=== PATIENT | female | born 1945 | race Caucasian/White ===

== ENCOUNTER → 2017-10-11 15:36 | Outpatient (CLI) | payer MEDICARE, OTHER, SELFPAY ==
--- NOTE | 2017-10-11 15:41 | HPBD_ITS ---
STUDY: DUAL ENERGY X-RAY ABSORPTIOMETRY / DXA REASON FOR EXAM: Female, 72 years old. The patient is postmenopausal. Loss of height. TECHNIQUE: Bone Mineral Density (BMD) measurements of lumbar spine and bilateral hips were obtained. COMPARISON: Comparison is made with prior study dated October 05, 2015. FINDINGS: Lumbar Spine (L1-L4): g/cm2 (1.025) / T-score (-1.5) / Z-score (0.2) Findings are suggestive of osteopenia with a moderate fracture risk. Left Femur Total: g/cm2 (0.712) / T-score (-2.3) / Z-score (-0.9) Left Femoral Neck: g/cm2 (0.592) / T-score (-3.2) / Z-score (-1.5) Right Femur Total: g/cm2 (0.742) / T-score (-2.1) / Z-score (-0.6) Right Femoral Neck: g/cm2 (0.679) / T-score (-2.6) / Z-score (-0.9) The T-Scores on the most recent prior examination were: Lumbar Spine (L1-L4): There has been worsening of bone density since the previous examination. Left Femur Total: which represents a worsening of 9.6%. Right Femur Total: which represents a worsening of 7.0%. HPBD/Dexa Bone Density Study (HP) IMPRESSION: The patient is considered osteoporotic as outlined below according to World [place] Organization (WHO) criteria with a high fracture risk. There has been worsening of bone density since the previous examination. Reference Information: The T-score is the number of standard deviations above or below the standard which is normal for young adults at their peak bone mineral density. The World Health Organization (WHO) interprets the T-scores as follows: Above -1 Normal bone density Between -1 and -2.5 Osteopenia Equal to / or below -2.5 Osteoporosis As a practical clinical guideline, osteopenia may be graded as follows: Mild -1 through -1.5 Moderate -1.6 through -2.0 Severe -2.1 through -2.4 The Z-score is the number of standard deviations above or below age-matched controls. A Z-score of less than -1.5 would be considered abnormal. References: 1. NIH Osteoporosis and Related Bone Diseases http://www.osteo.org 2. International Society for Clinical Densitometry http://www.iscd.org 3. National Osteoporosis Foundation http://www.nof.org Electronically Signed: Gerald Mg MD at 10:57 EDT Tel [phone], Service support ,
== END ==
PROVIDERS: Family Provider Family Medicine Geriatric Medicine; PCP Family Medicine Geriatric Medicine; Visit Provider Family Medicine Geriatric Medicine
DX: M81.0 Age-related osteoporosis without current pathological fracture (principal); Z78.0 Asymptomatic menopausal state
CPT/HCPCS: 77080

== ENCOUNTER → 2017-10-19 16:35 | Outpatient (CLI) | payer MEDICARE, OTHER, SELFPAY | PROVIDERS: Family Provider Family Medicine Geriatric Medicine; PCP Family Medicine Geriatric Medicine; Visit Provider Obstetrics & Gynecology | DX: R30.0 Dysuria (principal) | CPT/HCPCS: 87086; 87088; 87186 ==

== ENCOUNTER → 2017-11-19 12:36 | Outpatient (CLI) | payer MEDICARE, OTHER, SELFPAY ==
--- NOTE | 2017-11-19 12:46 | RAD_ITS ---
STUDY: X-RAY - LEFT SHOULDER REASON FOR EXAM: Female, 72 years old. Left shoulder pain for 1 month numbness pain left arm TECHNIQUE: 4 view(s) of the shoulder. COMPARISON: None. FINDINGS: There is mild degenerative arthrosis of the glenohumeral articulation. Normal acromioclavicular joint. Normal acromion. There is a well-circumscribed calcific density in the proximal left humerus measuring 2.8 mm. The soft tissue structures are unremarkable. There are multiple calcific densities within the superior aspect of the left apex. There are visualized emphysematous blebs in the left lung. RAD/Shoulder min 2 Views IMPRESSION: Findings suspicious for old granulomatous disease of the left chest. Findings suspicious for emphysematous change apex. Mild Degenerative change glenohumeral joint. No visualized evidence of an acute fracture. Benign calcific density the soft tissues or left humerus. Electronically Signed: Alicia Higgins MD at 16:57 EDT Tel , Service support ,
== END ==
PROVIDERS: Family Provider Family Medicine Geriatric Medicine; PCP Family Medicine Geriatric Medicine; Visit Provider Family Medicine Geriatric Medicine
DX: M19.012 Primary osteoarthritis, left shoulder (principal)
CPT/HCPCS: 73030

== ENCOUNTER → 2017-11-24 06:44 | Outpatient (CLI) | payer MEDICARE, OTHER, SELFPAY ==
--- NOTE | 2017-11-24 06:56 | CT_ITS ---
STUDY: CT CHEST WITHOUT CONTRAST REASON FOR EXAM: Female, 72 years old. Abnormal chest x-ray left arm pain Granulomatous disease. Occasional shortness of breath. RADIATION DOSAGE (If Supplied By Facility): CTDIvol = ( 8.05 ) mGy, DLP = ( 267.57 ) mGycm TECHNIQUE: Transaxial imaging was performed without the administration of intravenous contrast material. Multiplanar coronal and sagittal images were reformatted. Individualized dose optimization techniques were used for this CT. July 14, 2013 chest x-ray COMPARISON: November 09, 2016 chest x-ray FINDINGS: There is an asymmetric nodular appearance of the inferior aspect of the thyroid measuring 1.5 x 1.0 cm. There is persistent bilateral peripheral pleural nodular thickening containing coarse calcification similar to the prior studies. Within the periphery of the left upper lobe there is a peripheral nodular focus without calcification measuring 1.1 x 0.9 cm. This area is likely the peripheral nodular thickening seen July 14, 2013 on the chest x-ray as well as the November 09, 2016 study. There is trace bilateral pleural thickening at the lung bases. There is stable focal nodular thickening in the right apex and periphery that measures 0.9 x 0.9 cm. There is peripheral nodular thickening within the right middle lobe also similar to the remote prior study measuring 5.3 mm. There is no focal consolidation or pleural effusion. There is no significant bronchiectasis or areas of emphysematous change. There is mild cardiac enlargement. There are partially calcified lymph nodes present is a precarinal lymph node measuring 1.3 x 1.1 cm. And multiple subcentimeter prevascular lymph nodes present. Punctate calcifications in the left hilum associated with a lymph node measuring up to 1.0 x 1.0 cm. Normal unenhanced pulmonary arteries. Aorta is tortuous. The bones are osteopenic. There is multilevel spondylosis. There is either calcification or postoperative change allowing for artifact near the gastroesophageal junction. There is degenerative change in the bilateral glenohumeral joints. There are left-sided peripelvic cysts. There is a punctate parenchymal calcification in the left kidney. CT/Chest without Contrast IMPRESSION: Findings are most consistent with peripheral nodular calcification and pleural thickening associated with old granulomatous disease possible prior asbestos exposure. Given the nodular component recommend 6 months follow-up to ensure stability. Mild cardiomegaly. Nodular appearance of the inferior aspect of the right thyroid recommend further evaluation with thyroid ultrasound when clinically appropriate. Left-sided renal peripelvic cysts. Punctate peripheral right renal calcification. Degenerative change thoracolumbar spine bilateral glenohumeral joints. Electronically Signed: Alicia Higgins MD at 9:03 EDT Tel , Service support ,
== END ==
PROVIDERS: Family Provider Family Medicine Geriatric Medicine; PCP Family Medicine Geriatric Medicine; Visit Provider Family Medicine Geriatric Medicine
DX: L98.0 Pyogenic granuloma (principal)
CPT/HCPCS: 71250

== ENCOUNTER → 2017-12-04 10:47 | Outpatient (CLI) | payer MEDICARE, OTHER, SELFPAY ==
--- NOTE | 2017-12-04 10:49 | US_ITS ---
STUDY: THYROID ULTRASOUND REASON FOR EXAM: Female, 72 years old. Follow-up of the thyroid after abnormal CT TECHNIQUE: Ultrasound evaluation of the thyroid was performed with real-time and static parekh-scale imaging. COMPARISON: CT of the chest dated November 24, 2017. FINDINGS: RIGHT LOBE: The right lobe of the thyroid gland measures 4.6 x 1.5 x 1.7 cm. There is a homogeneous echotexture. There are multiple cystic lesions in the right lobe of thyroid. The largest cystic lesion measures 9.1 x 3.8 x 6.6 mm. There is a heterogeneously echogenic solid lesion within the lower pole the right lobe of thyroid measuring 8.1 x 6.0 x 7 mm in size. There are several other solid lesions with the largest measuring up to 9.8 x 5.0 x 7.7 mm. There are smaller cystic lesions measuring up to 3 mm in size. LEFT LOBE: The left lobe of the thyroid gland measures 3.5 x 1.1 x 1.3 cm. There is a heterogeneous echotexture. There is a cystic lesion within the left lobe of thyroid measuring 5.6 x 3.4 x 3.0 mm. A second cyst measures 8.2 x 3.8 x 5.2 mm. ISTHMUS: The isthmus measures 2 millimeters. The regional lymph nodes are normal. US/Thyroid IMPRESSION: Right-sided thyroid nodules, as described. Electronically Signed: Patricia Loza MD at 9:36 EDT , Service support ,
== END ==
PROVIDERS: Family Provider Family Medicine Geriatric Medicine; PCP Family Medicine Geriatric Medicine; Visit Provider Family Medicine Geriatric Medicine
DX: E04.1 Nontoxic single thyroid nodule (principal)
CPT/HCPCS: 76536

== ENCOUNTER → 2018-02-08 12:30 | Outpatient (CLI) | payer MEDICARE, OTHER, SELFPAY | PROVIDERS: Family Provider Family Medicine Geriatric Medicine; PCP Family Medicine Geriatric Medicine; Visit Provider Family Medicine Geriatric Medicine | DX: R68.83 Chills (without fever) (principal) | CPT/HCPCS: 87633 ==

== ENCOUNTER → 2018-03-11 12:52 | Outpatient (CLI) | payer MEDICARE, OTHER, SELFPAY | PROVIDERS: Family Provider Family Medicine Geriatric Medicine; PCP Family Medicine Geriatric Medicine; Visit Provider Obstetrics & Gynecology | DX: Z12.31 Encounter for screening mammogram for malignant neoplasm of breast (principal) | CPT/HCPCS: 77063; 77067 ==

== ENCOUNTER → 2018-05-28 15:38 | Outpatient (CLI) | payer MEDICARE, OTHER, SELFPAY ==
--- NOTE | 2018-05-28 15:40 | CT_ITS ---
STUDY: CT CHEST WITH CONTRAST REASON FOR EXAM: Female, 73 years old. Solitary pulmonary nodule follow-up. RADIATION DOSAGE (If Supplied By Facility): CTDIvol = ( 11.96 ) mGy, DLP = ( 252.34 ) mGycm TECHNIQUE: Transaxial 2.5 mm imaging was performed following intravenous administration of 100 ml of Isovue 300 contrast material. Multiplanar coronal and sagittal images were reformatted. Individualized dose optimization techniques were used for this CT. COMPARISON: CT chest 11/24/2017. FINDINGS: Bilateral apical pleural thickening and stranding associated with punctate calcification, numerous bilateral scattered parenchymal nodules. There is a stable pleural-based right middle lobe nodule 0.5 cm. There are linear interstitial changes in the lung bases as on previous examination felt to be secondary to scarring. There is minor compression of the dependent parenchyma. Stable mild pleural thickening left lower thorax. There is borderline cardiomegaly. There are multiple mediastinal lymph nodes some of which are borderline in size, some of which are partially calcified, seen to a similar degree on previous examination.. There is wall thickening of the esophagus. Surgical changes at the gastroesophageal junction. Normal hilar regions. Normal enhanced pulmonary arteries. Normal aorta arch and descending thoracic aorta. There are multi-level degenerative changes of the thoracic spine. There is demineralization of osseous structures. Levoscoliosis of the thoracolumbar spine. There are left renal cysts. Normal adrenal glands. CT/Chest WITH Contrast IMPRESSION: Multiple nodular and linear interstitial changes with peripheral calcification frequently seen post inflammation such as granulomatous exposure, differential diagnosis asbestos exposure. There are stable multiple noncalcified parenchymal nodules, borderline sized mediastinal lymph nodes some of which are calcified. No new masses or suspicious lesions detected. No pulmonary edema, congestive heart failure or confluent pneumonia. Stable degenerative changes, osteopenia, borderline cardiac size, postsurgical changes, mild pleural thickening, mild wall prominence of the esophagus and scoliosis. CT Follow-Up of Small Pulmonary Nodules Nodule size is average of length and width. Nodule size. Low risk patient. Non smoking history. <4mm No follow-up needed (risk of malignancy <1%) 4-6mm Follow up CT at 12 months, if unchanged, no further imaging needed. 6-8mm Initial follow up at 6-12 month, then at 18-24 months if no changes. > 8mm Follow-up CT at 3, 9, and 24 months, dynamic contrast CT, PET and /or biopsy. Nodule size. High risk patients. Smoking history. <4mm Follow-up 12 months: if unchanged, no further follow-up. 4-6mm Initial follow-up at 6-12 months,then at 18-24 months if no change. 6-8mm Initial follow-up at 3-6months, then at 9-12 and 24 months if no change. >8mm Same as for low risk patient. [employer] STATEMENT Electronically Signed: Diamond Hassan MD at 7:31 EDT , Service support ,
[2018-05-28 15:56] LABS: CREATININE FINGERSTICK 0.9 mg/dL (0.55-1.02); EGFR FINGERSTICK > 60.0000 mL/min (>60)
== END ==
PROVIDERS: Family Provider Family Medicine Geriatric Medicine; PCP Family Medicine Geriatric Medicine; Referring Provider Family Medicine Geriatric Medicine; Visit Provider Family Medicine Geriatric Medicine
DX: R91.8 Other nonspecific abnormal finding of lung field (principal)
CPT/HCPCS: 71260; Q9967

== ENCOUNTER → 2018-06-28 09:50 | Outpatient (CLI) | payer MEDICARE, OTHER, SELFPAY ==
[2018-06-28 12:22] LABS: Absolute Lymphocyte Count 1.22 X10^3/ul (0.83-4.51); Absolute Neutrophil Count 3.4 X10^3/uL (2.0-7.7); Basophil# 0.03 X10^3/uL; Basophil% 0.6 % (0-1); Eosinophil# 0.14 X10^3/uL; Eosinophils% 2.6 % (0-5); Hematocrit 40.7 % (37-47); Hemoglobin 13.3 g/dl (12.0-15.0); Lymphocyte # 1.22 X10^3/ul (4.0); Lymphocyte % 22.4 % (19-41); Mean Corp Hgb Conc 32.7 g/gl (32-36); Mean Corpuscular Hgb 30.5 pg (27.0-32.0); Mean Corpuscular Volume 93.3 fL (81-99); Monocyte# 0.68 X10^3/uL; Monocyte% 12.5 % (0-10); Neutrophil # 3.37 X10^3/uL (2.7-7.7); Neutrophil % 61.9 % (47-70); Platelet Count 202 K/mm3 (150-450); RBC Distribution Width CV 12.8 % (11.6-14.6); RBC Distribution Width SD 42.5 fl (35.1-43.9); Red Blood Count 4.36 M/mm3 (4.2-5.4); White Blood Count 5.4 K/mm3 (4.4-11.0)
[2018-06-28 12:28] LABS: POSITIVE COUNT NO; POSITIVE DIFFERENTIAL NO; POSITIVE MORPHOLOGY NO
[2018-06-28 12:30] LABS: Vitamin D,25 Hydroxy 55.7 ng/mL (29.95-100.01)
[2018-06-28 12:45] LABS: ALB/GLOB Ratio 0.9 RATIO (0.9-2.4); AST(SGOT) 15 U/L (15-37); Alanine Aminotransfer ALT/SGPT 22 U/L (13-56); Albumin, Serum 3.5 g/dL (3.2-5.0); Alkaline Phosphatase 54 U/L (45-117); Anion Gap 8 (5-15); BUN 20 mg/dL (7-18); Calcium,Total 9.4 mg/dL (8.5-10.1); Chloride 104 mmol/L (98-107); Creatinine, Serum 0.84 mg/dL (0.55-1.02); EST Glomerular Filtration Rate 72 mL/min (>60); Est Glom Filt Rate - Afr Amer 87 mL/min (>60); Globulin 3.8 g/dL (2.2-4.2); Glucose 80 mg/dL (74-106); Protein, Total 7.3 g/dL (6.4-8.2); Sodium Level 140 mmol/L (136-145); Thyroid Stim Hormone (TSH) 2.07 uIU/mL (0.358-3.74)
--- OUTSIDE RECORDS SUMMARY | 2018-08-23 04:51 | XMS RPT_ITS ---
:1945 Author Organization OHIP Support Name Relationship Address Phone MANDY LION Unavailable [address] + [place] [address] S Unavailable Unavailable Unavailable MANDY LION Unavailable [address] + [place] [address] S Unavailable Unavailable Unavailable MANDY LION Unavailable [address] + [place] [address] S Unavailable Unavailable Unavailable MANDY LION Unavailable [address] + [place] [address] S Unavailable Unavailable Unavailable MANDY LION Unavailable [address] + [place] [address] S Unavailable Unavailable Unavailable MANDY LION Unavailable [address] + [place] [address] S Unavailable Unavailable Unavailable MANDY LION Unavailable [address] + [place] [address] S Unavailable Unavailable Unavailable MANDY LION Unavailable [address] + [place] [address] S Unavailable Unavailable Unavailable MANDY LION Unavailable [address] + [place] [address] S Unavailable Unavailable Unavailable MANDY LION Unavailable [address] + [place] [address] S Unavailable Unavailable Unavailable MANDY LION Unavailable [address] + [place] [address] S Unavailable Unavailable Unavailable MANDY LION Unavailable [address] + [place] [address] S Unavailable Unavailable Unavailable MANDY LION Unavailable [address] + [place] [address] S Unavailable Unavailable Unavailable Care Team Providers Name Role Phone Aleta Goldman Attending Unavailable Willis, Deondre Chi Primary Care Unavailable Willis, Deondre Chi Attending Unavailable Willis, Deondre Chi Primary Care Unavailable Willis, Deondre Chi Attending Unavailable Willis, Deondre Chi Primary Care Unavailable Willis, Deondre Chi Referring Unavailable MarcanthonyRicardoon Attending Unavailable Willis, Deondre Chi Primary Care Unavailable Willis, Deondre Chi Attending Unavailable Willis, Deondre Chi Referring Unavailable Willis, Deondre Chi Primary Care Unavailable MarcanthonyAngi Attending Unavailable Willis, Deonrde Chi Referring Unavailable Willis, Deondre Chi Attending Unavailable Willis, Deondre Chi Referring Unavailable Willis, Deondre Chi Primary Care Unavailable Willis, Deondre Chi Attending Unavailable Willis, Deondre Chi Primary Care Unavailable Willis, Deondre Chi Attending Unavailable Willis, Deondre Chi Primary Care Unavailable Marcanthony Angi Attending Unavailable Willis, Deondre Chi Primary Care Unavailable MarcanthonyRicardoon Referring Unavailable MarcanthonyRicardoon Attending Unavailable Willis, Deondre Chi Referring Unavailable Willis, Deondre Chi Attending Unavailable Willis, Deondre Chi Referring Unavailable Willis, Deondre Chi Primary Care Unavailable [place], Aleta Attending Unavailable Willis, Deondre Chi Referring Unavailable PROBLEMS PROBLEMS DATE TYPE CONDITION / CODE ATTENDING STATUS SOURCE 07/16/2018 Unknown N39.0 - Urinary Susi, Aleta Active [place] tract infection, Community site not specified Hospital / N39.0(ICD-10) Repository 07/16/2018 Unknown R35.0 - Frequency Susi, Aleta Active [place] of micturition / Community R35.0(ICD-10) Hospital Repository 02/08/2018 Unknown R68.83 - Chills Willis, Deondre Chi Active [place] (without fever) / Community R68.83(ICD-10) Hospital Repository 11/24/2017 Unknown L98.0 - Pyogenic Willis, Deondre Chi Active [place] granuloma / Community L98.0(ICD-10) Hospital Repository 10/22/2017 Unknown R30.0 - Dysuria / Marcanthony, Active [place] R30.0(ICD-10) [facility] Repository 10/11/2017 Unknown Z78.0 - Willis, Deondre Chi Active [place] Asymptomatic Community menopausal state / Hospital Z78.0(ICD-10) Repository PROCEDURES PROCEDURES No Procedure Records FoundRESULTS RESULTS SHELTER DIRECTOR OFFICE VISIT Observed: 07/16/2018 Status: F Source: [place] REPORT 2:09 PM [facility] [place] [facility] [address] [place] [address] OFFICE VISIT Date of Service: 07/16/18 MR#: [id number] Acct: [id number] Name: KALPANA LION Rep #: [id number] : 1945 Provider: GURPREET Goldman Age/Sex: 73/F Location: [facility] Status: Signed Intake Vital Signs07/16/18 Height 5 ft 2.75 in 07/16/18 Weight: 143 lb 8 oz 07/16/18 Body Mass Index (BMI) 25.6 07/16/18 Blood Pressure 110/78 Intake Visit Reasons: Urinary frequency x6 months 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 Is patient in pain?: No Allergies nut - unspecified Allergy (Verified 07/16/18 13:39) Anaphylaxis procaine HCl [From Novocain] Allergy (Verified 07/16/18 13:39) Angioedema acetaminophen [From Vicodin] Adverse Reaction (Verified 07/16/18 13:39) Other alprazolam [From Xanax] Adverse Reaction (Verified 07/16/18 13:39) Other amoxicillin Adverse Reaction (Verified 07/16/18 13:39) Other hydrocodone bitartrate [From Vicodin] Adverse Reaction (Verified 07/16/18 13:39) Other metaxalone [From Skelaxin] Adverse Reaction (Verified 07/16/18 13:39) Other nabumetone Adverse Reaction (Verified 07/16/18 13:39) Other prednisone Adverse Reaction (Verified 07/16/18 13:39) Other NOVICANE Allergy (Uncoded 11/10/15 12:51) Angioedema Medications cholecalciferol (vitamin D3) 1,000 unit capsule 1,000 unit PO DAILY 07/16/18 [History Confirmed 07/16/18] citalopram 10 mg tablet 10 mg PO DAILY 07/16/18 [History Confirmed 07/16/18] cyanocobalamin (vitamin B-12) 1,000 mcg capsule 1,000 mcg PO DAILY 07/16/18 [History Confirmed 07/16/18] Is last menstrual period known: No Post menopausal: No Patient : No : No [facility] Medical History Acute hemorrhoid (Acute) Spinal stenosis (Acute) Surgical History History of tonsillectomy and adenoidectomy (Acute) Social History number of children: 2 other: children are step-children Smoking Status: Former smoker how long ago did patient quit smokin alcohol intake: current alcohol intake frequency: holidays/special occasions only substance use type: does not use seatbelt use: always do you feel safe at home: Yes HPI Urinary frequency x6 months: Details: KALPANA LION is a 73 year old who presents for urinary frequency X 6 months. States that she feels urge to go every 1-3 hours and sometimes only goes small amounts. Gets up at night 1-2 times. States that if she sees a restroom has urge to go. States rarely has incontinence. Denies dysuria or vaginal symptoms Pregancy History 0 Elective abortions Hx Para Spontaneous abortions Assessment AND Plan Problems 1. Urinary frequency R35.0 Plan Urine culture sent-call results Discussed bladder training, use of ditropan(risks, side effects, benefits) She wishes to defer mediation 15 min FTF counseling with patient. Orders Orders: Coding Level of Care Code Off vis,est,level 3 Diagnoses Urinary frequency R35.0 07/16/18 1409 <Electronically signed by Aleta KAY> Date Aleta KAY Cosigner Signature: Date (if applicable) CC: CBC W/DIFF, AUTOMATED Collected: 06/28/2018 Status: F Source: [place] 9:52 AM [facility] [place] TYPE CODE TESTS RESULT OUT OF RANGE REFERENCE UNITS LAB L100.1000 4.4-11.0 K/mm3 Normal WBC 5.4 LAB L100.1200 4.2-5.4 M/mm3 Normal RBC 4.36 LAB L100.1300 12.0-15.0 g/dl Normal HGB 13.3 LAB L100.1400 37-47 % Normal HCT 40.7 LAB L100.1500 81-99 fL Normal MCV 93.3 LAB L100.1600 27.0-32.0 pg Normal MCH 30.5 LAB L100.1700 32-36 g/gl Normal MCHC 32.7 LAB L100.1810 11.6-14.6 % Normal RDW CV 12.8 LAB L100.1820 35.1-43.9 fl Normal RDW SD 42.5 LAB L100.1900 150-450 K/mm3 Normal PLT 202 LAB L100.2000 6.2-12.0 fl Normal MPV 11.0 LAB L100.2100 47-70 % Normal NEUT% 61.9 LAB L100.2200 19-41 % Normal LY% 22.4 LAB L100.2300 0-10 % High MONO% 12.5 LAB L100.2400 0-5 % Normal EO% 2.6 LAB L100.2500 0-1 % Normal BASO% 0.6 LAB L100.2550 0.0-0.9 % Normal IM GRAN % 0.000 Result Comment: IG% - Immature Granulocytes (promyelocytes, myelocytes and metamyelocytes) > 1% indicates that a LEFT SHIFT is Present. LAB L100.2620 2.0-7.7 X10 3/uL Normal Absolute Neut 3.4 LAB L100.2720 0.83-4.51 X10 3/ul Normal Absolute Lymph 1.22 Performed By: #### L100.0100 #### [facility] [address] [place] [address]. [place], [place], [id number] VITAMIN D,25 HYDROXY Collected: 06/28/2018 Status: F Source: [place] 9:52 AM [facility] [place] TYPE CODE TESTS RESULT OUT OF RANGE REFERENCE UNITS LAB L506.1000 29.95-100.01 ng/mL Normal Vitamin D 55.7 25-OH Result Comment: Vitamin D 25(OH) Status Range Deficiency <20 ng/mL (50nmol/L) Insuffciency 20 - 30 ng/mL (50 - 75 nmol/L) Sufficiency 30 - 100 ng/mL (75 - 250 nmol/L) Toxicity >100 ng/mL (>250 nmol/L) Performed By: #### L506.1000 #### [facility] [place], [address] COMPREHENSIVE METABOLIC Collected: 06/28/2018 Status: F Source: [place] 9:52 AM [facility] [place] TYPE CODE TESTS RESULT OUT OF RANGE REFERENCE UNITS LAB L501.0100 74-106 mg/dL Normal GLU 80 Result Comment: Please note revised GLUCOSE reference range effective 2017. LAB L501.1000 7-18 mg/dL High BUN 20 LAB L501.1100 0.55-1.02 mg/dL Normal CREAT,SERUM 0.84 Result Comment: The validity of the calculated GFR AND GFRAA in patients over 70 years has not been determined. Clinical correlation is essential. LAB L501.1110 >60 mL/min Normal EST GFR 72 Result Comment: Non- GFR Calc LAB L501.1115 >60 mL/min Normal EST GFR - AA 87 Result Comment: GFR Calc LAB L501.1300 10-20 RATIO High BUN/CRE 24.0 LAB L501.1500 6.4-8.2 g/dL T Normal PROT 7.3 LAB L501.1800 3.2-5.0 g/dL Normal ALB 3.5 LAB L501.1950 2.2-4.2 g/dL Normal GLOB 3.8 LAB L501.2000 0.9-2.4 RATIO Normal A/G 0.9 LAB L501.2200 8.5-10.1 mg/dL CA Normal 9.4 LAB L501.4100 15-37 U/L Normal AST 15 LAB L501.4305 45-117 U/L Normal ALK P 54 LAB L501.4405 13-56 U/L Normal ALT 22 LAB L501.4600 0.20-1.00 mg/dL T Normal BILI 0.40 LAB L501.5300 136-145 mmol/L NA Normal 140 LAB L501.5600 3.5-5.1 mmol/L K Normal 4.0 LAB L501.5900 98-107 mmol/L CL Normal 104 LAB L501.6100 21.0-32.0 mmol/L Normal CO2 28.0 LAB L501.6200 5-15 Normal GAP 8 Performed By: #### L500.4050, L501.9520 #### [facility] [address] [place], [address] THYROID STIM HORMONE Collected: 06/28/2018 Status: F Source: [place] (TSH) 9:52 AM [facility] [place] TYPE CODE TESTS RESULT OUT OF RANGE REFERENCE UNITS LAB L501.9520 0.358-3.74 uIU/mL Normal TSH 2.07 Performed By: #### L500.4050, L501.9520 #### [facility] [address] [place], [address] CREATININE FINGERSTICK Collected: 05/28/2018 Status: F Source: [place] 3:50 PM [facility] [place] [facility] TYPE CODE TESTS RESULT OUT OF RANGE REFERENCE UNITS LAB L9100.0210 0.55-1.02 mg/dL Normal CREATININE WB 0.9 LAB L9100.0220 >60 mL/min EGFR WB Normal > 60.0000 Performed By: #### L9100.0200 #### [facility] Point of Care [address] [place] [address] CHEST WITH CONTRAST Observed: 05/28/2018 Status: F Source: [place] 3:41 PM [facility] [place] [facility] Imaging Services [address] [place] [address] Chest WITH Contrast MR#: [id number] Acct: [id number] Name: KALPANA LION Rep #: [id number] : 1945 F 73 From: Diamond Hassan MD PCP: Deondre Pedro MD, Chi Status: REG CLI Study: Chest WITH Contrast Date of Exam: 05/28/18 Exam# [id number] Ordering Dr: Deondre Pedro MD STUDY: CT CHEST WITH CONTRAST REASON FOR EXAM: Female, 73 years old. Solitary pulmonary nodule follow-up. RADIATION DOSAGE (If Supplied By Facility): CTDIvol = ( 11.96 ) mGy, DLP = ( 252.34 ) mGycm TECHNIQUE: Transaxial 2.5 mm imaging was performed following intravenous administration of 100 ml of Isovue 300 contrast material. Multiplanar coronal and sagittal images were reformatted. Individualized dose optimization techniques were used for this CT. COMPARISON: CT chest 11/24/2017. FINDINGS: Bilateral apical pleural thickening and stranding associated with punctate calcification, numerous bilateral scattered parenchymal nodules. There is a stable pleural-based right middle lobe nodule 0.5 cm. There are linear interstitial changes in the lung bases as on previous examination felt to be secondary to scarring. There is minor compression of the dependent parenchyma. Stable mild pleural thickening left lower thorax. There is borderline cardiomegaly. There are multiple mediastinal lymph nodes some of which are borderline in size, some of which are partially calcified, seen to a similar degree on previous examination.. There is wall thickening of the esophagus. Surgical changes at the gastroesophageal junction. Normal hilar regions. Normal enhanced pulmonary arteries. Normal aorta arch and descending thoracic aorta. There are multi-level degenerative changes of the thoracic spine. There is demineralization of osseous structures. Levoscoliosis of the thoracolumbar spine. There are left renal cysts. Normal adrenal glands. CT/Chest WITH Contrast IMPRESSION: Multiple nodular and linear interstitial changes with peripheral calcification frequently seen post inflammation such as granulomatous exposure, differential diagnosis asbestos exposure. There are stable multiple noncalcified parenchymal nodules, borderline sized mediastinal lymph nodes some of which are calcified. No new masses or suspicious lesions detected. No pulmonary edema, congestive heart failure or confluent pneumonia. Stable degenerative changes, osteopenia, borderline cardiac size, postsurgical changes, mild pleural thickening, mild wall prominence of the esophagus and scoliosis. CT Follow-Up of Small Pulmonary Nodules Nodule size is average of length and width. Nodule size. Low risk patient. Non smoking history. <4mm No follow-up needed (risk of malignancy <1%) 4-6mm Follow up CT at 12 months, if unchanged, no further imaging needed. 6-8mm Initial follow up at 6-12 month, then at 18-24 months if no changes. > 8mm Follow-up CT at 3, 9, and 24 months, dynamic contrast CT, PET and /or biopsy. Nodule size. High risk patients. Smoking history. <4mm Follow-up 12 months: if unchanged, no further follow-up. 4-6mm Initial follow-up at 6-12 months,then at 18-24 months if no change. 6-8mm Initial follow-up at 3-6months, then at 9-12 and 24 months if no change. >8mm Same as for low risk patient. [employer] STATEMENT Electronically Signed: Diamond Hassan MD at 7:31 EDT , Service support , CC: Denodre Pedro MD Sdc Teacher: Signed SCREENING MAMM (CAD), Observed: 03/11/2018 Status: F Source: [place] BIL 12:54 PM [facility] [place] [facility] Imaging Services [address] [place] [address] SCREENING MAMM (CAD), BILAT MR#: [id number] Acct: [id number] Name: KALPANA LION Rep #: [id number] : 1945 F 72 From: Gerald Mg MD PCP: Willis WALLACE,Deondre Bill Status: REG CLI Study: SCREENING MAMM (CAD), BILAT Date of Exam: 03/11/18 Exam# [id number] Ordering Dr: Angi Rasmussen MD MAMMOGRAPHY - BILATERAL SCREENING REASON FOR EXAM: Female, 72 years old. Routine annual screening examination. PERTINENT HISTORY: Non-contributory. TECHNIQUE: Digital bilateral breast brian (3D mammographic acquisition) in the CC and MLO projections. 2-D mediolateral oblique (MLO) and craniocaudad (CC) views of both breasts were obtained. CAD: Full Field Digital Mammography with Computer Added Detection was performed. COMPARISON: Comparison is made with prior study dated March 09, 2017. FINDINGS: Breast Composition: The breasts are heterogeneously dense, which may obscure small masses. There are no dominant masses or suspicious calcifications. No other significant abnormalities are identified. There has been no significant change since the prior study. BI/SCREENING MAMM (CAD), BILAT IMPRESSION: Stable bilateral screening mammogram. Yearly follow-up mammogram recommended. (A) ASSESSMENT CATEGORY: BIRADS Category 1: Negative. A letter regarding these results will be sent to the patient by the facility within 30 days. Approximately 10% of breast cancers are not detected by mammography. A normal mammogram should not delay biopsy of a clinically suspicious abnormality. [id number] Electronically Signed: Gerald Mg MD at 8:41 EDT Tel [phone], Service support , CC: Angi Rasmussen MD; Deondre Pedro MD Sdc Teacher: Signed Observed: 02/08/2018 Status: F Source: [place] RESPIRATORY PANEL 12:45 PM [facility] [place] [facility] RP PANEL ADENOVIRUS Not Detected HUMAN METAPHNEUMO Not Detected INFLUENZA A Not Detected INFLUENZA A (SUBTYPE H1) Not Detected INFLUENZA A (SUBTYPE H3) Not Detected INFLUENZA B Not Detected PARAINFLUENZA 1 Not Detected PARAINFLUENZA 2 Not Detected PARAINFLUENZA 3 Not Detected PARAINFLUENZA 4 Not Detected RHINOVIRUS Not Detected RSV A Not Detected RSV B Not Detected NAAT METHOD Testing was performed using nucleic acid amplification Performed By: #### M100.638 #### [facility] [address] [place] [address]. [place], [address] THYROID Observed: 12/04/2017 Status: F Source: [place] 10:49 AM [facility] [place] [facility] Imaging Services [address] [place] [address] Thyroid MR#: [id number] Acct: [id number] Name: LIONKALPANA Leigh Ann Rep #: [id number] : 1945 F 72 From: Patricia Loza MD PCP: Willis WALLACE,Deondre Bill Status: REG CLI Study: Thyroid Date of Exam: 12/04/17 Exam# [id number] Ordering Dr: Deondre Pedro MD STUDY: THYROID ULTRASOUND REASON FOR EXAM: Female, 72 years old. Follow-up of the thyroid after abnormal CT TECHNIQUE: Ultrasound evaluation of the thyroid was performed with real-time and static parekh-scale imaging. COMPARISON: CT of the chest dated November 24, 2017. FINDINGS: RIGHT LOBE: The right lobe of the thyroid gland measures 4.6 x 1.5 x 1.7 cm. There is a homogeneous echotexture. There are multiple cystic lesions in the right lobe of thyroid. The largest cystic lesion measures 9.1 x 3.8 x 6.6 mm. There is a heterogeneously echogenic solid lesion within the lower pole the right lobe of thyroid measuring 8.1 x 6.0 x 7 mm in size. There are several other solid lesions with the largest measuring up to 9.8 x 5.0 x 7.7 mm. There are smaller cystic lesions measuring up to 3 mm in size. LEFT LOBE: The left lobe of the thyroid gland measures 3.5 x 1.1 x 1.3 cm. There is a heterogeneous echotexture. There is a cystic lesion within the left lobe of thyroid measuring 5.6 x 3.4 x 3.0 mm. A second cyst measures 8.2 x 3.8 x 5.2 mm. ISTHMUS: The isthmus measures 2 millimeters. The regional lymph nodes are normal. US/Thyroid IMPRESSION: Right-sided thyroid nodules, as described. Electronically Signed: Patricia Loza MD at 9:36 EDT , Service support , CC: Deondre Pedro MD Sdc Teacher: Signed CHEST WITHOUT Observed: 11/24/2017 Status: F Source: [place] CONTRAST 6:56 AM [facility] [place] [facility] Imaging Services [address] [place] [address] Chest without Contrast MR#: [id number] Acct: [id number] Name: KALPANA LION Rep #: [id number] : 1945 F 72 From: Alicia Higgins MD PCP: Willis WALLACE,Deondre Bill Status: REG CLI Study: Chest without Contrast Date of Exam: 11/24/17 Exam# [id number] Ordering Dr: Deondre Pedro MD STUDY: CT CHEST WITHOUT CONTRAST REASON FOR EXAM: Female, 72 years old. Abnormal chest x- ray left arm pain Granulomatous disease. Occasional shortness of breath. RADIATION DOSAGE (If Supplied By Facility): CTDIvol = ( 8.05 ) mGy, DLP = ( 267.57 ) mGycm TECHNIQUE: Transaxial imaging was performed without the administration of intravenous contrast material. Multiplanar coronal and sagittal images were reformatted. Individualized dose optimization techniques were used for this CT. July 14, 2013 chest x-ray COMPARISON: November 09, 2016 chest x-ray FINDINGS: There is an asymmetric nodular appearance of the inferior aspect of the thyroid measuring 1.5 x 1.0 cm. There is persistent bilateral peripheral pleural nodular thickening containing coarse calcification similar to the prior studies. Within the periphery of the left upper lobe there is a peripheral nodular focus without calcification measuring 1.1 x 0.9 cm. This area is likely the peripheral nodular thickening seen July 14, 2013 on the chest x-ray as well as the November 09, 2016 study. There is trace bilateral pleural thickening at the lung bases. There is stable focal nodular thickening in the right apex and periphery that measures 0.9 x 0.9 cm. There is peripheral nodular thickening within the right middle lobe also similar to the remote prior study measuring 5.3 mm. There is no focal consolidation or pleural effusion. There is no significant bronchiectasis or areas of emphysematous change. There is mild cardiac enlargement. There are partially calcified lymph nodes present is a precarinal lymph node measuring 1.3 x 1.1 cm. And multiple subcentimeter prevascular lymph nodes present. Punctate calcifications in the left hilum associated with a lymph node measuring up to 1.0 x 1.0 cm. Normal unenhanced pulmonary arteries. Aorta is tortuous. The bones are osteopenic. There is multilevel spondylosis. There is either calcification or postoperative change allowing for artifact near the gastroesophageal junction. There is degenerative change in the bilateral glenohumeral joints. There are left-sided peripelvic cysts. There is a punctate parenchymal calcification in the left kidney. CT/Chest without Contrast IMPRESSION: Findings are most consistent with peripheral nodular calcification and pleural thickening associated with old granulomatous disease possible prior asbestos exposure. Given the nodular component recommend 6 months follow-up to ensure stability. Mild cardiomegaly. Nodular appearance of the inferior aspect of the right thyroid recommend further evaluation with thyroid ultrasound when clinically appropriate. Left-sided renal peripelvic cysts. Punctate peripheral right renal calcification. Degenerative change thoracolumbar spine bilateral glenohumeral joints. Electronically Signed: Alicia Higgins MD at 9:03 EDT Tel , Service support , CC: Deondre Pedro MD Sdc Teacher: Signed SHOULDER MIN 2 VIEWS Observed: 11/19/2017 Status: F Source: [place] 12:46 PM [facility] [place] [facility] Imaging Services [address] [place] [address] Shoulder min 2 Views MR#: [id number] Acct: [id number] Name: KALPANA LION Rep #: [id number] : 1945 F 72 From: Alicia Higgins MD PCP: Deondre Pedro MD, Chi Status: REG CLI Study: Shoulder min 2 Views Date of Exam: 11/19/17 Exam# [id number] Ordering Dr: Deondre Pedro MD STUDY: X-RAY - LEFT SHOULDER REASON FOR EXAM: Female, 72 years old. Left shoulder pain for 1 month numbness pain left arm TECHNIQUE: 4 view(s) of the shoulder. COMPARISON: None. FINDINGS: There is mild degenerative arthrosis of the glenohumeral articulation. Normal acromioclavicular joint. Normal acromion. There is a well-circumscribed calcific density in the proximal left humerus measuring 2.8 mm. The soft tissue structures are unremarkable. There are multiple calcific densities within the superior aspect of the left apex. There are visualized emphysematous blebs in the left lung. RAD/Shoulder min 2 Views IMPRESSION: Findings suspicious for old granulomatous disease of the left chest. Findings suspicious for emphysematous change apex. Mild Degenerative change glenohumeral joint. No visualized evidence of an acute fracture. Benign calcific density the soft tissues or left humerus. Electronically Signed: Alicia Higgins MD at 16:57 EDT Tel , Service support , CC: Deondre Pedro MD Sdc Teacher: Signed OFFICE VISIT REPORT Observed: 10/24/2017 Status: F Source: [place] 2:[address] [place] [address] OFFICE VISIT Date of Service: 10/19/17 MR#: [id number] Acct: [id number] Patient: KALPANA LION Rep #: [id number] : 1945 Provider: Angi Rasmussen MD Age/Sex: 72/F Location: [facility] Status: Signed Intake Vital Signs10/19/17 Blood Pressure 104/61 Intake Visit Reasons: URINE SAMPLE Allergies nut - unspecified Allergy (Verified 10/19/17 11:00) Anaphylaxis procaine HCl [From Novocain] Allergy (Verified 10/19/17 11:00) Angioedema acetaminophen [From Vicodin] Adverse Reaction (Verified 10/19/17 11:00) Other alprazolam [From Xanax] Adverse Reaction (Verified 10/19/17 11:00) Other amoxicillin Adverse Reaction (Verified 10/19/17 11:00) Other hydrocodone bitartrate [From Vicodin] Adverse Reaction (Verified 10/19/17 11:00) Other metaxalone [From Skelaxin] Adverse Reaction (Verified 10/19/17 11:00) Other nabumetone Adverse Reaction (Verified 10/19/17 11:00) Other prednisone Adverse Reaction (Verified 10/19/17 11:00) Other NOVICANE Allergy (Uncoded 11/10/15 12:51) Angioedema Results BMS[facility] Office Urine Color YELLOW Last Edit by Cecilia Barba on 10/19/17 10:54 Office Urine Clarity Clear Last Edit by Cecilia Barba on 10/19/17 10:54 Leuk moderate Assessment AND Plan Orders Orders: 10/24/17 1444 <Electronically signed by Angi Rasmussen MD> Date Angi Rasmussen MD Cosigner Signature: Date (if applicable) CC: Observed: 10/19/2017 Status: F Source: [place] CULTURE, URINE 4:39 PM [facility] [place] Urine Culture ORGANISM 1: Presumptive E. coli [place] Count >100,000 Presumptive E. coli: REACTION Amoxacillin/Clavulanic Acid $ >=32 R Ampicillin $ >=32 R Ampicillin/Sulbactam $ >=32 R Cefazolin $ 8 S Cefepime $ <=1 S Ceftriaxone $ <=1 S Ciprofloxacin $ <=0.25 S ESBL - Ertapenim $$$ <=0.5 S Gentamicin $ <=1 S Imipenem *NF <=0.25 S Levofloxacin $ <=0.12 S Nitrofurantoin $ <=16 S Piperacillin/Tazobactam $$ 8 S Tobramycin $ <=1 S Trimethoprim/Sulfametho $ <=20 S (NF) indicates non-formulary drug at [facility]. Approval by Infectious Disease Specialist required before non-formulary drugs may be ordered and/or dispensed. Performed By: #### M100.0650 #### [facility] [address] [place], [address] DEXA BONE DENSITY Observed: 10/11/2017 Status: F Source: [place] STUDY () 3:41 PM [facility] [place] [facility] Imaging Services [address] [place] [address] Dexa Bone Density Study () MR#: [id number] Acct: [id number] Name: KALPANA LION Rep #: [id number] : 1945 F 72 From: Gerald Mg MD PCP: Deondre Pedro MD, Chi Status: REG CLI Study: Dexa Bone Density Study () Date of Exam: 10/11/17 Exam# [id number] Ordering Dr: Deondre Pedro MD STUDY: DUAL ENERGY X-RAY ABSORPTIOMETRY / DXA REASON FOR EXAM: Female, 72 years old. The patient is postmenopausal. Loss of height. TECHNIQUE: Bone Mineral Density (BMD) measurements of lumbar spine and bilateral hips were obtained. COMPARISON: Comparison is made with prior study dated October 05, 2015. FINDINGS: Lumbar Spine (L1-L4): g/cm2 (1.025) / T-score (-1.5) / Z-score (0.2) Findings are suggestive of osteopenia with a moderate fracture risk. Left Femur Total: g/cm2 (0.712) / T-score (-2.3) / Z- score (-0.9) Left Femoral Neck: g/cm2 (0.592) / T-score (-3.2) / Z- score (-1.5) Right Femur Total: g/cm2 (0.742) / T-score (-2.1) / Z- score (-0.6) Right Femoral Neck: g/cm2 (0.679) / T-score (-2.6) / Z-score (-0.9) The T-Scores on the most recent prior examination were: Lumbar Spine (L1-L4): There has been worsening of bone density since the previous examination. Left Femur Total: which represents a worsening of 9.6%. Right Femur Total: which represents a worsening of 7.0%. HPBD/Dexa Bone Density Study (HP) IMPRESSION: The patient is considered osteoporotic as outlined below according to World Torsten Organization (WHO) criteria with a high fracture risk. There has been worsening of bone density since the previous examination. Reference Information: The T-score is the number of standard deviations above or below the standard which is normal for young adults at their peak bone mineral density. The World Health Organization (WHO) interprets the T-scores as follows: Above -1 Normal bone density Between -1 and -2.5 Osteopenia Equal to / or below -2.5 Osteoporosis As a practical clinical guideline, osteopenia may be graded as follows: Mild -1 through -1.5 Moderate -1.6 through -2.0 Severe -2.1 through -2.4 The Z-score is the number of standard deviations above or below age-matched controls. A Z-score of less than -1.5 would be considered abnormal. References: 1. NIH Osteoporosis and Related Bone Diseases http://www.osteo.org 2. International Society for Clinical Densitometry http://www.iscd.org 3. National Osteoporosis Foundation http://www.nof.org Electronically Signed: Gerald Mg MD at 10:57 EDT Tel [phone], Service support , CC: Deondre Pedro MD Sdc Teacher: Signed ALLERGIES ALLERGIES DATE TYPE / CODE NAME / CODE REACTION SEVERITY SOURCE Drug procaine Angioedema Unknown [place] 8 Allergy/342879713( HCl/[id number](R [facility]) XNORM) Hospital Repository Drug hydrocodone Other Unknown [place] 8 Allergy/052853098( bitartrate/F0000 [facility]) 25004(RXNORM) Hospital Repository Drug alprazolam/F0060 Other Unknown [place] 8 Allergy/484436531( 34308(RXNORM) [facility] SNOMED CT) Hospital Repository Drug acetaminophen/F0 Other Unknown [place] 8 Allergy/184579633( 30168138(RXNORM) [facility] SNOMED CT) Hospital Repository Drug metaxalone/F0060 Other Unknown [place] 8 Allergy/163313032( 93523(RXNORM) [facility] SNOMED CT) Hospital Repository Drug prednisone/F0060 Other Unknown [place] 8 Allergy/082164397( 55304(RXNORM) [facility] SNOMED CT) Hospital Repository Drug nabumetone/F0060 Other Unknown [place] 8 Allergy/023553203( 98028(RXNORM) [facility] SNOMED CT) Hospital Repository Drug amoxicillin/F006 Other Unknown [place] 8 Allergy/895942001( 966070(RXNORM) [facility] SNOMED CT) Hospital Repository Drug nut - Anaphylaxis Unknown [place] 8 Allergy/876395315( unspecified/F006 [facility]) 588145(RXNORM) Hospital Repository Miscellaneous NOVICANE Angioedema Unknown [place] 6 Allergy/987070255( [facility] SNOMED [facility]) Hospital Repository ENCOUNTERS ENCOUNTERS ADMIT/DISCHARGE ACCOUNT ADMITTING ENCOUNTER LOCATION SOURCE NUMBER CLASS 07/16/2018 [id number] Ambulatory Ryan Ryan 2 [facility] ing:LABSPEC Repository 07/16/2018/ [id number] Ambulatory BMSBuilding:B [place] 8 8 [facility] Repository 06/28/2018 [id number] Ambulatory [place] 4 [facility] ing:POLAB3 Repository 05/28/2018 [id number] Ambulatory [place] Ryan 0 [facility] ing:CT Repository 03/11/2018 [id number] Ambulatory [place] 1 [facility] ing:OPBI Repository 02/08/2018 [id number] Ambulatory Ryan [place] 2 [facility] ing:PSN Repository 12/31/2017 [id number] Ambulatory BMSBuilding:B [place] 0 [facility] Repository 12/04/2017 [id number] Ambulatory [place] Salt[place] 6 [facility] ing:OPUS Repository 11/24/2017 [id number] Ambulatory [place] Ryan 3 [facility] ing:CT Repository 11/19/2017 [id number] Ambulatory Ryan [place] 7 [facility] ing:RAD Repository 10/19/2017 [id number] Ambulatory [place] Ryan 5 [facility] ing:LABSPEC Repository 10/19/2017/ [id number] Ambulatory BMSBuilding:B [place] 8 8 [facility] Repository 10/11/2017 [id number] Ambulatory Ryan [place] 7 [facility] ing:BD Repository PAYERS PAYERS ENCOUNTER GUARANTOR PAYER SUBSCRIBER SOURCE 07/16/2018 MANDY Ramirez Primary KALPANA F HUNTDOB: [place] [id number] [place] Insurance:MEDICARE [id number] [address]Kmg: (330) Number: Repository [phone] () [id number] Date:2018-07-16 07/16/2018 Secondary KALPANA F HUNTDOB: [place] Insurance:[id number] Number: Repository [id number] Date:7908-21-92QNSZ INS ART LIBRARIAN [address] [place] [id number]: 07/16/2018 Tertiary NOT GIVENUNK [place] Insurance:SELF PAY [facility] Number: Effective Repository Date:2018-07-16 07/16/2018 MANDY Ramirez Primary KALPANA F HUNTDOB: [place] [id number] [place] Insurance:MEDICARE [id number] [facility] [address]Gve: (330) Number: Repository [phone] () [id number] Date:2018-07-01 07/16/2018 Secondary KALPANA F HUNTDOB: [place] Insurance:[facility] [id number] Methodist Hospital Number: Repository [id number] Date:4924-09-42EJAT INS ART [place]RAR[place] [address] [place] [address]NR: 07/16/2018 Tertiary NOT GIVENUNK [place] Insurance:SELF PAY [facility] Number: Effective Repository Date:2018-07-16 06/28/2018 MANDY Ramirez Primary KALPANA F HUNTDOB: [place] [id number] [place] Insurance:[place]IC[place] [id number] PART A [facility] [address]Mqw: (330) Number: Repository [phone] () [id number] Date:2018-06-28 06/28/2018 Secondary KALPANA F HUNTDOB: [place] Insurance:[facility] [id number] Methodist Hospital Number: Repository [id number] Date:6081-35-22CDGZ INS ART [place]RAR[place] [address] [place] [address]GX: 06/28/2018 Tertiary NOT GIVENUNK [place] Insurance:SELF PAY [facility] Number: Effective Repository Date:2018-06-28 05/28/2018 MANDY Ramirez Primary KALPANA F HUNTDOB: [place] [id number] [place] Insurance:MEDICARE [id number] PART A [facility] [address]Uzw: (330) Number: Repository [phone] () [id number] Date:2018-05-22 05/28/2018 Secondary KALPANA F HUNTDOB: [place] Insurance:[facility] [id number] Methodist Hospital Number: Repository [id number] Date:2931-42-10NJSK INS ART [place]RAR[place] [address] [place] [address]JQ: 05/28/2018 Tertiary NOT GIVENUNK [place] Insurance:SELF PAY [facility] Number: Effective Repository Date:2018-05-22 03/11/2018 MANDY Ramirez Primary KALPANA F HUNTDOB: [place] [id number] [place] Insurance:MEDICARE [id number] PART A [facility] [address]Otc: (330) Number: Repository [phone] () [id number] Date:2018-02-21 03/11/2018 Secondary KALPANA F HUNTDOB: [place] Insurance:[facility] [id number] Methodist Hospital Number: Repository [id number] Date:2873-08-05ZEHJ INS ART [place]RARIAN [address] [place] [id number]: 03/11/2018 Tertiary NOT GIVENUNK [place] Insurance:SELF PAY [facility]: Effective Repository Date:2018-02-21 02/08/2018 MANDY P Primary KALPANA F HUNTDOB: [place] [id number] [place] Insurance:MEDICARE [id number] Health [facility] [address]Qkg: (330) Number: Repository [phone] () [id number] Date:2018-02-08 02/08/2018 Secondary KALPANA F HUNTDOB: [place] Insurance:[facility] 2363ISTRiverside Methodist Hospital Number: Repository [id number] Date:1669-62-55WOEX INS ART [place]ARIAN [address], [place] [address]RX: 02/08/2018 Tertiary NOT GIVENUNK [place] Insurance:SELF PAY [facility] Number: Effective Repository Date:2018-02-08 12/31/2017 MANDY Ramirez Primary KALPANA F HUNTDOB: [place] [id number] [place] Insurance:MEDICARE [id number] Health Atrium Medical Center [address]Cqx: (330) Number: Repository [phone] () [id number] Date:2017-12-03 12/31/2017 Secondary KALPANA F HUNTDOB: [place] Insurance:[facility] [id number] Methodist Hospital Number: Repository [id number] Date:5435-11-86IADJ INS ART [place] [address], [place] [address]QZ: 12/31/2017 Tertiary NOT GIVENUNK [place] Insurance:SELF PAY [facility] Number: Effective Repository Date:2017-12-03 12/04/2017 MANDY Ramirez Primary KALPANA F HUNTDOB: [place] [id number] [place] Insurance:MEDICARE [id number] PART A [facility] [address]Cbd: (330) Number: Repository [phone] () [id number] Date:2017-11-26 12/04/2017 Secondary KALPANA F HUNTDOB: [place] Insurance:[facility] [id number] Methodist Hospital Number: Repository [id number] Date:9358-51-63PICV INS ART LIB[place]ARIAN [address], [place] [address]DG: 12/04/2017 Tertiary NOT GIVENUNK [place] Insurance:SELF PAY [facility] Number: Effective Repository Date:2017-11-26 11/24/2017 MANDY Ramirez Primary KALPANA F HUNTDOB: [place] [id number] [place] Insurance:MEDICARE [id number] PART A [facility] [address]Ovs: (330) Number: Repository [phone] () [id number] Date:2017-11-20 11/24/2017 Secondary KALPANA F HUNTDOB: Ryan Insurance:[facility] [id number] Methodist Hospital Number: Repository [id number] Date:0006-81-59YFGD INS ART LIBRARIAN [address], [place] [address]JY: 11/24/2017 Tertiary NOT GIVENUNK [place] Insurance:SELF PAY [facility] Number: Effective Repository Date:2017-11-20 11/19/2017 MANDY Ramirez Primary KALPANA F HUNTDOB: [place] [id number] [place] Insurance:MEDICARE [id number] [facility] A [facility] [address]Ndh: (330) Number: Repository [phone] () [id number] Date:2017-11-19 11/19/2017 Secondary KALPANA F HUNTDOB: Ryan Insurance:[facility] [id number] Methodist Hospital Number: Repository [id number] Date:3446-32-10EHXZ INS ART LIBRARIAN [address], [place] [address]KW: 11/19/2017 Tertiary NOT GIVENUNK [place] Insurance:SELF PAY [facility] Number: Effective Repository Date:2017-11-19 10/19/2017 MANDY Ramirez Primary KALPANA F HUNTDOB: [place] [id number] [place] Insurance:MEDICARE [id number] PART A [facility] [address]Zcw: (330) Number: Repository [phone] () [id number] Date:2017-10-19 10/19/2017 Secondary KALPANA F HUNTDOB: Ryan Insurance:[facility] [id number] Methodist Hospital Number: Repository [id number] Date:4982-29-85HUMD INS ART LIBRARIAN [address] [place] [address]VH: 10/19/2017 Tertiary NOT GIVENUNK [place] Insurance:SELF PAY [facility] Number: Effective Repository Date:2017-10-19 10/19/2017 MANDY Ramirez Primary KALPANA F HUNTDOB: [place] [id number] [place] Insurance:MEDICARE [id number] [facility] [address]Mkl: (330) Number: Repository [phone] () [id number] Date:2017-10-19 10/19/2017 Secondary KALPANA F HUNTDOB: Ryan Insurance:[facility] [id number] Methodist Hospital Number: Repository [id number] Date:4627-67-81POIV INS ART LIBRARIAN [address] [place] [address]AC: 10/19/2017 Tertiary NOT GIVENUNK [place] Insurance:SELF PAY [facility] Number: Effective Repository Date:2017-10-19 10/11/2017 MANDY Ramirez Primary KALPANA F HUNTDOB: [place] [id number] [place] Insurance:MEDICARE [id number] PART A [facility] [address]Ckj: (330) Number: Repository [phone] () [id number] Date:2017-07-02 10/11/2017 Secondary KALPANA F HUNTDOB: [place] [id number] [facility] Number: Repository [id number] Date:8525-32-29DEZR INS ART LIB[place]ARIAN [address], [place] [address]GC: 10/11/2017 Tertiary NOT GIVENUNK Ryan Insurance:SELF PAY [facility] Number: Effective Repository Date:2017-07-02
== END ==
PROVIDERS: Family Provider Family Medicine Geriatric Medicine; PCP Family Medicine Geriatric Medicine; Visit Provider Family Medicine Geriatric Medicine
DX: E55.9 Vitamin D deficiency, unspecified (principal); R53.83 Other fatigue
CPT/HCPCS: 36415; 80053; 82306; 84443; 85025

== ENCOUNTER → 2018-07-16 18:44 | Outpatient (CLI) | payer MEDICARE, OTHER, SELFPAY ==
[2018-07-16 13:38] VITALS: BMI 25.6
--- OUTSIDE RECORDS SUMMARY | 2018-10-18 06:08 | XMS RPT_ITS ---
:1945 Author Organization OHIP Support Name Relationship Address Phone AYAD MANDY Unavailable [address] + [place] [address] S Unavailable Unavailable Unavailable MANDY LION Unavailable [address] + [place] [address] S Unavailable Unavailable Unavailable MANDY LION Unavailable [address] + [place] [address] S Unavailable Unavailable Unavailable MANDY LION Unavailable [address] + [place] [address] S Unavailable Unavailable Unavailable MANDY LION Unavailable [address] + [place] [address] S Unavailable Unavailable Unavailable AYAD MANDY Unavailable [address] + [place] [address] S Unavailable Unavailable Unavailable MANDY LION Unavailable [address] + [place] [address] S Unavailable Unavailable Unavailable AYAD MANDY Unavailable [address] + [place] [address] S Unavailable Unavailable Unavailable MANDY LION Unavailable [address] + [place] [address] S Unavailable Unavailable Unavailable MANDY LION Unavailable [address] + [place] [address] S Unavailable Unavailable Unavailable AYAD MANDY Unavailable [address] + [place] [address] S Unavailable Unavailable Unavailable MANDY LION Unavailable [address] + [place] [address] S Unavailable Unavailable Unavailable AYAD MANDY Unavailable [address] + [place] [address] S Unavailable Unavailable Unavailable Care Team Providers Name Role Phone Aleta Goldman Attending Unavailable Willis, Deondre Chi Primary Care Unavailable Susi, Aleta Referring Unavailable Willis, Deondre Chi Attending Unavailable Willis, Deondre Chi Primary Care Unavailable Willis, Deondre Chi Attending Unavailable Willis, Deondre Chi Primary Care Unavailable Willis, Deondre Chi Referring Unavailable Marcanthony, Angi Attending Unavailable Willis, Deondre Chi Primary Care Unavailable Willis, Deondre Chi Attending Unavailable Willis, Deondre Chi Referring Unavailable Willis, Deondre Chi Primary Care Unavailable Marcanthony, Angi Attending Unavailable Willis, Deondre Chi Referring Unavailable Willis, Deondre Chi Attending Unavailable Willis, Deondre Chi Primary Care Unavailable Marcanthony, Angi Attending Unavailable Willis, Deondre Chi Primary Care Unavailable Marcanthony, Angi Referring Unavailable Marcanthony, Angi Attending Unavailable Willis, Deondre Chi Referring Unavailable Willis, Deondre Chi Attending Unavailable Willis, Deondre Chi Referring Unavailable Willis, Deondre Chi Primary Care Unavailable Brandon, Aleta Attending Unavailable Willis, Deondre Chi Referring Unavailable Willis, Deondre Chi Attending Unavailable Willis, Deondre Chi Referring Unavailable Willis, Deondre Chi Primary Care Unavailable Willis, Deondre Chi Attending Unavailable Willis, Deondre Chi Primary Care Unavailable PROBLEMS PROBLEMS DATE TYPE CONDITION / CODE ATTENDING STATUS SOURCE 07/17/2018 Unknown N39.0 - Urinary Brandon, Aleta Active [place] tract infection, Community site not specified Hospital / N39.0(ICD-10) Repository 07/16/2018 Unknown R35.0 - Frequency Brandon, Aleta Active [place] of micturition / Community R35.0(ICD-10) Hospital Repository 02/08/2018 Unknown R68.83 - Chills Willis, Deondre Chi Active [place] (without fever) / Community R68.83(ICD-10) Hospital Repository 11/24/2017 Unknown L98.0 - Pyogenic Willis, Deondre Chi Active [place] granuloma / Community L98.0(ICD-10) Hospital Repository 10/22/2017 Unknown R30.0 - Dysuria / Marcanthony, Active [place] R30.0(ICD-10) [facility] Repository 10/11/2017 Unknown Z78.0 - Willis, Deondre Chi Active [place] Asymptomatic Community menopausal state / Hospital Z78.0(ICD-10) Repository PROCEDURES PROCEDURES No Procedure Records FoundRESULTS RESULTS Observed: 07/16/2018 Status: F Source: [place] CULTURE, URINE 6:44 PM [facility] REPOSITORY Urine Culture Culture exhibits no growth. Performed By: #### M100.0650 #### [facility] [address] [place], [place], [address] RN TRIAGE OFFICE VISIT Observed: 07/16/2018 Status: F Source: [place] REPORT 2:09 PM [facility] REPOSITORY [facility] [address] [place] [address] OFFICE VISIT Date of Service: 07/16/18 MR#: [id number] Acct: [id number] Name: KALPANA LION Rep #: [id number] : 1945 Provider: GURPREET Goldman Age/Sex: 73/F Location: [facility] Status: Signed Intake Vital Signs07/16/18 Height 5 ft 2.75 in 07/16/18 Weight: 143 lb 8 oz 07/16/18 Body Mass Index (BMI) 25.6 07/16/18 Blood Pressure 110/78 Intake Visit Reasons: Urinary frequency x6 months Psychological Stress Evaluator Required: No Is patient in pain?: No [...] menopausal: No Patient : No : No PFSH Medical History Acute hemorrhoid (Acute) Spinal stenosis [...] vis,est,level 3 Diagnoses Urinary frequency R35.0 07/16/18 4629 <Electronically signed by Aleta KAY> Date Aleta KAY Cosigner Signature: Date (if applicable) CC: RUBEN W/DIFF, AUTOMATED Collected: 06/28/2018 Status: F Source: [place] 9:52 AM [facility] REPOSITORY TYPE CODE TESTS RESULT OUT OF [...] Lymph 1.22 Performed By: #### L100.0100 #### [place] [facility] [address] [place], [place], [id number] VITAMIN D,25 HYDROXY Collected: 06/28/2018 Status: F Source: [place] 9:52 AM [facility] REPOSITORY TYPE CODE TESTS RESULT OUT OF RANGE REFERENCE UNITS LAB L506.1000 29.95-100.01 ng/mL Normal Vitamin D 55.7 25-OH Result Comment: Vitamin D 25(OH) Status Range Deficiency <20 ng/mL (50nmol/L) Insuffciency 20 - 30 ng/mL (50 - 75 nmol/L) Sufficiency 30 - 100 ng/mL (75 - 250 nmol/L) Toxicity >100 ng/mL (>250 nmol/L) Performed By: #### L506.1000 #### [facility] [address] [place], [address] COMPREHENSIVE METABOLIC Collected: 06/28/2018 Status: F Source: [place] [facility] 9:52 AM [facility] REPOSITORY TYPE CODE TESTS RESULT OUT OF [...] 8 Performed By: #### L500.4050, L501.9520 #### [facility] [address] [place], [address] THYROID STIM HORMONE Collected: 06/28/2018 Status: F Source: [place] (TSH) 9:52 AM [facility] REPOSITORY TYPE CODE TESTS RESULT OUT OF RANGE REFERENCE UNITS LAB L501.9520 0.358-3.74 uIU/mL Normal TSH 2.07 Performed By: #### L500.4050, L501.9520 #### [facility] [address] [place], [address] CREATININE FINGERSTICK Collected: 05/28/2018 Status: F Source: [place] 3:50 PM [facility] REPOSITORY TYPE CODE TESTS RESULT OUT OF RANGE REFERENCE UNITS LAB L9100.0210 0.55-1.02 mg/dL Normal CREATININE WB 0.9 LAB L9100.0220 >60 mL/min EGFR WB Normal > 60.0000 Performed By: #### L9100.0200 #### [facility] Point of Care [address] [place] [address] CHEST WITH CONTRAST Observed: 05/28/2018 Status: F Source: [place] 3:41 PM [facility] REPOSITORY [facility] Imaging Services [address] [place] [address] Chest WITH Contrast MR#: [id number] Acct: [id number] Name: AYADKALPANA Leigh Ann Rep #: [id number] : 1945 F 73 From: Diamond Hassan MD PCP: Deondre Pedro MD, Chi Status: REG CLI Study: Chest WITH Contrast Date of Exam: 05/28/18 Exam# [id number] Ordering Dr: Deondre Pedro MD STUDY: CT [...] 7:31 EDT , Service support , CC: Deondre Pedro MD Chainstitch Seat Joiner: Signed SCREENING MAMM (CAD), Observed: 03/11/2018 Status: F Source: [place] BIL 12:54 PM [facility] REPOSITORY [facility] Imaging Services [address] [place] [address] SCREENING MAMM (CAD), BILAT MR#: [id number] Acct: [id number] Name: KALPANA LION Rep #: [id number] : 1945 F 72 From: Gerald Mg MD PCP: Deondre Pedro MD, Chi Status: REG CLI Study: SCREENING MAMM (CAD), BILAT Date of Exam: 03/11/18 Exam# [id number] Ordering Dr: Angi Rasmussen MD MAMMOGRAPHY - [...] delay biopsy of a clinically suspicious abnormality. [id number] Electronically Signed: Gerald Mg MD at 8:41 EDT Tel [phone], Service support , CC: Angi Rasmussen MD; Deondre Pedro MD Chainstitch Seat Joiner: Signed Observed: 02/08/2018 Status: F Source: [place] RESPIRATORY PANEL 12:45 PM [facility] MOLECULAR REPOSITORY RP PANEL ADENOVIRUS Not Detected [...] acid amplification Performed By: #### M100.638 #### [facility] [address] [place] [address]. [place], [address] THYROID Observed: 12/04/2017 Status: F Source: [place] 10:49 AM [facility] REPOSITORY [facility] Imaging Services [address] [place] [address] [place] [address] Thyroid MR#: [id number] Acct: [id number] Name: KALPANA LION Rep #: [id number] : 1945 F 72 From: Patricia Loza MD PCP: Willis WALLACE,Deondre Bill Status: REG CLI Study: Thyroid Date of Exam: 12/04/17 Exam# [id number] Ordering Dr: Deondre Pedro MD STUDY: THYROID [...] Service support , CC: Deondre Pedro MD Chainstitch Seat Joiner: Signed CHEST WITHOUT Observed: 11/24/2017 Status: F Source: [place] CONTRAST 6:56 AM [facility] REPOSITORY [facility] Imaging Services [address] [place] [address] Chest without Contrast MR#: [id number] Acct: [id number] Name: KALPANA LION Rep #: [id number] : 1945 F 72 From: Alicia Higgins MD PCP: Deondre Pedro MD, Chi Status: REG CLI Study: Chest without Contrast Date of Exam: 11/24/17 Exam# [id number] Ordering Dr: Deondre Pedro MD STUDY: CT [...] Service support , CC: Deondre Pedro MD Chainstitch Seat Joiner: Signed SHOULDER MIN 2 VIEWS Observed: 11/19/2017 Status: F Source: [place] 12:46 PM [facility] REPOSITORY [facility] Imaging Services [address] [place] [place] [address] Shoulder min 2 Views MR#: [id number] Acct: [id number] Name: KALPANA LION Rep #: [id number] : 1945 F 72 From: Alicia Higgins MD PCP: Deondre Pedro MD, Chi Status: REG CLI Study: Shoulder min 2 Views Date of Exam: 11/19/17 Exam# [id number] Ordering Dr: Deondre Pedro MD STUDY: X-RAY [...] Service support , CC: Deondre Pedro MD Chainstitch Seat Joiner: Signed OFFICE VISIT REPORT Observed: 10/24/2017 Status: F Source: [place] 2:[address] [place] [address] OFFICE VISIT Date of Service: 10/19/17 MR#: [id number] Acct: [id number] Patient: KALPANA LION Rep #: [id number] : 1945 Provider: Angi Rasmussen MD Age/Sex: 72/F Location: [facility] Status: Signed Intake Vital Signs10/19/17 Blood Pressure [...] applicable) CC: Observed: 10/19/2017 Status: F Source: [place] CULTURE, URINE 4:39 PM [facility] REPOSITORY Urine Culture ORGANISM 1: Presumptive E. coli [place] Count >100,000 Presumptive E. coli: REACTION Amoxacillin/Clavulanic [...] <=20 S (NF) indicates non-formulary drug at [facility]. Approval by Infectious Disease Specialist required before non-formulary drugs may be ordered and/or dispensed. Performed By: #### M100.0650 #### [facility] [address] [place], [address] DEXA BONE DENSITY Observed: 10/11/2017 Status: F Source: [place] STUDY () 3:41 PM [facility] REPOSITORY [facility] Imaging Services [address] [place] [address] Dexa Bone Density Study () MR#: [id number] Acct: [id number] Name: KALPANA LION Rep #: [id number] : 1945 F 72 From: Gerald Mg MD PCP: [place] WALLACE,Deondre Bill Status: REG CLI Study: Dexa Bone Density Study () Date of Exam: 10/11/17 Exam# [id number] Ordering Dr: Deondre Pedro MD STUDY: DUAL [...] Gerald Mg MD at 10:57 EDT Tel [phone], Service support , CC: Deondre Pedro MD Chainstitch Seat Joiner: Signed ALLERGIES ALLERGIES DATE TYPE / CODE NAME / CODE REACTION SEVERITY SOURCE Drug procaine Angioedema Unknown [place] 8 Allergy/317065591( HCl/K044056263(R Community SNOMED CT) XNORM) Hospital Repository Drug hydrocodone Other Unknown [place] 8 Allergy/128600036( bitartrate/F0000 Community SNOMED CT) 50059(RXNORM) Hospital Repository Drug alprazolam/F0060 Other Unknown [place] 8 Allergy/179268514( 62293(RXNORM) [facility] SNOMED CT) Hospital Repository Drug acetaminophen/F0 Other Unknown [place] 8 Allergy/340182329( 26803220(RXNORM) [facility] SNOMED CT) Hospital Repository Drug metaxalone/F0060 Other Unknown [place] 8 Allergy/689759656( 48477(RXNORM) [facility] SNOMED CT) Hospital Repository Drug prednisone/F0060 Other Unknown [place] 8 Allergy/870975495( 55485(RXNORM) [facility] SNOMED CT) Hospital Repository Drug nabumetone/F0060 Other Unknown [place] 8 Allergy/636971849( 61007(RXNORM) Community SNOM[facility]) Hospital Repository Drug amoxicillin/F006 Other Unknown [place] 8 Allergy/465416137( 137536(RXNORM) [facility] SNOMED CT) Hospital Repository Drug nut - Anaphylaxis Unknown [place] 8 Allergy/682966542( unspecified/F006 [facility]) 830537(RXNORM) Hospital Repository Miscellaneous NOVICANE Angioedema Unknown [place] 6 Allergy/451273009( Community SNOMED CT) Hospital Repository ENCOUNTERS ENCOUNTERS ADMIT/DISCHARGE ACCOUNT ADMITTING ENCOUNTER LOCATION SOURCE NUMBER CLASS 07/16/2018 [id number] Ambulatory [place] [address] [facility] ing:LABSPEC Repository 07/16/2018/ [id number] Ambulatory BMSBuilding:B [place] 8 8 [facility] Repository 06/28/2018 [id number] Ambulatory [place] [address] [facility] ing:POLAB3 Repository 05/28/2018 [id number] Ambulatory [place] [address] [facility] ing:CT Repository 03/11/2018 [id number] [place] [facility] ing:OPBI Repository 02/08/2018 [id number] [place] [facility] ing:PSN Repository 12/31/2017 [id number] Ambulatory BMSBuilding:B [place] 0 [facility] Repository 12/04/2017 [id number] Ambulatory [place] [address] [facility] ing:OPUS Repository 11/24/2017 [id number] Ambulatory [place] [address] [facility] ing:CT Repository 11/19/2017 [id number] Ambulatory [place] [facility] ing:RAD Repository 10/19/2017 [id number] Ambulatory [place] [address] [facility] ing:LABSPEC Repository 10/19/2017/ [id number] Ambulatory BMSBuilding:B [place] 8 8 [facility] Repository 10/11/2017 [id number] [place] [facility] ing:BD Repository PAYERS PAYERS ENCOUNTER GUARANTOR PAYER SUBSCRIBER SOURCE 07/16/2018 MANDY Ramirez Primary KALPANA F HUNTDOB: [place] [id number] Insurance:MEDICARE [id number] [place] [address]Xwo: (330) Number: Repository [phone] () [id number] Date:2018-07-16 07/16/2018 Secondary KALPANA F DARNELLTDOB: [place] Insurance:[place] [id number] [place] Number: Repository [id number] Date:4415-24-28FOFE INS MANAGER SERVICING [address] [place] [address]GR: 07/16/2018 Tertiary NOT GIVENUNK [place] Insurance:SELF PAY [facility] Number: Effective Repository Date:2018-07-16 07/16/2018 MANDY Ramirez Primary KALPANA F HUNTDOB: [place] [id number] Insurance:MEDICARE [id number] Health [place] [id number]: (330) Number: Repository [phone] () [id number] Date:2018-07-01 07/16/2018 Secondary KALPANA F HUNTDOB: [place] Insurance:[facility] [id number] Hospital [place] Number: Repository [id number] Date:8511-74-01FSOZ INS MANAGER SERVICING [address] [place] [address]HD: 07/16/2018 Tertiary NOT GIVENUNK [place] Insurance:SELF PAY [facility] Number: Effective Repository Date:2018-07-16 06/28/2018 MANDY Ramirez Primary KALPANA F HUNTDOB: [place] [id number] Insurance:MEDICARE [id number] Health [place] [address]Tae: (330) Number: Repository [phone] () [id number] Date:2018-06-28 06/28/2018 Secondary KALPANA F HUNTDOB: [place] Insurance:[facility] [id number] [facility] [place] Number: Repository [id number] Date:5971-07-84AQZM INS MANAGER SERVICING [address] [place] [address]ZS: 06/28/2018 Tertiary NOT GIVENUNK [place] Insurance:SELF PAY [facility] Number: Effective Repository Date:2018-06-28 05/28/2018 MANDY Ramirez Primary KALPANA F HUNTDOB: [place] [id number] [address] Insurance:MEDICARE [id number] Health [place] [address]Nte: (330) Number: Repository [phone] () [id number] Date:2018-05-22 05/28/2018 Secondary KALPANA F HUNTDOB: [place] Insurance:[facility] [id number] Number: Repository [id number] Date:7428-92-08WWEA INS MANAGER SERVICING [address] [place] [address]AZ: 05/28/2018 Tertiary NOT GIVENUNK [place] Insurance:SELF PAY [facility] Number: Effective Repository Date:2018-05-22 03/11/2018 MANDY Ramirez Primary KALPANA F HUNTDOB: [place] [id number] [address] Insurance:MEDICARE [id number] Health [facility] [address]Zbz: (330) Number: Repository [phone] () [id number] Date:2018-02-21 03/11/2018 Secondary KALPANA F HUNTDOB: [place] Insurance:[facility] [id number] Hospital [place] Number: Repository [id number] Date:0477-14-95ILMT INS MANAGER SERVICING [address] [place] [address]TD: 03/11/2018 Tertiary NOT GIVENUNK [place] Insurance:SELF PAY [facility] Number: Effective Repository Date:2018-02-21 02/08/2018 MANDY P Primary KALPANA F HUNTDOB: [place] [id number] Insurance:MEDICARE [id number] Health [place] [address]Lwr: (330) Number: Repository [phone] () [id number] Date:2018-02-08 02/08/2018 Secondary KALPANA F HUNTDOB: [place] Insurance:[facility] [id number] Hospital [place] Number: Repository [id number] Date:9193-16-34DEBC INS MANAGER SERVICING [address] [address]JI: 02/08/2018 Tertiary NOT GIVENUNK [place] Insurance:SELF PAY [facility] Number: Effective Repository Date:2018-02-08 12/31/2017 MANDY P Primary KALPANA F HUNTDOB: [place] [id number] Insurance:MEDICARE [id number] Health [place] [address]Oet: (330) Number: Repository [phone] () [id number] Date:2017-12-03 12/31/2017 Secondary KALPANA F HUNTDOB: [place] Insurance:[facility] [id number] Hospital [place] Number: Repository [id number] Date:7111-35-32GLMM INS MANAGER SERVICING [address] [address]IH: 12/31/2017 Tertiary NOT GIVENUNK [place] Insurance:SELF PAY [facility] Number: Effective Repository Date:2017-12-03 12/04/2017 MANDY P Primary KALPANA F HUNTDOB: [place] [id number] [address] Insurance:MEDICARE [id number] Health [place] [address]Iwh: (330) Number: Repository [phone] () [id number] Date:2017-11-26 12/04/2017 Secondary KALPANA F HUNTDOB: [place] Insurance:[facility] [id number] Hospital [place] Number: Repository [id number] Date:7872-01-00GYWA INS MANAGER SERVICING [address] [address]WX: 12/04/2017 Tertiary NOT GIVENUNK [place] Insurance:SELF PAY [facility] Number: Effective Repository Date:2017-11-26 11/24/2017 MANDY P Primary KALPANA F HUNTDOB: [place] [id number] [address] Insurance:MEDICARE [id number] Health [place] [address]Udk: (330) Number: Repository [phone] () [id number] Date:2017-11-20 11/24/2017 Secondary KALPANA F HUNTDOB: [place] Insurance:[facility] [id number] Hospital [place] Number: Repository [id number] Date:5117-63-00QIBN INS MANAGER SERVICING [address] [address]MV: 11/24/2017 Tertiary NOT GIVENUNK [place] Insurance:SELF PAY [facility] Number: Effective Repository Date:2017-11-20 11/19/2017 MANDY P Primary KALPANA F HUNTDOB: [place] [id number] [address] Insurance:MEDICARE [id number] Health [place] [id number]: (330) Number: Repository [phone] () [id number] Date:2017-11-19 11/19/2017 Secondary KALPANA F HUNTDOB: [place] Insurance:[facility] [id number] [facility] [place] Number: Repository [id number] Date:0189-74-99ISZZ INS MANAGER SERVICING [address] [place] [address]ZN: 11/19/2017 Tertiary NOT GIVENUNK [place] Insurance:SELF PAY [facility] Number: Effective Repository Date:2017-11-19 10/19/2017 MANDY P Primary KALPANA F HUNTDOB: [place] [id number] [address] Insurance:MEDICARE [id number] Health [place] [address]Tto: (330) Number: Repository [phone] () [id number] Date:2017-10-19 10/19/2017 Secondary KALPANA F HUNTDOB: [place] Insurance:[facility] [id number] [facility] Number: Repository [id number] Date:6482-26-89RWZG INS MANAGER SERVICING [address] [address]HT: 10/19/2017 Tertiary NOT GIVENUNK [place] Insurance:SELF PAY [facility] Number: Effective Repository Date:2017-10-19 10/19/2017 MANDY Ramirez Primary KALPANA F HUNTDOB: [place] [id number] [address] Insurance:MEDICARE [id number] Health [facility] [id number]: (330) Number: Repository [phone] () [id number] Date:2017-10-19 10/19/2017 Secondary KALPANA F HUNTDOB: [place] Insurance:[facility] [id number] Number: Repository [id number] Date:1972-20-64FBNB INS MANAGER SERVICING [address] [address]PH: 10/19/2017 Tertiary NOT GIVENUNK [place] Insurance:SELF PAY [facility] Number: Effective Repository Date:2017-10-19 10/11/2017 MANDY Ramirez Primary KALPANA F HUNTDOB: [place] [id number] [address] Insurance:MEDICARE [id number] [facility] A [facility] [address]Lka: (330) Number: Repository [phone] HP) [id number] Date:2017-07-02 10/11/2017 Secondary KALPANA DHILLONB: [place] Insurance:[place] [id number] Hospital [place] Number: Repository [id number] Date:3912-75-42PQUM INS MANAGER SERVICING O [address] [address]ZG: 10/11/2017 Tertiary NOT GIVENUNK [place] Insurance:SELF PAY [facility] Number: Effective Repository Date:2017-07-02
== END ==
PROVIDERS: Family Provider Family Medicine Geriatric Medicine; PCP Family Medicine Geriatric Medicine; Referring Provider Nurse Practitioner Women's Health; Visit Provider Nurse Practitioner Women's Health
DX: N39.0 Urinary tract infection, site not specified (principal)
CPT/HCPCS: 87086

== ENCOUNTER 2018-11-06 12:30 | Outpatient (RCR) | payer MEDICARE, OTHER, SELFPAY ==
[2018-07-16 13:38] VITALS: BMI 25.6
--- NOTE | 2018-10-14 13:47 | HP.PTEVAL_ITS ---
Patient's Visit Information KALPANA LION is a 73 year old F referred to Physical Therapy by Diaz Hutchins MD with a diagnosis of Back pain. Date of Evaluation: 10/14/18 Physical Therapist: Gualberto Cortes, DEANNET, OCS, CSCS - Visit Plan Frequency: 2x /Week Duration: 4-6 Weeks Plan: 2x/week for 4-6 weeks. Focus on neutral spine mat strength progressing to standing. stretch psoas. Progress to strengthening hips and core in gym when HEP achieved. - Subjective Findings: Dr. Hutchins sent to PT due to LBP stenosis adn DDD and sciatica. Had PT prior and did not help. It is present for several years. Had this for several years and hard time functioning starting last week, unsure of why. Put on meloxicam and sent to PT. LBP is buttocks and up into LB. Often times down leg to knee and inner thighs intermittently. After getting injection can be painfree for up to three months. Last injection was 2.5 months ago It did not help. Sleeping is not bad, meloxicam helps. Getting 8 hours at night and feeling better in the morning. Will be worse with doing too much physical work like wiping kitchen floor. Can?t clean shower. Vaccuum is hard and malcolm does that. Carrying heavy objects set her off. Sitting on toilet can make her worse and bearing down.Hasn?t walked a lot lately as it has been cold. Can do basic ADLS. Auditioning for [place] and likes to travel and write. Plays piano without issues. Exercises for back include bridges and stretching which may or may not help, also does leg lifts. See chiropractor which gives temporary relief. Sitting on hard surface is painful. Hasn't had therapy in a couple years. Did strengthening on machines whcih did not help. - Pain LBP and buttocks Pain Intensity (Out of 10): 1 Pain Intensity Range: 0, 6 - Objective Walks I but slow. Trasnfers I. LB AROM ext very limited and R sided pain, SB mod limited and ipsi lateral pain. Flexion not painful but segmentall y limited Lower L//S. Tends to sacral sit and passive sit. reflexes patella and achilles 3/3. sensation LE WNL to gross light touch. Strength LE 4 ankles, 4 knees and 4-in hip ext adn abd, 4 adduction. 4- flexion. Lying supine hurts LB when out of neutral spine or when legs straight. - Goals Goal 1:: Patient feel 75% better with pain no greater than 1/10 Goal Time Frame: 4-6 Weeks Goal 2:: Pt I in appropriate HEP to manage condition Goal Time Frame: 4-6 Weeks Goal 3:: Patient carry objects adn do floors at home without increased pain. Goal Time Frame: 4-6 Weeks Goal 4:: <25% disabiolity on oswestry Goal Time Frame: 4-6 Weeks - Rehabilitation Potential Physical Therapy Diagnosis: Low back pain lieky degenerative in nature. Rehabilitation Potential: Good - Anticipated Interventions Patient/Client Instruction: Educate patient on: Condition, Plan of Care For the Purpose of:: To decrease pain, To increase ROM, To increase tolerance to activity/condition/position Therapeutic Exercise to Include: Strength training, Flexibilty training, Active ROM, Dynamic Lumbar Stabilization For the Purpose of:: To decrease pain, To increase ROM, To increase tolerance to activity/condition/position, To improve ability of physical actions for home/community/work/leisure Manual Therapy Techniques to Include: Mobilization Comment: flexion bias For the Purpose of:: To increase ROM Thank you for the opportunity to evaluate your patient. For Medicare and Medicare HMO plans, please review the plan of care and approve it. It will need to be FAXED BACK to us at [phone] for Medicare purposes. For Medicare only, by signing this I certify the plan of care. Please let me know if there are questions or concerns regarding this plan of care. Physician Signature: Date:
--- NOTE | 2018-11-06 13:22 | HP.PTDCSUM ---
HP - PT D/C Summary It has been my pleasure to treat KALPANA LION under orders from Diaz Hutchins MD, for the diagnosis of Back pain for a total of 9 visit(s). Discharge Date: 11/06/18 Please see the following information for a summary of their discharge status. - Subjective Subjective: Feeling better overall. 100% better. No pain lately, none in a week.. Sleeping well and activities normal. Stretches really help but she can do them at home. No f/u with doctor for two months. - Pain LBP and buttocks Pain Intensity (Out of 10): 0 - Overall Improvement % Improvement: 100 - Objective Objective/Function: Full aROM L/S without pain today. Walks normal albeit slow. PT DOING EXCELLENT OVERALL AND WILL CONTINUE VIA HEP. - Goals Goal 1:: Patient feel 75% better with pain no greater than 1/10 Goal Progress: Goal Met Goal 2:: Pt I in appropriate HEP to manage condition Goal Progress: Goal Met Goal 3:: Patient carry objects adn do floors at home without increased pain. Goal Progress: Goal Met Goal 4:: <25% disabiolity on oswestry Goal Progress: Goal Met - Plan Plan: D/C - D/C Information Discharge Comments: dOING GREAT AND CAN CONTINUE AT HOME VIA HEP AND LET DOCTOR KNOW IF PAIN RETURNS. If there are questions or concerns regarding this patient's physical therapy, please feel free to call me at [phone]. Thank you for the referral of this patient. Sincerely, Gualberto Cortes, DPT, OCS, CSCS
== END 2018-11-06 19:00 | disposition home or self-care (01) ==
LOC: PT 12:30
PROVIDERS: Family Provider Family Medicine Geriatric Medicine; PCP Family Medicine Geriatric Medicine; Referring Provider Anesthesiology Pain Medicine; Visit Provider Anesthesiology Pain Medicine
DX: M54.9 Dorsalgia, unspecified (principal)
CPT/HCPCS: 97110; 97162; 97530

== ENCOUNTER → 2019-02-05 13:10 | Outpatient (CLI) | payer MEDICARE, OTHER, SELFPAY ==
[2018-07-16 13:38] VITALS: BMI 25.6
--- NOTE | 2019-02-05 13:15 | MRI_ITS ---
STUDY: MRI LUMBAR SPINE WITHOUT CONTRAST REASON FOR EXAM: Female, 73 years old. Radiculopathy. Left leg pain for 10 years. TECHNIQUE: Standardized fat and water weighted pulse sequences were obtained in the sagittal and axial planes. Coronal T1-weighted imaging. COMPARISON: November 05, 2015. FINDINGS: Exaggerated lumbar lordosis. Levoscoliosis. Conus medullaris terminates normally at the L1 level. No acute fracture, dislocation or osseous destruction. T12-L1: Mild endplate spondylosis. Disc bulge, asymmetric to left, with mild central canal narrowing. Facet joint arthrosis. Normal bilateral lateral recesses. Neural foraminal narrowing without impingement. L1-2: Mild endplate spondylosis. Disc bulge with mild central canal narrowing. Facet joint arthrosis. Normal bilateral lateral recesses. Neural foraminal narrowing without impingement. L2-3: Moderate/severe endplate spondylosis. Disc bulge with mild central canal narrowing. Facet joint arthrosis. Right lateral recess narrowing without impingement. Neural foraminal narrowing without impingement. L3-4: Moderate/severe endplate spondylosis. Disc bulge with moderate central canal narrowing. Facet joint arthrosis. Bilateral lateral recess narrowing without impingement. Neural from narrowing with impingement on the right. Grade 1 spondylolisthesis. L4-5: Mild endplate spondylosis. Disc bulge with moderate/severe central canal narrowing. Facet joint arthrosis. Bilateral lateral recess narrowing with impingement on the left. Neural foraminal narrowing with impingement on the left. L5-S1: Mild endplate spondylosis. Disc bulge with mild central canal narrowing. Facet joint arthrosis. Normal bilateral lateral recesses. Neural foraminal narrowing with impingement . Grade 1 spondylolisthesis. Mild paraspinal muscle atrophy. Sacrum intact. Normal retroperitoneum. Multiple renal cysts. MRI/Spine Lumbar (Routine) IMPRESSION: Diffuse intervertebral disc disease with central canal narrowing predominating at L3-4 and L4-5 Multilevel lateral recess narrowing with impingement of the left descending L5 nerve root Multilevel neural foraminal narrowing with impingement of the right L3, left L4 and bilateral L5 nerve roots Multilevel osseous degenerative changes with exaggerated lordosis and levoscoliosis Electronically Signed: Gualberto Chen DO at 14:47 EDT Tel , Service support ,
== END ==
PROVIDERS: Family Provider Family Medicine Geriatric Medicine; PCP Family Medicine Geriatric Medicine; Referring Provider Physician Assistant; Visit Provider Physician Assistant
DX: M54.16 Radiculopathy, lumbar region (principal)
CPT/HCPCS: 72148

== ENCOUNTER → 2019-02-06 16:32 | Outpatient (CLI) | payer MEDICARE, OTHER, SELFPAY ==
[2018-07-16 13:38] VITALS: BMI 25.6
[2019-02-06 17:44] LABS: Absolute Lymphocyte Count 1.56 X10^3/ul (0.83-4.51); Absolute Neutrophil Count 4.3 X10^3/uL (2.0-7.7); Basophil# 0.02 X10^3/uL; Basophil% 0.3 % (0-1); Eosinophil# 0.14 X10^3/uL; Eosinophils% 2.1 % (0-5); Hematocrit 41.9 % (37-47); Hemoglobin 13.8 g/dl (12.0-15.0); Lymphocyte # 1.56 X10^3/ul (4.0); Lymphocyte % 23.4 % (19-41); Mean Corp Hgb Conc 32.9 g/gl (32-36); Mean Corpuscular Hgb 30.3 pg (27.0-32.0); Mean Corpuscular Volume 91.9 fL (81-99); Mean Platelet Vol. 10.4 fl (6.2-12.0); Monocyte# 0.66 X10^3/uL; Monocyte% 9.9 % (0-10); Neutrophil # 4.28 X10^3/uL (2.7-7.7); Neutrophil % 64.3 % (47-70); Platelet Count 220 K/mm3 (150-450); RBC Distribution Width CV 13.3 % (11.6-14.6); RBC Distribution Width SD 44.1 fl (35.1-43.9); Red Blood Count 4.56 M/mm3 (4.2-5.4); White Blood Count 6.7 K/mm3 (4.4-11.0)
[2019-02-06 17:56] LABS: POSITIVE COUNT NO; POSITIVE DIFFERENTIAL NO; POSITIVE MORPHOLOGY NO
[2019-02-06 18:05] LABS: AST(SGOT) 17 U/L (15-37); Alanine Aminotransfer ALT/SGPT 19 U/L (13-56); Albumin, Serum 3.7 g/dL (3.2-5.0); Alkaline Phosphatase 56 U/L (45-117); Anion Gap 9 (5-15); BUN 16 mg/dL (7-18); Calcium,Total 9.9 mg/dL (8.5-10.1); Chloride 103 mmol/L (98-107); EST Glomerular Filtration Rate 75 mL/min (>60); Est Glom Filt Rate - Afr Amer 91 mL/min (>60); Globulin 3.7 g/dL (2.2-4.2); Glucose 92 mg/dL (74-106); Potassium 4.2 mmol/L (3.5-5.1); Protein, Total 7.4 g/dL (6.4-8.2); Sodium Level 138 mmol/L (136-145); Thyroid Stim Hormone (TSH) 1.51 uIU/mL (0.358-3.74)
== END ==
PROVIDERS: Family Provider Family Medicine Geriatric Medicine; PCP Family Medicine Geriatric Medicine; Visit Provider Family Medicine Geriatric Medicine
DX: G47.10 Hypersomnia, unspecified (principal); R53.83 Other fatigue
CPT/HCPCS: 36415; 80053; 84443; 85025

== ENCOUNTER → 2019-05-05 12:35 | Outpatient (CLI) | payer MEDICARE, OTHER, SELFPAY ==
[2018-07-16 13:38] VITALS: BMI 25.6
--- NOTE | 2019-05-05 12:38 | VDLE_ITS ---
Reason For Study: EDEMA RIGHT LEFT GSV is normal. GSV is normal. CFV is compressible, spontaneous, phasic, CFV is compressible, spontaneous, phasic, competent and demonstrates normal competent, and demonstrates normal augmentation. augmentation. FV is compressible, spontaneous, phasic, FV is compressible, spontaneous, phasic, competent and demonstrates normal competent and demonstrates normal augmentation. augmentation. POP V is compressible, spontaneous, phasic, POP V is compressible, spontaneous, phasic, competent and demonstrates normal competent and demonstrates normal augmentation. augmentation. T/P Trunk is compressible. T/P Trunk is compressible. PTV is compressible. PTV is compressible. RT PerV is compressible. LT PerV is compressible. Procedure Exam performed in department. A preliminary report was called and/or faxed to Dr Pedro's office. Interpretation Summary Deep veins of the lower extremities are bilaterally patent and compressible segmentally. There is no evidence of deep vein thrombosis on either side. Valvular competence appears intact within the proximal deep venous systems bilaterally. The great saphenous veins appear bilaterally patent and compressible segmentally. Ordering Physician: Deondre Pedro Referring Physician: Deondre Pedro Chi Performed By: Leticia Ortega, JOSE, RVT
== END ==
PROVIDERS: Family Provider Family Medicine Geriatric Medicine; PCP Family Medicine Geriatric Medicine; Referring Provider Family Medicine Geriatric Medicine; Visit Provider Family Medicine Geriatric Medicine
DX: R60.0 Localized edema (principal)
CPT/HCPCS: 93970

== ENCOUNTER → 2019-05-21 09:55 | Outpatient (CLI) | payer MEDICARE, OTHER, SELFPAY ==
[2018-07-16 13:38] VITALS: BMI 25.6
[2019-05-21 13:02] LABS: Anion Gap 8 (5-15); BUN 18 mg/dL (7-18); BUN/Creat Ratio 23.8 RATIO (10-20); Calcium,Total 10.3 mg/dL (8.5-10.1); Chloride 103 mmol/L (98-107); Creatinine, Serum 0.76 mg/dL (0.55-1.02); EST Glomerular Filtration Rate 80 mL/min (>60); Est Glom Filt Rate - Afr Amer 97 mL/min (>60); Glucose 100 mg/dL (74-106); Sodium Level 138 mmol/L (136-145)
== END ==
PROVIDERS: Family Provider Family Medicine Geriatric Medicine; PCP Family Medicine Geriatric Medicine; Visit Provider Family Medicine Geriatric Medicine
DX: R60.9 Edema, unspecified (principal)
CPT/HCPCS: 36415; 80048

== ENCOUNTER → 2019-06-30 11:51 | Outpatient (CLI) | payer MEDICARE, OTHER, SELFPAY ==
[2018-07-16 13:38] VITALS: BMI 25.6
[2019-06-30 12:42] LABS: Absolute Lymphocyte Count 1.01 X10^3/uL (0.83-4.51); Absolute Neutrophil Count 3.4 X10^3/uL (2.0-7.7); Basophil# 0.02 X10^3/uL; Basophil% 0.4 % (0-1); Eosinophil# 0.08 X10^3/uL; Eosinophils% 1.6 % (0-5); Hematocrit 39.5 % (37-47); Hemoglobin 12.5 g/dL (12.0-15.0); Lymphocyte # 1.01 X10^3/ul (4.0); Lymphocyte % 19.7 % (19-41); Mean Corp Hgb Conc 31.6 g/dL (32-36); Mean Corpuscular Hgb 28.3 pg (27.0-32.0); Mean Corpuscular Volume 89.4 fL (81-99); Mean Platelet Vol. 10.8 fl (6.2-12.0); Monocyte# 0.66 X10^3/uL; Monocyte% 12.9 % (0-10); NRBC Flagged by Analyzer 0 % (0-5); Neutrophil # 3.35 X10^3/uL (2.7-7.7); Neutrophil % 65.2 % (47-70); Platelet Count 250 K/mm3 (150-450); RBC Distribution Width CV 15.1 % (11.6-14.6); RBC Distribution Width SD 49.8 fl (35.1-43.9); Red Blood Count 4.42 M/mm3 (4.2-5.4); White Blood Count 5.1 K/mm3 (4.4-11.0)
[2019-06-30 13:01] LABS: AST(SGOT) 14 U/L (15-37); Alanine Aminotransfer ALT/SGPT 15 U/L (13-56); Albumin, Serum 3.6 g/dL (3.2-5.0); Alkaline Phosphatase 66 U/L (45-117); Anion Gap 7 (5-15); BUN 24 mg/dL (7-18); Calcium,Total 10.2 mg/dL (8.5-10.1); Chloride 106 mmol/L (98-107); Creatinine, Serum 0.65 mg/dL (0.55-1.02); EST Glomerular Filtration Rate 96 mL/min (>60); Est Glom Filt Rate - Afr Amer 116 mL/min (>60); Globulin 3.7 g/dL (2.2-4.2); Glucose 84 mg/dL (74-106); Potassium 4.2 mmol/L (3.5-5.1); Protein, Total 7.3 g/dL (6.4-8.2); Sodium Level 137 mmol/L (136-145); Thyroid Stim Hormone (TSH) 2.42 uIU/mL (0.358-3.74)
[2019-07-01 10:03] LABS: Vitamin D,25 Hydroxy 80.4 ng/mL (29.95-100.01)
== END ==
PROVIDERS: Family Provider Family Medicine Geriatric Medicine; PCP Family Medicine Geriatric Medicine; Visit Provider Family Medicine Geriatric Medicine
DX: E55.9 Vitamin D deficiency, unspecified (principal); R53.83 Other fatigue
CPT/HCPCS: 36415; 80053; 82306; 84443; 85025

== ENCOUNTER → 2019-12-29 10:53 | Outpatient (CLI) | payer MEDICARE, OTHER, SELFPAY ==
[2018-07-16 13:38] VITALS: BMI 25.6
[2019-12-29 12:25] LABS: Absolute Lymphocyte Count 1.44 X10^3/uL (0.83-4.51); Absolute Neutrophil Count 2.9 X10^3/uL (2.0-7.7); Basophil# 0.02 X10^3/uL; Basophil% 0.4 % (0-1); Eosinophil# 0.08 X10^3/uL; Eosinophils% 1.6 % (0-5); Hematocrit 40.9 % (37-47); Hemoglobin 13.2 g/dL (12.0-15.0); Lymphocyte # 1.44 X10^3/ul (4.0); Lymphocyte % 28.1 % (19-41); Mean Corp Hgb Conc 32.3 g/dL (32-36); Mean Corpuscular Hgb 29.3 pg (27.0-32.0); Mean Corpuscular Volume 90.7 fL (81-99); Mean Platelet Vol. 11.3 fl (6.2-12.0); Monocyte# 0.67 X10^3/uL; Monocyte% 13.1 % (0-10); NRBC Flagged by Analyzer 0 % (0-5); Neutrophil % 56.6 % (47-70); POSITIVE COUNT YES; Platelet Count 206 K/mm3 (150-450); RBC Distribution Width CV 13.1 % (11.6-14.6); RBC Distribution Width SD 43.5 fl (35.1-43.9); Red Blood Count 4.51 M/mm3 (4.2-5.4); White Blood Count 5.1 K/mm3 (4.4-11.0)
[2019-12-29 12:28] LABS: Differential Indicated SCAN CRITERIA MET
[2019-12-29 12:31] LABS: Vitamin D,25 Hydroxy 49.8 ng/mL
[2019-12-29 13:08] LABS: ALB/GLOB Ratio 0.8 RATIO (0.9-2.4); AST(SGOT) 14 U/L (15-37); Alanine Aminotransfer ALT/SGPT 17 U/L (13-56); Albumin, Serum 3.4 g/dL (3.2-5.0); Alkaline Phosphatase 70 U/L (45-117); Anion Gap 9 (5-15); BUN 19 mg/dL (7-18); BUN/Creat Ratio 26.2 RATIO (10-20); Calcium,Total 9.5 mg/dL (8.5-10.1); Chloride 105 mmol/L (98-107); Creatinine, Serum 0.72 mg/dL (0.55-1.02); EST Glomerular Filtration Rate 84 mL/min (>60); Est Glom Filt Rate - Afr Amer 102 mL/min (>60); Globulin 4.1 g/dL (2.2-4.2); Glucose 82 mg/dL (74-106); Protein, Total 7.5 g/dL (6.4-8.2); Sodium Level 139 mmol/L (136-145); Thyroid Stim Hormone (TSH) 2.39 uIU/mL (0.358-3.74)
[2019-12-29 13:16] LABS: Platelet Estimate ADEQUATE (ADEQ); Red Cell Morphology NORM C+C NORMAL (NORM C&C)
== END ==
PROVIDERS: PCP Family Medicine Geriatric Medicine; Visit Provider Family Medicine Geriatric Medicine
DX: E55.9 Vitamin D deficiency, unspecified (principal); R53.83 Other fatigue
CPT/HCPCS: 36415; 80053; 82306; 84443; 85025

== ENCOUNTER → 2020-01-01 15:49 | Outpatient (CLI) | payer MEDICARE, OTHER, SELFPAY ==
[2018-07-16 13:38] VITALS: BMI 25.6
--- NOTE | 2020-01-01 15:52 | CT_ITS ---
STUDY: CT CHEST WITH CONTRAST REASON FOR EXAM: Female, 74 years old. LUNG MASS RADIATION DOSAGE (If Supplied By Facility): CTDIvol = ( 7.93 ) mGy, DLP = ( 196.23 ) mGycm TECHNIQUE: Transaxial imaging was performed following intravenous administration of IV 100mL Isovue-300. Individualized dose optimization techniques were used for this CT. COMPARISON: Previous study of 05/28/2018 FINDINGS: There are linear fibrotic changes of the lung apices. There is an ovoid pleural-based nodule of the right upper lobe apex image 20 series 4 measuring 1.1 x 0.7 cm, stable in the interval. There is an irregularly margined density of the left upper lobe apex measuring 1.1 x 0.7 cm, image 17 series 4, stable in the interval. This contains calcification. There is right lateral hemithoracic pleural nodularity, stable in the interval. This contains calcification. There is a 4.5 mm right middle lobe nodule image 86 series 4, stable in the interval. There are several adjacent nodules of the left upper lobe images 56 through 61 series 4, similar to the previous study. There is no pleural effusion. Normal heart and pericardium. There are calcified bilateral hilar and mediastinal nodes. Normal enhanced pulmonary arteries. Normal aorta arch and descending thoracic aorta. There are degenerative changes of the visualized thoracolumbar spine. There are posterior spinal fusion changes from T11 to the visualized upper lumbar spine. A left renal cyst is noted. CT/Chest WITH Contrast IMPRESSION: Multiple bilateral nodular densities, some of which contain calcifications, stable from the previous study. No new nodules are evident. Calcified bilateral hilar and mediastinal nodes. Degenerative changes of the visualized thoracolumbar spine. Posterior spinal fusion changes from T11 to the visualized upper lumbar spine. Electronically Signed: Rick Frazier MD at 16:59 EDT , Service support ,
== END ==
PROVIDERS: PCP Family Medicine Geriatric Medicine; Referring Provider Family Medicine Geriatric Medicine; Visit Provider Family Medicine Geriatric Medicine
DX: R22.2 Localized swelling, mass and lump, trunk (principal)
CPT/HCPCS: 71260; Q9967; A4216

== ENCOUNTER → 2020-01-07 10:52 | Outpatient (CLI) | payer MEDICARE, OTHER, SELFPAY ==
[2018-07-16 13:38] VITALS: BMI 25.6
--- NOTE | 2020-01-07 10:53 | BI_ITS ---
MAMMOGRAPHY - BILATERAL SCREENING REASON FOR EXAM: Female, 74 years old. Routine annual screening examination. PERTINENT HISTORY: Non-contributory. TECHNIQUE: Digital bilateral breast geovanny (3D mammographic acquisition) in the CC and MLO projections. 2-D mediolateral oblique (MLO) and craniocaudad (CC) views of both breasts were obtained. CAD: Full Field Digital Mammography with Computer Added Detection was performed. COMPARISON: Comparison is made with prior study March 11, 2018 and March 09, 2017. FINDINGS: Breast Composition: The breasts are heterogeneously dense, which may obscure small masses. There are no dominant masses or suspicious calcifications. No other significant abnormalities are identified. There has been no significant change since the prior study. BI/SCREEN MAMM (CAD) W/GEOVANNY BILAT IMPRESSION: Stable bilateral screening mammogram. Yearly follow-up mammogram recommended. (A) ASSESSMENT CATEGORY: BIRADS Category 1: Negative. A letter regarding these results will be sent to the patient by the facility within 30 days. Approximately 10% of breast cancers are not detected by mammography. A normal mammogram should not delay biopsy of a clinically suspicious abnormality. [id number] Electronically Signed: Gerald Mg, at 12:26 EDT , Service support ,
--- NOTE | 2020-01-07 11:05 | BD_ITS ---
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 COMPARISON: None. FINDINGS: Right Forearm: g/cm2 (0.626) / T-score (-3.0) / Z-score (-0.9) Left Forearm: g/cm2 (0.592) / T-score (-3.3) / Z-score (-1.3) The patient is considered osteoporotic as outlined below according to the WHO criteria with a high fracture risk. Reference Information: The T-score is the number of standard deviations above or below the standard which is normal for young adults at their peak bone mineral density. The World Health Organization (WHO) interprets the T-scores as follows: Above -1 Normal bone density Between -1 and -2.5 Osteopenia Equal to / or below -2.5 Osteoporosis As a practical clinical guideline, osteopenia may be graded as follows: Mild -1 through -1.5 Moderate -1.6 through -2.0 Severe -2.1 through -2.4 The Z-score is the number of standard deviations above or below age-matched controls. A Z-score of less than -1.5 would be considered abnormal. References: 1. NIH Osteoporosis and Related Bone Diseases http://www.osteo.org 2. International Society for Clinical Densitometry http://www.iscd.org 3. National Osteoporosis Foundation http://www.nof.org Electronically Signed: Gerald Mg, at 12:32 EDT , Service support , BD/Dexa Bone Density/Append Skel
== END ==
PROVIDERS: PCP Family Medicine Geriatric Medicine; Referring Provider Family Medicine Geriatric Medicine; Visit Provider Nurse Practitioner Women's Health
DX: Z12.31 Encounter for screening mammogram for malignant neoplasm of breast (principal); Z78.0 Asymptomatic menopausal state; M81.0 Age-related osteoporosis without current pathological fracture; Z87.891 Personal history of nicotine dependence
CPT/HCPCS: 77063; 77067; 77081

== ENCOUNTER → 2020-03-12 16:01 | Outpatient (CLI) | payer MEDICARE, OTHER, SELFPAY ==
[2018-07-16 13:38] VITALS: BMI 25.6
--- NOTE | 2020-03-12 16:45 | MRI_ITS ---
STUDY: MRI LUMBAR SPINE WITHOUT CONTRAST REASON FOR EXAM: Female, 74 years old. Pt had lumbar surgery 03/27/19, worsening pain in anal area STENOSIS, BACK PAIN TECHNIQUE: Standardized fat and water weighted pulse sequences were obtained in the sagittal and axial planes. COMPARISON: MRI lumbar spine 02/05/2019 FINDINGS: T12-L1: Normal endplates. Normal disc height, hydration and morphology. Normal bilateral facet joints. Normal central canal and bilateral lateral recesses. Normal bilateral intervertebral neural foramina. Normal lumbar lordosis. Moderate levoconvex scoliosis. Normal conus medullaris that terminates at the L2 level. Laminectomies and posterior fusion rods and pedicular screws T11-S1. L1-2: Normal endplates. Normal disc height, hydration and morphology. Normal bilateral facet joints. Normal central canal and bilateral lateral recesses. Normal bilateral intervertebral neural foramina. Small broad-based disc marginal osteophyte. L2-3: Normal endplates. Normal disc height, hydration and morphology. Normal bilateral facet joints. Normal central canal and bilateral lateral recesses. Normal bilateral intervertebral neural foramina. L3-4: Normal endplates. Normal disc height, hydration and morphology. Normal bilateral facet joints. Normal central canal and bilateral lateral recesses. Normal bilateral intervertebral neural foramina. L4-5: Normal endplates. Normal disc height, hydration and morphology. Normal bilateral facet joints. Normal central canal and bilateral lateral recesses. Narrowed bilateral intervertebral neural foramina. Metallic disc prosthesis. L5-S1: Normal endplates. Normal disc height, hydration and morphology. Normal bilateral facet joints. Normal central canal and bilateral lateral recesses. Apparent narrowing right intervertebral neural foramina. Metallic disc prosthesis. Normal visualized sacral ala. Normal visualized paraspinous soft tissue structures. MRI/Spine Lumbar (Routine) IMPRESSION: New Posterior body fusion T11-S1. New disc spaces at L4-5 and L5-S1. Apparent narrowing right neural foramen at L5-S1. Magnetic susceptibility artifact causes local image degradation. Moderate scoliosis is unchanged. Electronically Signed: Abdi Powell MD at 17:40 EDT , Service support ,
== END ==
PROVIDERS: PCP Family Medicine Geriatric Medicine; Referring Provider Family Medicine Geriatric Medicine; Visit Provider Family Medicine Geriatric Medicine
DX: M48.061 Spinal stenosis, lumbar region without neurogenic claudication (principal)
CPT/HCPCS: 72148

== ENCOUNTER → 2020-05-28 11:21 | Outpatient (CLI) | payer MEDICARE, OTHER, SELFPAY ==
[2018-07-16 13:38] VITALS: BMI 25.6
[2020-05-28 13:28] LABS: Absolute Lymphocyte Count 1.37 X10^3/uL (0.83-4.51); Absolute Neutrophil Count 3.2 X10^3/uL (2.0-7.7); Basophil# 0.03 X10^3/uL; Basophil% 0.6 % (0-1); Eosinophil# 0.06 X10^3/uL; Eosinophils% 1.1 % (0-5); Hemoglobin 13.7 g/dL (12.0-15.0); Lymphocyte # 1.37 X10^3/ul (4.0); Lymphocyte % 25.4 % (19-41); Mean Corp Hgb Conc 31.9 g/dL (32-36); Mean Corpuscular Hgb 29.6 pg (27.0-32.0); Mean Corpuscular Volume 92.9 fL (81-99); Mean Platelet Vol. 10.8 fl (6.2-12.0); Monocyte# 0.71 X10^3/uL; Monocyte% 13.1 % (0-10); NRBC Flagged by Analyzer 0 % (0-5); Neutrophil # 3.22 X10^3/uL (2.7-7.7); Neutrophil % 59.6 % (47-70); Platelet Count 208 K/mm3 (150-450); RBC Distribution Width SD 44.5 fl (35.1-43.9); Red Blood Count 4.63 M/mm3 (4.2-5.4); White Blood Count 5.4 K/mm3 (4.4-11.0)
== END ==
PROVIDERS: PCP Family Medicine Geriatric Medicine; Visit Provider Family Medicine Geriatric Medicine
DX: D64.9 Anemia, unspecified (principal)
CPT/HCPCS: 36415; 85025

== ENCOUNTER 2020-06-13 15:09 | Emergency (ER) | payer MEDICARE, OTHER, SELFPAY ==
[2018-07-16 13:38] VITALS: BMI 25.6
[2020-06-13 15:10] VITALS: BP 141/61; PULSE 73; PULSE 75; RESP 16; TEMP 36.1; O2SAT 96; O2SAT 97; BMI 26.9
--- NOTE | 2020-06-13 15:29 | ED.VIS.GEN ---
History of Present Illness Informant: Patient Onset: Yesterday Narrative: 75-year-old female with no significant past medical history presents with complaints of lip swelling and rash. Last night her top lip was swollen but she went to bed. When she woke up this morning her top lip seemed normal but her bottom lip was significantly swollen. It has not increased in size since 9 am. She also has hives on both inner thighs that are very itchy. She took Benadryl prior to arrival which is helping. Denies rash anywhere else. Denies dysphagia or difficulty breathing. The only medications she takes are Tylenol, meloxicam, and gabapentin. No new medications recently. No BISI inhibitors. No new soaps or creams. She states she went out to eat last night and had a meal which she has ordered before. Denies fevers, chills, nausea, vomiting, chest pain, shortness of breath, cough, or abdominal pain. <Angelina Caro - Last Filed: 06/13/20 17:23> <Zainab Noguera - Last Filed: 06/13/20 17:27> Chief Complaint: Edema Past Medical History Past Medical History: - - Back surgery Smoking Status: Never smoker <Angelina Caro - Last Filed: 06/13/20 17:23> <Zainab Noguera - Last Filed: 06/13/20 17:27> - Allergies and Home Meds Allergies/Adverse Reactions: Allergies nut - unspecified Allergy (Verified 06/13/20 15:59) Anaphylaxis procaine HCl [From Novocain] Allergy (Verified 06/13/20 15:59) Angioedema acetaminophen [From Vicodin] Adverse Reaction (Verified 06/13/20 15:59) Other I DON'T LIKE HOW IT MAKES ME FEEL alprazolam [From Xanax] Adverse Reaction (Verified 06/13/20 15:59) Other I DON'T LIKE HOW IT MAKES ME FEEL amoxicillin Adverse Reaction (Verified 06/13/20 15:59) Other I DON'T LIKE HOW IT MAKES ME FEEL hydrocodone bitartrate [From Vicodin] Adverse Reaction (Verified 06/13/20 15:59) Other I DON'T LIKE HOW IT MAKES ME FEEL metaxalone [From Skelaxin] Adverse Reaction (Verified 06/13/20 15:59) Other I DON'T LIKE HOW IT MAKES ME FEEL nabumetone Adverse Reaction (Verified 06/13/20 15:59) Other I DON'T LIKE HOW IT MAKES ME FEEL NOVICANE Allergy (Uncoded 06/13/20 15:59) Angioedema Primary Care Physician: Deondre Pedro Chi, MD [Primary Care Provider] - Review of Systems General: Denies: Chills, Fever, Sweats Eyes: Denies: Visual changes - bilaterally, Diplopia ENT: Reports: - - lip swelling. Denies: Rhinorrhea, Sore throat Cardiovascular: Denies: Chest pain, Palpitations Respiratory: Denies: Dyspnea, Cough, Dyspnea on exertion Gastrointestinal: Denies: Abdominal pain, Nausea, Vomiting, Diarrhea, Melena, Hematochezia Genitourinary: Denies: Dysuria, Hematuria, Frequency Musculoskeletal: Denies: Back pain, Extremity Pain Skin: Denies: Rash, Wounds Neurological: Denies: Headache, Weakness, Numbness <Angelina Caro - Last Filed: 06/13/20 17:23> Physical Exam Vital Signs/Narrative: Vital Signs Temp Pulse Resp BP Pulse Ox 06/13/20 15:10 97.0 F L 73 16 141/61 H 97 General: Well nourished, Well developed, No Acute Distress Head: Normocephalic, Atraumatic Eyes: Perrl, EOMI ENT: Moist mucous membranes, No rhinorrhea, - - Lower lip angioedema. No swelling of the tongue, uvula midline, airway patent. No swelling of the surrounding skin. Neck: Supple, Nontender Cardiovascular: Regular rate, Regular rhythm, No murmurs Respiratory: No distress, CTA bilaterally, Chest nontender Abdomen: Soft, Nontender, Nondistended Back: Normal Inspection Extremities: No edema Skin: - - Hives on bilateral inguinal areas, worse on the right. Also a single isolated hive on the right thumb. Neurological: Alert, Oriented x3, Cranial nerves II-XII grossly intact, Normal Strength, Normal Sensation Psychological: Normal affect, Normal Mood <Angelina Caro - Last Filed: 06/13/20 17:23> Vital Signs/Narrative: Vital Signs Temp Pulse Resp BP Pulse Ox 06/13/20 17:01 84 18 129/78 H 99 06/13/20 16:26 70 22 H 109/55 L 91 06/13/20 15:10 97.0 F L 73 16 141/61 H 97 <Zainab Noguera - Last Filed: 06/13/20 17:27> Diagnostic/Tx/Re-eval - Medical Decision Making Patient presented for angioedema of her lower lip and rash on bilateral thighs. She appears well nontoxic. Vital signs within normal limits. She is conversing in full sentences in no respiratory distress. O2 sat was 99% on room air. Lungs are clear to auscultation. She has angioedema of the lower lip. No tongue swelling, uvula is midline, and airway patent. She has scattered hives on bilateral inner thighs and on her right thumb. She had no new medications or exposures that she can identify. She was treated with IV Solu-Medrol and Pepcid and had Benadryl prior to arrival. She was monitored for 2 hours and there was no increase in lip swelling. If anything it seems very slightly better. She was discharged home with steroids, Pepcid, and an EpiPen to use if she develops any throat swelling or difficulty breathing. She has Benadryl which she will continue to take for the itching. She was agreeable and discharged home in stable condition. <Angelina Caro - Last Filed: 06/13/20 17:23> - Medical Decision Making Patient seen and evaluated with physicians licensed occupational therapy assistant. Patient was independently interviewed and examined. Patient presents with swelling to the lower lip. She states she noted swelling to her lower lip when she woke this morning. She does states she had some upper lip swelling last evening before bed. She denies any new medications. She is not on an BISI inhibitor. She did go out to eat last evening but states she ate the same meal that she normally would eat without difficulty. She does recall drinking a small amount of chocolate wine last evening. She denies any new face creams, etc. She denies any throat tightness or tongue edema. She did take Benadryl before arrival. Patient sitting upright in bed no acute distress. Head and neck examination does revealed mild upper lip edema and moderate lower lip edema. No tongue edema. Posterior pharynx exam is normal. Patient speaks with a strong voice and is tolerating secretions well. Heart is regular rate and rhythm. Lung sounds are clear. Abdomen is soft and nontender. Patient had taken Benadryl prior to arrival. She was given Solu-Medrol as well as Pepcid here. She was observed for 2 hours here in the emergency room. Lip is unchanged or slightly improved at this time. Patient states that it has been unchanged in size since early this morning when she first got up. At this time I do feel it is safe to send her home with medication. She is given return instructions. <Zainab Noguera - Last Filed: 06/13/20 17:27> ED Disposition <Angelina Caro - Last Filed: 06/13/20 17:23> <Zainab Noguera - Last Filed: 06/13/20 17:27> - Plan for ED Patient: Disposition: Home or Assisted Living Diagnosis: Angioedema of lips, Hives Instructions: ED Angioedema Prescriptions: Epi Pen (for allergic rxn) 0.3 mg IM X1 #1 syringe Prescription Printed MethylPREDNISolone DosePak [Medrol DosePak] 4 mg PO UD #1 box Prescription Printed Famotidine [Pepcid] 20 mg PO DAILY #5 tab Prescription Printed Referrals: Deondre Pedro Chi, MD [Primary Care Provider] -
[2020-06-13] MEDS: MethylPREDNISolone 125 MG/2 ML Vial 80 MG IV (15:39)
[2020-06-13] MEDS: Famotidine 200 MG/20 ML MDV 20 MG in 0.9% Normal Saline (Pres. free 8 ML 300 MG IV (15:58)
[2020-06-13 16:26] VITALS: BP 109/55; PULSE 70; RESP 22; O2SAT 91
--- NOTE | 2020-06-13 16:57 | ED.RN ---
swelling remains unchanged. pt remains stable.no needs voiced.
[2020-06-13 17:01] VITALS: BP 129/78; PULSE 84; RESP 18; O2SAT 99
[2020-06-13 17:46] VITALS: BP 137/89; PULSE 88; RESP 14; O2SAT 97
== END 2020-06-13 17:47 | disposition home or self-care (01) ==
PROVIDERS: Emergency Provider Physician Assistant; PCP Family Medicine Geriatric Medicine
DX: T78.3XXA Angioneurotic edema, initial encounter (principal)
CPT/HCPCS: 96374; 99282; A4216; J3490

== ENCOUNTER → 2020-07-06 09:31 | Outpatient (CLI) | payer MEDICARE, OTHER, SELFPAY ==
[2020-06-13 15:10] VITALS: BMI 26.9
[2020-07-06 12:13] LABS: Absolute Lymphocyte Count 1.31 X10^3/uL (0.83-4.51); Absolute Neutrophil Count 3.3 X10^3/uL (2.0-7.7); Basophil# 0.02 X10^3/uL; Basophil% 0.4 % (0-1); Eosinophil# 0.13 X10^3/uL; Eosinophils% 2.3 % (0-5); Hematocrit 39.4 % (37-47); Hemoglobin 12.6 g/dL (12.0-15.0); Lymphocyte # 1.31 X10^3/ul (4.0); Lymphocyte % 23.5 % (19-41); Mean Corpuscular Hgb 29.9 pg (27.0-32.0); Mean Corpuscular Volume 93.4 fL (81-99); Mean Platelet Vol. 10.4 fl (6.2-12.0); Monocyte# 0.78 X10^3/uL; NRBC Flagged by Analyzer 0 % (0-5); Neutrophil # 3.33 X10^3/uL (2.7-7.7); Neutrophil % 59.6 % (47-70); Platelet Count 221 K/mm3 (150-450); RBC Distribution Width CV 13.4 % (11.6-14.6); RBC Distribution Width SD 45.9 fl (35.1-43.9); Red Blood Count 4.22 M/mm3 (4.2-5.4); White Blood Count 5.6 K/mm3 (4.4-11.0)
[2020-07-06 12:47] LABS: Vitamin D,25 Hydroxy 50.2 ng/mL
[2020-07-06 13:06] LABS: ALB/GLOB Ratio 0.8 RATIO (0.9-2.4); AST(SGOT) 7 U/L (15-37); Alanine Aminotransfer ALT/SGPT 16 U/L (13-56); Albumin, Serum 3.2 g/dL (3.2-5.0); Alkaline Phosphatase 63 U/L (45-117); Anion Gap 9 (5-15); BUN 25 mg/dL (7-18); BUN/Creat Ratio 34.7 RATIO (10-20); Calcium,Total 9.4 mg/dL (8.5-10.1); Chloride 108 mmol/L (98-107); Creatinine, Serum 0.72 mg/dL (0.55-1.02); EST Glomerular Filtration Rate 84 mL/min (>60); Est Glom Filt Rate - Afr Amer 102 mL/min (>60); Globulin 3.9 g/dL (2.2-4.2); Glucose 77 mg/dL (74-106); Potassium 4.1 mmol/L (3.5-5.1); Protein, Total 7.1 g/dL (6.4-8.2); Sodium Level 139 mmol/L (136-145); Thyroid Stim Hormone (TSH) 2.41 uIU/mL (0.358-3.74)
== END ==
PROVIDERS: PCP Family Medicine Geriatric Medicine; Visit Provider Family Medicine Geriatric Medicine
DX: E55.9 Vitamin D deficiency, unspecified (principal); R53.83 Other fatigue
CPT/HCPCS: 36415; 80053; 82306; 84443; 85025

== ENCOUNTER 2020-10-05 16:28 | Outpatient (RCR) | payer MEDICARE, OTHER, SELFPAY ==
[2020-09-29 09:53] VITALS: BMI 24.0
[2020-10-05] MEDS: COVID-19 VACC, MRNA(PFIZER)/PF 30 MCG/0.3 ML SYRINGE IM (14:16)
[2020-10-26] MEDS: COVID-19 VACC, MRNA(PFIZER)/PF 30 MCG/0.3 ML SYRINGE IM (14:05)
== END 2021-01-04 23:59 ==
LOC: IMMUN 16:28
PROVIDERS: PCP Family Medicine Geriatric Medicine; Visit Provider Family Medicine
DX: Z23 Encounter for immunization (principal)
CPT/HCPCS: 0001A; 0002A; 91300

== ENCOUNTER → 2020-10-29 10:15 | Outpatient (CLI) | payer MEDICARE, OTHER, SELFPAY ==
[2020-09-29 09:53] VITALS: BMI 24.0
--- NOTE | 2020-10-29 10:19 | RAD_ITS ---
INDICATION: DIARRHEA EXAMINATION/TECHNIQUE: X-RAY - XR Abdomen W/ Decub and/or Erect Views COMPARISON: None FINDINGS: BOWEL GAS PATTERN: Non-obstructive. Moderate amount of retained stool in colon. FREE AIR: Not assessed on a single supine view. ORGANOMEGALY: Not seen. CALCIFICATIONS: No abnormal calcifications observed. LOWER CHEST: No acute pathology. BONES AND SOFT TISSUES: No acute pathology. Status post thoracolumbar scoliosis correction surgery. RAD/Abd Inc Decub and/or Erect IMPRESSION: Non-obstructive bowel gas pattern. Moderate amount of retained stool in colon. Electronically Signed: Arturo Gant MD at 21:50 EDT Tel , Service support ,
== END ==
PROVIDERS: PCP Family Medicine Geriatric Medicine; Referring Provider Family Medicine Geriatric Medicine; Visit Provider Family Medicine Geriatric Medicine
DX: R19.7 Diarrhea, unspecified (principal)
CPT/HCPCS: 74019

== ENCOUNTER → 2020-11-19 10:19 | Outpatient (CLI) | payer MEDICARE, OTHER, SELFPAY ==
--- NOTE | 2020-11-19 10:30 | RAD_ITS ---
INDICATION: FECAL IMPACTION EXAMINATION/TECHNIQUE: X-RAY - XR Abdomen 1 View COMPARISON: 10/29/2020 FINDINGS: BOWEL GAS PATTERN: Non-obstructive. Moderate amount of retained stool in the colon. FREE AIR: Not assessed on a single supine view. ORGANOMEGALY: Not seen. CALCIFICATIONS: No abnormal calcifications observed. LOWER CHEST: No acute pathology. BONES AND SOFT TISSUES: No acute pathology. Alignment hardware is seen involving the thoracolumbar spine. RAD/Abdomen Single View IMPRESSION: Non-obstructive bowel gas pattern. Moderate amount of retained stool in the colon. Electronically Signed: Arturo Gant MD at 17:14 EDT Tel , Service support ,
== END ==
PROVIDERS: PCP Family Medicine Geriatric Medicine; Referring Provider Family Medicine Geriatric Medicine; Visit Provider Family Medicine Geriatric Medicine
DX: K56.41 Fecal impaction (principal)
CPT/HCPCS: 74018

== ENCOUNTER 2020-12-07 05:46 | Day surgery (SDC) | payer MEDICARE, OTHER, SELFPAY ==
[2020-12-07] VITALS (7 sets, daily range): BP systolic 115–132; BP diastolic 60–65; PULSE 61–71; RESP 16–20; TEMP 36.2–36.9; O2SAT 93–97; BMI 21.9
--- NOTE | 2020-12-07 | IMM_PTH ---
PATIENT: KALPANA LION [place] [facility] [id number] AGE/SX: 75/F ROOM: RE12/07/[address]: Dr. Pablo Walker MD : 1945 BED: DIS: 12/07/2020 SPEC #: [id number] RECD: 12/08/20 12:58 STATUS: FAINA REQ #: [id number] NINO: 12/07/20 00:[address]: Pablo Walker DEPT: IMMUNOHISTOCHEMISTRY RECD BY: Coby Calle ENTERED: 12/08/20 12:59 SP TYPE: IMMUNO OTHR DR: Dr. Deondre Pedro MD Tissues: B - Anal region Procedures: CK20 (add) CK5-6 (add) CK7 (add) CK8 (add) P16 (add) Pankeratin (initial) P40 (add) PHYSICIAN & INSTITUTION [place] [id number] SPECIMEN INFORMATION: Tissue Source: B ? Anal biopsy Clinical Info: Anal fissure, anal/rectal pain, anal mass Specimen Number: [id number] CPT code: 63404, 65320 x6 METHODOLOGY: Deparaffinized sections of prefer/formalin-fixed tissue or PAP/DQ stained slides are incubated with monoclonal/polyclonal antibodies/oligonucleotide probes. Localization is made via biotin free immunoperoxidase method. Appropriate controls are performed and reacted as expected. Results on target cell population are indicated in the following table: RESULTS: ANTIBODY / CLONE RESULT Block B AE1-3 (AE1/AE3/PCK26) positive, focal CK7 (OV-TL12/30) positive, focal CK8 (00izdnM38) positive, focal CK20 (KS20.8) negative CK5-6 (D5 & 1684) positive, strong and diffuse P40 (BC28) positive, strong and diffuse P16 (E6H4) positive, block staining These tests were developed and their performance characteristics determined by [facility]. They may not have been cleared or approved by the U.S. Food and Drug Administration. The FDA has determined that such clearance or approval is not necessary. The above immunohistochemical/dualISH markers are ordered and reviewed by the Pathologist. INTERPRETATION: B. 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 SJ:fanny 12/09/2020
[2020-12-07] MEDS: Lactated Ringers 1,000 ML 100 ML IV (06:37)
[2020-12-07] MEDS: Cefazolin 2 GM in 0.9% Normal Saline 100 ML IV (07:22)
[2020-12-07] MEDS: Bupivacaine Mpf 0.5% 30 ML VIAL (07:30)
[2020-12-07] MEDS: Lubricating Jelly 60 GM Tube 30 GM TOPICAL (07:30)
--- NOTE | 2020-12-07 07:30 | MASS_PTH ---
PATIENT: KALPANA [place]ION [place] [facility] [place][id number] AGE/SX: 75/F ROOM: RE12/07/[address]: Dr. Pablo Walker MD : 1945 BED: DIS: 12/07/2020 SPEC #: [id number] RECD: 12/07/20 07:58 STATUS: FAINA REQ #: [id number] NINO: 12/07/20 07:[address]: Pablo Walker DEPT: SURGICAL PATHOLOGY RECD BY: Coby Calle ENTERED: 12/07/20 09:28 SP TYPE: Mass OTHR DR: Dr. Deondre Pedro MD Tissues: A - Anal region B - Anal region Procedures: Frozen Section (charge) Surgery Specimen Level IV HEADER OPERATION: Exam under anesthesia, rectal, anal biopsy PRE-OP DIAGNOSIS: Anal fissure, anal/rectal pain, anal mass TISSUE SUBMITTED: A ? Anal biopsy, FS, B ? Anal biopsy FROZEN SECTION DIAGNOSIS A. 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 SJ:fanny 12/07/2020 MICROSCOPIC DIAGNOSIS A. 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 B. 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 See comment. MARSHALL:fanny 12/08/2020 COMMENT B. Immunohistochemistry ([id number]) supports the above diagnosis. MICROSCOPIC DESCRIPTION Slides are reviewed. GROSS DESCRIPTION A - Received fresh for frozen section diagnosis (non-carter) labeled with the patient's name is a specimen designated anal biopsy. The specimen consists of an elongated piece of lloyd soft tissue measuring 1.5 cm in length and 0.1 cm in diameter. The entire specimen is submitted in one cassette for frozen section diagnosis. B - Received in fixative is one container labeled with the patient's name and designated anal biopsy. The specimen consists of three elongated fragments of lloyd soft tissue measuring 1 to 1.5 cm in length and 0.1 cm in diameter. The entire specimen is submitted in one cassette. / SJ:rg 12/07/20 TC:0 CPT: 05660 x2, 67549
[2020-12-07] MEDS: Dibucaine 30 GM Tube 1 APPLIC (07:48)
--- NOTE | 2020-12-07 08:00 | PCM.OPRPT ---
Problems Associated Problem List Diagnoses (1) Mass of anus: (2) Anal pain: (3) Anal fissure: Report of Operation Date of Procedure: 12/07/20 Pre-Operative Diagnosis: 1. Anal mass, #2 anal pain, #3 anal fissure Post-Operative Diagnosis: Same Surgery/Procedure Performed:: Exam under anesthesia with Kuldeep-Cut needle biopsy of anal mass maintenance service dispatcher: None Type of Anesthesia: General Anesthesiologist: Sony Hale Specimen's removed: 3 Kuldeep-Cut needle biopsies of anal mass Drains: None Estimated Blood Loss (mL): < 5 cc Description of Procedure: Patient was brought into the operating room.? Placed in the supine position.? Under excellent general anesthetic legs were placed up in stirrups anal area was sterilely prepped and draped in the usual fashion.? When she was asleep I was able to do a digital rectal exam she has an anal mass more on the anterior aspect closer to the vagina extending along the left lateral side of the anus.? I injected local anteriorly made a small incision took 3 Kuldeep-Cut needle biopsies of this anal mass.? 2 of them were for permanent section one of them was for frozen section.? I closed the incision with 3-0 chromic.? I injected local around the anus.? A small dibucaine Gelfoam was placed into the anal area it was very friable and was bleeding slightly but it stopped with just gentle pressure.? The patient tolerated the procedure well. Admit VTE Documentation VTE Present on Admission: No VTE Mechan Device Prophylaxis: SCD's VTE Pharm Prophylaxis ordered?: No Reason prophylaxis not ordered:: Treatment Not Indicated
--- NOTE | 2020-12-07 08:05 | EX.PCM.DISCH ---
Discharge Instructions Procedure General Surgery Diet Discharge Diet: Light diet - advance as tolerated (If you have questions about your diet instructions, please talk to your doctor.) Activity Discharge Activity: May Not Drive (for 1 week or while taking narcotic pain medicine.) May shower in (days): 1 Lifting Restrictions: 10 pounds Dressing / Incision Call your doctor if your incision/area has: Continuous Slow Oozing, Sudden Increased Bleeding, Increased Pain/ Swelling, Increased Redness and Foul Smelling Discharge Call your doctor if you observe: Fever of 101 or Higher Suture Line Care: Avoid Pulling/Pushing and Avoid Pinching/Bending Additional Dressing/Incision Instructions:: Change or remove dressing in 4 days. Leave steri-strips in place for 1 week. Follow Up Care Please Follow Up With: Dayami Poe PA-C When: Call office to schedule an appointment to be seen in about 10 days. Test Results: Test results from this visit will be discussed in further detail at your follow-up appointment, if applicable. Discharge Plan Admission Attending Provider: Pablo Walker Primary Care Provider: Deondre Pedro Chi Discharge Orders/Prescriptions Prescriptions: No Action cholecalciferol (vitamin D3) 1,000 unit capsule 1,000 unit capsule 1,000 unit PO DAILY RF: 0 cyanocobalamin (vitamin B-12) 1,000 mcg capsule 1,000 mcg capsule 1,000 mcg PO DAILY RF: 0 citalopram 10 mg tablet 5 mg PO QODAY RF: 0 ultraflora womens 1 cap PO DAILY RF: 0 metagenics ostera 1 cap PO DAILY RF: 0 epinephrine 0.3 MG syringe 0.3 mg IM X1 Qty: 1 RF: 0 acetaminophen [Tylenol] 325 mg Tablet 650 mg PO Q6H PRN (Reason: Pain) RF: 0 oxycodone-acetaminophen 5-325 mg Tablet 1 tab PO Q6H PRN (Reason: Pain) RF: 0 Cbd Oil 6 drp PO/SL BID RF: 0 Referrals / Follow Up: Pablo Walker MD [STAFF PHYSICIAN] - Deondre Pedro Chi, MD [Primary Care Provider] - Disposition Disposition (needs filled in before D/C Order can be placed): Home, self care
== END 2020-12-07 10:34 | disposition home or self-care (01) ==
LOC: SDC 05:46 → AC 05:46
PROVIDERS: PCP Family Medicine Geriatric Medicine; Referring Provider Surgery; Visit Provider Surgery
PROC: (CPT 45990; principal; 2020-12-07 07:15)
DX: C21.0 Malignant neoplasm of anus, unspecified (principal); K60.2 Anal fissure, unspecified; F41.9 Anxiety disorder, unspecified; I10 Essential (primary) hypertension; M81.0 Age-related osteoporosis without current pathological fracture; G25.81 Restless legs syndrome; M19.90 Unspecified osteoarthritis, unspecified site; Z79.899 Other long term (current) drug therapy; Z87.891 Personal history of nicotine dependence
CPT/HCPCS: 00902; 45990; 88305; 88331; 88341; 88342; J7120; J2405

== ENCOUNTER 2020-12-16 11:57 | Observation (INO) | payer MEDICARE, OTHER, SELFPAY ==
[2020-12-07 06:24] VITALS: BMI 21.9
[2020-12-16 11:58] VITALS: BP 125/59; PULSE 70; RESP 18; TEMP 36.5; O2SAT 97; BMI 22.4
--- NOTE | 2020-12-16 12:30 | RAD_ITS ---
STUDY: X-RAY CHEST REASON FOR EXAM: Female, 75 years old. Weakness TECHNIQUE: Single AP portable view of the chest. COMPARISON: None. FINDINGS: Lungs are hyperexpanded with chronic interstitial changes, no superimposed acute pulmonary process. There is no demonstrated pleural abnormality. Normal size heart. Normal mediastinum and zaid. Normal visualized pulmonary arteries. Normal visualized aortic arch and descending thoracic aorta. There are diffuse degenerative changes of the visualized thoracic spine, surgical hardware in the lower thoracic spine free of complication. There is degenerative osteoarthritis of the bilateral shoulders. There is no demonstrated abnormality of the visualized soft tissue structures of the upper abdomen. RAD/Chest 1 View (Portable) IMPRESSION: Hyperexpanded lungs with chronic interstitial changes, no superimposed acute pulmonary process Electronically Signed: Virgil Najera MD at 13:39 EDT , Service support ,
[2020-12-16] MEDS: HYDROmorphone 1 MG/ML Syringe 0.5 MG IV (12:47)
[2020-12-16] MEDS: Ondansetron 4 MG/2 ML Vial IV (12:47)
[2020-12-16 13:02] LABS: Absolute Lymphocyte Count 0.98 X10^3/uL (0.83-4.51); Absolute Neutrophil Count 4.9 X10^3/uL (2.0-7.7); Basophil# 0.01 X10^3/uL; Basophil% 0.1 % (0-1); Eosinophil# 0.04 X10^3/uL; Eosinophils% 0.6 % (0-5); Hematocrit 38.9 % (37-47); Hemoglobin 12.6 g/dL (12.0-15.0); Lymphocyte # 0.98 X10^3/ul (0.83-4.51); Lymphocyte % 14.4 % (19-41); Mean Corp Hgb Conc 32.4 g/dL (32-36); Mean Corpuscular Hgb 30.2 pg (27.0-32.0); Mean Corpuscular Volume 93.3 fL (81-99); Monocyte# 0.88 X10^3/uL; NRBC Flagged by Analyzer 0 % (0-5); Neutrophil # 4.86 X10^3/uL (2.7-7.7); Neutrophil % 71.6 % (47-70); Platelet Count 229 K/mm3 (150-450); RBC Distribution Width CV 14.4 % (11.6-14.6); RBC Distribution Width SD 49.1 fl (35.1-43.9); Red Blood Count 4.17 M/mm3 (4.2-5.4); White Blood Count 6.8 K/mm3 (4.4-11.0)
[2020-12-16 13:16] LABS: ALB/GLOB Ratio 0.9 RATIO (0.9-2.4); AST(SGOT) 14 U/L (15-37); Alanine Aminotransfer ALT/SGPT 15 U/L (13-56); Albumin, Serum 3.2 g/dL (3.2-5.0); Alkaline Phosphatase 64 U/L (45-117); Anion Gap 6 (5-15); BUN 8 mg/dL (7-18); BUN/Creat Ratio 12.2 RATIO (10-20); Calcium,Total 9.5 mg/dL (8.5-10.1); Chloride 103 mmol/L (98-107); Creatinine, Serum 0.66 mg/dL (0.55-1.02); EST Glomerular Filtration Rate 94 mL/min (>60); Est Glom Filt Rate - Afr Amer 114 mL/min (>60); Estimated Creatinine Clearance 41.45 ml/min; Globulin 3.5 g/dL (2.2-4.2); Glucose 94 mg/dL (74-106); Potassium 3.8 mmol/L (3.5-5.1); Protein, Total 6.7 g/dL (6.4-8.2); Sodium Level 137 mmol/L (136-145)
--- NOTE | 2020-12-16 13:45 | EDS_ITS ---
HPI History of Present Illness Chief Complaint: Diarrhea Narrative Narrative: Patient presents with weakness, quite a bit of rectal pain. She is presenting from the oncologist office. 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 No fever or chills. She does not have abdominal pain. No recent antibiotics or travel history. She feels weak and slightly lightheaded. [facility] Medical History (Updated 12/16/20 @ 13:[address] Bart Cody MD) Acute hemorrhoid Anemia Anxiety Cataract Edema Former smoker h/o anterior lumbar interbody fusion L4-5, L5-S1. H/o Laminectomy L2-5, fusion T11-S1, instrumentation local H/O: HTN (hypertension) History of rectal bleeding Mitral and aortic valve disease Osteoporosis Post-menopausal Restless legs Spinal stenosis Syncope Wears hearing aid in both ears Home Medications cholecalciferol (vitamin D3) 25 mcg (1,000 unit) capsule 1,000 unit PO DAILY 07/16/18 [History Last Taken Unknown] cyanocobalamin (vitamin B-12) 1,000 mcg capsule 1,000 mcg PO DAILY 07/16/18 [History Last Taken Unknown] epinephrine 0.3 mg IM X1 #1 syringe 06/13/20 [Rx Last Taken Unknown] citalopram 10 mg tablet 5 mg PO QODAY tab 09/29/20 [History Last Taken Unknown] metagenics ostera 1 cap PO DAILY 09/29/20 [History Last Taken Unknown] ultraflora womens 1 cap PO DAILY 09/29/20 [History Last Taken Unknown] Cbd Oil 6 drp PO/SL BID 12/06/20 [History Last Taken Unknown] acetaminophen [Tylenol] 650 mg PO Q6H PRN 12/06/20 [History Last Taken Unknown] oxycodone-acetaminophen 1 tab PO Q6H PRN 12/06/20 [History Last Taken Unknown] Allergy/AdvReac Type Severity Reaction Status Date / Time nut - unspecified Allergy Anaphylaxis Verified 12/16/20 11:58 procaine HCl [From Novocain] Allergy Angioedema Verified 12/16/20 11:58 acetaminophen [From Vicodin] AdvReac Other Verified 12/16/20 11:58 alprazolam [From Xanax] AdvReac Other Verified 12/16/20 11:58 amoxicillin AdvReac Other Verified 12/16/20 11:58 hydrocodone bitartrate AdvReac Other Verified 12/16/20 11:58 [From Vicodin] metaxalone [From Skelaxin] AdvReac Other Verified 12/16/20 11:58 nabumetone AdvReac Other Verified 12/16/20 11:58 peanut butter Allergy Unknown unknown Uncoded 12/07/20 06:19 NOVICANE Allergy Angioedema Uncoded 12/07/20 06:19 Family History Mother Hypertension Father , at age: 88 emphysema Pneumonia Dementia Grandmother CVA (cerebral vascular accident) Surgical History H/O spinal fusion History of bronchoscopy History of tonsillectomy and adenoidectomy Hx of colonoscopy S/P ear surgery Social History (Updated 11/10/20 @ 15:[address] Rosalino Jackson, DO) household members: spouse housing: house Smoking Status: Former smoker pack-years: 8 alcohol intake: never substance use type: does not use what type of physical activity do you participate in: none seatbelt use: always do you feel safe at home: Yes ROS ROS ED ROS Narrative Past medical history: Rectal mass as above Medications: Reviewed Social history: Noncontributory Review of systems: All systems negative except as indicated General: No fever, she does feel weak and lightheaded Eyes: No visual changes ENT: No upper airway congestion, normal voice Neck: No neck pain Cardiovascular: No chest pain Respiratory: No shortness of breath or cough Gastrointestinal: No abdominal pain, nausea or vomiting diarrhea as in HPI Genitourinary: No dysuria Rectal: rectal pain as in HPI. Diarrhea as in HPI Musculoskeletal: Denies myalgias no difficulty with ambulation Skin: No rash Neurological: No memory loss, confusion or any focal weakness Psych: No recent behavioral changes Hematologic: No easy bleeding or easy bruising EXAM Physical Exam Narrative Exam Narrative: Physical exam General: Patient appears anxious she does appears in some distress Head: Normocephalic, Atraumatic Eyes: Conjunctiva not pale ENT: Slightly dry mucous membranes Neck: Supple, Nontender, No lymphadenopathy Cardiovascular: Regular rate, Regular rhythm Respiratory: No distress, CTA bilaterally Abdomen: Soft, Nontender, Nondistended Rectal: There is a rectal mass but no obvious bleeding at this time. No signs of infection Back: Nontender, Normal Inspection. Negative for: CVA tenderness Extremities: Nontender, No edema Skin: Normal color, No rash Neurological: Alert, Normal Strength, Normal Sensation Psychological: Normal affect Const Vital Signs: 12/16/20 11:58 Temperature 97.7 F L Temperature Source Temporal Pulse Rate 70 Respiratory Rate 18 Blood Pressure 125/59 H Blood Pressure Mean 81 Pulse Ox 97 Oxygen Delivery Method Room Air MDM MDM MDM Narrative Medical decision making narrative: Patient is given analgesics, lab work is grossly unremarkable however after discussing with oncology patient will be admitted for diarrhea work-up, lightheadedness and dehydration as well as prompt MRI. Lab Data Labs: Laboratory Results - last 24 hr 12/16/20 12/16/20 12:50 12:50 WBC 6.8 RBC 4.17 L Hgb 12.6 Hct 38.9 MCV 93.3 MCH 30.2 MCHC 32.4 RDW Std Deviation 49.1 H RDW Coeff of Selvin 14.4 Plt Count 229 MPV 10.0 Immature Gran % (Auto) 0.300 Neut % (Auto) 71.6 H Lymph % (Auto) 14.4 L [place] % (Auto) 13.0 H Eos % (Auto) 0.6 Baso % (Auto) 0.1 Absolute Neuts (auto) 4.9 Absolute Lymphs (auto) 0.98 Nucleated RBC % 0 Sodium 137 Potassium 3.8 Chloride 103 Carbon Dioxide 28.0 Anion Gap 6 BUN 8 Creatinine 0.66 Estim Creat Clear Calc 41.45 Est GFR (MDRD) Af Amer 114 Est GFR (MDRD) Non-Af 94 BUN/Creatinine Ratio 12.2 Glucose 94 Calcium 9.5 Total Bilirubin 0.50 AST 14 L ALT 15 Alkaline Phosphatase 64 Total Protein 6.7 Albumin 3.2 Globulin 3.5 Albumin/Globulin Ratio 0.9 Radiography Diagnostic Testing: Radiology Impression Chest X-Ray 12/16/20 12:30 IMPRESSION: Hyperexpanded lungs with chronic interstitial changes, no superimposed acute pulmonary process Electronically Signed: Virgil Najera MD at 13:39 EDT , Service support , Discharge Plan Triage Chief Complaint: Diarrhea ED Provider: Bart Cody Dx/Rx/DC Orders Clinical Impression: Mass of anus, Diarrhea Prescriptions: No Action cholecalciferol (vitamin D3) 1,000 unit capsule 1,000 unit capsule 1,000 unit PO DAILY RF: 0 cyanocobalamin (vitamin B-12) 1,000 mcg capsule 1,000 mcg capsule 1,000 mcg PO DAILY RF: 0 citalopram 10 mg tablet 5 mg PO QODAY RF: 0 ultraflora womens 1 cap PO DAILY RF: 0 metagenics ostera 1 cap PO DAILY RF: 0 epinephrine 0.3 MG syringe 0.3 mg IM X1 Qty: 1 RF: 0 acetaminophen [Tylenol] 325 mg Tablet 650 mg PO Q6H PRN (Reason: Pain) RF: 0 oxycodone-acetaminophen 5-325 mg Tablet 1 tab PO Q6H PRN (Reason: Pain) RF: 0 Cbd Oil 6 drp PO/SL BID RF: 0 Primary Care Provider: Deondre Pedro Chi Referrals: Deondre Pedro Chi, MD [Primary Care Provider] - Disposition Disposition: Acute Care Hospital [facility]
--- NOTE | 2020-12-16 13:53 | HP.PCM.HOS_ITS ---
[facility] - General General Date of Admission: 12/16/20 HPI Narrative KALPANA LION, is a 75 F with a PMH as outlined who presents with a complaitn of weakness. SHe was diagnosed recently with squamous cell carcinoma of the rectum per biopsy, after a history of anal pain. She said she had been taking percocet and was very constipated. She went to her PCP and she was given miralax, which she says she took one dose of. She subsequently started having profuse diarrhea, for about 12-15 episodes daily. She denies any abdominal pain, nausea or vomiting. Review of systems was otherwise negative. She admits to lightheadedness and dizziness. She is due for an outpatient MRI in 2 weeks and a PET scan in December. Vitals in the ED showed BP of 125/59, AK of 70, RR of 18 and temp of 97.7F. CBC showed wbc of 6.8, Hb of 12.6 and platelets of 229. chemistry showed Cr of 0.66, sodium of 137 and potassium of 3.8. Stool studies were ordered and patient is being admitted to be managed for intractable diarrhea. [facility] Medical History (Updated 12/16/20 @ 15:47 by Jelena Machado) Acute hemorrhoid Anemia Anxiety Cataract Chronic pain Edema Former smoker h/o anterior lumbar interbody fusion L4-5, L5-S1. H/o Laminectomy L2-5, fusion T11-S1, instrumentation local H/O: HTN (hypertension) History of rectal bleeding Mitral and aortic valve disease Osteoporosis Osteoporosis Post-menopausal Rectal cancer Restless legs Spinal stenosis Syncope Wears hearing aid in both ears Home Medications citalopram 10 mg tablet 2.5 mg PO QODAY tab 09/29/20 [History Last Taken 12/15/20] metagenics ostera 1 cap PO DAILY 09/29/20 [History Last Taken 1 Week Ago ~12/09/20] ultraflora womens 1 cap PO DAILY 09/29/20 [History Last Taken 1 Week Ago ~12/09/20] Cbd Oil 6 drp PO/SL BID 12/06/20 [History Last Taken 3 Days Ago ~12/13/20] cholecalciferol (vitamin D3) 25 mcg PO DAILY 12/16/20 [History Last Taken 2 Days Ago ~12/14/20] cyanocobalamin (vitamin B-12) 1,000 mcg PO DAILY 12/16/20 [History Last Taken 2 Days Ago ~12/14/20] epinephrine 0.3 mg IM X1 12/16/20 [History Last Taken Unknown] oxycodone-acetaminophen 1 tab PO Q4H PRN 12/16/20 [History Last Taken 12/16/20] Allergy/AdvReac Type Severity Reaction Status Date / Time nut - unspecified Allergy Anaphylaxis Verified 12/16/20 11:58 procaine HCl [From Novocain] Allergy Angioedema Verified 12/16/20 11:58 acetaminophen [From Vicodin] AdvReac Other Verified 12/16/20 11:58 alprazolam [From Xanax] AdvReac Other Verified 12/16/20 11:58 hydrocodone bitartrate AdvReac Other Verified 12/16/20 11:58 [From Vicodin] metaxalone [From Skelaxin] AdvReac Other Verified 12/16/20 11:58 nabumetone AdvReac Other Verified 12/16/20 11:58 peanut butter Allergy Unknown I break Uncoded 12/16/20 15:38 out NOVICANE Allergy Angioedema Uncoded 12/07/20 06:19 Family History Mother Hypertension Father , at age: 88 emphysema Pneumonia Dementia Grandmother CVA (cerebral vascular accident) Surgical History H/O spinal fusion History of bronchoscopy History of tonsillectomy and adenoidectomy Hx of colonoscopy S/P ear surgery Social History (Updated 11/10/20 @ 15:[address] Rosalino Jackson, DO) household members: spouse housing: house Smoking Status: Former smoker pack-years: 8 alcohol intake: never substance use type: does not use what type of physical activity do you participate in: none seatbelt use: always do you feel safe at home: Yes ROS Constitutional Constitutional: Reports change in weight, fatigue, malaise and weakness; Denies anorexia, chills or fever(s) Eyes Eyes: Denies discharge from eye(s) or erythema ENT HEENT: Denies dysphagia, hearing loss, nasal congestion or nasal discharge Cardiovascular Cardiovascular: Denies chest pain, dyspnea on exertion, edema, lightheadedness, orthopnea, palpitations, paroxysmal nocturnal dyspnea or rapid heart rate Respiratory/Chest Respiratory/Chest: Denies cough, shortness of breath at rest or shortness of breath with exertion Gastrointestinal Gastrointestinal: Reports diarrhea; Denies abdominal pain, constipation, dyspepsia, hematemesis, hematochezia, loose stools, melena, nausea or vomiting Genitourinary Genitourinary: Denies burning urination, dysuria, urinary frequency, urinary incontinence or urinary urgency Musculoskeletal Musculoskeletal: Reports arthralgias; Denies joint pain, joint stiffness or joint swelling Neurologic Neurologic: Denies confusion, dizziness, focal weakness, numbness or seizures Psychiatric Psychiatric: Denies anxiety or depression Endocrine Endocrinology: Denies change in body appearance Hematologic/Lymphatic Hematologic/Lymphatic: Denies anemia Vital Signs Vital Signs Vital Signs: 12/16/20 11:58 Temperature 97.7 F L Temperature Source Temporal Pulse Rate 70 Respiratory Rate 18 Blood Pressure 125/59 H Blood Pressure Mean 81 Pulse Ox 97 Oxygen Delivery Method Room Air Physical Exam Const alert, oriented x3 and no apparent distress General Appearance: cooperative HEENT normocephalic, head/scalp atraumatic, hearing grossly normal bilaterally and moist oral mucous membranes Eyes PERRL, EOMs intact bilaterally and conjunctivae normal Neck no lymphadenopathy Resp normal respiratory effort, no retractions, no use of accessory muscles and clear to auscultation bilaterally Cardio regular rate, regular rhythm, S1 normal heart sound, S2 normal heart sound and no murmurs GI normal to inspection, nondistended, normoactive bowel sounds, soft to palpation, non-tender and non-distended Extremity normal to inspection, full ROM and no clubbing, cyanosis or edema Peripheral Pulses: Yes pulses 2+ throughout Skin no rashes or lesions noted Neuro oriented x3 Sensorium / Orientation: awake and alert Psych Mood & Affect: anxious Lab / Micro Data Result Diagrams: 12/17/20 04:50 12/17/20 04:50 Labs: Laboratory Results - last 24 hr 12/16/20 12/16/20 12:50 12:50 WBC 6.8 RBC 4.17 L Hgb 12.6 Hct 38.9 MCV 93.3 MCH 30.2 MCHC 32.4 RDW Std Deviation 49.1 H RDW Coeff of Selvin 14.4 Plt Count 229 MPV 10.0 Immature Gran % (Auto) 0.300 Neut % (Auto) 71.6 H Lymph % (Auto) 14.4 L [place] % (Auto) 13.0 H Eos % (Auto) 0.6 Baso % (Auto) 0.1 Absolute Neuts (auto) 4.9 Absolute Lymphs (auto) 0.98 Nucleated RBC % 0 Sodium 137 Potassium 3.8 Chloride 103 Carbon Dioxide 28.0 Anion Gap 6 BUN 8 Creatinine 0.66 Estim Creat Clear Calc 41.45 Est GFR (MDRD) Af Amer 114 Est GFR (MDRD) Non-Af 94 BUN/Creatinine Ratio 12.2 Glucose 94 Calcium 9.5 Total Bilirubin 0.50 AST 14 L ALT 15 Alkaline Phosphatase 64 Total Protein 6.7 Albumin 3.2 Globulin 3.5 Albumin/Globulin Ratio 0.9 Radiology Impression Chest X-Ray 12/16/20 12:30 IMPRESSION: Hyperexpanded lungs with chronic interstitial changes, no superimposed acute pulmonary process Electronically Signed: Virgil Najera MD at 13:39 EDT , Service support , Assessment & Plan Assessment/Plan (1) Diarrhea: (2) Anal pain: PLAN: #Intractable diarrhea * patient says she took one dose of miralax, which shouldnt cause such profuse diarrhea * recently diagnosed with rectal cancer * stool for C DIff, ova and parasites ordered. Stool enteric pathogen screen also ordered. * hydrate with IVF for now * IV cipro and metronidazole * #Recently diagnosed squamous cell carcinoma of the rectum * saw her oncologist for the first time on outpatient basis today. * get CT of the chest without contrast and MRI of the pelvis with and without contrast * continue percocet for pain. * DVT prophylaxis: lovenox Code status: full code. * patient and counseled about different pain full code, DNR CCA and DNR CCA. Patient elects to be full code. * total face to face time: 16 mins Visit Charges OBSV E&M: 17289 Initial observation care L2 Procedures Hospitalists Procedures: 22056 Advncd Care Plan 30 Min
--- NOTE | 2020-12-16 13:55 | NURSING ---
DR PRADO FOR DR DOUGHERTY
--- NOTE | 2020-12-16 14:18 | NURSING ---
CHERYL PRADO DIARRHEA, RECTAL MASS
[2020-12-16 14:26] VITALS: BP 128/68; PULSE 67; PULSE 69; RESP 16; RESP 17; TEMP 36.8; O2SAT 97; O2SAT 98
--- NOTE | 2020-12-16 15:32 | MRI_ITS ---
STUDY: MR PELVIS WITH T WITHOUT CONTRAST REASON FOR EXAM: Female, 75 years old. rectal cancer TECHNIQUE: Standardized fat and water weighted pulse sequences were obtained in all 3 orthogonal planes, pre-and post contrast administration. IV 12ml Dotarem was administered for the contrast portion of the examination. COMPARISON: None. FINDINGS: Normal urinary bladder. Normal visualized small intestine. There is localized wall thickening/mass of the right lateral (9 o''clock to 10 o''clock position) low rectum measuring 10 x 19 mm (image 22-24 series 9, image 14 series 11) with mild degree of contrast enhancement (image 16 series 13 the lesion appears to extend beyond (3.5 mm) the muscularis propria. The lesion does not involve the peritoneal reflection. The mass extends inferiorly to the level of the anal sphincter complex (image 14-17 series 11). NO demonstrated involvement of the levator ani but extends into the intersphincteric space (T3) as seen on image 14 of series 11 and image 25 series 9. Enlarged round, enhancing lymph node of the right internal iliac chain measures 8.6 x 8.0 mm (image 12 series 9). 7.6 mm mesorectal lymph node on image 10 of series 9 with abnormal contrast enhancement and irregular margins (image 37 series 13). Round, enhancing right internal iliac chain lymph node measures 5.5 x 8.0 mm (image 11 series 9). Well-defined oval-shaped lymph nodes of the bilateral inguinal creases with short axis measuring 5.6 mm do not meet malignant morphologic criteria. There is no pelvic fluid. Normal visualized pelvic arteries. No bone marrow edema. MRI/Pelvis W/WO Contrast IMPRESSION: 1. Low rectal mass/neoplasm extending to the level of the anal sphincter complex and small (7.6-8.6 mm) regional (mesorectal, right internal iliac chain, superior rectal) pathologic (total of 4) lymph nodes (T3, N2, Mx). Electronically Signed: Rakesh Lama MD ([place]) at 9:45 EDT , Service support ,
[2020-12-16 15:35] VITALS: BMI 23.3
[2020-12-16 15:44] VITALS: BP 126/67; PULSE 67; RESP 18; TEMP 37.2; O2SAT 97
--- NOTE | 2020-12-16 16:04 | CT_ITS ---
STUDY: CT CHEST WITH CONTRAST REASON FOR EXAM: Female, 75 years old. rectal cancer, assessing for metastases RADIATION DOSAGE (If Supplied By Facility): CTDIvol = ( 9.40 ) mGy, DLP = ( 173.07 ) mGycm TECHNIQUE: Transaxial imaging was performed following intravenous administration of IV 100mL Isovue-370. Individualized dose optimization techniques were used for this CT. COMPARISON: 11/24/2017, 01/01/2020. FINDINGS: There is hyperinflation of the lungs consistent with chronic obstructive lung disease (COPD). Stable widespread patchy areas of pleural-parenchymal scarring in the periphery of both lungs especially the apices. Some of these irregular pulmonary densities are partially Stable noncalcified nodules in the right middle lobe, all subcentimeter in size. No infiltrates. No effusions. There is no demonstrated pleural abnormality. Normal heart and pericardium. Stable calcifications in the subcarinal space and left hilum. Normal enhanced pulmonary arteries. Normal aorta arch and descending thoracic aorta. There are multi-level degenerative changes of the thoracic spine. There is no demonstrated abnormality of the visualized upper abdomen. CT/Chest WITH Contrast IMPRESSION: No change and no acute abnormality. Scattered foci of pleural-parenchymal scarring and stable nodule. Findings have been stable since 2018. Electronically Signed: Rudi Arriaga MD at 17:07 EDT , Service support ,
[2020-12-16] MEDS: 0.9% Saline Lock 10 ML Syringe IV ×3 (16:37→18:38)
[2020-12-16] MEDS: 0.9% Normal Saline 1,000 ML 125 ML IV (16:37)
[2020-12-16] MEDS: oxyCODONE 5 MG Tablet PO (16:56)
[2020-12-16] MEDS: Morphine 2 MG/ML Syringe IV (18:38)
[2020-12-16 21:12] VITALS: BP 103/50; PULSE 67; RESP 18; TEMP 36.7; O2SAT 96
[2020-12-16] MEDS: oxyCODONE 5 MG Tablet 10 MG PO (21:21)
[2020-12-17] MEDS: oxyCODONE 5 MG Tablet 10 MG PO ×3 (02:19→11:33)
[2020-12-17] MEDS: 0.9% Normal Saline 1,000 ML 125 ML IV (02:40)
[2020-12-17 02:45] VITALS: BP 105/59; PULSE 63; RESP 16; TEMP 36.9; O2SAT 98
[2020-12-17 05:42] LABS: Absolute Lymphocyte Count 1.26 X10^3/uL (0.83-4.51); Absolute Neutrophil Count 4.3 X10^3/uL (2.0-7.7); Basophil# 0.01 X10^3/uL; Basophil% 0.2 % (0-1); Eosinophils% 1.5 % (0-5); Hematocrit 34.6 % (37-47); Lymphocyte # 1.26 X10^3/ul (0.83-4.51); Lymphocyte % 19.1 % (19-41); Mean Corp Hgb Conc 31.8 g/dL (32-36); Mean Corpuscular Hgb 30.1 pg (27.0-32.0); Mean Corpuscular Volume 94.8 fL (81-99); Mean Platelet Vol. 10.2 fl (6.2-12.0); Monocyte# 0.86 X10^3/uL; NRBC Flagged by Analyzer 0 % (0-5); Neutrophil # 4.34 X10^3/uL (2.7-7.7); Neutrophil % 65.7 % (47-70); Platelet Count 194 K/mm3 (150-450); RBC Distribution Width CV 14.3 % (11.6-14.6); Red Blood Count 3.65 M/mm3 (4.2-5.4); White Blood Count 6.6 K/mm3 (4.4-11.0)
[2020-12-17 06:09] LABS: Anion Gap 6 (5-15); BUN 6 mg/dL (7-18); Calcium,Total 8.8 mg/dL (8.5-10.1); Chloride 106 mmol/L (98-107); Creatinine, Serum 0.54 mg/dL (0.55-1.02); EST Glomerular Filtration Rate 117 mL/min (>60); Est Glom Filt Rate - Afr Amer 141 mL/min (>60); Estimated Creatinine Clearance 41.45 ml/min; Glucose 84 mg/dL (74-106); Potassium 4.1 mmol/L (3.5-5.1); Sodium Level 138 mmol/L (136-145)
[2020-12-17 06:58] LABS: Mucous, Urine 0 SEEN /hpf (<or=2+); Red Blood Cells-Urine 0 SEEN /hpf (0-5); Squamous Epithelial Cells - UA 0 SEEN /hpf (5-10)
[2020-12-17 07:00] LABS: Color, Urine Yellow (Yellow); Glucose, Dipstick Normal (Normal); Ketone-Dipstick Negative (Negative); Leukocyte Esterase-Dipstick 25 /ul (Negative); Nitrite-Dipstick Negative (Negative); Occult Blood-Urine 25 /ul (Negative); Protein-Dipstick Negative (Negative); Urine Bilirubin Dipstick Negative (Negative); Urine Clarity Clear (Clear); Urine Urobilinogen Normal (Normal)
[2020-12-17 07:16] LABS: Bacteria 1+ /hpf (None Seen)
[2020-12-17 07:17] LABS: White Blood Cells 0-5 SEEN /hpf (0-5)
[2020-12-17 11:00] VITALS: BP 110/57; PULSE 63; RESP 18; TEMP 36.8; O2SAT 100
[2020-12-17] MEDS: Menthol/Lanolin/Calamine/Znox 113 GM Tube 1 APPLIC TOPICAL ×2 (11:05→15:20)
[2020-12-17] MEDS: Citalopram 10 MG Tablet 5 MG PO (11:07)
[2020-12-17] MEDS: Dicyclomine 10 MG Capsule PO ×2 (11:07→15:31)
[2020-12-17] MEDS: Enoxaparin 40 MG/0.4 ML Syringe SC (11:08)
[2020-12-17] MEDS: Cholecalciferol (VIT D3) 25 MCG TABLET (1,000 UNITS) PO (11:09)
--- NOTE | 2020-12-17 11:40 | CASEMGMT ---
Addendum entered by Jelena Sanabria 12/17/20 13:14: SW did place a call to the Disc Pad Grinding Machine Feeder Ray and left message regarding referral. Original Note: Social Work Note SW reviewed chart, pt recently diagnosed with rectal cancer on 12/10/2020. SW in to speak with pt. Pt's Moo present in room. SW introduced self and role at [facility]. Pt gave this worker permission to speak to her in front of her . Pt confirms that she was recently diagnosed with cancer. Pt states it is hard for her to even say the word. SW offered support to pt. Pt states that she will be following with Dr. Lu as her oncologist. Pt states that her is very supportive of her, states that she also has supportive friends. SW offered to provide pt with cancer support groups/resources and pt denied stating she doesn't need it at this time. Pt states that she has started to tell her family/friends and also told her Credit Risk Analyst. SW informed pt that there is a Disc Pad Grinding Machine Feeder at [facility] if she would like to speak to the Disc Pad Grinding Machine Feeder while here at [facility] and pt agreeable to referral for [facility] Disc Pad Grinding Machine Feeder. Pt denied additional needs or concerns at this time. Jelena Sanabria MOLD FORMS BUILDER, BOBBIN PRESSER
[2020-12-17] MEDS: Morphine 2 MG/ML Syringe IV (12:56)
[2020-12-17 13:00] VITALS: BP 107/45; PULSE 61; RESP 16; TEMP 37; O2SAT 95
--- NOTE | 2020-12-17 13:13 | CASEMGMT ---
Social Work Note Per club concierge questions, pt has completed HCPOA and LW and provided copies to [facility]. SW reviewed chart, no copies found on chart. SW asked pt about HCPOA and LW. Pt confirms she has completed documents and they are at home. SW informed pt that documents are not on file at [facility], encouraged pt to bring in copies next time. Pt states understanding. Jelena Sanabria WOOD CARVING MACHINE OPERATOR, EXAMINING CHAIR ASSEMBLER
[2020-12-17] MEDS: 0.9% Saline Lock 10 ML Syringe IV (15:21)
--- NOTE | 2020-12-17 15:29 | CASEMGMT ---
MESHA CM in to complete MIJARES form with patient. RN CM explained MIJARES form to patient, patient voiced understanding. Patient signed MIJARES form and placed in chart. RN CM provided copy of signed MIJARES form to patient. Patient had no further questions or concerns.
--- NOTE | 2020-12-17 16:18 | PCM.DC ---
Discharge Instructions Diet Discharge Diet: No restrictions Activity Discharge Activity: Return to Normal Activity Weight Bearing Status: Full weight bearing Follow Up Care Test Results: Test results from this visit will be discussed in further detail at your follow-up appointment, if applicable. Discharge Plan Admission Admit Date/Time: 12/16/20 14:55 Primary Reason for Your Visit: rectal pain, diarrhea Attending Provider: Raul Long Primary Care Provider: Deondre Pedro Chi Instructions Additional Instructions / Restrictions: You may increase your pain medication to 1 1/2- 2 tabs every 4-6 hrs for pain if needed You may use 1% Cortisone (over the counter) cream to your rectum 4 times a day if needed for rectal irritation Discharge Orders/Prescriptions Prescriptions: New dicyclomine 10 mg capsule 10 mg PO TID Qty: 20 RF: 0 Continued citalopram 10 mg tablet 2.5 mg PO QODAY RF: 0 ultraflora womens 1 cap PO DAILY RF: 0 metagenics ostera 1 cap PO DAILY RF: 0 Cbd Oil 6 drp PO/SL BID RF: 0 cyanocobalamin (vitamin B-12) 1,000 mcg Tablet 1,000 mcg PO DAILY RF: 0 oxycodone-acetaminophen 10-325 mg tablet 1 tab PO Q4H PRN (Reason: Pain) RF: 0 cholecalciferol (vitamin D3) 25 mcg (1,000 unit) Tablet 25 mcg PO DAILY RF: 0 epinephrine 0.3 MG auto-injector 0.3 mg IM X1 RF: 0 Referrals / Follow Up: Bart Lu DO [STAFF PHYSICIAN] - See Referral Note (contact his office next week for follow up) Deondre Pedro Chi, MD [Primary Care Provider] - Within 2 Weeks Disposition Disposition (needs filled in before D/C Order can be placed): Home, self care
[2020-12-17 17:54] VITALS: BP 106/42; PULSE 74; RESP 16; TEMP 36.9; O2SAT 97
--- NOTE | 2020-12-18 16:49 | PCM.DC.SUM ---
Providers Date of Admission: 12/16/20 Date of Discharge: 12/17/20 Primary Care Physician: Dr. Deondre Pedro MD Reason For Visit: DIARRHEA, RECTAL MASS Diagnosis Discharge Diagnosis (1) Diarrhea: Status: Acute Code(s): R19.7 - Diarrhea, unspecified (2) Anal pain: Status: Acute Code(s): K62.89 - Other specified diseases of anus and rectum Plan: 1. 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 #2 diarrhea-etiology unclear #3 chronic depression Medications at Discharge Home Medications citalopram 10 mg tablet 2.5 mg PO QODAY tab 09/29/20 metagenics ostera 1 cap PO DAILY 09/29/20 ultraflora womens 1 cap PO DAILY 09/29/20 Cbd Oil 6 drp PO/SL BID 12/06/20 cholecalciferol (vitamin D3) 25 mcg PO DAILY 12/16/20 cyanocobalamin (vitamin B-12) 1,000 mcg PO DAILY 12/16/20 epinephrine 0.3 mg IM X1 12/16/20 oxycodone-acetaminophen 1 tab PO Q4H PRN 12/16/20 dicyclomine 10 mg PO TID #20 cap 12/17/20 Hospital Course Operations None Procedures None Summary of Care Provided Minutes Spent on Discharge: 30 Hospital Course: 75-year-old white female was seen in the emergency room at [facility] with a chief complaint of rectal pain, 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 She also complained of diarrhea. Lab work obtained showed a normal white blood cell count, chemistry profile was unremarkable. Patient was placed in observation status on MedSurg 3 and given narcotic analgesics, she underwent an MRI of the pelvis, patient had several soft stools during her hospitalization but no marino diarrhea. Enteric stool panel was negative for enteric pathogens, patient did not have a liquid stool and so C. difficile testing was not performed. On 12/17/2020, patient was seen and examined: On examination she appeared in good health and spirits. Vital signs as documented. Skin warm and dry and without overt rashes. Neck without JVD, neck was supple, trachea midline, thyroid was normal. Lungs clear bilaterally, normal air movement was noted. Heart exam notable for regular rhythm, normal sounds and absence of murmurs, rubs or gallops. Abdomen unremarkable and without evidence of organomegaly, masses, or abdominal aortic enlargement. Bowel sounds are present, abdomen is not distended. Extremities nonedematous, no cyanosis was noted, no clubbing was noted. Neuro: Cranial nerves II through XII are grossly intact, no focal motor deficits were noted, sensation to light touch and pinprick intact, motor exam 5/5 throughout. Psych: Patient is alert and oriented x3, she does not appear anxious or depressed, she does not appear agitated. I spent some time talking with the patient and her , patient was instructed to increase her outpatient pain medication and follow-up with her oncologist. Patient appears stable for discharge on 12/17/2020 ABG / Lab / Microbiology Data Result Diagrams: 12/17/20 04:50 12/17/20 04:50 Microbiology: Microbiology 12/16/20 23:55 Stool Stool Lactoferrin - Final 12/16/20 23:55 Stool Enteric Bacteriology - Final D/C Instructions Discharge Diet: No restrictions Discharge Activity: Return to Normal Activity Weight Bearing Status: Full weight bearing Meaningful Use Info Meaningful Use Diagnoses (Choose all that apply): None applicable Discharge Plan Admission Admit Date/Time: 12/16/20 14:55 Primary Reason for Your Visit: rectal pain, diarrhea Attending Provider: Raul Long Primary Care Provider: Deondre Pedro Chi Instructions Additional Instructions / Restrictions: You may increase your pain medication to 1 1/2- 2 tabs every 4-6 hrs for pain if needed You may use 1% Cortisone (over the counter) cream to your rectum 4 times a day if needed for rectal irritation Discharge Orders/Prescriptions Prescriptions: New dicyclomine 10 mg capsule 10 mg PO TID Qty: 20 RF: 0 Continued citalopram 10 mg tablet 2.5 mg PO QODAY RF: 0 ultraflora womens 1 cap PO DAILY RF: 0 metagenics ostera 1 cap PO DAILY RF: 0 Cbd Oil 6 drp PO/SL BID RF: 0 cyanocobalamin (vitamin B-12) 1,000 mcg Tablet 1,000 mcg PO DAILY RF: 0 oxycodone-acetaminophen 10-325 mg tablet 1 tab PO Q4H PRN (Reason: Pain) RF: 0 cholecalciferol (vitamin D3) 25 mcg (1,000 unit) Tablet 25 mcg PO DAILY RF: 0 epinephrine 0.3 MG auto-injector 0.3 mg IM X1 RF: 0 Referrals / Follow Up: Bart Lu DO [STAFF PHYSICIAN] - See Referral Note (contact his office next week for follow up) Deondre Pedro Chi, MD [Primary Care Provider] - Within 2 Weeks Disposition Disposition (needs filled in before D/C Order can be placed): Home, self care Visit Charges OBSV E&M: [id number] Observation care discharge
== END 2020-12-17 18:00 | disposition home or self-care (01) ==
LOC: ED 14:03 → MS3 15:18
PROVIDERS: Admitting Provider Student in an Organized Health Care Education/Training Program; Emergency Provider Emergency Medicine; PCP Family Medicine Geriatric Medicine; Visit Provider Internal Medicine
DX: R19.7 Diarrhea, unspecified (principal); C20 Malignant neoplasm of rectum; I10 Essential (primary) hypertension; G25.81 Restless legs syndrome; M81.0 Age-related osteoporosis without current pathological fracture; F41.9 Anxiety disorder, unspecified; G89.29 Other chronic pain; Z87.891 Personal history of nicotine dependence; Z79.899 Other long term (current) drug therapy; F32.9 Major depressive disorder, single episode, unspecified
CPT/HCPCS: 36415; 71045; 71260; 72197; 80048; 80053; 81001; 83630; 85025; 87493; 87506; 96361; 96372; 96374; 96375; 96376; 97162; 97166; 97530; 99218; 99284; A9575; J7030; Q9967; A4216; G0378; J2405

== ENCOUNTER 2020-12-28 03:21 | Emergency (ER) | payer MEDICARE, OTHER, SELFPAY ==
[2020-12-28 03:23] VITALS: BP 109/64; PULSE 65; RESP 16; TEMP 36.7; O2SAT 96; BMI 24.3
--- NOTE | 2020-12-28 03:49 | EKG12_ITS ---
Test Reason : WEAKNESS Blood Pressure : / mmHG Vent. Rate : 061 BPM Atrial Rate : 061 BPM P-R Int : 162 ms QRS Dur : 084 ms QT Int : 452 ms P-R-T Axes : 021 -20 040 degrees QTc Int : 455 ms Normal sinus rhythm Nonspecific T wave abnormality Abnormal ECG Confirmed by COLLETTE WALLACE, SHILPA ([id number]), editor publications CARL BURROWS ([id number]) on 12/29/2020 1:02:41 PM Referred By: CODY Confirmed By:SHILPA MURDOCK MD
--- NOTE | 2020-12-28 03:49 | EDS_ITS ---
HPI History of Present Illness Chief Complaint: Weakness Informant: patient, spouse/S.O. and EMS Narrative Narrative: 75-year-old female presenting to the emergency department via EMS after a fall. She is recently diagnosed with squamous cell carcinoma of the anus. She has been noticeably weak for weeks per the . He states that tonight he was walking her into the bathroom when she hit the door frame and fell down. She denies any pain from the fall. She states she did not strike her head. was unable to get her up off the floor so he called EMS. They transported her here. The patient is due to have a PET scan today and a port placement at [address] Walker. No recent fevers. She notes the chronic pain in her anus and in her back. Patient is a poor historian and most of the history comes from the [facility] Medical History Acute hemorrhoid Anemia Anxiety Cataract Chronic pain Degenerative disc disease Depression Edema Former smoker h/o anterior lumbar interbody fusion L4-5, L5-S1. H/o Laminectomy L2-5, fusion T11-S1, instrumentation local History of IBS History of needle biopsy History of rectal bleeding Mitral and aortic valve disease Osteoporosis Osteoporosis Parkinson's disease Post-menopausal Rectal cancer Restless legs Scoliosis Spinal stenosis Syncope Wears hearing aid Wears hearing aid in both ears Home Medications citalopram 10 mg tablet 2.5 mg PO QODAY tab 09/29/20 [History Last Taken 12/15/20] metagenics ostera 1 cap PO DAILY 09/29/20 [History Last Taken 1 Week Ago ~12/09/20] ultraflora womens 1 cap PO DAILY 09/29/20 [History Last Taken 1 Week Ago ~12/09/20] Cbd Oil 6 drp PO/SL BID 12/06/20 [History Last Taken 3 Days Ago ~12/13/20] cholecalciferol (vitamin D3) 25 mcg PO DAILY 12/16/20 [History Last Taken 2 Days Ago ~12/14/20] cyanocobalamin (vitamin B-12) 1,000 mcg PO DAILY 12/16/20 [History Last Taken 2 Days Ago ~12/14/20] epinephrine 0.3 mg IM X1 12/16/20 [History Last Taken Unknown] Icdiphenoxyl 1 tab PO/SL ACHS 12/24/20 [History Last Taken Unknown] dicyclomine 10 mg PO TID PRN 12/24/20 [History Last Taken Unknown] morphine 15 mg PO Q12H 12/24/20 [History Last Taken Unknown] oxycodone-acetaminophen [Percocet] 1 tab PO Q6H PRN PRN 12/28/20 [History Last Taken Unknown] Allergy/AdvReac Type Severity Reaction Status Date / Time nut - unspecified Allergy Anaphylaxis Verified 12/28/20 03:29 peanut Allergy Hives Verified 12/28/20 03:29 procaine HCl [From Novocain] Allergy Angioedema Verified 12/28/20 03:29 acetaminophen [From Vicodin] AdvReac Other Verified 12/28/20 03:29 alprazolam [From Xanax] AdvReac Other Verified 12/28/20 03:29 hydrocodone bitartrate AdvReac Other Verified 12/28/20 03:29 [From Vicodin] metaxalone [From Skelaxin] AdvReac Other Verified 12/28/20 03:29 nabumetone AdvReac Other Verified 12/28/20 03:29 Family History Mother Hypertension Father , at age: 88 emphysema Pneumonia Dementia Grandmother CVA (cerebral vascular accident) Surgical History H/O spinal fusion History of bronchoscopy History of cataract surgery History of tonsillectomy and adenoidectomy Hx of colonoscopy S/P ear surgery Social History household members: spouse housing: house Smoking Status: Former smoker pack-years: 8 alcohol intake: never substance use type: does not use what type of physical activity do you participate in: none seatbelt use: always do you feel safe at home: Yes ROS ROS ED Constitutional Constitutional ED: Reports other Details: Global weakness ; Denies chills or weight loss Eyes Eyes: Denies change in vision or diplopia ENT ENT ED: Denies ear pain, rhinorrhea or sore throat Cardiovascular Cardiovascular: Denies chest pain, orthopnea, palpitations or racing heartbeat Respiratory/Chest Respiratory/Chest: Denies cough, dyspnea or orthopnea Gastrointestinal Gastrointestinal: Reports diarrhea and other Details: Rectal pain ; Denies abdominal pain, nausea or vomiting Genitourinary Genitourinary ED: Denies dysuria, hematuria or urinary frequency Musculoskeletal Musculoskeletal: Reports back pain; Denies arthralgias or myalgias Integumentary Denies abscess or rash Neurologic Neurologic: Denies headache(s) or weakness Psychiatric Psychiatric: Denies anxiety, depression, suicidal ideation or suicidal thoughts Endocrine Endocrinology: Denies polydipsia, polyphagia or polyuria Allergic/Immunologic Allergic/Immunologic ED: Denies mouth swelling, tongue swelling or urticaria EXAM Physical Exam Const Vital Signs: 12/28/20 03:23 12/28/20 03:26 12/28/20 04:49 Temperature 98.1 F Temperature Source Oral Pulse Rate 65 Pulse Rate [Sitting] 62 Pulse Rate [Standing] 70 Respiratory Rate 16 Respiratory Effort Normal Respiratory Pattern Normal Blood Pressure 109/64 Blood Pressure [Sitting] 112/64 Blood Pressure [Standing] 92/66 Blood Pressure Mean 79 Blood Pressure Mean [Sitting] 80 Blood Pressure Mean [Standing] 74 Pulse Ox 96 Oxygen Delivery Method Room Air Positive well nourished and well developed General Appearance ED: well developed HEENT Reports normocephalic, head/scalp atraumatic and moist mucous membranes Eyes PERRL and EOMs intact bilaterally Neck no lymphadenopathy, supple and no JVD Resp normal respiratory effort and clear to auscultation bilaterally Cardio regular rate, regular rhythm and no murmurs GI normal to inspection, nondistended, normoactive bowel sounds and non-tender Palpation: soft Back/Spine no CVA tenderness and normal ROM Extremity normal to inspection General Extremety ED: Negative for edema General Extremity: Negative for edema Neuro oriented x3 and CN's II-XII intact bilaterally Sensorium / Orientation: alert Motor Exam: strength 5/5 throughout Psych mental status grossly normal Mood & Affect: Negative for depressed or tearful Skin no rashes or lesions noted and no wounds MDM MDM MDM Narrative Medical decision making narrative: Patient's blood work appears stable for her. Her initial orthostatics were notable for a 20 point decrease in her systolic blood pressure. She received a liter of IV fluids and repeat orthostatics are significantly improved. At this point patient will be discharged home. She will be returning shortly for her port placement. Lab Data Attestation: I reviewed the patient's lab results. Labs: Laboratory Results - last 24 hr 12/28/20 12/28/20 03:30 03:30 WBC 7.0 RBC 3.73 L Hgb 11.3 L Hct 35.0 L MCV 93.8 MCH 30.3 MCHC 32.3 RDW Std Deviation 49.5 H RDW Coeff of Selvin 14.4 Plt Count 253 MPV 10.0 Immature Gran % (Auto) 0.400 Neut % (Auto) 69.8 Lymph % (Auto) 14.5 L [place] % (Auto) 13.8 H Eos % (Auto) 1.4 Baso % (Auto) 0.1 Absolute Neuts (auto) 4.9 Absolute Lymphs (auto) 1.02 Nucleated RBC % 0 Sodium 133 L Potassium 4.3 Chloride 101 Carbon Dioxide 25.0 Anion Gap 7 BUN 9 Creatinine 0.69 Estim Creat Clear Calc 41.45 Est GFR (MDRD) Af Amer 108 Est GFR (MDRD) Non-Af 89 BUN/Creatinine Ratio 13.1 Glucose 93 Calcium 9.5 Total Bilirubin 0.40 AST 19 ALT 13 Alkaline Phosphatase 62 Total Protein 6.3 L Albumin 2.7 L Globulin 3.6 Albumin/Globulin Ratio 0.8 L EKG Initial EKG: Attestation: I personally reviewed and interpreted this EKG as follows: Discharge Plan Triage Chief Complaint: Weakness ED Provider: Pablo Hazel Dx/Rx/DC Orders Clinical Impression: Dehydration, Weakness, Anal squamous cell carcinoma, Fall Instructions: ED Dehydration (Adult), ED Fall Dizziness Weakn Balance Prescriptions: No Action citalopram 10 mg tablet 2.5 mg PO QODAY RF: 0 ultraflora womens 1 cap PO DAILY RF: 0 metagenics ostera 1 cap PO DAILY RF: 0 Cbd Oil 6 drp PO/SL BID RF: 0 cyanocobalamin (vitamin B-12) 1,000 mcg Tablet 1,000 mcg PO DAILY RF: 0 cholecalciferol (vitamin D3) 25 mcg (1,000 unit) Tablet 25 mcg PO DAILY RF: 0 epinephrine 0.3 MG auto-injector 0.3 mg IM X1 RF: 0 morphine 15 mg Capsule 15 mg PO Q12H RF: 0 Icdiphenoxyl 1 tab PO/SL ACHS RF: 0 dicyclomine 10 mg capsule 10 mg PO TID PRN (Reason: Diarrhea) RF: 0 oxycodone-acetaminophen [Percocet] 5-325 mg tablet 1 tab PO Q6H PRN PRN (Reason: Pain) RF: 0 Primary Care Provider: Deondre Pedro Chi Referrals: Deondre Pedro Chi, MD [Primary Care Provider] - Keep Sakshi appointment Disposition Disposition: Home, self care
[2020-12-28 03:58] LABS: Absolute Lymphocyte Count 1.02 X10^3/uL (0.83-4.51); Absolute Neutrophil Count 4.9 X10^3/uL (2.0-7.7); Basophil# 0.01 X10^3/uL; Basophil% 0.1 % (0-1); Eosinophils% 1.4 % (0-5); Hemoglobin 11.3 g/dL (12.0-15.0); Lymphocyte # 1.02 X10^3/ul (0.83-4.51); Lymphocyte % 14.5 % (19-41); Mean Corp Hgb Conc 32.3 g/dL (32-36); Mean Corpuscular Hgb 30.3 pg (27.0-32.0); Mean Corpuscular Volume 93.8 fL (81-99); Monocyte# 0.97 X10^3/uL; Monocyte% 13.8 % (0-10); NRBC Flagged by Analyzer 0 % (0-5); Neutrophil % 69.8 % (47-70); Platelet Count 253 K/mm3 (150-450); RBC Distribution Width CV 14.4 % (11.6-14.6); RBC Distribution Width SD 49.5 fl (35.1-43.9); Red Blood Count 3.73 M/mm3 (4.2-5.4)
[2020-12-28 04:21] LABS: ALB/GLOB Ratio 0.8 RATIO (0.9-2.4); AST(SGOT) 19 U/L (15-37); Alanine Aminotransfer ALT/SGPT 13 U/L (13-56); Albumin, Serum 2.7 g/dL (3.2-5.0); Alkaline Phosphatase 62 U/L (45-117); Anion Gap 7 (5-15); BUN 9 mg/dL (7-18); BUN/Creat Ratio 13.1 RATIO (10-20); Calcium,Total 9.5 mg/dL (8.5-10.1); Chloride 101 mmol/L (98-107); Creatinine, Serum 0.69 mg/dL (0.55-1.02); EST Glomerular Filtration Rate 89 mL/min (>60); Est Glom Filt Rate - Afr Amer 108 mL/min (>60); Estimated Creatinine Clearance 41.45 ml/min; Globulin 3.6 g/dL (2.2-4.2); Glucose 93 mg/dL (74-106); Potassium 4.3 mmol/L (3.5-5.1); Protein, Total 6.3 g/dL (6.4-8.2); Sodium Level 133 mmol/L (136-145)
[2020-12-28 04:49] VITALS: BP 112/64; BP 92/66; PULSE 62; PULSE 70
[2020-12-28] MEDS: 0.9% Normal Saline 1,000 ML 1000 ML IV (05:00)
[2020-12-28 06:15] VITALS: BP 114/63; BP 117/72
[2020-12-28 06:16] VITALS: PULSE 83; RESP 16; O2SAT 96
[2020-12-28 06:39] VITALS: BP 117/72
== END 2020-12-28 06:40 | disposition home or self-care (01) ==
PROVIDERS: Emergency Provider Emergency Medicine; PCP Family Medicine Geriatric Medicine
DX: E86.0 Dehydration (principal); R53.1 Weakness; C21.0 Malignant neoplasm of anus, unspecified; F32.9 Major depressive disorder, single episode, unspecified; K58.9 Irritable bowel syndrome, unspecified; Z87.891 Personal history of nicotine dependence; Z79.899 Other long term (current) drug therapy
CPT/HCPCS: 80053; 85025; 93005; J7030; A4216

== ENCOUNTER 2020-12-28 13:29 | Day surgery (SDC) | payer MEDICARE, OTHER, SELFPAY ==
[2020-12-28] VITALS (7 sets, daily range): BP systolic 120–132; BP diastolic 60–68; PULSE 66–77; RESP 16; TEMP 36.2–37.2; O2SAT 94–97; BMI 24.3; BMI 20.5
[2020-12-28] MEDS: Lactated Ringers 1,000 ML 100 ML IV (14:09)
--- NOTE | 2020-12-28 14:27 | SUR.PREOP ---
PATIENT AND CAN NOT CONFIRM ALL MEDICATIONS, DID NOT BRING THEIR MEDICATIONS WITH THEM.
[2020-12-28] MEDS: Cefazolin 2 GM in 0.9% Normal Saline 100 ML IV (15:19)
[2020-12-28] MEDS: Bupivacaine Mpf 0.5% 30 ML VIAL (15:50)
[2020-12-28] MEDS: Lidocaine 1% (30 ml sdv) 30 ML Vial (15:50)
--- NOTE | 2020-12-28 15:56 | PCM.OPRPT ---
Problems Associated Problem List Diagnoses (1) Vascular catheter fitting or adjustment: Report of Operation Date of Procedure: 12/28/20 Pre-Operative Diagnosis: Vascular fitting and adjustment Post-Operative Diagnosis: Same Surgery/Procedure Performed:: Placement of a right internal jugular PowerPort Surgeon: Pablo Walker sewage disposal worker: None Type of Anesthesia: Local MAC Anesthesiologist: kenia Estimated Blood Loss (mL): < 25 cc Fluids Replaced: 300 cc lr Description of Procedure: Patient was brought into the operating room. Placed in the supine position. Under excellent MAC anesthetic right internal jugular area was ultrasound the internal jugular vein was identified the neck was marked and the chest was marked the neck and chest were then sterilely prepped and draped in usual fashion. Local was injected into the neck. Seldinger's technique was used to gain access to the right internal jugular vein. Guidewire was placed into the needle the needle was removed fluoroscopy was used to confirm proper placement of the guidewire. Local was injected into the chest. An incision was made electrocautery was used to create a pocket for the port. Skin christian was made in the neck hemostat was used to dilate this area the dilator and sheath were then placed over the guidewire removing the dilator and guidewire. Single lumen catheter was placed over the sheath that sheath was removed. Fluoroscopy was used to confirm proper length. I tunneled from the chest pocket over the collarbone into the neck and brought the catheter down. I cut at the length. I placed a locking hub onto the catheter to the port onto the catheter and secured the tube with a locking hub. It flushed and irrigated well and was flushed with 5 cc of Hep-Lock. Wound was then brought together with deep dermal stitches of 3-0 Vicryl. Dermabond was applied. Silver dressing was placed on the chest and a normal dressing on the neck. Patient tolerated the procedure well. Postoperative chest x-ray was ordered. Admit VTE Documentation VTE Present on Admission: No VTE Mechan Device Prophylaxis: SCD's VTE Pharm Prophylaxis ordered?: No Reason prophylaxis not ordered:: Treatment Not Indicated
--- NOTE | 2020-12-28 15:59 | EX.PCM.DISCH ---
Discharge Instructions Procedure Port-A-Cath Diet Discharge Diet: No restrictions (Pain medication may cause nausea. You should typically eat light foods as you take your pain medication.) Activity Discharge Activity: May Shower (with the bandage in place 1-2 days after surgery. DO NOT SHOWER WHEN YOUR PORT IS ACCESSED.) Additional Activity Instructions:: May not drive, work with heavy equipment, or sign legal documents for [address]. [address] if you are no longer taking narcotic pain medications. You may drive when you are no longer taking pain medications. Dressing / Incision Additional Dressing/Incision Instructions:: Leave the bandage on for 2-3 days. When you remove the bandage, leave the steri-strips intact until they fall off. Follow Up Care Please Follow Up With: Dayami Poe PA-C When: Call office to schedule an appointment to be seen in 7 days. Test Results: Test results from this visit will be discussed in further detail at your follow-up appointment, if applicable. Discharge Plan Admission Attending Provider: Pablo Walker Primary Care Provider: Deondre Pedro Chi Discharge Orders/Prescriptions Prescriptions: No Action citalopram 10 mg tablet 2.5 mg PO QODAY RF: 0 ultraflora womens 1 cap PO DAILY RF: 0 metagenics ostera 1 cap PO DAILY RF: 0 Cbd Oil 6 drp PO/SL BID RF: 0 cyanocobalamin (vitamin B-12) 1,000 mcg Tablet 1,000 mcg PO DAILY RF: 0 cholecalciferol (vitamin D3) 25 mcg (1,000 unit) Tablet 25 mcg PO DAILY RF: 0 epinephrine 0.3 MG auto-injector 0.3 mg IM X1 RF: 0 morphine 15 mg Capsule 15 mg PO Q12H RF: 0 Icdiphenoxyl 1 tab PO/SL ACHS RF: 0 dicyclomine 10 mg capsule 10 mg PO TID PRN (Reason: Diarrhea) RF: 0 oxycodone-acetaminophen [Percocet] 5-325 mg tablet 1 tab PO Q6H PRN PRN (Reason: Pain) RF: 0
--- NOTE | 2020-12-28 16:06 | RAD_ITS ---
STUDY: X-RAY CHEST REASON FOR EXAM: Female, 75 years old. line TECHNIQUE: Single AP portable view of the chest. COMPARISON: 12/16/2020 FINDINGS: There is a new indwelling right chemotherapy catheter through the right IJ and terminating at the level of the cavoatrial junction. No pneumothorax seen. Normal lung volumes. No acute infiltrates or effusions. There is no demonstrated pleural abnormality. There is mild cardiac enlargement. Normal mediastinum and zaid. Normal visualized pulmonary arteries. Normal visualized aortic arch and descending thoracic aorta. There are diffuse degenerative changes of the visualized thoracic spine. There is degenerative osteoarthritis of the bilateral shoulders. There has been thoracic spine surgery. There is no demonstrated abnormality of the visualized soft tissue structures of the upper abdomen. RAD/Chest 1 View (Portable) IMPRESSION: Indwelling right IJ line terminates near the cavoatrial junction. No other changes or acute abnormalities. Electronically Signed: Rudi Arriaga MD at 19:45 EDT , Service support ,
== END 2020-12-28 17:15 ==
LOC: SDC 13:30 → AC 13:31
PROVIDERS: PCP Family Medicine Geriatric Medicine; Referring Provider Surgery; Visit Provider Surgery
PROC: (CPT 36561; principal; 2020-12-28 15:15)
DX: Z45.2 Encounter for adjustment and management of vascular access device (principal); C21.0 Malignant neoplasm of anus, unspecified; M19.90 Unspecified osteoarthritis, unspecified site; Z79.899 Other long term (current) drug therapy; F32.9 Major depressive disorder, single episode, unspecified; Z87.891 Personal history of nicotine dependence
CPT/HCPCS: 36561; 71045; 77001; 80053; 85025; 93005; J7030; J7120; A4216

== ENCOUNTER → 2020-12-28 17:20 | Outpatient (CLI) | payer MEDICARE, OTHER, SELFPAY ==
[2020-12-16 15:35] VITALS: BMI 23.3
[2020-12-28 14:05] VITALS: BMI 20.5
--- NOTE | 2020-12-28 16:00 | PET_ITS ---
EXAMINATION: FDG PET/CT INDICATIONS: A 75-year-old female with history of primary anal carcinoma presenting for initial staging examination. COMPARISON EXAMINATION: MRI of the pelvis report dated 12/16/20, CT of the chest report dated 12/16/20 INDEX LESION SIZE SUV INTERPRETATION Rectum-rectal vault, anal verge 40.3-mm (frame 48) 16.1 Fulfills quantitative criteria for viable neoplasm TECHNIQUE: Following the intravenous administration of 9.14 mCi of F-18 deoxyglucose via the left antecubital fossa, multiplanar image acquisitions of the neck, chest, abdomen and pelvis to level of mid thigh, obtained at one hour post radiopharmaceutical administration contemporaneously interpreted with the current CT of the neck, chest, abdomen and pelvis to level of mid thigh, dated 12/28/20 via coregistration and MRI of the pelvis report dated 12/16/20, CT of the chest report dated 12/16/20 reveal: SERUM GLUCOSE LEVEL: 89 mg/dl. HEIGHT: 64 inches. WEIGHT: 120 lbs. FINDINGS: 1. Heterogeneous increased FDG distribution is defined in the distal rectum-rectal vault extending to the anal verge. The calculated maximal standard uptake value is 16.1. The maximal axial diameter of the corresponding metabolic, morphologic abnormality is 40.3-mm (AP). 2. Normal physiologic distribution of the radiopharmaceutical is apparent in the hepatic (2.1) and splenic parenchyma, both renal units, bladder and visualized intestinal tract. Diffuse radiopharmaceutical concentration is noted in all four quadrants of the abdomen and pelvis. The visualized portion of the cerebral cortical-subcortical structures demonstrate symmetric and preserved glucose metabolism. Prominent tracer concentration is defined in the right anterolateral chest wall associated with intercostal muscle tension artifact. Pertinent CT findings are as follows: CHEST: Samantha-cath placement is noted. There is atherosclerotic calcification defined in the thoracic aorta without evidence of dilatation-aneurysm formation. Bilateral axillary soft tissue densities with fatty hilus are ametabolic. Calcified and non-calcified mediastinal soft tissue is non-glucose avid. Small bilateral hemithorax pleural effusions are ametabolic. There are no parenchymal densities-nodules defined in the right and left hemithorax with discernible increased FDG uptake. ABDOMEN AND PELVIS: Orthopedic hardware placement defined in the lower thoracic-lumbar spine precludes accurate assessment of the CT of the abdomen-pelvis secondary to beam hardening artifact. Bilateral inguinal soft tissue densities with fatty hilus are ametabolic. Perirectal soft tissue densities, the majority of which express fatty hilus, demonstrate no evidence of discernible quantitatively significant increased tracer concentration. Calcification is observed in the left lower hemipelvis. SKELETAL: Degenerative changes are noted in the cervical, thoracic and lumbar spine without evidence of increased radiopharmaceutical concentration. Orthopedic hardware placement is defined in the lower thoracic-lumbar spine commensurate with spinal fusion operative intervention. PET/PET/CT Tumor Base -Thigh Init IMPRESSION: 1. ABNORMAL EXAMINATION INDICATIVE OF MALIGNANT VIABLE NEOPLASM. 2. Increased glucose concentration observed in the lower pelvis associated with the rectum-rectal vault extending to the anal verge fulfills quantitative criteria for viable neoplasm. 3. No other quantitatively significant hypermetabolic abnormalities are noted. There is no definitive scintigraphic evidence of local regional and/or distant metastatic disease. Soft tissue nodules noted perirectal in location are ametabolic as defined above. Electronic Signature Fransisco Arita D.O. Accurate Quantification of SUVs for this report are calculated using the exclusive [employer], ([place]. Patent No. [id number] [id number]). Standardization and correction of the FDG SUV metric allow for vendor non-specific objective quantitative comparison and otherwise unobtainable optimization of the sensitivity and specificity of the examination. Electronically Signed: Fransisco Arita DO at 15:38 EDT Tel , Service support ,
== END ==
PROVIDERS: PCP Family Medicine Geriatric Medicine; Referring Provider Radiology Radiation Oncology; Visit Provider Radiology Radiation Oncology
DX: Z45.2 Encounter for adjustment and management of vascular access device (principal); C21.1 Malignant neoplasm of anal canal; M19.90 Unspecified osteoarthritis, unspecified site; F32.9 Major depressive disorder, single episode, unspecified; Z87.891 Personal history of nicotine dependence; Z79.899 Other long term (current) drug therapy
CPT/HCPCS: 36561; 71045; 77001; 78815; 80053; 85025; 93005; 99285; A9552; J7030; J7120; A4216; C1788

== ENCOUNTER → 2020-12-30 13:10 | Outpatient (CLI) | payer MEDICARE, OTHER, SELFPAY ==
[2020-12-16 15:35] VITALS: BMI 23.3
[2020-12-28 14:05] VITALS: BMI 20.5
--- NOTE | 2020-12-30 13:16 | CT_ITS ---
STUDY: CT ABDOMEN AND PELVIS WITH CONTRAST REASON FOR EXAM: Female, 75 years old. ANAL CA RADIATION DOSAGE (If Supplied By Facility): CTDIvol = ( 15.08 ) mGy, DLP = ( 870.89 ) mGycm TECHNIQUE: Transaxial images were obtained from the dome of the diaphragm to the symphysis pubis without oral contrast. Oral and amp; IV REDICAT and amp; 100ML ISOVUE 300 was administered. Sagittal and coronal images were reconstructed. Individualized dose optimization techniques were used for this CT. COMPARISON: Comparison is made with prior study dated 12/16/2020. FINDINGS: Mild increased markings at the lung bases suggestive of linear atelectasis and/or scarring. The visualized portions of the heart are within normal limits. Normal liver. Normal gallbladder and extrahepatic biliary system. Normal spleen. Normal pancreas. Normal bilateral adrenal glands. Normal right kidney. Normal left kidney. Normal visualized stomach. Normal small intestine. Diffuse thickening of the lower rectum/anus more prominent on the right side. A suture line is seen in the lower rectum/anal verge. The appendix is visualized and appears normal. Normal abdominal aorta. Normal inferior vena cava. Normal retroperitoneum. Normal urinary bladder. Normal abdominal wall. Prior fusion in the lower lumbar spine. CT/Abdomen/Pelvis WITH Contrast IMPRESSION: Diffuse thickening of the lower rectum/anus more prominent on the right side. A suture line is seen at that level. Electronically Signed: Gerald Mg MD at 14:29 EDT , Service support ,
== END ==
PROVIDERS: PCP Family Medicine Geriatric Medicine; Referring Provider Radiology Radiation Oncology; Visit Provider Radiology Radiation Oncology
DX: C21.1 Malignant neoplasm of anal canal (principal)
CPT/HCPCS: 74177; Q9967; A4216

== ENCOUNTER 2021-01-01 14:37 | Emergency (ER) | payer MEDICARE, OTHER, SELFPAY ==
[2020-12-28 14:05] VITALS: BMI 20.5
[2021-01-01 14:39] VITALS: BP 120/66; PULSE 69; RESP 22; TEMP 36.9; O2SAT 95; BMI 23.7
--- NOTE | 2021-01-01 15:16 | EDS_ITS ---
HPI HPI - GI History of Present Illness Chief Complaint: Diarrhea Informant: patient and spouse/S.O. Abdominal Pain/Flank Pain Onset: Weeks Context: Gradual Onset Timing: Continuous Diarrhea/Melena/Hematochezia GI Symptom: Positive for Diarrhea Onset: Weeks Stool Quality: Positive for Loose Severity: Mild Narrative Narrative: CA [id number] female lives at home with her . History of rectal prior major back surgery. Presents today she has had diarrhea for weeks. Her states he is unable to care for her anymore at home. They spoke with her primary care physician Dr. Pedro today wonder to come in the ER to be admitted. Prior similar symptoms: No Recent Illness/Hospitalization: Yes [facility] Medical History Acute hemorrhoid Anemia Anxiety Cataract Chronic pain Degenerative disc disease Depression Edema Former smoker h/o anterior lumbar interbody fusion L4-5, L5-S1. H/o Laminectomy L2-5, fusion T11-S1, instrumentation local History of IBS History of needle biopsy History of rectal bleeding Mitral and aortic valve disease Osteoporosis Osteoporosis Parkinson's disease Post-menopausal Rectal cancer Restless legs Scoliosis Spinal stenosis Syncope Wears hearing aid Wears hearing aid in both ears Home Medications citalopram 10 mg tablet 2.5 mg PO QODAY tab 09/29/20 [History Last Taken 12/15/20] metagenics ostera 1 cap PO DAILY 09/29/20 [History Last Taken 1 Week Ago ~12/09/20] ultraflora womens 1 cap PO DAILY 09/29/20 [History Last Taken 1 Week Ago ~12/09/20] Cbd Oil 6 drp PO/SL BID 12/06/20 [History Last Taken 3 Days Ago ~12/13/20] cholecalciferol (vitamin D3) 25 mcg PO DAILY 12/16/20 [History Last Taken 2 Days Ago ~12/14/20] cyanocobalamin (vitamin B-12) 1,000 mcg PO DAILY 12/16/20 [History Last Taken 2 Days Ago ~12/14/20] epinephrine 0.3 mg IM X1 12/16/20 [History Last Taken Unknown] Icdiphenoxyl 1 tab PO/SL ACHS 12/24/20 [History Last Taken Unknown] dicyclomine 10 mg PO TID PRN 12/24/20 [History Last Taken Unknown] morphine 15 mg PO Q12H 12/24/20 [History Last Taken Unknown] oxycodone-acetaminophen [Endocet] 1 tab PO Q6H PRN 5 Days #20 tab 12/28/20 [Rx Last Taken Unknown] oxycodone-acetaminophen [Percocet] 1 tab PO Q6H PRN PRN 12/28/20 [History Last Taken Unknown] Allergy/AdvReac Type Severity Reaction Status Date / Time nut - unspecified Allergy Anaphylaxis Verified 01/01/21 14:43 peanut Allergy Hives Verified 01/01/21 14:43 procaine HCl [From Novocain] Allergy Angioedema Verified 01/01/21 14:43 acetaminophen [From Vicodin] AdvReac Other Verified 01/01/21 14:43 alprazolam [From Xanax] AdvReac Other Verified 01/01/21 14:43 hydrocodone bitartrate AdvReac Other Verified 01/01/21 14:43 [From Vicodin] metaxalone [From Skelaxin] AdvReac Other Verified 01/01/21 14:43 nabumetone AdvReac Other Verified 01/01/21 14:43 Family History Mother Hypertension Father , at age: 88 emphysema Pneumonia Dementia Grandmother CVA (cerebral vascular accident) Surgical History H/O spinal fusion History of bronchoscopy History of cataract surgery History of tonsillectomy and adenoidectomy Hx of colonoscopy S/P ear surgery Social History household members: spouse housing: house Smoking Status: Former smoker pack-years: 8 alcohol intake: never substance use type: does not use what type of physical activity do you participate in: none seatbelt use: always do you feel safe at home: Yes ROS ROS ED ROS Narrative Diarrhea. Review of Systems ROS Unobtainable: Denies due to encephalopathy Constitutional Constitutional ED: Denies fever(s) ENT ENT ED: Denies ear pain or sore throat Cardiovascular Cardiovascular: Denies chest pain Respiratory/Chest Respiratory/Chest: Denies dyspnea Gastrointestinal Gastrointestinal: Reports diarrhea; Denies abdominal pain or vomiting Genitourinary Genitourinary ED: Denies dysuria Musculoskeletal Musculoskeletal: Reports back pain and myalgias Integumentary Denies rash Neurologic Neurologic: Denies headache(s) Psychiatric Psychiatric: Denies depression Endocrine Endocrinology: Denies polyuria Hematologic/Lymphatic Hematologic/Lymphatic: Denies easy bruising Allergic/Immunologic Allergic/Immunologic ED: Denies urticaria EXAM Physical Exam Narrative Exam Narrative: Older female accompanied by her vital signs are stable afebrile. She does not look septic or toxic. Const Vital Signs: 01/01/21 14:39 Temperature 98.4 F Temperature Source Oral Pulse Rate 69 Respiratory Rate 22 H Blood Pressure 120/66 Blood Pressure Mean 84 Pulse Ox 95 Oxygen Delivery Method Room Air Positive well nourished and well developed General Appearance ED: well developed HEENT normocephalic and atraumatic Eyes PERRL and EOMs intact bilaterally Neck no lymphadenopathy, supple and no JVD Resp normal respiratory effort and clear to auscultation bilaterally Cardio regular rate, regular rhythm and no murmurs GI non-tender, non-distended and no masses Auscultation: normoactive bowel sounds Palpation: soft Back/Spine no CVA tenderness Extremity full ROM General Extremety ED: Negative for edema or tenderness General Extremity: Negative for edema Neuro Sensorium / Orientation: alert, oriented to person, oriented to place and oriented to time Motor Exam: strength 5/5 throughout Psych mental status grossly normal Skin Rashes: no rashes MDM MDM MDM Narrative Medical decision making narrative: Elderly female with rectal CA with diarrhea at home for the last several weeks. Failure to thrive and is able to care for now at home. I spoke both to Dr. Pedro and the hospitalist. Patient will either be admitted to Med Surg or the TCU if that is possible today with social science research assistant being involved. Lab Data Lab results narrative: CBC unremarkable with a white count of 9. Hemoglobin 12.2. Electrolytes unremarkable gap of 5. Normal creatinine. Labs: Laboratory Results - last 24 hr 01/01/21 01/01/21 15:30 15:30 WBC 9.2 RBC 4.07 L Hgb 12.2 Hct 37.2 MCV 91.4 MCH 30.0 MCHC 32.8 RDW Std Deviation 48.5 H RDW Coeff of Selvin 14.6 Plt Count 311 MPV 9.6 Immature Gran % (Auto) 0.500 Neut % (Auto) 78.9 H Lymph % (Auto) 6.8 L Zapata % (Auto) 13.7 H Eos % (Auto) 0.0 Baso % (Auto) 0.1 Absolute Neuts (auto) 7.2 Absolute Lymphs (auto) 0.62 L Nucleated RBC % 0 Sodium 135 L Potassium 4.2 Chloride 104 Carbon Dioxide 26.0 Anion Gap 5 BUN 9 Creatinine 0.61 Estim Creat Clear Calc 41.45 Est GFR (MDRD) Af Amer 124 Est GFR (MDRD) Non-Af 102 BUN/Creatinine Ratio 14.8 Glucose 108 H Calcium 9.4 Total Bilirubin 0.50 AST 15 ALT 17 Alkaline Phosphatase 60 Total Protein 6.6 Albumin 3.0 L Globulin 3.6 Albumin/Globulin Ratio 0.8 L Discharge Plan Triage Chief Complaint: Diarrhea Other Complaint: Other, Pain/Inj ED Provider: Hola Thomas Dx/Rx/DC Orders Clinical Impression: Acute diarrhea, Adult failure to thrive, Generalized muscle weakness Prescriptions: No Action citalopram 10 mg tablet 2.5 mg PO QODAY RF: 0 ultraflora womens 1 cap PO DAILY RF: 0 metagenics ostera 1 cap PO DAILY RF: 0 Cbd Oil 6 drp PO/SL BID RF: 0 cyanocobalamin (vitamin B-12) 1,000 mcg Tablet 1,000 mcg PO DAILY RF: 0 cholecalciferol (vitamin D3) 25 mcg (1,000 unit) Tablet 25 mcg PO DAILY RF: 0 epinephrine 0.3 MG auto-injector 0.3 mg IM X1 RF: 0 morphine 15 mg Capsule 15 mg PO Q12H RF: 0 Icdiphenoxyl 1 tab PO/SL ACHS RF: 0 dicyclomine 10 mg capsule 10 mg PO TID PRN (Reason: Diarrhea) RF: 0 oxycodone-acetaminophen [Endocet] 5-325 mg tablet 1 tab PO Q6H PRN (Reason: pain) 5 Days Qty: 20 RF: 0 oxycodone-acetaminophen [Percocet] 5-325 mg tablet 1 tab PO Q6H PRN PRN (Reason: Pain) RF: 0 Primary Care Provider: Deondre Pedro Chi Referrals: Deondre Pedro Chi, MD [Primary Care Provider] -
[2021-01-01] MEDS: HYDROmorphone 1 MG/ML Syringe 0.5 MG IV (15:37)
[2021-01-01] MEDS: Ondansetron 4 MG/2 ML Vial IV (15:39)
[2021-01-01] MEDS: 0.9% Normal Saline 1,000 ML 1000 ML IV (15:39)
[2021-01-01 15:45] LABS: Absolute Lymphocyte Count 0.62 X10^3/uL (0.83-4.51); Absolute Neutrophil Count 7.2 X10^3/uL (2.0-7.7); Basophil# 0.01 X10^3/uL; Basophil% 0.1 % (0-1); Hematocrit 37.2 % (37-47); Hemoglobin 12.2 g/dL (12.0-15.0); Lymphocyte # 0.62 X10^3/ul (0.83-4.51); Lymphocyte % 6.8 % (19-41); Mean Corp Hgb Conc 32.8 g/dL (32-36); Mean Corpuscular Volume 91.4 fL (81-99); Mean Platelet Vol. 9.6 fl (6.2-12.0); Monocyte# 1.26 X10^3/uL; Monocyte% 13.7 % (0-10); NRBC Flagged by Analyzer 0 % (0-5); Neutrophil # 7.23 X10^3/uL (2.7-7.7); Neutrophil % 78.9 % (47-70); Platelet Count 311 K/mm3 (150-450); RBC Distribution Width CV 14.6 % (11.6-14.6); RBC Distribution Width SD 48.5 fl (35.1-43.9); Red Blood Count 4.07 M/mm3 (4.2-5.4); White Blood Count 9.2 K/mm3 (4.4-11.0)
[2021-01-01 15:55] LABS: ALB/GLOB Ratio 0.8 RATIO (0.9-2.4); AST(SGOT) 15 U/L (15-37); Alanine Aminotransfer ALT/SGPT 17 U/L (13-56); Alkaline Phosphatase 60 U/L (45-117); Anion Gap 5 (5-15); BUN 9 mg/dL (7-18); BUN/Creat Ratio 14.8 RATIO (10-20); Calcium,Total 9.4 mg/dL (8.5-10.1); Chloride 104 mmol/L (98-107); Creatinine, Serum 0.61 mg/dL (0.55-1.02); EST Glomerular Filtration Rate 102 mL/min (>60); Est Glom Filt Rate - Afr Amer 124 mL/min (>60); Estimated Creatinine Clearance 41.45 ml/min; Globulin 3.6 g/dL (2.2-4.2); Glucose 108 mg/dL (74-106); Potassium 4.2 mmol/L (3.5-5.1); Protein, Total 6.6 g/dL (6.4-8.2); Sodium Level 135 mmol/L (136-145)
--- NOTE | 2021-01-01 16:25 | NURSING ---
MED SURG WHITE FAILURE TO THRIVE, WEAKNESS
[2021-01-01 16:35] VITALS: BP 139/71; PULSE 63; RESP 14; TEMP 36.8; O2SAT 99
--- NOTE | 2021-01-01 16:43 | PCM.HP.STD ---
[facility] - General General Date of Admission: 01/01/21 Chief Complaint: Diarrhea, abdominal pain, weakness. HPI Narrative KALPANA LION, is a 75 F who presents to the emergency room due to diarrhea and weakness. Patient states she has had persistent diarrhea over the past 3 weeks with multiple episodes per day. states he has occasionally seen blood in her stool however she has had that previously due to hemorrhoids. Patient was recently diagnosed with anal cancer and underwent port placement and PET scan last week. She is following with Dr. Lu and plans for radiation and chemotherapy in the near future. Patient reports abdominal pain which she states is improved by laying on her left side and also with taking prescribed oral morphine. Patient denies nausea, vomiting. States she has been eating however feels like she quickly has diarrhea following oral intake. Patient was recently discharged from hospital 12/17/2020 for diarrhea and abdominal pain. Stool sample during hospital visit showed positive WBC lactoferrin, negative enteric pathogen panel. C. difficile not tested. at bedside states he has been providing [id number] care and he is worn out. They spoke with patient's primary care provider, Dr. Pedro who recommended admission to transitional care unit for rehab. She has a past medical history of depression. Denies other prior medical history previous to anal cancer diagnosis. [facility] Medical History Acute hemorrhoid Anemia Anxiety Cataract Chronic pain Degenerative disc disease Depression Edema Former smoker h/o anterior lumbar interbody fusion L4-5, L5-S1. H/o Laminectomy L2-5, fusion T11-S1, instrumentation local History of IBS History of needle biopsy History of rectal bleeding Mitral and aortic valve disease Osteoporosis Osteoporosis Parkinson's disease Post-menopausal Rectal cancer Restless legs Scoliosis Spinal stenosis Syncope Wears hearing aid Wears hearing aid in both ears Home Medications citalopram 10 mg tablet 2.5 mg PO QODAY tab 09/29/20 [History Last Taken 12/15/20] metagenics ostera 1 cap PO DAILY 09/29/20 [History Last Taken 1 Week Ago ~12/09/20] ultraflora womens 1 cap PO DAILY 09/29/20 [History Last Taken 1 Week Ago ~12/09/20] Cbd Oil 6 drp PO/SL BID 12/06/20 [History Last Taken 3 Days Ago ~12/13/20] cholecalciferol (vitamin D3) 25 mcg PO DAILY 12/16/20 [History Last Taken 2 Days Ago ~12/14/20] cyanocobalamin (vitamin B-12) 1,000 mcg PO DAILY 12/16/20 [History Last Taken 2 Days Ago ~12/14/20] epinephrine 0.3 mg IM X1 12/16/20 [History Last Taken Unknown] Icdiphenoxyl 1 tab PO/SL ACHS 12/24/20 [History Last Taken Unknown] dicyclomine 10 mg PO TID PRN 12/24/20 [History Last Taken Unknown] morphine 15 mg PO Q12H 12/24/20 [History Last Taken Unknown] oxycodone-acetaminophen [Endocet] 1 tab PO Q6H PRN 5 Days #20 tab 12/28/20 [Rx Last Taken Unknown] oxycodone-acetaminophen [Percocet] 1 tab PO Q6H PRN PRN 12/28/20 [History Last Taken Unknown] Allergy/AdvReac Type Severity Reaction Status Date / Time nut - unspecified Allergy Anaphylaxis Verified 01/01/21 14:43 peanut Allergy Hives Verified 01/01/21 14:43 procaine HCl [From Novocain] Allergy Angioedema Verified 01/01/21 14:43 acetaminophen [From Vicodin] AdvReac Other Verified 01/01/21 14:43 alprazolam [From Xanax] AdvReac Other Verified 01/01/21 14:43 hydrocodone bitartrate AdvReac Other Verified 01/01/21 14:43 [From Vicodin] metaxalone [From Skelaxin] AdvReac Other Verified 01/01/21 14:43 nabumetone AdvReac Other Verified 01/01/21 14:43 Family History (Updated 01/01/21 @ 16:50 by Indy Hunter [employer], [employer]) Mother Hypertension Cancer Skin cancer, at age 104 Father , at age: 88 emphysema Pneumonia Dementia Grandmother CVA (cerebral vascular accident) Surgical History (Updated 01/01/21 @ 16:51 by Indy Hunter NP, [employer]) H/O spinal fusion History of bronchoscopy History of cataract surgery History of tonsillectomy and adenoidectomy Hx of colonoscopy Port-A-Cath in place S/P ear surgery Social History household members: spouse housing: house Smoking Status: Former smoker pack-years: 8 alcohol intake: never substance use type: does not use what type of physical activity do you participate in: none seatbelt use: always do you feel safe at home: Yes ROS Constitutional Constitutional: Reports fatigue and weakness; Denies change in weight, chills or fever(s) Cardiovascular Cardiovascular: Denies chest pain, edema, lightheadedness, palpitations or syncope Respiratory/Chest Respiratory/Chest: Denies cough, dyspnea, productive cough, shortness of breath at rest, shortness of breath with exertion or wheezing Gastrointestinal Gastrointestinal: Reports abdominal pain and diarrhea; Denies constipation, nausea or vomiting Genitourinary Genitourinary: Denies burning urination, difficulty urinating, dysuria, hematuria, urinary frequency, urinary incontinence or urinary urgency Musculoskeletal Musculoskeletal: Denies back pain, joint pain or muscle weakness Integumentary Integumentary: Reports systems reviewed and no addt'l complaints, except as documented Neurologic Neurologic: Denies abnormal speech, confusion, dizziness, focal weakness, numbness, paresthesias, seizure-like activity or syncope Psychiatric Psychiatric: Reports depression; Denies anxiety Hematologic/Lymphatic Hematologic/Lymphatic: Denies anemia, easy bleeding or easy bruising Allergic/Immunologic Allergic/Immunologic: Denies hives or asthma Vital Signs Vital Signs Vital Signs: 01/01/21 14:39 01/01/21 16:35 Temperature 98.4 F 98.2 F Temperature Source Oral Temporal Pulse Rate 69 63 Respiratory Rate 22 H 14 Blood Pressure 120/66 139/71 H Blood Pressure Mean 84 93 Pulse Ox 95 99 Oxygen Delivery Method Room Air Room Air Weight Weight: 134 lb Body Mass Index (BMI) 23.7 Physical Exam Const alert, oriented x3 and no apparent distress Orientation / Consciousness: awake, oriented to person, oriented to place and oriented to time HEENT normocephalic and moist oral mucous membranes Eyes PERRL, EOMs intact bilaterally and conjunctivae normal Neck no lymphadenopathy Resp normal respiratory effort and clear to auscultation bilaterally Cardio regular rate, regular rhythm and no murmurs Peripheral Pulses: pulses 2+ throughout GI normal to inspection, nondistended, normoactive bowel sounds and non-distended Palpation: tender Extremity normal to inspection Skin no rashes or lesions noted Lesions: no lesions Rashes: no rashes Trauma: no lacerations or abrasions Neuro CN's II-XII intact bilaterally, no focal motor deficits, no sensory deficits noted and deep tendon reflexes 2+ bilaterally Psych mental status grossly normal Mood & Affect: anxious Results Lab / Micro Data Result Diagrams: 01/01/21 15:30 01/01/21 15:30 Labs: Laboratory Results - last 24 hr 01/01/21 01/01/21 15:30 15:30 WBC 9.2 RBC 4.07 L Hgb 12.2 Hct 37.2 MCV 91.4 MCH 30.0 MCHC 32.8 RDW Std Deviation 48.5 H RDW Coeff of Selvin 14.6 Plt Count 311 MPV 9.6 Immature Gran % (Auto) 0.500 Neut % (Auto) 78.9 H Lymph % (Auto) 6.8 L Hamblen % (Auto) 13.7 H Eos % (Auto) 0.0 Baso % (Auto) 0.1 Absolute Neuts (auto) 7.2 Absolute Lymphs (auto) 0.62 L Nucleated RBC % 0 Sodium 135 L Potassium 4.2 Chloride 104 Carbon Dioxide 26.0 Anion Gap 5 BUN 9 Creatinine 0.61 Estim Creat Clear Calc 41.45 Est GFR (MDRD) Af Amer 124 Est GFR (MDRD) Non-Af 102 BUN/Creatinine Ratio 14.8 Glucose 108 H Calcium 9.4 Total Bilirubin 0.50 AST 15 ALT 17 Alkaline Phosphatase 60 Total Protein 6.6 Albumin 3.0 L Globulin 3.6 Albumin/Globulin Ratio 0.8 L Assessment & Plan Assessment/Plan (1) Acute diarrhea: (2) Adult failure to thrive: PLAN: 1. Intractable diarrhea, abdominal pain- recent diagnosis anal squamous cell carcinoma-suspect symptoms due cancer diagnosis. Recent enteric panel negative. Check stool for C. difficile. If negative, will begin scheduled Imodium. As needed antiemetics. PRN pain regimen. Following with Dr. Lu, oncology. Amendable to palliative consult. 2. Weakness, debility- PT/OT. TCU pending acceptance. 3. Depression-on citalopram. 4. DDD/Scoliosis- s/p fusion. PT, PRN pain regimen. DVT prophylaxis: Lovenox subcu CODE STATUS: Discussed in length with patient and patient's who is healthcare power of customer retention specialist differences in CODE STATUS including full code, DNR CCA and DNR CC. Patient elects full code. This patient was seen by ELIZA Mena under the supervision of Dr. Chirinos.
--- NOTE | 2021-01-01 16:49 | CM.ED ---
DEV Note: Referral Source: MD Chirinos Referral Reason: Doctor Willis is requesting that patient be admitted to TCU (Transitional Care Unit) from Emergency Room. Dr. Chirinos called and inquired about patient being admitted to TCU from ED. Patient is patient of . DEV called Vijaya. She inquired about patient's insurance, Medicare, and that unit census. DEV called [facility] in TCU and they have 5 beds available and 1 admit and 2 more possible admits. DEV updated Vijaya. DEV reviewed with Vijaya patient's medication list and Vijaya indicated patient could go to TCU for care. DEV called TCU and advised that Vijaya had indicated patient could go to TCU for care. MD updated. electrical tester updated and patient's RN updated. Plan: TCU Kelli ARAUZ
--- NOTE | 2021-01-01 16:52 | NURSING ---
TCU ROOM 8
[2021-01-01] MEDS: HYDROmorphone 0.5 MG/0.5 ML SYRINGE IV (16:59)
[2021-01-01 17:00] LABS: Magnesium 2.2 mg/dL (1.6-2.6); Phosphorus 2.3 mg/dL (2.5-4.9)
== END 2021-01-01 18:01 | disposition skilled nursing facility (03) ==
PROVIDERS: Family Medicine; Emergency Provider Emergency Medicine; PCP Family Medicine Geriatric Medicine
DX: R19.7 Diarrhea, unspecified (principal); R62.7 Adult failure to thrive; M62.81 Muscle weakness (generalized); Z87.891 Personal history of nicotine dependence; Z79.899 Other long term (current) drug therapy
CPT/HCPCS: 80053; 83735; 84100; 85025; 87426; 96374; 96375; 96376; 99285; A4216; J2405

== ENCOUNTER 2021-01-01 18:08 | Inpatient (IN) | payer MEDICARE, OTHER, SELFPAY ==
[2021-01-01 14:39] VITALS: BMI 23.7
[2021-01-01 18:14] VITALS: BP 137/59; PULSE 60; RESP 18; TEMP 36.8; O2SAT 95; BMI 23.0
[2021-01-01 20:00] VITALS: PULSE 64; RESP 18; O2SAT 98
[2021-01-01] MEDS: oxyCODONE 5 MG Tablet PO ×2 (20:01→21:34)
[2021-01-01] MEDS: morphine SR 15 MG Tablet PO (21:38)
[2021-01-01] MEDS: Dicyclomine 10 MG Capsule PO (21:38)
[2021-01-02] MEDS: oxyCODONE 5 MG Tablet PO ×5 (03:38→20:30)
[2021-01-02 06:05] VITALS: BP 144/62; PULSE 66; RESP 16; TEMP 36.7; O2SAT 97
[2021-01-02] MEDS: Menthol/Lanolin/Calamine/Znox 113 GM Tube 1 APPLIC TOPICAL ×2 (06:08→17:02)
[2021-01-02] MEDS: Cholecalciferol (VIT D3) 25 MCG TABLET (1,000 UNITS) PO (06:09)
[2021-01-02] MEDS: Cyanocobalamin 500 MCG Tablet 1000 MCG PO (06:09)
[2021-01-02] MEDS: morphine SR 15 MG Tablet PO ×2 (06:11→17:01)
[2021-01-02 06:47] LABS: Absolute Lymphocyte Count 0.62 X10^3/uL (0.83-4.51); Absolute Neutrophil Count 7.6 X10^3/uL (2.0-7.7); Basophil# 0.01 X10^3/uL; Basophil% 0.1 % (0-1); Hematocrit 38.1 % (37-47); Hemoglobin 12.1 g/dL (12.0-15.0); Lymphocyte # 0.62 X10^3/ul (0.83-4.51); Lymphocyte % 6.5 % (19-41); Mean Corp Hgb Conc 31.8 g/dL (32-36); Mean Corpuscular Hgb 29.8 pg (27.0-32.0); Mean Corpuscular Volume 93.8 fL (81-99); Mean Platelet Vol. 10.7 fl (6.2-12.0); Monocyte# 1.25 X10^3/uL; Monocyte% 13.2 % (0-10); NRBC Flagged by Analyzer 0 % (0-5); Neutrophil # 7.56 X10^3/uL (2.7-7.7); Neutrophil % 79.8 % (47-70); Platelet Count 328 K/mm3 (150-450); RBC Distribution Width CV 14.4 % (11.6-14.6); RBC Distribution Width SD 50.2 fl (35.1-43.9); Red Blood Count 4.06 M/mm3 (4.2-5.4); White Blood Count 9.5 K/mm3 (4.4-11.0)
[2021-01-02 07:12] LABS: Anion Gap 8 (5-15); BUN 9 mg/dL (7-18); BUN/Creat Ratio 14.7 RATIO (10-20); Calcium,Total 9.9 mg/dL (8.5-10.1); Chloride 102 mmol/L (98-107); Creatinine, Serum 0.61 mg/dL (0.55-1.02); EST Glomerular Filtration Rate 102 mL/min (>60); Est Glom Filt Rate - Afr Amer 123 mL/min (>60); Estimated Creatinine Clearance 41.45 ml/min; Glucose 98 mg/dL (74-106); Potassium 4.9 mmol/L (3.5-5.1); Sodium Level 133 mmol/L (136-145)
[2021-01-02] MEDS: Multivitamins,Therapeutic Tablet 1 TABLET PO (08:59)
[2021-01-02] MEDS: Tuberculin,Purif.prot.deriv. 50 TU/ML Vial 0.1 ML ID (08:59)
[2021-01-02 10:00] VITALS: RESP 18
--- NOTE | 2021-01-02 11:30 | NURSING ---
This nurse was in room pt became very tearful stating that she was worried about her falling and hurting himself. After 1:1, Back rub and reassurance that her was okay done pt calmed down and was resting quietly. Call light within reach will continue to monitor.
[2021-01-02] MEDS: 0.9% Saline Lock 10 ML Syringe IV (12:55)
--- NOTE | 2021-01-02 14:03 | NURSING ---
updated in room
[2021-01-02 15:57] VITALS: BP 137/59; PULSE 66; RESP 16; TEMP 36.9; O2SAT 97
[2021-01-02] MEDS: Diphenoxylate/Atrop 1 Tablet PO (20:30)
[2021-01-03] MEDS: oxyCODONE 5 MG Tablet PO ×3 (00:38→13:32)
[2021-01-03 02:46] VITALS: BP 110/54; PULSE 76; RESP 16; TEMP 36.9; O2SAT 95
[2021-01-03] MEDS: morphine SR 15 MG Tablet PO ×2 (05:13→16:57)
[2021-01-03] MEDS: Menthol/Lanolin/Calamine/Znox 113 GM Tube 1 APPLIC TOPICAL ×2 (05:14→16:58)
[2021-01-03] MEDS: Cyanocobalamin 500 MCG Tablet 1000 MCG PO (05:14)
[2021-01-03] MEDS: Cholecalciferol (VIT D3) 25 MCG TABLET (1,000 UNITS) PO (05:14)
[2021-01-03] MEDS: Diphenoxylate/Atrop 1 Tablet PO (06:37)
[2021-01-03] MEDS: 0.9% Saline Lock 10 ML Syringe IV ×4 (06:41→21:59)
[2021-01-03] MEDS: Multivitamins,Therapeutic Tablet 1 TABLET PO (09:18)
--- NOTE | 2021-01-03 11:17 | HP.PCM_ITS ---
HPI - General General Date of Admission: 01/01/21 HPI Narrative KALPANA LION, is a 75 F with a PMH of anal CA who presented to the ED at [facility] on 01/01/21 c/on diarrhea, weakness and abdominal pain. She was recently discharged from [facility] on 12/17/20 after being admitted for diarrhea. Stool sample during that admission was positive for lactoferrin and she had a negative enteric pathogen panel. She had a PET scan last week and a port was placed. She is being managed by Dr. Bart Lu for her cancer. White blood cell count in the emergency department was normal at 9.2. Hemoglobin was 12.1. Sodium was mildly decreased at 135 and potassium was 4.2. BUN was 9 and the creatinine was 0.61. Phosphorus was decreased to 2.3 and the magnesium was within normal limits. LFTs are unremarkable. She had a CT scan of her abdomen and pelvis on 12/30/2020 that showed diffuse thickening of the lower rectum/anus more prominent on the right side. Today she tells me that the diarrhea has resolved and her current problem is pain with urination. She tells me that she is having trouble with confusion since starting MS Contin. She tells me that the MS Contin has not been helping and she is in terrible pain all the time. She has not been able to sleep. She is very anxious and overwhelmed. She has been taking Celexa 2.5 mg Q 48 hours for many years. She lists Xanax as an allergy but does not know the reaction. She has also been taking Oxycodone PRN for breakthrough pain and it is also not helping. [facility] Medical History (Updated 01/03/21 @ 12:[address] Jennifer Avalos, ) Acute hemorrhoid Anemia Anxiety Cataract Chronic pain Degenerative disc disease Depression Edema Former smoker h/o anterior lumbar interbody fusion L4-5, L5-S1. H/o Laminectomy L2-5, fusion T11-S1, instrumentation local History of IBS History of needle biopsy History of rectal bleeding Mitral and aortic valve disease Osteoporosis Osteoporosis Parkinson's disease Post-menopausal Rectal cancer Restless legs Scoliosis Spinal stenosis Syncope Wears hearing aid Wears hearing aid in both ears Home Medications citalopram 10 mg tablet 2.5 mg PO QODAY tab 09/29/20 [History Last Taken 12/15/20] metagenics ostera 1 cap PO DAILY 09/29/20 [History Last Taken 1 Week Ago ~12/09/20] ultraflora womens 1 cap PO DAILY 09/29/20 [History Last Taken 1 Week Ago ~12/09/20] Cbd Oil 6 drp PO/SL BID 12/06/20 [History Last Taken 3 Days Ago ~12/13/20] cholecalciferol (vitamin D3) 25 mcg PO DAILY 12/16/20 [History Last Taken 2 Days Ago ~12/14/20] cyanocobalamin (vitamin B-12) 1,000 mcg PO DAILY 12/16/20 [History Last Taken 2 Days Ago ~12/14/20] epinephrine 0.3 mg IM X1 12/16/20 [History Last Taken Unknown] Icdiphenoxyl 1 tab PO/SL ACHS 12/24/20 [History Last Taken Unknown] dicyclomine 10 mg PO TID PRN 12/24/20 [History Last Taken Unknown] morphine 15 mg PO Q12H 12/24/20 [History Last Taken Unknown] oxycodone-acetaminophen [Endocet] 1 tab PO Q6H PRN 5 Days #20 tab 12/28/20 [Rx Last Taken Unknown] oxycodone-acetaminophen [Percocet] 1 tab PO Q6H PRN PRN 12/28/20 [History Last Taken Unknown] Allergy/AdvReac Type Severity Reaction Status Date / Time nut - unspecified Allergy Anaphylaxis Verified 01/01/21 14:43 peanut Allergy Hives Verified 01/01/21 14:43 procaine HCl [From Novocain] Allergy Angioedema Verified 01/01/21 14:43 acetaminophen [From Vicodin] AdvReac Other Verified 01/01/21 14:43 alprazolam [From Xanax] AdvReac Other Verified 01/01/21 14:43 hydrocodone bitartrate AdvReac Other Verified 01/01/21 14:43 [From Vicodin] metaxalone [From Skelaxin] AdvReac Other Verified 01/01/21 14:43 nabumetone AdvReac Other Verified 01/01/21 14:43 Family History Mother Hypertension Cancer Skin cancer, at age 104 Father , at age: 88 emphysema Pneumonia Dementia Grandmother CVA (cerebral vascular accident) Surgical History H/O spinal fusion History of bronchoscopy History of cataract surgery History of tonsillectomy and adenoidectomy Hx of colonoscopy Port-A-Cath in place S/P ear surgery Social History household members: spouse housing: house Smoking Status: Former smoker pack-years: 8 alcohol intake: never substance use type: does not use what type of physical activity do you participate in: none seatbelt use: always do you feel safe at home: Yes ROS Review of Systems ROS Unobtainable: due to mental status and other Details: limited ROS and hx due to confusion likely associated with MS Contin Constitutional Constitutional: Reports change in weight, chills, poor appetite and weight loss Cardiovascular Cardiovascular: Denies chest pain or diaphoresis Respiratory/Chest Respiratory/Chest: Denies dyspnea or hemoptysis Gastrointestinal Gastrointestinal: Reports abdominal pain, change in bowel habits, diarrhea, hematochezia and other Details: severe anal pain....can not even sit in a chair comfortably. She feels best lying on her R side. ; Denies dysphagia Genitourinary Genitourinary: Reports burning urination, difficulty urinating, urinary frequency and urinary hesitancy; Denies flank pain Integumentary Integumentary: Denies jaundice or rash Neurologic Neurologic: Reports confusion Psychiatric Psychiatric: Reports abnormal sleep pattern, anxiety, change in appetite, depression and difficulty concentrating; Denies hallucinations, homicidal ideation or suicidal thoughts Vital Signs Vital Signs Vital Signs: 01/02/21 15:57 01/02/21 22:14 01/03/21 02:46 Temperature 98.4 F 98.5 F Temperature Source Temporal Temporal Pulse Rate 66 76 Pulse Strength Normal (2+) Respiratory Rate 16 16 Blood Pressure 137/59 H 110/54 L Blood Pressure Mean 85 72 Blood Pressure Source Monitor Monitor Blood Pressure Position Supine Supine Blood Pressure Location Right Arm Right Arm Pulse Ox 97 95 Oxygen Delivery Method Room Air Room Air Weight Weight: 130 lb Body Mass Index (BMI) 23.0 Physical Exam Const alert Constitutional Narrative: She appears to be in severe pain. She is very restle ss. She is having urinary urgency and frequency and feels like she has to go but can not. General Appearance: in distress, anxious and ill appearing Orientation / Consciousness: awake, oriented to person and oriented to place HEENT normocephalic HEENT Narrative: Dry mucous membranes Chest Chest: symmetrical chest wall rise Resp no retractions, no use of accessory muscles and clear to auscultation bilaterally Resp Narrative: She is tachypneic at times but, I suspect this is due to pain and anxiety. She has no conversational dyspnea Effort and Inspection: able to speak in complete sentences Cardio regular rate, regular rhythm, S1 normal heart sound, S2 normal heart sound and no murmurs Jugular Venous Distention: Negative for JVD GI soft to palpation and non-tender GI Narrative: No guarding with palpation. No guarding with palpation Extremity no clubbing, cyanosis or edema Skin Rashes: no rashes Neuro CN's II-XII intact bilaterally and moves all extremities Speech: speech normal Motor Exam: strength 5/5 throughout Psych Mood & Affect: depressed, anxious and tearful Thought Process: confused Results Lab / Micro Data Result Diagrams: 01/02/21 06:05 01/02/21 06:05 Assessment & Plan Assessment/Plan (1) Anal squamous cell carcinoma: PLAN: Will start chemo next week and after chemo radiation (2) Intractable pain: PLAN: Add Dilaudid Q 4 H PRN pain 6-10. Consult Palliative care to participate in pain management. Pt is agreeable. I am suspecting there may be some nerve involvement......urine is pretty clear and she feels urgency. D/W pharm D and will try adding Gabapentin 100 mg TID. (3) Anxiety: PLAN: Hopefully this will improve with pain control.......re-evaluate after the pain is controlled. I do not want to try too many new meds at the same time. (4) Urinary frequency: PLAN: check a UA and culture (5) Dysuria: (6) Acute diarrhea: PLAN: resolved (7) Generalized muscle weakness: PLAN: PT/OT (8) Adult failure to thrive: (9) Depression: QUALIFIERS: Depression Type: reactive depression Qualified Code(s): F32.9 - Major depressive disorder, single episode, unspecified Charges/Coding Visit Charges Inpatient E&M: 35067 Init Hosp L3
--- NOTE | 2021-01-03 11:25 | CASEMGMT ---
Social Work Pt qualifies for Palliative services. Referral made to [facility]. Cecilia Samuels, DIRECTOR OF MATH BRAZING MACHINE SETTER
[2021-01-03] MEDS: HYDROmorphone 1 MG/ML Syringe IV ×3 (12:02→22:05)
[2021-01-03 12:25] LABS: Bacteria 0 SEEN /hpf (None Seen); Mucous, Urine 0 SEEN /hpf (<or=2+); Red Blood Cells-Urine 0 SEEN /hpf (0-5); White Blood Cells 0 SEEN /hpf (0-5)
[2021-01-03 12:37] LABS: Color, Urine Yellow (Yellow); Glucose, Dipstick Normal (Normal); Ketone-Dipstick Negative (Negative); Leukocyte Esterase-Dipstick Negative /ul (Negative); Nitrite-Dipstick Negative (Negative); Occult Blood-Urine Negative /ul (Negative); Protein-Dipstick Negative (Negative); Urine Bilirubin Dipstick Negative (Negative); Urine Clarity Sl. Cloudy (Clear); Urine Urobilinogen Normal (Normal)
[2021-01-03] MEDS: Gabapentin 100 MG Capsule PO ×2 (12:42→16:58)
[2021-01-03 12:44] LABS: Squamous Epithelial Cells - UA 0-5 SEEN /hpf (5-10)
--- NOTE | 2021-01-03 13:50 | CASEMGMT ---
Social Work SW assessment deferred at this time. Pt with significant pain today and not up to completing assessment. SW will remain available and will reevaluate for assessment tomorrow. LEILANI Lane
--- NOTE | 2021-01-03 14:48 | NURSING ---
Addendum entered by Jennifer Xiao 01/03/21 14:57: palliative consulted Original Note: pt tearful, slightly more restless. rating pain 11/10 in rectum. chaplain Kevin in room speaking with pt. Dr Avalos notified, new order to administer Dilaudid 1mg IVP now. resting in bed on RT side. call light in reach.
--- NOTE | 2021-01-03 15:00 | CHAPLAIN ---
Type of Pastoral Visit _x__ Initial Visit ___ Follow-up Visit ___ On-call Visit ___ General Patient Visit ___ Spiritual Assessment ___ Family Conference ___ Bereavement ___ Rapid Response ___ Code Blue ___ Other (describe below) Pastoral Care Referral From _x__ Patient ___ Family _x__ Nurse ___ Physician ___ Remote Medical Coder ___ Rod Mill Operator ___ Other (describe below) Sacrament/Intervention ___ Active listening ___ Anointing ___ Shinto ___ Bereavement ___ Communion ___ Christina exploration ___ ___ Life review _x__ Prayer ___ Reconciliation ___ Sacrament of Sick _x__ Supportive presence ___ Wedding ___ Other (describe below) Pastoral Comments patient is in obvious pain; RN received new order for meds and will be administering it as soon as it is delivered; offer of support to patient; attempt to refocus pt; pt states she is member of [employer] and her marble worker may come to visit this week; pt also reflects on great support from her spouse; pt welcomes prayer; RN comes with new meds
[2021-01-03 15:20] VITALS: BP 135/51; PULSE 82; RESP 20; TEMP 36.3; O2SAT 95
--- NOTE | 2021-01-03 15:51 | PHA.CONS_ITS ---
Progress Note - Pharmacy Subjective: TCU Admission Objective: Allergies nut - unspecified Allergy (Verified 01/01/21 14:43) Anaphylaxis peanut Allergy (Verified 01/01/21 14:43) Hives procaine HCl [From Novocain] Allergy (Verified 01/01/21 14:43) Angioedema acetaminophen [From Vicodin] Adverse Reaction (Verified 01/01/21 14:43) Other I DON'T LIKE HOW IT MAKES ME FEEL alprazolam [From Xanax] Adverse Reaction (Verified 01/01/21 14:43) Other I DON'T LIKE HOW IT MAKES ME FEEL hydrocodone bitartrate [From Vicodin] Adverse Reaction (Verified 01/01/21 14:43) Other I DON'T LIKE HOW IT MAKES ME FEEL metaxalone [From Skelaxin] Adverse Reaction (Verified 01/01/21 14:43) Other I DON'T LIKE HOW IT MAKES ME FEEL nabumetone Adverse Reaction (Verified 01/01/21 14:43) Other I DON'T LIKE HOW IT MAKES ME FEEL Current Medications Generic Name Dose Route Start Last Admin Trade Name Freq PRN Reason Stop Dose Admin Calamine/Phenol 1 applic 01/02/21 06:00 01/03/21 05:14 Menthol/Lanolin/Calamine/Znox 113 Gm Tube TOPICAL 1 applic BID ANDRAE Administration Protocol Cholecalciferol 25 mcg 01/02/21 06:00 01/03/21 05:14 Cholecalciferol (Vit D3) 25 Mcg Tablet (1,000 Units) PO 25 mcg DAILY ANDRAE Administration Cyanocobalamin 1,000 mcg 01/02/21 06:00 01/03/21 05:14 Cyanocobalamin 500 Mcg Tablet PO 1,000 mcg DAILY ANDRAE Administration Dicyclomine HCl 10 mg 01/01/21 18:42 01/01/21 21:38 Dicyclomine 10 Mg Capsule PO 10 mg TID PRN PRN Administration Diarrhea Diphenoxylate HCl/Atropine 1 tablet 01/03/21 12:46 Diphenoxylate/Atrop 1 Tablet PO ACHS PRN Diarrhea Epinephrine HCl 0.3 mg 01/01/21 18:45 Epinephrine (For Allergic Rxn) 0.3 Mg/0.3 Ml Syringe IM X1 PRN ALLERGIC REACTION Gabapentin 100 mg 01/03/21 12:45 01/03/21 12:42 Gabapentin 100 Mg Capsule PO 100 mg TIDCM ANDRAE Administration Hydromorphone HCl 1 mg 01/03/21 12:30 Hydromorphone 1 Mg/Ml Syringe IV Q4H PRN PRN Pain Score 6-10 Morphine Sulfate 15 mg 01/01/21 22:00 01/03/21 05:13 Morphine Sr 15 Mg Tablet PO 15 mg Q12 ANDRAE Administration Multivitamins 1 tablet 01/02/21 08:00 01/03/21 09:18 Multivitamins,Therapeutic Tablet PO 1 tablet BREAKFAST ANDRAE Administration Nutritional Formula (Lactose Free) 120 ml 01/02/21 07:45 01/03/21 11:39 Ensure Enlive 120 Ml Liquid PO 120 ml TIDCM ANDRAE Administration Oxycodone HCl 5 - 10 mg 01/03/21 12:32 01/03/21 13:32 Oxycodone 5 Mg Tablet PO 10 mg Q4H PRN PRN Administration Pain Score 4-5 Sodium Chloride 10 - 40 ml 01/02/21 02:56 01/03/21 14:55 0.9% Saline Lock 10 Ml Syringe IV 10 ml UD PRN Administration SALINE FLUSH Tuberculin PPD 0.1 ml 01/09/21 10:00 Tuberculin,Purif.Prot.Deriv. 50 Tu/Ml Vial ID 01/09/21 10:01 X1 ONE Problem List (Last Updated 01/03/21 @ 12:[address] Jennifer Avalos, DO) Depression (Acute) Anxiety (Acute) Dysuria (Acute) Urinary frequency (Acute) Intractable pain (Acute) Adult failure to thrive (Acute) Generalized muscle weakness (Acute) Anal squamous cell carcinoma (Acute) Vital Signs Temp Pulse Resp BP Pulse Ox 97.3 F L 82 20 H 135/51 H 95 01/03/21 15:20 01/03/21 15:20 01/03/21 15:20 01/03/21 15:20 01/03/21 15:20 Oxygen Delivery Method Room Air Weight: 58.967 kg Body Mass Index (BMI) 23.0 Sodium 133 mmol/L (136-145) L 01/02/21 06:05 Potassium 4.9 mmol/L (3.5-5.1) 01/02/21 06:05 Chloride 102 mmol/L (98-107) 01/02/21 06:05 Carbon Dioxide 23.0 mmol/L (21.0-32.0) 01/02/21 06:05 Anion Gap 8 (5-15) 01/02/21 06:05 BUN 9 mg/dL (7-18) 01/02/21 06:05 Creatinine 0.61 mg/dL (0.55-1.02) 01/02/21 06:05 Est GFR (MDRD) Af Amer 123 mL/min (>60) 01/02/21 06:05 Est GFR (MDRD) Non-Af 102 mL/min (>60) 01/02/21 06:05 BUN/Creatinine Ratio 14.7 RATIO (10-20) 01/02/21 06:05 Glucose 98 mg/dL (74-106) 01/02/21 06:05 Assessment/Plan: 1. Intractable pain: gabapentin 100mg PO TIDCM, morphine SR 15mg PO Q12, oxycodone 5-10mg PO Q4H PRN pain 4-5/10 and hydromorphone 1mg IV Q4H PRN pain 6- 10/10. Please continue to monitor for increased pain, PRN usage, constipation, respiratory depression and renal function. 2. Overall nutrition: multivitamin 1T PO breakfast. Please continue to monitor. 3. Allergic reaction: epinephrine 0.3mg IM x1 PRN allergic reaction. Please continue to monitor for allergic reaction. Psychotropic Medications: None *Unnecessary Medications: I did not see a documented indication for cholecalciferol 25mcg PO daily or cyanocobalamin 1000mch PO daily. Please consider stopping medication if clinically appropriate or adding indication. Thanks. Please consider ordering a vitamin B12 level (there is no level in the chart.) Thanks. *Bowel Regimen: dicyclomine 10mg PO TID PRN diarrhea and diphenoxylate/atropine 1T PO ACHS PRN diarrhea. Please clarify if dicyclomine or lomotil should be giv en 1st line or 2nd line for diarrhea. Thanks. Please continue to monitor for diarrhea. Date of Note:: 01/03/21
--- NOTE | 2021-01-03 16:09 | CON.PCM.PA_ITS ---
Assessment & Plan Assessment/Plan (1) Intractable pain: (2) Anal squamous cell carcinoma: (3) Anal fissure: (4) Anal pain: (5) Generalized muscle weakness: (6) Anxiety: (7) Depression: QUALIFIERS: Depression Type: reactive depression Qualified Code(s): F32.9 - Major depressive disorder, single episode, unspecified PLAN: 75-year-old female with squamous cell carcinoma of the rectum, scheduled to start radiation next week. Following with Dr. Lu. Palliative care consulted for intractable rectal pain. -OARRS completed. Prior to this diagnosis, only thing in the last 2 years was tramadol and gabapentin, more recently oxycodone for her back pain. Still rating pain very high, will increase frequency of the Dilaudid for now from every 4 hours to every 2 hours PRN. Plan is to switch her from MS Contin to methadone, which has better success with treating neuropathic pain, especially the the pelvis/abdomen. I suspect her tumor burden is causing the more severe pain. We will follow up with her tomorrow, plan to start methadone 5 mg twice daily and DC the MS Contin, which she has really only been taking about 2 weeks now. Added acetaminophen as needed, can give with the oxycodone as she did much better on Percocet. -We discussed how radiation will help with the pain after shrinking the tumor. Questionable if she will tolerate chemo/radiation schedule. f/u with Dr. Lu, hopefully he can see her here. -We will also add Zofran for nausea. Encouraged her to take her medications with a little something in her stomach to try and avoid some of the side effects. -I will follow-up with her in the next 24 to 48 hours -Continue with therapy for her weakness ?As far as her anxiety and depression go, would recommend increasing her current antidepressant (SSRI), or changing to something different as she has been on the same medication for quite some time. Thank you for the opportunity to participate in this patient's care, please do not hesitate to contact [facility] with any further questions or concerns. Palliative direct line is [phone]. We will follow up here in the hospital and when discharged home. Patient is agreeable to services. Greater than 50% of F2F visit dedicated to education and counseling of palliative care services, medications, comorbid conditions and potential assistance with management, and plan of care moving forward. Start time: 1609 End time: 1740 HPI Consult Data Date of Consult: 01/04/21 HPI Narrative HPI Narrative: KALPANA LION, is a 75 F who presented to [facility] ED 01/01/2021 with complaints of diarrhea, weakness, abdominal pain, and general malaise. She had just been discharged from [facility] 12/17 for similar complaints. Palliative care was consulted at that time, however patient was discharged prior to the consult taking place. We are now asked to see her for ongoing unco ntrolled pain. Patient recently diagnosed with squamous cell carcinoma of the anus. She has recently had a port placed and is following with Dr. Lu for oncology. When she was discharged from the hospital the last time, it was recommended she use 1% cortisone to the rectal area for irritation. She also had Percocet 10/325 mg tabs, 1 tab every 4 hours as needed for pain. She was using CBD oil. Patient has been on antidepressants for years for her anxiety and depression. Current treatment includes citalopram 2.5 mg every other day. Patient is a former smoker with 5-pack-year history, quit in 1983. She has an occasional alcoholic beverage. Kalpana lives with her spouse, Tristen. She has 2 daughters, one is mentally handicapped and lives in the [facility]. The other lives in [place] with her family. Kalpana reports the pain is almost unbearable. States she is asking for pain medication before its due. Pain never really goes below an 8 out of 10. She is having a hard time sleeping. She is most comfortable laying on her side, however the pain is still excruciating. She does have tearful moments at times. States this diagnosis and subsequent course has been very hard to swallow. Information is sometimes overwhelming. She has a history of anxiety, admits she has a lot of anxiety at times. Does not feel depressed but suspect she has uncontrolled depression. She is not on a therapeutic dose of antidepressant. She is asking appropriate questions. Reports her diarrhea has resolved. She is worried that she will become constipated, states she has been constipated since a very young age. Worried the pain will be horrific with defecation. Ran OARRS today, 30 day average MME is 80.93, current MME per day is 62.14. It appears Dr. Pedro (PCP) has been prescribing her gabapentin up until September 30, 2020, it was a 90-day supply. She does feel a little foggy since being on MS Contin, which was prescribed 12/21/2020 by her radiation oncologist, Dr. Toussaint. She also was on Percocet 5/325mg tabs prescribed by Dr. Walker 12/03, 12/09, then 12/28, all which were 5-day supplies. She also had a 30-day supply of Xanax 1 mg (#120) prescribed by Dr. Pedro 12/22, patient reports she did not do well with this and quit taking it. There was another oxycodone prescription for 10 mg tabs, 10-day supply (#60) by Dr. Toussaint. Prior to her diagnosis, she was taking gabapentin 400 mg 3 times a day(?), then in September 2020, it was decreased to 400 mg once daily from what I can tell. Only other controlled substance prior to that was tramadol in 2019. She has a history of severe low back pain, which I suspect is where some of her pain medications came from. We discussed her current diagnosis of cancer, she had a lot of questions regarding treatment. Encouraged her to write down her questions for her oncologist that were unable to be answered by myself. Discussed her pain medications, side effects, intolerances, etc. She does not have a true allergy to acetaminophen, it just makes her stomach a little upset. She had been prescribed Percocet and tolerated that fairly well. [facility] Medical History Acute hemorrhoid Anemia Anxiety Cataract Chronic pain Degenerative disc disease Depression Edema Former smoker h/o anterior lumbar interbody fusion L4-5, L5-S1. H/o Laminectomy L2-5, fusion T11-S1, instrumentation local History of IBS History of needle biopsy History of rectal bleeding Mitral and aortic valve disease Osteoporosis Osteoporosis Parkinson's disease Post-menopausal Rectal cancer Restless legs Scoliosis Spinal stenosis Syncope Wears hearing aid Wears hearing aid in both ears Home Medications citalopram 10 mg tablet 2.5 mg PO QODAY tab 09/29/20 [History Last Taken 12/15/20] metagenics ostera 1 cap PO DAILY 09/29/20 [History Last Taken 1 Week Ago ~12/09/20] ultraflora womens 1 cap PO DAILY 09/29/20 [History Last Taken 1 Week Ago ~12/09/20] Cbd Oil 6 drp PO/SL BID 12/06/20 [History Last Taken 3 Days Ago ~12/13/20] cholecalciferol (vitamin D3) 25 mcg PO DAILY 12/16/20 [History Last Taken 2 Days Ago ~12/14/20] cyanocobalamin (vitamin B-12) 1,000 mcg PO DAILY 12/16/20 [History Last Taken 2 Days Ago ~12/14/20] epinephrine 0.3 mg IM X1 12/16/20 [History Last Taken Unknown] Icdiphenoxyl 1 tab PO/SL ACHS 12/24/20 [History Last Taken Unknown] dicyclomine 10 mg PO TID PRN 12/24/20 [History Last Taken Unknown] morphine 15 mg PO Q12H 12/24/20 [History Last Taken Unknown] oxycodone-acetaminophen [Endocet] 1 tab PO Q6H PRN 5 Days #20 tab 12/28/20 [Rx Last Taken Unknown] oxycodone-acetaminophen [Percocet] 1 tab PO Q6H PRN PRN 12/28/20 [History Last Taken Unknown] Allergy/AdvReac Type Severity Reaction Status Date / Time nut - unspecified Allergy Anaphylaxis Verified 01/01/21 14:43 peanut Allergy Hives Verified 01/01/21 14:43 procaine HCl [From Novocain] Allergy Angioedema Verified 01/01/21 14:43 acetaminophen [From Vicodin] AdvReac Other Verified 01/01/21 14:43 alprazolam [From Xanax] AdvReac Other Verified 01/01/21 14:43 hydrocodone bitartrate AdvReac Other Verified 01/01/21 14:43 [From Vicodin] metaxalone [From Skelaxin] AdvReac Other Verified 01/01/21 14:43 nabumetone AdvReac Other Verified 01/01/21 14:43 Family History Mother Hypertension Cancer Skin cancer, at age 104 Father , at age: 88 emphysema Pneumonia Dementia Grandmother CVA (cerebral vascular accident) Surgical History H/O spinal fusion History of bronchoscopy History of cataract surgery History of tonsillectomy and adenoidectomy Hx of colonoscopy Port-A-Cath in place S/P ear surgery Social History household members: spouse housing: house Smoking Status: Former smoker pack-years: 8 alcohol intake: never substance use type: does not use what type of physical activity do you participate in: none seatbelt use: always do you feel safe at home: Yes ROS Constitutional Constitutional: Reports difficulty sleeping, poor appetite and weakness Eyes Eyes: Denies change in vision ENT HEENT: Denies hoarseness, nasal discharge or sore throat Cardiovascular Cardiovascular: Denies chest pain, claudication, diaphoresis, dyspnea or edema Respiratory/Chest Respiratory/Chest: Denies cough or wheezing Gastrointestinal Gastrointestinal: Reports abdominal pain and bloating; Denies diarrhea Genitourinary Genitourinary: Reports burning urination, difficulty urinating and other Details: pelvic pressure Musculoskeletal Musculoskeletal: Reports back pain; Denies muscle spasms, numbness, tingling or tremors Neurologic Neurologic: Reports confusion and other Details: feels foggy on pain meds ; Denies abnormal speech or focal weakness Psychiatric Psychiatric: Reports anxiety and difficulty concentrating; Denies hallucinations or suicidal thoughts Physical Exam Const alert General Appearance: cooperative Orientation / Consciousness: oriented to person, oriented to place and oriented to time HEENT normocephalic and head/scalp atraumatic Resp normal respiratory effort and clear to auscultation bilaterally Effort and Inspection: able to speak in complete sentences Cardio regular rate, regular rhythm, S1 normal heart sound and S2 normal heart sound GI soft to palpation Auscultation: normoactive bowel sounds Palpation: tender RLQ and RUQ Extremity no clubbing, cyanosis or edema Neuro CN's II-XII intact bilaterally Psych cooperative, affect normal and speech normal Memory / Cognition: other forgetfulness Insight: insight good Judgement: judgement good
--- NOTE | 2021-01-03 16:11 | NURSING ---
pt resting quietly with eyes closed in bed, no distress noted. call light in reach. GURPREET Patino from palliative here to see pt.
--- NOTE | 2021-01-03 18:14 | NURSING ---
updated Moo, on pt pain and anxiety. appreciative of update.
[2021-01-04] MEDS: 0.9% Saline Lock 10 ML Syringe IV ×2 (01:15→09:50)
[2021-01-04] MEDS: HYDROmorphone 1 MG/ML Syringe IV ×3 (01:16→17:05)
[2021-01-04] MEDS: morphine SR 15 MG Tablet PO (04:46)
[2021-01-04] MEDS: Cholecalciferol (VIT D3) 25 MCG TABLET (1,000 UNITS) PO (04:47)
[2021-01-04] MEDS: Cyanocobalamin 500 MCG Tablet 1000 MCG PO (04:47)
[2021-01-04] MEDS: Menthol/Lanolin/Calamine/Znox 113 GM Tube 1 APPLIC TOPICAL ×2 (04:48→17:06)
[2021-01-04] MEDS: Multivitamins,Therapeutic Tablet 1 TABLET PO (07:46)
[2021-01-04] MEDS: Gabapentin 100 MG Capsule PO ×3 (07:46→17:05)
[2021-01-04] MEDS: oxyCODONE 5 MG Tablet PO (09:59)
[2021-01-04 10:00] VITALS: PULSE 97; RESP 18; O2SAT 96
[2021-01-04] MEDS: LORazepam 2 MG/ML Syringe 1 MG IV (12:19)
--- NOTE | 2021-01-04 12:57 | PN.PALL_ITS ---
Subjective Subjective Resting in bed comfortably with eyes closed after receiving a stat dose of Ativan for panic attack. Pain has still been pretty significant, not controlled with current medications. Vitals have remained stable. no dyspnea or chest pain. Objective Data Objective Data Vital Signs: Vital Signs Temp Pulse Resp BP Pulse Ox 97.3 F L 82 20 H 135/51 H 95 01/03/21 15:20 01/03/21 15:20 01/03/21 15:20 01/03/21 15:20 01/03/21 15:20 Oxygen Delivery Method Room Air Weight: 58.967 kg Body Mass Index (BMI) 23.0 Intake & Output: Intake and Output for Last 24 Hours 01/02/21 01/03/21 01/04/21 23:59 23:59 23:59 Intake Total 120 / 120 240 / 240 120 / 120 Balance 120 / 120 240 / 240 120 / 120 Lab / Micro Data Result Diagrams: 01/02/21 06:05 01/02/21 06:05 Micro: Microbiology 01/03/21 12:20 Urine Catheter - Catheter Urine Culture - Preliminary Culture exhibits no growth. Physical Exam Narrative Apical regular, no edema. Lungs are clear but diminished. Some mild suprapubic discomfort with palpation. Alert and oriented but forgetful. Const alert General Appearance: cooperative and anxious Orientation / Consciousness: oriented to person and oriented to place HEENT normocephalic and head/scalp atraumatic Resp clear to auscultation bilaterally Cardio regular rate and regular rhythm GI Auscultation: normoactive bowel sounds Palpation: soft and tender RLQ and RUQ Extremity no clubbing, cyanosis or edema Psych cooperative Memory / Cognition: other forgetful Assessment & Plan Assessment/Plan (1) Intractable pain: (2) Anal squamous cell carcinoma: (3) Anal fissure: (4) Anal pain: (5) Generalized muscle weakness: (6) Anxiety: (7) Depression: QUALIFIERS: Depression Type: reactive depression Qualified Code(s): F32.9 - Major depressive disorder, single episode, unspecified PLAN: 75-year-old female with squamous cell carcinoma of the rectum, scheduled to start radiation next week. Following with Dr. Lu. Palliative care consulted for intractable rectal and low back pain. -OARRS completed. Prior to this diagnosis, only thing in the last 2 years was tramadol and gabapentin, more recently oxycodone for her back pain. Hx lumbar surgery. Plan is to switch her from MS Contin to methadone, which has better success with treating neuropathic pain, especially the the pelvis/abdomen. Increased frequency of Dilaudid. I suspect her tumor burden is causing the more severe pain. We will f/u with her tomorrow, plan to start methadone 5 mg BID and DC the MS Martinez, which she has really only been taking about 2 weeks now. Added acetaminophen PRN, can give with the oxycodone as she did much better on Percocet. Discussed how radiation can help with the pain after shrinking the tumor. Questionable if she will tolerate chemo/radiation schedule. f/u with Dr. Lu, hopefully he can see her here. PLAN: 1. added Zofran for nausea. Encouraged her to take medications w/food to avoid some of the side effects. 2. Continue with therapy for her weakness 3. As far as her anxiety and depression go, would recommend increasing her cur rent antidepressant (SSRI), or changing to something different as she has been on the same medication for quite some time. 4. Start methadone 5 mg twice daily, first dose now. Okay to give a second dose later this evening. She had an EKG 12/28/2020 (personally reviewed), QTI in the 450 range. We will repeat an EKG in 2 weeks. 5. DC MS Martinez 6. Okay to give Tylenol despite listed allergy, not true allergy 7. Keep current IV dilaudid for now, likely will change to oral PRN therapy Sunday or Sunday of next week as we give methadone a chance to become therapeutic. 8. We will continue to follow. Discussed with Dr. Avalos and Dr. Brina Galvan. Thank you for the opportunity to participate in this patient's care, please do not hesitate to contact [facility] with any further questions or concerns. Palliative direct line is [phone]. We will follow up here in the hospital PRN and when discharged home. Patient is agreeable to services and consents are signed. Greater than 50% of F2F visit dedicated to education and counseling of palliative care services, medications, comorbid conditions and potential assistance with management, and plan of care moving forward. Start time: 1245 End time: 1334
[2021-01-04 13:35] VITALS: BP 132/71; PULSE 78; RESP 18; TEMP 36.8; O2SAT 95
--- NOTE | 2021-01-04 20:01 | PCM.PROGNOTE ---
Subjective Subjective She continues to have severe anxiety with panic attacks. She is having trouble concentrating and flight of ideas. Can not stay on topic. The rectal pain is getting better. Appreciate the assistance from palliative care in symptom management. She just got the diagnosis of Anal CA 2 weeks ago and she is totally overwhelmed, as is her . She has not been sleeping and she is also not eating and is losing weight. She had frequent diarrhea at home and this has resolved since she was admitted to TCU. She has also been having urinary urgency and abd cramping. The UA was negative for white blood cells and there was no bacteria seen. Culture is no growth. The frequency and urgency improved with better control of pain and anxiety. She responded well to Ativan this afternoon and has been sleeping. Her respiratory rate is normal now. I spoke with Dr. Lu and he has doubts about whether or not she will be able to tolerate chemo and radiation. The PET scan showed no metastatic disease and she may be a good candidate for surgery......I think her and her 's quality of life for the next few months would be much better if she were to have surgery. Her is overwhelmed and he was unable to care for her any longer at home and this lead to the admission to TCU. She was transitioned from MS Contin to Methadone today by palliative and she seems to be resting better. She has been afebrile since admission. Vital signs are stable and she is maintaining appropriate oxygen saturation on room air. Oral intake has been very poor. Objective Data Objective Data Vital Signs: Vital Signs Temp Pulse Resp BP Pulse Ox 98.3 F 78 18 132/71 H 95 01/04/21 13:35 01/04/21 13:35 01/04/21 13:35 01/04/21 13:35 01/04/21 13:35 Oxygen Delivery Method Room Air Weight: 128 lb 3.2 oz Body Mass Index (BMI) 23.0 Intake & Output: Intake and Output for Last 24 Hours 01/02/21 01/03/21 01/04/21 23:59 23:59 23:59 Intake Total 120 / 120 240 / 240 240 / 240 Balance 120 / 120 240 / 240 240 / 240 Lab / Micro Data Result Diagrams: 01/02/21 06:05 01/02/21 06:05 Micro: Microbiology 01/03/21 12:20 Urine Catheter - Catheter Urine Culture - Preliminary Culture exhibits no growth. Physical Exam Const alert Constitutional Narrative: Extremely anxious, she is tachypneic and taking shallow breaths. She is restless in the bed. After Ativan and Methadone she is resting comfortably and has been sleeping more often than not when I go in to check her Resp clear to auscultation bilaterally Cardio no gallops GI soft to palpation, non-tender and non-distended Extremity no calf tenderness General Extremity: Negative for edema Skin Rashes: no rashes Neuro CN's II-XII intact bilaterally Motor Exam: general weakness Psych Negative for denies homicidal ideation or denies suicidal ideation Activity / Motor Behavior: restless Mood & Affect: anxious Thought Content: No hallucination(s) Assessment & Plan Assessment/Plan (1) Intractable pain: (2) Anxiety: (3) Acute diarrhea: (4) Anal squamous cell carcinoma: (5) Generalized muscle weakness: (6) Dehydration: (7) Urinary frequency: PLAN: 1. The pain is coming under better control so will continue the Methadone along with Dilaudid and Oxycodone for breakthrough pain. Continue the GAbapentin because I can not rule out that the urinary urgency is not due to nerve involvement coming from the chronic low back problems...she nhas been on Gabapentin in the past. 2. Dr. Lu will be in to talk with her on to discuss options and the idea of surgery as a alternative to radiation and chemo which I do not think she will be able to tolerate. 3. Radiation appt tomorrow cancelled 4. Must get control of the anxiety and she and her would both benefit from Counselling because they are bth overwhelmed and at this point they are essentially non-functional. 5. Discussed with Carey Cortes and appreciate her assistance in managing this patients severe pain and anxiety Charges/Coding Visit Charges Inpatient E&M: 48043 Subs Hosp L2
[2021-01-05] MEDS: oxyCODONE 5 MG Tablet PO ×2 (01:13→22:24)
[2021-01-05] MEDS: LORazepam 0.5 MG Tablet PO (02:31)
[2021-01-05 06:11] VITALS: BP 102/69; PULSE 78; RESP 16; TEMP 37.2; O2SAT 96
[2021-01-05] MEDS: Cholecalciferol (VIT D3) 25 MCG TABLET (1,000 UNITS) PO (06:13)
[2021-01-05] MEDS: 0.9% Saline Lock 10 ML Syringe IV ×2 (06:13→11:07)
[2021-01-05] MEDS: Cyanocobalamin 500 MCG Tablet 1000 MCG PO (06:13)
[2021-01-05] MEDS: Menthol/Lanolin/Calamine/Znox 113 GM Tube 1 APPLIC TOPICAL ×2 (06:16→17:23)
[2021-01-05] MEDS: Gabapentin 100 MG Capsule PO ×3 (08:31→17:23)
[2021-01-05] MEDS: Multivitamins,Therapeutic Tablet 1 TABLET PO (08:31)
[2021-01-05] MEDS: HYDROmorphone 1 MG/ML Syringe IV (11:06)
--- NOTE | 2021-01-05 13:32 | CASEMGMT ---
Plan of care meeting held today with pt and Moo in attendance. Pt is participating in PT/OT/ST. Pt is experiencing pain and working with physician on this concern. Pt does have an appointment with Dr. Lu, oncologist on . Insurance coverage explained and role of SW to assist with discharge planning at the appropriate time. Pt will continue with current care plan, no discharge date set at this time. Pt is hopeful she can return home with her spouse at time of discharge. SW will continue to follow for d/c planning and emotional support. LEILANI Lane
[2021-01-05 13:59] VITALS: BP 112/61; PULSE 75; RESP 17; TEMP 36.4; O2SAT 96
--- NOTE | 2021-01-05 16:02 | CASEMGMT ---
Social Work SW met w/pt in room, completed initial assessment. Code status reviewed, pt confirmed is a full code. SW spoke w/pt also about MOLST, pt deferred to complete at this time, may want to revisit after she speaks w/her . SW completed BIMS(15) and PHQ-9(11), indicating symptoms of depression. Pt does believe the depression is related to her diagnosis, though does state she is a highly emotional person. Pt has been prescribed meds both for anxiety and pain, and pt was calm when SW spoke w/her. SW spoke w/pt about recent diagnosis, support offered. SW explained to pt if she would like a referral for counseling at discharge for she and her , we can assist with this, pt states understanding, seems open to this. SW also explained to pt if she needs support while here, SW is available. Pt plans to return home at discharge, is open to home health or outpt therapies as needed. Pt states she thinks [facility] has home care, and would want home care through [facility]. SW explained we can look at this closer to discharge. Dr. Lu is coming to see pt tomorrow, and will discuss options w/pt. This may impact pt's discharge plan depending on what is decided. SW will continue to follow for discharge needs and support as indicated. CHUCK Ceja
--- NOTE | 2021-01-05 16:48 | CHAPLAIN ---
Type of Pastoral Visit ___ Initial Visit _x__ Follow-up Visit ___ On-call Visit ___ General Patient Visit ___ Spiritual Assessment ___ Family Conference ___ Bereavement ___ Rapid Response ___ Code Blue ___ Other (describe below) Pastoral Care Referral From _x__ Patient ___ Family ___ Nurse ___ Physician ___ Supervisor [employer] ___ Clothes Separator ___ Other (describe below) Sacrament/Intervention ___ Active listening ___ Anointing ___ Congregation ___ Bereavement ___ Communion ___ Christina exploration ___ ___ Life review ___ Prayer ___ Reconciliation ___ Sacrament of Sick ___ Supportive presence ___ Wedding _x__ Other (describe below) Pastoral Comments patient resting in bed; pt declined visit from this quality specialist at this time due to being up since 5:30, with full day, and just completing my therapy; I just need rest.
[2021-01-05] MEDS: Acetaminophen 325 MG Tablet 650 MG PO (22:23)
--- NOTE | 2021-01-05 23:23 | PCA ---
Pt declined to wash up this evening. em
[2021-01-06 02:58] VITALS: BP 121/63; PULSE 71; RESP 18; TEMP 36.2; O2SAT 97
[2021-01-06] MEDS: oxyCODONE 5 MG Tablet PO ×2 (03:02→09:06)
[2021-01-06] MEDS: Menthol/Lanolin/Calamine/Znox 113 GM Tube 1 APPLIC TOPICAL ×2 (05:20→18:34)
[2021-01-06] MEDS: Cholecalciferol (VIT D3) 25 MCG TABLET (1,000 UNITS) PO (05:21)
[2021-01-06] MEDS: Cyanocobalamin 500 MCG Tablet 1000 MCG PO (05:21)
[2021-01-06] MEDS: LORazepam 0.5 MG Tablet PO (09:07)
[2021-01-06] MEDS: Gabapentin 100 MG Capsule PO ×3 (09:09→18:34)
[2021-01-06] MEDS: Multivitamins,Therapeutic Tablet 1 TABLET PO (09:09)
--- NOTE | 2021-01-06 09:26 | NURSING ---
OFFICE CALLED AND STATED HE WOULD BE IN TO TALK TO PT BETWEEN 11:30 AM AND 3PM TODAY.
--- NOTE | 2021-01-06 11:46 | NURSING ---
IN TO SEE PT, IN ROOM.
--- NOTE | 2021-01-06 12:17 | MDS.RN ---
Pain interview for THERESA 01/08/21 completed today
--- NOTE | 2021-01-06 12:17 | ONC.CONSULT ---
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 Ideally concurrent chemotherapy and radiation would be the optimal treatment as that may spare her from permanent colostomy. Unfortunately, she is not able to receive chemotherapy on the TCU unit nor can she be transported for chemotherapy per case management. Previously discussed with Dr. Alcantara. She can be transported to radiation here on site and the plan will be to begin radiation next week. Hopefully she will be able to get home at least to a setting where she can receive chemotherapy on an outpatient basis within a week or 2 of starting radiation.Long discussion with patient and regarding management. Ideally concurrent chemotherapy and radiation would be the optimal treatment as that may spare her from permanent colostomy. Unfortunately, she is not able to receive chemotherapy on the TCU unit nor can she be transported for chemotherapy per case management. Previously discussed with Dr. Alcantara. She can be transported to radiation here on site and the plan will be to begin radiation next week. Hopefully she will be able to get home at least to a setting where she can receive chemotherapy on an outpatient basis within a week or 2 of starting radiation. (5) Generalized muscle weakness: Status: Acute Code(s): M62.81 - Muscle weakness (generalized) (6) Dehydration: Status: Acute Code(s): E86.0 - Dehydration (7) Urinary frequency: Status: Acute Code(s): R35.0 - Frequency of micturition [facility] Consult Data Date of Service:: 01/10/21 PCP / Referring Provider: Chief Complaint Chief Complaint: Squamous cell cancer of the anal canal History of Present Illness History of Present Illness: Please see complete history and physical as dictated in the [facility] electronic record. Briefly the patient is a 75-year-old female with a past medical history significant for osteoarthritis who underwent an evaluation for anal pain. Initially diagnosed with an anal fissure and was started on diltiazem cream. It helped the pain somewhat but she continued to have pain and developed loose stools. She then underwent an exam under anesthesia along with rectal and anal biopsy on 12/07/2020. She was noted to have an anal mass on digital exam on the anterior aspect of the anus to the vagina extending along left side of the anus. 3 Kuldeep-Cut needle biopsies were obtained. 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 Staging suggests localized disease. No evidence of inguinal lymph node metastases. Patient was having intractable pain and incontinence of stool. She was admitted to the hospital and transition to TCU. She was started on methadone after being seen by palliative care and is now doing better. She and her do not have family in the area and they do not have the necessary social support for care at home. Advanced Directives Power of Senior Software Manager: Yes Living Will: Yes [facility] Medical History Acute hemorrhoid Anemia Anxiety Cataract Chronic pain Degenerative disc disease Depression Edema Former smoker h/o anterior lumbar interbody fusion L4-5, L5-S1. H/o Laminectomy L2-5, fusion T11-S1, instrumentation local History of IBS History of needle biopsy History of rectal bleeding Mitral and aortic valve disease Osteoporosis Osteoporosis Parkinson's disease Post-menopausal Rectal cancer Restless legs Scoliosis Spinal stenosis Syncope Wears hearing aid Wears hearing aid in both ears Home Medications citalopram 10 mg tablet 2.5 mg PO QODAY tab 09/29/20 [History Last Taken 12/15/20] metagenics ostera 1 cap PO DAILY 09/29/20 [History Last Taken 1 Week Ago ~12/09/20] ultraflora womens 1 cap PO DAILY 09/29/20 [History Last Taken 1 Week Ago ~12/09/20] Cbd Oil 6 drp PO/SL BID 12/06/20 [History Last Taken 3 Days Ago ~12/13/20] cholecalciferol (vitamin D3) 25 mcg PO DAILY 12/16/20 [History Last Taken 2 Days Ago ~12/14/20] cyanocobalamin (vitamin B-12) 1,000 mcg PO DAILY 12/16/20 [History Last Taken 2 Days Ago ~12/14/20] epinephrine 0.3 mg IM X1 12/16/20 [History Last Taken Unknown] Icdiphenoxyl 1 tab PO/SL ACHS 12/24/20 [History Last Taken Unknown] dicyclomine 10 mg PO TID PRN 12/24/20 [History Last Taken Unknown] morphine 15 mg PO Q12H 12/24/20 [History Last Taken Unknown] oxycodone-acetaminophen [Endocet] 1 tab PO Q6H PRN 5 Days #20 tab 12/28/20 [Rx Last Taken Unknown] oxycodone-acetaminophen [Percocet] 1 tab PO Q6H PRN PRN 12/28/20 [History Last Taken Unknown] Allergy/AdvReac Type Severity Reaction Status Date / Time nut - unspecified Allergy Anaphylaxis Verified 01/06/21 14:52 peanut Allergy Hives Verified 01/06/21 14:52 procaine HCl [From Novocain] Allergy Angioedema Verified 01/06/21 14:52 acetaminophen [From Vicodin] AdvReac Other Verified 01/06/21 14:52 alprazolam [From Xanax] AdvReac Other Verified 01/06/21 14:52 hydrocodone bitartrate AdvReac Other Verified 01/06/21 14:52 [From Vicodin] metaxalone [From Skelaxin] AdvReac Other Verified 01/06/21 14:52 nabumetone AdvReac Other Verified 01/06/21 14:52 Family History Mother Hypertension Cancer Skin cancer, at age 104 Father , at age: 88 emphysema Pneumonia Dementia Grandmother CVA (cerebral vascular accident) Surgical History H/O spinal fusion History of bronchoscopy History of cataract surgery History of tonsillectomy and adenoidectomy Hx of colonoscopy Port-A-Cath in place S/P ear surgery Social History household members: spouse housing: house Smoking Status: Former smoker pack-years: 8 alcohol intake: never substance use type: does not use what type of physical activity do you participate in: none seatbelt use: always do you feel safe at home: Yes Vital Signs: Vital Signs Temperature 97.1 F L 01/06/21 02:58 Temperature Source Oral 01/06/21 02:58 Pulse Rate 71 01/06/21 02:58 Pulse Rhythm Regular 01/05/21 20:00 Pulse Strength Normal (2+) 01/05/21 10:00 Respiratory Rate 18 01/06/21 02:58 Respiratory Effort Non-Labored 01/05/21 20:00 Respiratory Depth Normal 01/05/21 20:00 Respiratory Pattern Normal 01/05/21 20:00 Blood Pressure 121/63 H 01/06/21 02:58 Blood Pressure Mean 82 01/06/21 02:58 Blood Pressure Source Monitor 01/06/21 02:58 Blood Pressure Position Semi-Fowlers 01/06/21 02:58 Blood Pressure Location Right Arm 01/06/21 02:58 Pulse Ox 97 01/06/21 02:58 Oxygen Delivery Method Room Air 01/06/21 02:58 Laboratory Data: Microbiology 01/03/21 12:20 Urine Culture - Final Urine Catheter - Catheter Enterococcus faecalis
--- NOTE | 2021-01-06 14:18 | PN.PALL_ITS ---
Subjective Subjective Pain possibly improved slightly, she appears to be feeling better. Still rating 8 out of 10. No diarrhea, states they are little pellets. Says Dr. Moya did a rectal exam. After talking w/ patient a bit, she seemed to be restless and says her pain is just so bad. Headed down to radiology for marking for ra diation. Objective Data Objective Data Vital Signs: Vital Signs Temp Pulse Resp BP Pulse Ox 97.1 F L 71 18 121/63 H 97 01/06/21 02:58 01/06/21 02:58 01/06/21 02:58 01/06/21 02:58 01/06/21 02:58 Oxygen Delivery Method Room Air Weight: 58.151 kg Body Mass Index (BMI) 23.0 Intake & Output: Intake and Output for Last 24 Hours 01/04/21 01/05/21 01/06/21 23:59 23:59 23:59 Intake Total 240 / 240 360 / 360 120 / 120 Balance 240 / 240 360 / 360 120 / 120 Lab / Micro Data Result Diagrams: 01/02/21 06:05 01/02/21 06:05 Micro: Microbiology 01/03/21 12:20 Urine Catheter - Catheter Urine Culture - Final Enterococcus faecalis Physical Exam Const alert and no apparent distress General Appearance: cooperative and anxious Orientation / Consciousness: oriented to person and oriented to place Resp clear to auscultation bilaterally Cardio regular rate and regular rhythm GI Auscultation: normoactive bowel sounds Palpation: soft Neuro CN's II-XII intact bilaterally and no focal motor deficits Assessment & Plan Assessment/Plan (1) Intractable pain: (2) Anal squamous cell carcinoma: (3) Anal fissure: (4) Anal pain: (5) Generalized muscle weakness: (6) Anxiety: (7) Depression: QUALIFIERS: Depression Type: reactive depression Qualified Code(s): F32.9 - Major depressive disorder, single episode, unspecified PLAN: 75-year-old female with squamous cell carcinoma of the rectum, scheduled to start radiation next week. Following with Dr. Lu. Palliative care consulted for intractable rectal and low back pain. -OARRS completed. Prior to this diagnosis, only thing in the last 2 years was tramadol and gabapentin, more recently oxycodone for her back pain. Hx lumbar surgery. Plan is to switch her from MS Contin to methadone, which has better pelayo ccess with treating neuropathic pain, especially the the pelvis/abdomen. Increased frequency of Dilaudid. I suspect her tumor burden is causing the more severe pain. Discussed how radiation can help with the pain after shrinking the tumor. Questionable if she will tolerate chemo/radiation schedule but going to give it a try. Dr. Lu following her here in hospital as well. PLAN: 1. added Zofran for nausea. Encouraged her to take medications w/food to avoid some of the side effects. 2. Continue with therapy for her weakness 3. As far as her anxiety and depression go, would recommend increasing her current antidepressant (SSRI) to a therapeutic dose. Was not continued on admission? OR changing to something different as she has been on the same medication for quite some time. 4. Start methadone 5 mg BID. She had an EKG 12/28/2020 (personally reviewed), QTI in the 450 range. We will repeat an EKG in 2 weeks. 5. DC MS Contin 6. Okay to give Tylenol despite listed allergy, not true allergy 7. Keep current IV dilaudid for now, likely will change to oral PRN therapy Sunday or Sunday of next week as we give methadone a chance to become therapeutic. 8. We will continue to follow. Discussed case with Dr. Moya. He was in today since patient unable to see Dr. Toussaint while in TCU so Dr. Moya is taking over, plan to start palliative radiation. Dr. Lu was also in today. Thank you for the opportunity to participate in this patient's care, please do not hesitate to contact [facility] with any further questions or concerns. Palliative direct line is [phone]. We will follow up here in the hospital PRN and when discharged home. Patient is agreeable to services and consents are signed. Greater than 50% of F2F visit dedicated to education and counseling of palliative care services, medications, comorbid conditions and potential assistance with management, and plan of care moving forward. Start time: 1436 End time: 1454
--- NOTE | 2021-01-06 19:15 | RAD_ITS ---
STUDY: X-RAY - ABDOMEN/PELVIS REASON FOR EXAM: Female, 75 years old. Constipation TECHNIQUE: Single AP view of the abdomen / pelvis. COMPARISON: None. FINDINGS: Normal visualized lung bases. Dense fecal retention throughout the colon with mildly hyperdense appearance. Unsure of oral contrast has been recently administered. There is no demonstrated free abdominal air. The visualized liver, spleen and kidneys are grossly normal in size and morphology. Normal soft tissue structures. Extensive postoperative changes of the lower lumbar spine RAD/Abdomen Single View IMPRESSION: Density fecal retention throughout the colon with mildly hyperdense appearance. Electronically Signed: Vince Merino DO at 6:42 EDT Tel , Service support ,
--- NOTE | 2021-01-06 19:59 | NURSING ---
Dr. Lu and Dr. Weiss up top see pt today to go over options for Rectal Cancer. Pt went down to get radiation markers this shift.
[2021-01-06] MEDS: HYDROmorphone 1 MG/ML Syringe IV ×2 (20:53→23:47)
[2021-01-06 22:05] VITALS: PULSE 74; RESP 16; O2SAT 96
[2021-01-06] MEDS: Magnesium Citrate 300 ML PO (23:45)
[2021-01-06] MEDS: 0.9% Saline Lock 10 ML Syringe IV (23:49)
[2021-01-07] MEDS: oxyCODONE 5 MG Tablet PO ×5 (01:35→23:34)
[2021-01-07] MEDS: HYDROmorphone 1 MG/ML Syringe IV ×7 (03:02→23:35)
[2021-01-07 05:00] VITALS: BP 114/57; PULSE 80; RESP 16; TEMP 36.4; O2SAT 95
[2021-01-07] MEDS: Menthol/Lanolin/Calamine/Znox 113 GM Tube 1 APPLIC TOPICAL ×2 (05:06→17:13)
[2021-01-07] MEDS: Senna/Docusate Sodium 1 Tablet 2 TABLET PO ×2 (05:07→17:13)
[2021-01-07] MEDS: Cholecalciferol (VIT D3) 25 MCG TABLET (1,000 UNITS) PO (05:10)
[2021-01-07] MEDS: Cyanocobalamin 500 MCG Tablet 1000 MCG PO (05:10)
[2021-01-07] MEDS: Multivitamins,Therapeutic Tablet 1 TABLET PO (09:24)
[2021-01-07] MEDS: Gabapentin 100 MG Capsule PO ×3 (09:24→17:13)
[2021-01-07] MEDS: 0.9% Saline Lock 10 ML Syringe IV ×3 (11:06→17:45)
[2021-01-07 11:12] VITALS: PULSE 74; RESP 18; O2SAT 97
--- NOTE | 2021-01-07 12:29 | PN.PALL_ITS ---
Subjective Subjective Patient visiting with her at bedside. Reports overall, her pain has improved on current medication. We reviewed her medications at length. Patient and spouse had multiple questions regarding radiation, pain medication, tumor burden, plan of care moving forward. No nausea, vomiting, diarrhea, or constipa tion. Vitals have been stable. Also discussed her untreated depression, which has been exacerbated by her current health status. She reports anxiety but is better since pain has improved. Objective Data Objective Data Vital Signs: Vital Signs Temp Pulse Resp BP Pulse Ox 97.5 F L 74 18 114/57 L 97 01/07/21 05:00 01/07/21 11:12 01/07/21 11:12 01/07/21 05:00 01/07/21 11:12 Oxygen Delivery Method Room Air Weight: 58.151 kg Body Mass Index (BMI) 23.0 Intake & Output: Intake and Output for Last 24 Hours 01/05/21 01/06/21 01/07/21 23:59 23:59 23:59 Intake Total 360 / 360 360 / 360 120 / 120 Output Total 300 / 300 300 / 300 Balance 360 / 360 60 / 60 -180 / -180 Lab / Micro Data Result Diagrams: 01/02/21 06:05 01/02/21 06:05 Micro: Microbiology 01/03/21 12:20 Urine Catheter - Catheter Urine Culture - Final Enterococcus faecalis Radiography Diagnostic Testing: Radiology Impression KUB X-Ray 01/06/21 19:15 IMPRESSION: Density fecal retention throughout the colon with mildly hyperdense appearance. Electronically Signed: Vince Merino DO at 6:42 EDT Tel , Service support , Physical Exam Const alert and no apparent distress General Appearance: cooperative and anxious Orientation / Consciousness: oriented to person and oriented to place HEENT normocephalic and head/scalp atraumatic Resp clear to auscultation bilaterally Effort and Inspection: able to speak in complete sentences Cardio regular rate and regular rhythm GI soft to palpation Auscultation: normoactive bowel sounds Palpation: soft Back/Spine Back/Spine Narrative: lying on side, cannot lay on back d/t pain General Back: tenderness Extremity no clubbing, cyanosis or edema Neuro CN's II-XII intact bilaterally and no focal motor deficits Psych cooperative Memory / Cognition: other forgetful Insight: insight good Judgement: judgement good Assessment & Plan Assessment/Plan (1) Intractable pain: (2) Anal squamous cell carcinoma: (3) Anal fissure: (4) Anal pain: (5) Generalized muscle weakness: (6) Anxiety: (7) Depression: QUALIFIERS: Depression Type: reactive depression Qualified Code(s): F32.9 - Major depressive disorder, single episode, unspecified PLAN: 75-year-old female with squamous cell carcinoma of the rectum, sche duled to start radiation next week. Following with Dr. Lu. Palliative care consulted for intractable rectal and low back pain. -OARRS completed. Prior to this diagnosis, only RX in the last 2 years was tramadol and gabapentin, more recently oxycodone for her back pain. Hx lumbar surgery. Plan is to switch her from MS Contin to methadone, which has better success with treating neuropathic pain, especially the the pelvis/abdomen. I suspect her tumor burden is causing the more severe pain. Increased frequency of Dilaudid. Discussed how radiation can help with the pain after shrinking the tumor. Dr. Lu following her here in hospital as well. PLAN: 1. Zofran PRN, take medications w/food to avoid some of the side effects. 2. Continue with therapy for her weakness 3. As far as her anxiety and depression go, would recommend increasing her current antidepressant (SSRI) to a therapeutic dose. Was not continued on admission? OR changing to something different as she has been on the same medication for quite some time. 4. started methadone 5 mg BID 01/04/21. She had an EKG 12/28/20 (personally reviewed), QTI in the 450 range. We will repeat an EKG 01/17. 5. DC MS Contin 01/04 6. Okay to give Tylenol despite listed allergy, not true allergy 7. Keep current IV dilaudid for now, likely will change to oral PRN therapy Sunday or Sunday of next week as we give methadone a chance to become therapeutic. 8. Plans for radiation to start week of 01/10 per rad/onc 9. Restart citalopram (01/07) at 20mg PO daily (was on 2.5mg EOD or sometimes even took q3-4 days). Titrate up PRN 10. We will continue to follow. Thank you for the opportunity to participate in this patient's care, please do not hesitate to contact [facility] with any further questions or concerns. Palliative direct line is [phone]. We will follow up here in the hospital PRN and when discharged home. Patient is agreeable to services and consents are signed. Greater than 50% of F2F visit dedicated to education and counseling of palliative care services, medications, comorbid conditions and potential assistance with management, and plan of care moving forward. Start time: 1223 End time: 1314
--- NOTE | 2021-01-07 13:23 | CASEMGMT ---
Social Work BIMS and PHQ9 interview completed on this date for MDS assessment. Pt crying and screaming in frustration while social work in the room. Pt upset with visitor restrictions, frustrated with illness. SW spent time with pt offering support and discussing coping. Pt calm when SW left and appreciative of visit. SW spoke with [facility]. Anti depressant to be started. SW will remain available for support. LEILANI Lane
[2021-01-07 13:56] VITALS: BP 157/81; PULSE 69; RESP 15; TEMP 36.4; O2SAT 93
[2021-01-07] MEDS: Citalopram 20 MG Tablet PO (14:04)
[2021-01-07] MEDS: LORazepam 0.5 MG Tablet PO (20:22)
[2021-01-08] MEDS: LORazepam 0.5 MG Tablet PO ×2 (03:27→22:57)
[2021-01-08] MEDS: oxyCODONE 5 MG Tablet PO (03:27)
[2021-01-08] MEDS: HYDROmorphone 1 MG/ML Syringe IV ×7 (03:29→22:51)
[2021-01-08] MEDS: 0.9% Saline Lock 10 ML Syringe IV ×6 (03:45→22:51)
[2021-01-08 05:00] VITALS: BP 99/56; PULSE 64; RESP 16; TEMP 36.3; O2SAT 97
[2021-01-08] MEDS: Menthol/Lanolin/Calamine/Znox 113 GM Tube 1 APPLIC TOPICAL ×2 (05:42→17:38)
[2021-01-08] MEDS: Citalopram 20 MG Tablet PO (05:42)
[2021-01-08] MEDS: Cholecalciferol (VIT D3) 25 MCG TABLET (1,000 UNITS) PO (05:42)
[2021-01-08] MEDS: Cyanocobalamin 500 MCG Tablet 1000 MCG PO (05:42)
[2021-01-08] MEDS: Senna/Docusate Sodium 1 Tablet 2 TABLET PO ×2 (05:42→17:38)
[2021-01-08] MEDS: Gabapentin 100 MG Capsule PO ×3 (07:42→17:38)
[2021-01-08] MEDS: Multivitamins,Therapeutic Tablet 1 TABLET PO (07:42)
[2021-01-08 13:43] VITALS: BP 118/61; PULSE 69; RESP 16; TEMP 36.4
[2021-01-09] MEDS: Acetaminophen 325 MG Tablet 650 MG PO (00:18)
[2021-01-09] MEDS: oxyCODONE 5 MG Tablet PO ×2 (00:20→11:59)
--- NOTE | 2021-01-09 00:25 | NURSING ---
This nurse completed reassessment of pain and anxiety after IV Dilaudid and Ativan administered per dr order. Pt was resting w/ eyes closed, resp even and unlabored. Within minutes, pt then calls for staff reporting pain and request to toilet. Taken to BR per TABLE OPERATOR. Medicated w/ Oxycodone 10 mg and Tylenol 650 mg for c/o pain to rectal area at 12/10, as dose of IV Dilaudid is not due for 45 minutes. In no acute distress. Positions self in bed for comfort. Sebastian and saline crackers given to take w/ po meds to prevent GI upset. Given a small can of Sprite. Call light w/ in reach. Staff to continue to monitor.
[2021-01-09] MEDS: 0.9% Saline Lock 10 ML Syringe IV ×5 (02:51→16:34)
[2021-01-09] MEDS: HYDROmorphone 1 MG/ML Syringe IV ×5 (02:52→16:34)
[2021-01-09 05:30] VITALS: BP 107/46; PULSE 60; RESP 12; TEMP 36; O2SAT 94
[2021-01-09] MEDS: Menthol/Lanolin/Calamine/Znox 113 GM Tube 1 APPLIC TOPICAL ×2 (05:38→18:05)
[2021-01-09] MEDS: Cholecalciferol (VIT D3) 25 MCG TABLET (1,000 UNITS) PO (05:39)
[2021-01-09] MEDS: Citalopram 20 MG Tablet PO (05:39)
[2021-01-09] MEDS: Cyanocobalamin 500 MCG Tablet 1000 MCG PO (05:39)
[2021-01-09 06:53] LABS: Absolute Lymphocyte Count 1.52 X10^3/uL (0.83-4.51); Absolute Neutrophil Count 7.7 X10^3/uL (2.0-7.7); Basophil# 0.02 X10^3/uL; Basophil% 0.2 % (0-1); Eosinophils% 0.9 % (0-5); Hemoglobin 12.3 g/dL (12.0-15.0); Lymphocyte # 1.52 X10^3/ul (0.83-4.51); Lymphocyte % 14.2 % (19-41); Mean Corp Hgb Conc 31.5 g/dL (32-36); Mean Corpuscular Hgb 29.8 pg (27.0-32.0); Mean Corpuscular Volume 94.4 fL (81-99); Monocyte% 12.1 % (0-10); NRBC Flagged by Analyzer 0 % (0-5); Neutrophil # 7.72 X10^3/uL (2.7-7.7); Neutrophil % 71.9 % (47-70); Platelet Count 265 K/mm3 (150-450); RBC Distribution Width CV 14.3 % (11.6-14.6); RBC Distribution Width SD 49.3 fl (35.1-43.9); Red Blood Count 4.13 M/mm3 (4.2-5.4); White Blood Count 10.7 K/mm3 (4.4-11.0)
[2021-01-09 07:23] LABS: Anion Gap 6 (5-15); BUN 24 mg/dL (7-18); BUN/Creat Ratio 33.1 RATIO (10-20); Calcium,Total 9.3 mg/dL (8.5-10.1); Chloride 96 mmol/L (98-107); Creatinine, Serum 0.72 mg/dL (0.55-1.02); EST Glomerular Filtration Rate 84 mL/min (>60); Est Glom Filt Rate - Afr Amer 101 mL/min (>60); Estimated Creatinine Clearance 41.45 ml/min; Glucose 83 mg/dL (74-106); Potassium 4.4 mmol/L (3.5-5.1); Sodium Level 131 mmol/L (136-145)
[2021-01-09] MEDS: Gabapentin 100 MG Capsule PO ×3 (08:04→16:34)
[2021-01-09] MEDS: Multivitamins,Therapeutic Tablet 1 TABLET PO (08:04)
[2021-01-09] MEDS: Tuberculin,Purif.prot.deriv. 50 TU/ML Vial 0.1 ML ID (09:30)
[2021-01-09 14:47] VITALS: BP 97/54; PULSE 81; RESP 16; TEMP 36.5; O2SAT 91
--- NOTE | 2021-01-09 21:10 | NURSING ---
Paged Dr. Pedro with return phone call within minutes. Updated on moderate amount of bright red blood in toilet, near total incontinence of stool, low Na+, and elevated BUN. Decreased consumption of fluids most likely due to pain and increased sleep. New order received for NS and 75 ml/hr and recheck BMP in am.
[2021-01-09] MEDS: 0.9% Normal Saline 1,000 ML 75 ML IV (23:03)
--- NOTE | 2021-01-10 00:08 | NURSING ---
Patient straight cath'd at this time per order. Urine obtained and sent to lab. Patient tolerated well.
[2021-01-10 00:12] LABS: Bacteria 0 SEEN /hpf (None Seen); Mucous, Urine 0 SEEN /hpf (<or=2+); Red Blood Cells-Urine 0 SEEN /hpf (0-5); Squamous Epithelial Cells - UA 0 SEEN /hpf (5-10); White Blood Cells 0 SEEN /hpf (0-5)
[2021-01-10 00:13] LABS: Color, Urine Yellow (Yellow); Glucose, Dipstick Normal (Normal); Ketone-Dipstick Negative (Negative); Leukocyte Esterase-Dipstick Negative /ul (Negative); Nitrite-Dipstick Negative (Negative); Occult Blood-Urine Negative /ul (Negative); Protein-Dipstick Negative (Negative); Specific Gravity, Urine 1.015 (1.002-1.030); Urine Bilirubin Dipstick Negative (Negative); Urine Clarity Clear (Clear); Urine Urobilinogen Normal (Normal)
[2021-01-10] MEDS: 0.9% Saline Lock 10 ML Syringe IV ×2 (00:56→20:22)
[2021-01-10] MEDS: HYDROmorphone 1 MG/ML Syringe IV ×5 (00:57→20:21)
[2021-01-10] MEDS: LORazepam 0.5 MG Tablet PO ×2 (01:56→11:46)
[2021-01-10] MEDS: oxyCODONE 5 MG Tablet PO ×4 (01:57→23:13)
[2021-01-10 05:00] VITALS: BP 109/40; PULSE 65; RESP 12; TEMP 36.6; O2SAT 94
[2021-01-10] MEDS: Menthol/Lanolin/Calamine/Znox 113 GM Tube 1 APPLIC TOPICAL ×2 (05:01→17:10)
[2021-01-10] MEDS: Polyethylene Glycol 3350 17 GM PACKET PO ×2 (05:11→17:07)
[2021-01-10] MEDS: Citalopram 20 MG Tablet PO (05:12)
[2021-01-10] MEDS: Cyanocobalamin 500 MCG Tablet 1000 MCG PO (05:12)
[2021-01-10] MEDS: Cholecalciferol (VIT D3) 25 MCG TABLET (1,000 UNITS) PO (05:12)
[2021-01-10] MEDS: Senna/Docusate Sodium 1 Tablet 2 TABLET PO ×2 (05:12→17:06)
[2021-01-10 06:45] LABS: Anion Gap 3 (5-15); BUN 15 mg/dL (7-18); BUN/Creat Ratio 25.6 RATIO (10-20); Calcium,Total 9.6 mg/dL (8.5-10.1); Chloride 99 mmol/L (98-107); Creatinine, Serum 0.58 mg/dL (0.55-1.02); EST Glomerular Filtration Rate 107 mL/min (>60); Est Glom Filt Rate - Afr Amer 130 mL/min (>60); Estimated Creatinine Clearance 41.45 ml/min; Glucose 93 mg/dL (74-106); Potassium 4.7 mmol/L (3.5-5.1); Sodium Level 132 mmol/L (136-145)
[2021-01-10] MEDS: Gabapentin 100 MG Capsule PO ×3 (07:54→17:06)
[2021-01-10] MEDS: Multivitamins,Therapeutic Tablet 1 TABLET PO (07:54)
[2021-01-10] MEDS: 0.9% Normal Saline 1,000 ML 75 ML IV (11:50)
--- NOTE | 2021-01-10 13:15 | NURSING ---
Addendum entered by Jennifer Xiao 01/10/21 13:18: updated via phone call. Original Note: Spoke with oncology, pt will begin radiation Sunday @ 1:20 and daily @ 1:20 Sunday thru Sunday. They are resending schedule via fax.
[2021-01-10 14:22] VITALS: BP 91/46; PULSE 81; RESP 18; TEMP 35.8; O2SAT 94
[2021-01-11] MEDS: 0.9% Normal Saline 1,000 ML 75 ML IV ×2 (01:12→14:35)
[2021-01-11] MEDS: HYDROmorphone 1 MG/ML Syringe IV ×3 (01:16→11:49)
[2021-01-11] MEDS: 0.9% Saline Lock 10 ML Syringe IV ×2 (01:16→06:12)
[2021-01-11] MEDS: oxyCODONE 5 MG Tablet PO ×3 (04:05→16:42)
[2021-01-11] MEDS: Polyethylene Glycol 3350 17 GM PACKET PO ×2 (06:07→16:47)
[2021-01-11] MEDS: Cholecalciferol (VIT D3) 25 MCG TABLET (1,000 UNITS) PO (06:07)
[2021-01-11] MEDS: Citalopram 20 MG Tablet PO (06:07)
[2021-01-11] MEDS: Senna/Docusate Sodium 1 Tablet 2 TABLET PO ×2 (06:07→16:47)
[2021-01-11] MEDS: Cyanocobalamin 500 MCG Tablet 1000 MCG PO (06:07)
[2021-01-11] MEDS: Menthol/Lanolin/Calamine/Znox 113 GM Tube 1 APPLIC TOPICAL ×2 (06:07→18:00)
[2021-01-11 06:14] VITALS: BP 118/42; PULSE 63; RESP 18; TEMP 37.1; O2SAT 94
[2021-01-11] MEDS: Multivitamins,Therapeutic Tablet 1 TABLET PO (09:40)
[2021-01-11] MEDS: Gabapentin 100 MG Capsule PO ×3 (09:40→16:47)
[2021-01-11 14:14] VITALS: BP 99/53; PULSE 65; RESP 15; TEMP 36.2; O2SAT 95
[2021-01-12] MEDS: 0.9% Normal Saline 1,000 ML 75 ML IV (03:33)
[2021-01-12] MEDS: HYDROmorphone 1 MG/ML Syringe IV ×4 (03:36→20:55)
[2021-01-12] MEDS: 0.9% Saline Lock 10 ML Syringe IV ×4 (03:39→20:59)
[2021-01-12 05:00] VITALS: BP 108/54; PULSE 65; RESP 16; TEMP 36.7; O2SAT 94
[2021-01-12] MEDS: Menthol/Lanolin/Calamine/Znox 113 GM Tube 1 APPLIC TOPICAL ×2 (06:25→18:02)
[2021-01-12] MEDS: Cyanocobalamin 500 MCG Tablet 1000 MCG PO (06:26)
[2021-01-12] MEDS: Senna/Docusate Sodium 1 Tablet 2 TABLET PO ×2 (06:26→18:02)
[2021-01-12] MEDS: Citalopram 20 MG Tablet PO (06:26)
[2021-01-12] MEDS: Cholecalciferol (VIT D3) 25 MCG TABLET (1,000 UNITS) PO (06:27)
[2021-01-12] MEDS: Multivitamins,Therapeutic Tablet 1 TABLET PO (08:36)
[2021-01-12] MEDS: oxyCODONE 5 MG Tablet PO (08:36)
[2021-01-12] MEDS: Gabapentin 100 MG Capsule PO ×3 (08:36→18:02)
[2021-01-12 10:00] VITALS: PULSE 72; RESP 16; O2SAT 92
--- NOTE | 2021-01-12 12:27 | NURSING ---
updated in pt's Room
--- NOTE | 2021-01-12 13:16 | NURSING ---
Pt off floor to radiation appt.
--- NOTE | 2021-01-12 13:42 | MDS.RN ---
Information for the mds was obtained from review of the clinical record, interview of resident, staff, and direct observation of resident's care.
--- NOTE | 2021-01-12 15:35 | PN.PALL_ITS ---
Subjective Subjective Patient resting on her right side. Had just been medicated with IV Dilaudid and states she has not felt the effect yet. Had first radiation treatment today and is rating pain 10/10 currently. Described as pressure, burning pain in the rectal area. Feels like radiation has magnified the pain. Dilaudid IV helps, but only for a short time and only bring the pain to 8/10. Staff report that Dolores will fall asleep and then wake up in excruciating pain. Vitals have been stable. Very few PRNs utilized to date according to SEP. Denies any nausea, vomiting or abdominal pain. Objective Data Objective Data Vital Signs: Vital Signs Temp Pulse Resp BP Pulse Ox 98.0 F 65 16 108/54 L 94 01/12/21 05:00 01/12/21 05:00 01/12/21 05:00 01/12/21 05:00 01/12/21 05:00 Oxygen Delivery Method Room Air Weight: 58.151 kg Body Mass Index (BMI) 23.0 Intake & Output: Intake and Output for Last 24 Hours 01/10/21 01/11/21 01/12/21 23:59 23:59 23:59 Intake Total 2146.75 / 2146.75 2480 / 2480 1092.5 / 1092.5 Balance 2146.75 / 2146.75 2480 / 2480 1092.5 / 1092.5 Lab / Micro Data Result Diagrams: 01/09/21 05:30 01/10/21 05:43 Micro: Microbiology 01/09/21 00:04 Urine, Catheterized Urine Culture - Preliminary GPC Poss Enterococcus sp 01/03/21 12:20 Urine Catheter - Catheter Urine Culture - Final Enterococcus faecalis Physical Exam Const alert and oriented x3 General Appearance: cooperative and in distress Positive for mild (related to pain) Orientation / Consciousness: awake, oriented to person, oriented to place and oriented to time Chest inspection of chest normal Resp normal respiratory effort and normal air movement Effort and Inspection: able to speak in complete sentences and symmetric chest movement Auscultation: clear to auscultation bilaterally Cardio regular rate, regular rhythm, S1 normal heart sound and S2 normal heart sound Rate: regular rate Rhythm: regular rhythm GI normal to inspection, nondistended, normoactive bowel sounds and soft to palpation Auscultation: normoactive bowel sounds Assessment & Plan Assessment/Plan (1) Anal pain: (2) Anxiety: (3) Depression: QUALIFIERS: Depression Type: reactive depression Qualified Code(s): F32.9 - Major depressive disorder, single episode, unspecified (4) Mass of anus: (5) Weakness: PLAN: this patient's care, please do not hesitate to contact [facility] with any further questions or concerns. Palliative direct line is [phone]. We will follow up here in the hospital PRN and when discharged home. Patient is agreeable to services and consents are signed. (6) Anal fissure: (7) Anal squamous cell carcinoma: PLAN: PLAN: 75-year-old female with squamous cell carcinoma of the rectum, scheduled to start radiation next week. Following with Dr. Lu. Palliative care consulted for intractable rectal and low back pain. Initiation of Palliative radiation has caused increased discomfort -OARRS completed. Prior to this diagnosis, only RX in the last 2 years was tramadol and gabapentin, more recently oxycodone for her back pain. Hx lumbar surgery. Plan is to switch her from MS Contin to methadone, which has better success with treating neuropathic pain, especially the the pelvis/abdomen. I suspect her tumor burden is causing the more severe pain. Increased frequency of Dilaudid. Discussed how radiation can help with the pain after shrinking the tumor. Dr. Lu following her here in hospital as well. PLAN: 1. Zofran PRN, take medications w/food to avoid some of the side effects. Improved. No further nausea 2. Continue with therapy for her weakness as tolerated 3., Depression/anxiety: Celexa was increased to 20mg daily. Will take awhile before affect is noted. Encouraged staff to utilize PRN Ativan for anxiety 4. Started methadone 5 mg BID 01/04/21. She had an EKG 12/28/20 (personally reviewed), QTI in the 450 range. We will repeat an EKG 01/17. Patient states that she has no relief of pain with Methadone so far. Will continue to monitor 5. Keep current IV dilaudid PRN for now, likely will change to oral PRN therapy Sunday or Sunday of next week as we give methadone a chance to become t herapeutic. Collaborated with Dr. Brina Galvan in regard to lack of pain control and PRN medications not being utilized. D/C PRN oxycodone IR. Start Oxycodone 10mg every 6 hours scheduled and utilize PRN IV Dilaudid as ordered. 8. Radiation started today per patient 9. Restart citalopram (01/07) at 20mg PO daily (was on 2.5mg EOD or sometimes even took q3-4 days). Titrate up PRN 10. We will continue to follow. Thank you for the opportunity to participate in this patient's care, please do not hesitate to contact [facility] with any further questions or concerns. Palliative direct line is [phone]. We will follow up here in the hospital PRN and when discharged home. Patient is agreeable to services and consents are signed. TIME IN: 3:30PM TIME OUT: 4:20 PM
[2021-01-12 16:00] VITALS: BP 100/53; PULSE 63; RESP 16; TEMP 37; O2SAT 94
[2021-01-12] MEDS: oxyCODONE 5 MG Tablet 10 MG PO (17:57)
[2021-01-12] MEDS: Polyethylene Glycol 3350 17 GM PACKET PO (18:02)
--- NOTE | 2021-01-12 20:04 | NURSING ---
01/12 Pt had first dose of Radiation this shift. Dr. Weiss called and would like to have her pain better managed. Also would like to have mayank applied around her rectum area. He was also wondering if it was possible to do a Sitz bath with her to help keep area clean. Palliative care nurse updated on pain management and new order for scheduled Oxycodone 10mg q6hr.
[2021-01-13] MEDS: oxyCODONE 5 MG Tablet 10 MG PO ×4 (00:11→17:48)
[2021-01-13] MEDS: HYDROmorphone 1 MG/ML Syringe IV ×5 (03:53→19:55)
[2021-01-13] MEDS: 0.9% Saline Lock 10 ML Syringe IV ×4 (03:54→19:55)
[2021-01-13 04:08] VITALS: BP 128/58; PULSE 74; RESP 20; TEMP 36.3; O2SAT 97
[2021-01-13] MEDS: Menthol/Lanolin/Calamine/Znox 113 GM Tube 1 APPLIC TOPICAL ×2 (06:31→17:48)
[2021-01-13] MEDS: Citalopram 20 MG Tablet PO (06:32)
[2021-01-13] MEDS: Senna/Docusate Sodium 1 Tablet 2 TABLET PO ×2 (06:36→17:48)
[2021-01-13] MEDS: Cholecalciferol (VIT D3) 25 MCG TABLET (1,000 UNITS) PO (06:36)
[2021-01-13] MEDS: Cyanocobalamin 500 MCG Tablet 1000 MCG PO (06:36)
[2021-01-13] MEDS: Polyethylene Glycol 3350 17 GM PACKET PO (06:39)
[2021-01-13] MEDS: Gabapentin 100 MG Capsule PO ×3 (07:51→17:48)
[2021-01-13] MEDS: Multivitamins,Therapeutic Tablet 1 TABLET PO (07:51)
[2021-01-13 09:57] VITALS: PULSE 78; RESP 18; O2SAT 96
[2021-01-13] MEDS: LORazepam 0.5 MG Tablet PO ×2 (10:37→19:55)
[2021-01-13 15:16] VITALS: BP 78/41; PULSE 65; RESP 16; TEMP 36.7; O2SAT 92
--- NOTE | 2021-01-13 15:44 | CASEMGMT ---
Social Work This social science instructor assisted in facilitating patient cancer insurance policy paper work being faxed to Zoraida at [facility] per patient and patient spouse request. Zoraida is the social science instructor at [facility] in [place]. Zoraida's P: [phone], F: [phone]. Zoraida reports plan to have form completed by doctor and faxed to patient insurance company. Patient updated on above information and agreeable. Valentina MARQUEZ, GREGGS
--- NOTE | 2021-01-13 16:32 | PN.PALL_ITS ---
Subjective Subjective Patient lying on her back in bed. Noted to be smiling today. at bedside. States that pain is much better today. Routine Oxycodone was scheduled last night. Reports that she is not sleeping well and sleeping more during the day. She was unable to do therapy this morning due to being so tired from not sleepin g the night before. Fatigued from radiation but able to answer questions. Does tend to search for words or thoughts at times. Vitals have been stable. BP is a little low this afternoon but asymptomatic. Denies any nausea, vomiting or abdominal pain. Objective Data Objective Data Vital Signs: Vital Signs Temp Pulse Resp BP Pulse Ox 98.0 F 65 16 78/41 L 92 01/13/21 15:16 01/13/21 15:16 01/13/21 15:16 01/13/21 15:16 01/13/21 15:16 Oxygen Delivery Method Room Air Weight: 58.151 kg Body Mass Index (BMI) 23.0 Intake & Output: Intake and Output for Last 24 Hours 01/11/21 01/12/21 01/13/21 23:59 23:59 23:59 Intake Total 2480 / 2480 1212.5 / 1212.5 245 / 245 Balance 2480 / 2480 1212.5 / 1212.5 245 / 245 Lab / Micro Data Result Diagrams: 01/09/21 05:30 01/10/21 05:43 Micro: Microbiology 01/09/21 00:04 Urine, Catheterized Urine Culture - Final Enterococcus faecalis 01/03/21 12:20 Urine Catheter - Catheter Urine Culture - Final Enterococcus faecalis Physical Exam Const alert and oriented x3 General Appearance: cooperative and comfortable Orientation / Consciousness: awake, oriented to person, oriented to place and oriented to time Resp normal respiratory effort, normal air movement and clear to auscultation bilaterally Cardio regular rate, regular rhythm, S1 normal heart sound, S2 normal heart sound, no murmurs, no rub and no gallops GI normal to inspection, nondistended, normoactive bowel sounds, soft to palpation and non-tender Auscultation: normoactive bowel sounds Psych cooperative and speech normal Attitude: calm Assessment & Plan Assessment/Plan (1) Anxiety: (2) Intractable pain: (3) Anal pain: (4) Anal fissure: (5) Mass of anus: (6) Weakness: (7) Anal squamous cell carcinoma: PLAN: 75-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 Following with Dr. Lu. Palliative care consulted for intractable rectal and low back pain. Initiation of Palliative radiation has caused increased discomfort. The hope is that radiation will decr ease the tumor pain. -OARRS completed. Prior to this diagnosis, only RX in the last 2 years was tr amadol and gabapentin, more recently oxycodone for her back pain. Hx lumbar surgery. I suspect her tumor burden is causing the more severe pain. Increased frequency of Dilaudid. Discussed how radiation can help with the pain after shrinking the tumor. Dr. Lu following her here in hospital as well. PLAN: 1. Zofran PRN, take medications w/food to avoid some of the side effects. Improved. No further nausea 2. Continue with therapy for her weakness as tolerated. Has not been able to do therapy today. More awake in the afternoon. Consider afternoon PT/OT 3. Depression/anxiety: Celexa was increased to 20mg daily. Will take awhile before affect is noted. Encouraged staff to utilize PRN Ativan for anxiety. Mood is pleasant today and smiling with at bedside. May titrate PRN 4. Started methadone 5 mg BID 01/04/21. She had an EKG 12/28/20 (Carey Cortes PSYCHOTHERAPIST COUNSELOR reviewed), QTI in the 450 range. We will repeat an EKG 01/17. Initiation of routine Oxycodone 10mg every 6 hours scheduled has helped pain control with breakthrough Dilaudid. Continue current regimen. Continue to monitor bowels 5. Radiation started yesterday per patient. Voices increased fatigue during the day and more awake at night. May consider something for sleep when pain has improved and if not corrected with more activity during the day. 6. Palliative will continue to follow PRN. Over 50% of Face to Face visit was education about symptom management with patient and , questions answered and emotional support given. Thank you for the opportunity to participate in this patient's care, please do not hesitate to contact [facility] with any further questions or concerns. Palliative direct line is [phone]. We will follow up here in the hospital PRN and when discharged home. Patient is agreeable to services and consents are signed. TIME IN: 3:30PM TIME OUT: 4:50 PM
[2021-01-13 16:56] VITALS: BP 100/45
[2021-01-14] MEDS: oxyCODONE 5 MG Tablet 10 MG PO ×4 (00:11→17:53)
[2021-01-14] MEDS: 0.9% Saline Lock 10 ML Syringe IV ×3 (02:23→20:24)
[2021-01-14] MEDS: HYDROmorphone 1 MG/ML Syringe IV ×5 (02:23→20:26)
[2021-01-14 04:59] VITALS: BP 91/44; PULSE 66; RESP 14; TEMP 36.8; O2SAT 92
[2021-01-14] MEDS: Senna/Docusate Sodium 1 Tablet 2 TABLET PO ×2 (06:35→17:54)
[2021-01-14] MEDS: Cholecalciferol (VIT D3) 25 MCG TABLET (1,000 UNITS) PO (06:35)
[2021-01-14] MEDS: Citalopram 20 MG Tablet PO (06:35)
[2021-01-14] MEDS: Polyethylene Glycol 3350 17 GM PACKET PO ×2 (06:35→17:54)
[2021-01-14] MEDS: Cyanocobalamin 500 MCG Tablet 1000 MCG PO (06:35)
[2021-01-14] MEDS: Menthol/Lanolin/Calamine/Znox 113 GM Tube 1 APPLIC TOPICAL ×2 (06:37→17:54)
[2021-01-14] MEDS: Multivitamins,Therapeutic Tablet 1 TABLET PO (08:12)
[2021-01-14] MEDS: Gabapentin 100 MG Capsule PO ×3 (08:12→17:54)
[2021-01-14] MEDS: LORazepam 0.5 MG Tablet PO (13:15)
[2021-01-14 14:58] VITALS: BP 102/53; PULSE 66; RESP 15; TEMP 36.7; O2SAT 93
--- NOTE | 2021-01-14 16:22 | NURSING ---
pt's updated in room
[2021-01-15] MEDS: oxyCODONE 5 MG Tablet 10 MG PO ×5 (00:02→23:28)
[2021-01-15] MEDS: 0.9% Saline Lock 10 ML Syringe IV ×4 (03:27→15:47)
[2021-01-15] MEDS: HYDROmorphone 1 MG/ML Syringe IV ×3 (03:29→14:18)
[2021-01-15 05:00] VITALS: BP 101/44; RESP 16; TEMP 36.5
[2021-01-15] MEDS: Polyethylene Glycol 3350 17 GM PACKET PO ×2 (05:04→17:35)
[2021-01-15] MEDS: Cholecalciferol (VIT D3) 25 MCG TABLET (1,000 UNITS) PO (05:04)
[2021-01-15] MEDS: Cyanocobalamin 500 MCG Tablet 1000 MCG PO (05:05)
[2021-01-15] MEDS: Menthol/Lanolin/Calamine/Znox 113 GM Tube 1 APPLIC TOPICAL ×2 (05:06→17:36)
[2021-01-15] MEDS: Citalopram 20 MG Tablet PO (05:06)
[2021-01-15] MEDS: Senna/Docusate Sodium 1 Tablet 2 TABLET PO ×2 (05:06→17:36)
[2021-01-15] MEDS: Gabapentin 100 MG Capsule PO ×3 (08:49→17:35)
[2021-01-15] MEDS: Multivitamins,Therapeutic Tablet 1 TABLET PO (08:49)
--- NOTE | 2021-01-15 11:23 | NURSING ---
here to visit this AM.
[2021-01-15 13:40] VITALS: BP 110/59; PULSE 65; RESP 16; TEMP 36.6; O2SAT 94
[2021-01-15] MEDS: Acetaminophen 325 MG Tablet 650 MG PO (15:23)
[2021-01-15] MEDS: LORazepam 0.5 MG Tablet PO (21:33)
[2021-01-16] MEDS: HYDROmorphone 1 MG/ML Syringe IV ×3 (00:40→08:29)
[2021-01-16] MEDS: 0.9% Saline Lock 10 ML Syringe IV ×3 (00:40→08:31)
--- NOTE | 2021-01-16 00:42 | NURSING ---
Pt called out for her shot. When into room, pt resting in bed with eyes closed, awakens easily, states pain is a 10/10 and requesting Dilaudid, medicated per PRN order, no distress noted.
[2021-01-16 04:33] LABS: Absolute Lymphocyte Count 0.75 X10^3/uL (0.83-4.51); Absolute Neutrophil Count 3.7 X10^3/uL (2.0-7.7); Basophil# 0.02 X10^3/uL; Basophil% 0.4 % (0-1); Eosinophil# 0.07 X10^3/uL; Eosinophils% 1.4 % (0-5); Hematocrit 34.9 % (37-47); Lymphocyte # 0.75 X10^3/ul (0.83-4.51); Lymphocyte % 14.7 % (19-41); Mean Corp Hgb Conc 31.5 g/dL (32-36); Mean Corpuscular Volume 95.1 fL (81-99); Mean Platelet Vol. 9.4 fl (6.2-12.0); Monocyte# 0.56 X10^3/uL; NRBC Flagged by Analyzer 0 % (0-5); Neutrophil # 3.69 X10^3/uL (2.7-7.7); Neutrophil % 72.1 % (47-70); Platelet Count 202 K/mm3 (150-450); RBC Distribution Width CV 14.2 % (11.6-14.6); RBC Distribution Width SD 49.8 fl (35.1-43.9); Red Blood Count 3.67 M/mm3 (4.2-5.4); White Blood Count 5.1 K/mm3 (4.4-11.0)
[2021-01-16 04:54] LABS: Anion Gap 6 (5-15); BUN 16 mg/dL (7-18); BUN/Creat Ratio 22.9 RATIO (10-20); Calcium,Total 8.9 mg/dL (8.5-10.1); Chloride 103 mmol/L (98-107); EST Glomerular Filtration Rate 87 mL/min (>60); Est Glom Filt Rate - Afr Amer 106 mL/min (>60); Estimated Creatinine Clearance 41.45 ml/min; Glucose 96 mg/dL (74-106); Potassium 4.2 mmol/L (3.5-5.1); Sodium Level 137 mmol/L (136-145)
[2021-01-16 06:20] VITALS: BP 114/57; PULSE 61; RESP 16; TEMP 36.5; O2SAT 91
[2021-01-16] MEDS: Polyethylene Glycol 3350 17 GM PACKET PO (06:23)
[2021-01-16] MEDS: Senna/Docusate Sodium 1 Tablet 2 TABLET PO ×2 (06:23→17:33)
[2021-01-16] MEDS: Citalopram 20 MG Tablet PO (06:24)
[2021-01-16] MEDS: Cyanocobalamin 500 MCG Tablet 1000 MCG PO (06:24)
[2021-01-16] MEDS: Cholecalciferol (VIT D3) 25 MCG TABLET (1,000 UNITS) PO (06:24)
[2021-01-16] MEDS: oxyCODONE 5 MG Tablet 10 MG PO ×3 (06:24→17:32)
[2021-01-16] MEDS: Menthol/Lanolin/Calamine/Znox 113 GM Tube 1 APPLIC TOPICAL ×2 (06:27→17:32)
[2021-01-16] MEDS: Multivitamins,Therapeutic Tablet 1 TABLET PO (08:23)
[2021-01-16] MEDS: Gabapentin 100 MG Capsule PO ×3 (08:23→17:33)
[2021-01-16] MEDS: LORazepam 0.5 MG Tablet PO (08:29)
--- NOTE | 2021-01-16 09:32 | PCA ---
Offered AM care-shower to pt, pt refused shower. pt washed her face, brushed her teeth, this aide performed Rylee care. Pt refused to change clothing pt stated that her shirt was not dirty. I offered a shampoo wash/or a shampoo cap for pt and she refused the offer as well.
[2021-01-16 10:39] VITALS: O2SAT 93
--- NOTE | 2021-01-16 11:26 | NURSING ---
Spouse present in room at pt. bedside, updated on patient status and appointment time scheduled for 01/17/21. Spouse requests information related to insurance coverage and stay, voicemail left for social insurance analyst for follow-up. Spouse agreeable, expresses thanks for update.
[2021-01-16 16:00] VITALS: BP 96/58; PULSE 63; RESP 15; TEMP 36.7; O2SAT 94
[2021-01-17] MEDS: oxyCODONE 5 MG Tablet 10 MG PO ×4 (00:22→18:03)
[2021-01-17] MEDS: HYDROmorphone 1 MG/ML Syringe IV ×4 (02:12→23:10)
[2021-01-17] MEDS: LORazepam 0.5 MG Tablet PO (02:16)
[2021-01-17 05:08] VITALS: BP 114/69; PULSE 68; RESP 16; TEMP 36.7; O2SAT 95
[2021-01-17] MEDS: Menthol/Lanolin/Calamine/Znox 113 GM Tube 1 APPLIC TOPICAL ×2 (05:11→18:03)
[2021-01-17] MEDS: Cyanocobalamin 500 MCG Tablet 1000 MCG PO (05:14)
[2021-01-17] MEDS: Polyethylene Glycol 3350 17 GM PACKET PO (05:14)
[2021-01-17] MEDS: Cholecalciferol (VIT D3) 25 MCG TABLET (1,000 UNITS) PO (05:15)
[2021-01-17] MEDS: Citalopram 20 MG Tablet PO (05:15)
--- NOTE | 2021-01-17 08:00 | EKG12_ITS ---
Test Reason : DYSRHYTHMIA Blood Pressure : / mmHG Vent. Rate : 066 BPM Atrial Rate : 066 BPM P-R Int : 148 ms QRS Dur : 078 ms QT Int : 400 ms P-R-T Axes : 016 -18 029 degrees QTc Int : 419 ms Normal sinus rhythm Normal ECG When compared with ECG of 28-DEC-2020 04:13, No significant change was found Confirmed by JEANETTE WALLACE, ROXANNE ([id number]), newspaper photo editor CARL BURROWS ([id number]) on 01/21/2021 11:34:05 AM Referred By: RAIZA Confirmed By:ROXANNE REID MD
[2021-01-17] MEDS: Gabapentin 100 MG Capsule PO ×3 (08:55→18:03)
[2021-01-17] MEDS: Senna/Docusate Sodium 1 Tablet 2 TABLET PO ×2 (08:55→18:03)
[2021-01-17] MEDS: Multivitamins,Therapeutic Tablet 1 TABLET PO (08:56)
[2021-01-17 10:00] VITALS: PULSE 62; RESP 14
[2021-01-17 15:10] VITALS: BP 86/46; PULSE 64; RESP 17; TEMP 36.5; O2SAT 92
[2021-01-17] MEDS: 0.9% Saline Lock 10 ML Syringe IV ×2 (16:14→23:18)
[2021-01-17 20:45] VITALS: BP 95/52; PULSE 62; RESP 14; O2SAT 94
[2021-01-18] MEDS: oxyCODONE 5 MG Tablet 10 MG PO ×4 (00:52→18:07)
[2021-01-18] MEDS: LORazepam 0.5 MG Tablet PO (00:53)
[2021-01-18 05:00] VITALS: BP 100/53; PULSE 64; RESP 16; TEMP 36.9; O2SAT 95
[2021-01-18] MEDS: Senna/Docusate Sodium 1 Tablet 2 TABLET PO ×2 (05:41→18:08)
[2021-01-18] MEDS: Polyethylene Glycol 3350 17 GM PACKET PO ×2 (05:41→18:08)
[2021-01-18] MEDS: Cyanocobalamin 500 MCG Tablet 1000 MCG PO (05:41)
[2021-01-18] MEDS: Citalopram 20 MG Tablet PO (05:41)
[2021-01-18] MEDS: Cholecalciferol (VIT D3) 25 MCG TABLET (1,000 UNITS) PO (05:41)
[2021-01-18] MEDS: Menthol/Lanolin/Calamine/Znox 113 GM Tube 1 APPLIC TOPICAL ×2 (05:46→18:09)
[2021-01-18] MEDS: Multivitamins,Therapeutic Tablet 1 TABLET PO (07:59)
[2021-01-18] MEDS: Gabapentin 100 MG Capsule PO ×3 (07:59→18:09)
[2021-01-18] MEDS: HYDROmorphone 1 MG/ML Syringe IV ×4 (08:00→23:12)
--- NOTE | 2021-01-18 12:25 | PN.PALL_ITS ---
Subjective Subjective Resting in bed on her left side with eyes closed, awakens to voice. Reports the pain is still fairly significant but better than 2 weeks ago. Says her average pain level went from a 15 to an 8 out of 10. She is wondering when radiation is going to start helping. Denies any chest pain or shortness of breath. No nausea or vomiting. Having some stool leakage, unaware when this happens. No significant skin breakdown. She continues with daily radiation. Objective Data Objective Data Vital Signs: Vital Signs Temp Pulse Resp BP Pulse Ox 98.4 F 64 16 100/53 L 95 01/18/21 05:00 01/18/21 05:00 01/18/21 05:00 01/18/21 05:00 01/18/21 05:00 Oxygen Delivery Method Room Air Weight: 58.151 kg Body Mass Index (BMI) 23.0 Intake & Output: Intake and Output for Last 24 Hours 01/16/21 01/17/21 01/18/21 23:59 23:59 23:59 Intake Total 720 / 720 480 / 480 120 / 120 Balance 720 / 720 480 / 480 120 / 120 Lab / Micro Data Result Diagrams: 01/16/21 04:21 01/16/21 04:21 Micro: Microbiology 01/09/21 00:04 Urine, Catheterized Urine Culture - Final Enterococcus faecalis 01/03/21 12:20 Urine Catheter - Catheter Urine Culture - Final Enterococcus faecalis Physical Exam Const General Appearance: cooperative Orientation / Consciousness: awake, oriented to person, oriented to place and oriented to time HEENT normocephalic and head/scalp atraumatic Resp normal respiratory effort Auscultation: clear to auscultation bilaterally Cardio regular rate and regular rhythm Extremity no clubbing, cyanosis or edema Neuro CN's II-XII intact bilaterally Assessment & Plan Assessment/Plan (1) Anxiety: (2) Intractable pain: (3) Anal pain: (4) Anal fissure: (5) Mass of anus: (6) Weakness: (7) Anal squamous cell carcinoma: PLAN: 75-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 Following with Dr. Lu. Palliative care consulted for intractable rectal and low back pain. Initiation of Palliative radiation has caused increased discomfort. The hope is that radiation will eventually decrease the tumor pain. -OARRS completed. I suspect her tumor burden/radiation is initially causing the more severe pain. Increased frequency of Dilaudid. Discussed how radiation can help with the pain after shrinking the tumor. Dr. Lu following her here in hospital as well. PLAN: 1. Continue therapy 2. Depression/anxiety: Celexa was increased to 20mg daily. Will take awhile before affect is noted. Encouraged staff to utilize PRN Ativan for anxiety. Titrate PRN. 3. Pain: Methadone 5 mg BID in 01/04/21. EKG 12/28/20, QTI in the 450 range. Repeat EKG 01/17= QTI stable. Initiation of routine Oxycodone 10mg q6h scheduled helped pain control, c/w PRN dilaudid. Monitor bowels. Titrate as needed. If appears to have poor pain control, would go up on the methadone to 7.5mg BID. Also would consider changing dilaudid to oral and using oxy for breakthrough. 4. We will continue to follow, please call with concerns. Carey Sebastian [phone] Thank you for the opportunity to participate in this patient's care, please do not hesitate to contact [facility] with any further questions or con cerns. Palliative direct line is [phone]. We will follow up here in the hospital PRN and when discharged home. Patient is agreeable to services and consents are signed. Greater than 50% of F2F visit dedicated to education and counseling of palliative care services, medications, comorbid conditions and potential assistance with management, and plan of care moving forward. Start time:1212 End time:1234
[2021-01-18] MEDS: 0.9% Saline Lock 10 ML Syringe IV ×3 (14:43→23:12)
[2021-01-18 15:51] VITALS: BP 99/51; PULSE 60; RESP 16; TEMP 36.7; O2SAT 93
[2021-01-18 16:30] VITALS: O2SAT 96
--- NOTE | 2021-01-18 16:50 | NURSING ---
Resident and spouse notified of resident testing positive for COVID.
[2021-01-19] MEDS: oxyCODONE 5 MG Tablet 10 MG PO ×4 (00:40→17:49)
[2021-01-19] MEDS: Citalopram 20 MG Tablet PO (05:07)
[2021-01-19] MEDS: Cyanocobalamin 500 MCG Tablet 1000 MCG PO (05:07)
[2021-01-19] MEDS: Cholecalciferol (VIT D3) 25 MCG TABLET (1,000 UNITS) PO (05:09)
[2021-01-19] MEDS: Menthol/Lanolin/Calamine/Znox 113 GM Tube 1 APPLIC TOPICAL ×2 (05:09→17:51)
[2021-01-19 05:27] VITALS: BP 104/54; PULSE 55; RESP 16; TEMP 36.3; O2SAT 94
[2021-01-19] MEDS: Multivitamins,Therapeutic Tablet 1 TABLET PO (08:42)
[2021-01-19] MEDS: Gabapentin 100 MG Capsule PO ×3 (08:42→17:52)
[2021-01-19] MEDS: HYDROmorphone 1 MG/ML Syringe IV ×3 (08:45→19:54)
[2021-01-19] MEDS: 0.9% Saline Lock 10 ML Syringe IV ×3 (08:46→19:55)
[2021-01-19 10:00] VITALS: PULSE 65; RESP 16; O2SAT 97
[2021-01-19 14:25] VITALS: BP 97/52; PULSE 73; RESP 20; TEMP 36.3; O2SAT 96
[2021-01-19] MEDS: Acetaminophen 325 MG Tablet 650 MG PO (15:04)
[2021-01-20] MEDS: oxyCODONE 5 MG Tablet 10 MG PO ×5 (00:14→23:49)
[2021-01-20] MEDS: HYDROmorphone 1 MG/ML Syringe IV ×3 (02:57→15:33)
[2021-01-20 05:00] VITALS: BP 97/48; PULSE 66; RESP 18; TEMP 36.4; O2SAT 97
[2021-01-20] MEDS: Menthol/Lanolin/Calamine/Znox 113 GM Tube 1 APPLIC TOPICAL ×2 (06:07→18:24)
[2021-01-20] MEDS: Cholecalciferol (VIT D3) 25 MCG TABLET (1,000 UNITS) PO (06:08)
[2021-01-20] MEDS: Cyanocobalamin 500 MCG Tablet 1000 MCG PO (06:08)
[2021-01-20] MEDS: Citalopram 20 MG Tablet PO (06:10)
[2021-01-20] MEDS: LORazepam 0.5 MG Tablet PO (08:49)
[2021-01-20] MEDS: Multivitamins,Therapeutic Tablet 1 TABLET PO (08:49)
[2021-01-20] MEDS: Gabapentin 100 MG Capsule PO ×3 (08:49→18:23)
[2021-01-20] MEDS: 0.9% Saline Lock 10 ML Syringe IV (08:55)
[2021-01-20 14:22] VITALS: BP 103/53; PULSE 57; RESP 16; TEMP 36.8; O2SAT 94
[2021-01-20] MEDS: Senna/Docusate Sodium 1 Tablet 2 TABLET PO (18:23)
[2021-01-21] MEDS: HYDROmorphone 1 MG/ML Syringe IV ×2 (02:53→20:09)
--- NOTE | 2021-01-21 02:55 | NURSING ---
Medicated for rectal pain rated at 11/10, w/ DIlaudid 1 mg IVP slowly over 2 minutes. In no acute distress. Given raspberry yogurt per pt request. Call light w/ in reach.
[2021-01-21] MEDS: 0.9% Saline Lock 10 ML Syringe IV ×2 (02:59→07:15)
[2021-01-21 05:00] VITALS: BP 113/48; PULSE 55; RESP 16; TEMP 36.3; O2SAT 95
[2021-01-21] MEDS: Citalopram 20 MG Tablet PO (07:07)
[2021-01-21] MEDS: Multivitamins,Therapeutic Tablet 1 TABLET PO (07:07)
[2021-01-21] MEDS: Cholecalciferol (VIT D3) 25 MCG TABLET (1,000 UNITS) PO (07:08)
[2021-01-21] MEDS: Cyanocobalamin 500 MCG Tablet 1000 MCG PO (07:08)
[2021-01-21] MEDS: Senna/Docusate Sodium 1 Tablet 2 TABLET PO (07:08)
[2021-01-21] MEDS: Menthol/Lanolin/Calamine/Znox 113 GM Tube 1 APPLIC TOPICAL ×2 (07:08→17:12)
[2021-01-21] MEDS: Gabapentin 100 MG Capsule PO ×3 (07:08→17:12)
[2021-01-21] MEDS: oxyCODONE 5 MG Tablet 10 MG PO ×4 (07:10→23:49)
[2021-01-21 13:17] VITALS: BP 104/52; PULSE 60; RESP 16; TEMP 36.3; O2SAT 96
[2021-01-21] MEDS: Hydrocortisone 25 MG Suppository RC (17:15)
[2021-01-21 22:44] VITALS: PULSE 68
[2021-01-22] MEDS: 0.9% Saline Lock 10 ML Syringe IV ×2 (01:53→13:24)
[2021-01-22] MEDS: HYDROmorphone 1 MG/ML Syringe IV ×3 (01:55→21:32)
[2021-01-22] MEDS: LORazepam 0.5 MG Tablet PO (03:18)
--- NOTE | 2021-01-22 03:26 | NURSING ---
Went into pt's room to reassess pain and pt requests Ativan for anxiety. Given per dr order. Assisted w/ ambulation to the bathroom. Brief w/ a moderate amount of loose brown stool.
[2021-01-22 05:00] VITALS: BP 130/62; PULSE 57; RESP 18; TEMP 36.6; O2SAT 97
[2021-01-22] MEDS: Cyanocobalamin 500 MCG Tablet 1000 MCG PO (06:39)
[2021-01-22] MEDS: oxyCODONE 5 MG Tablet 10 MG PO ×3 (06:39→17:59)
[2021-01-22] MEDS: Cholecalciferol (VIT D3) 25 MCG TABLET (1,000 UNITS) PO (06:39)
[2021-01-22] MEDS: Citalopram 20 MG Tablet PO (06:39)
[2021-01-22] MEDS: Menthol/Lanolin/Calamine/Znox 113 GM Tube 1 APPLIC TOPICAL ×2 (06:41→18:00)
[2021-01-22] MEDS: Gabapentin 100 MG Capsule PO ×3 (08:52→18:02)
[2021-01-22] MEDS: Multivitamins,Therapeutic Tablet 1 TABLET PO (08:52)
[2021-01-22 14:16] VITALS: BP 117/60; PULSE 60; RESP 16; TEMP 36.1; O2SAT 98
[2021-01-22] MEDS: Senna/Docusate Sodium 1 Tablet 2 TABLET PO (18:02)
[2021-01-23] MEDS: oxyCODONE 5 MG Tablet 10 MG PO ×5 (00:04→23:56)
[2021-01-23] MEDS: HYDROmorphone 1 MG/ML Syringe IV ×2 (02:25→13:31)
[2021-01-23] MEDS: 0.9% Saline Lock 10 ML Syringe IV ×2 (02:26→13:39)
[2021-01-23] MEDS: Cyanocobalamin 500 MCG Tablet 1000 MCG PO (04:50)
[2021-01-23] MEDS: Citalopram 20 MG Tablet PO (04:50)
[2021-01-23] MEDS: Cholecalciferol (VIT D3) 25 MCG TABLET (1,000 UNITS) PO (04:50)
[2021-01-23] MEDS: Menthol/Lanolin/Calamine/Znox 113 GM Tube 1 APPLIC TOPICAL ×2 (04:51→17:23)
[2021-01-23 04:52] VITALS: BP 101/54; PULSE 59; RESP 16; TEMP 36.6; O2SAT 94
[2021-01-23 06:14] LABS: Absolute Lymphocyte Count 0.43 X10^3/uL (0.83-4.51); Absolute Neutrophil Count 1.7 X10^3/uL (2.0-7.7); Eosinophil# 0.08 X10^3/uL; Hematocrit 34.1 % (37-47); Lymphocyte # 0.43 X10^3/ul (0.83-4.51); Lymphocyte % 15.9 % (19-41); Mean Corp Hgb Conc 32.3 g/dL (32-36); Mean Corpuscular Hgb 30.6 pg (27.0-32.0); Mean Platelet Vol. 9.6 fl (6.2-12.0); Monocyte% 18.5 % (0-10); NRBC Flagged by Analyzer 0 % (0-5); Neutrophil % 62.6 % (47-70); POSITIVE DIFFERENTIAL YES; Platelet Count 152 K/mm3 (150-450); RBC Distribution Width CV 14.5 % (11.6-14.6); RBC Distribution Width SD 49.8 fl (35.1-43.9); Red Blood Count 3.59 M/mm3 (4.2-5.4); White Blood Count 2.7 K/mm3 (4.4-11.0)
[2021-01-23 06:16] LABS: Differential Indicated SCAN CRITERIA MET
[2021-01-23 06:49] LABS: Anion Gap 6 (5-15); BUN 13 mg/dL (7-18); BUN/Creat Ratio 24.1 RATIO (10-20); Calcium,Total 9.2 mg/dL (8.5-10.1); Chloride 102 mmol/L (98-107); Creatinine, Serum 0.54 mg/dL (0.55-1.02); EST Glomerular Filtration Rate 117 mL/min (>60); Est Glom Filt Rate - Afr Amer 142 mL/min (>60); Estimated Creatinine Clearance 41.45 ml/min; Glucose 89 mg/dL (74-106); Sodium Level 135 mmol/L (136-145)
[2021-01-23] MEDS: Multivitamins,Therapeutic Tablet 1 TABLET PO (08:13)
[2021-01-23] MEDS: Gabapentin 100 MG Capsule PO ×3 (08:13→17:23)
[2021-01-23 13:58] VITALS: BP 100/51; PULSE 62; RESP 14; TEMP 36.4; O2SAT 96
[2021-01-23] MEDS: Senna/Docusate Sodium 1 Tablet 2 TABLET PO (17:20)
[2021-01-23] MEDS: LORazepam 0.5 MG Tablet PO (23:55)
--- NOTE | 2021-01-24 01:14 | NURSING ---
Pt informs this nurse she will continue to refuse stool softeners. Strongly encouraged pt to take softeners d/t tumor burden to prevent obstruction. Pt verbalizes understanding. Also c/o pain to eyes. Conjunctiva without redness or irritation b/l. No periorbital edema, slight sagging skin under eyes. Eyelids pink and without redness or warmth. Informs this nurse she contacted her cleaners yesterday and no further direction received. Thinks she may benefit from artificial tears. Will need to update oncoming nurse.
[2021-01-24] MEDS: HYDROmorphone 1 MG/ML Syringe IV ×4 (03:45→22:11)
[2021-01-24] MEDS: 0.9% Saline Lock 10 ML Syringe IV ×2 (03:47→14:10)
[2021-01-24 05:00] VITALS: BP 100/51; PULSE 61; RESP 16; TEMP 35.8; O2SAT 94
[2021-01-24] MEDS: oxyCODONE 5 MG Tablet 10 MG PO ×4 (05:17→23:56)
[2021-01-24] MEDS: Cyanocobalamin 500 MCG Tablet 1000 MCG PO (05:17)
[2021-01-24] MEDS: Citalopram 20 MG Tablet PO (05:17)
[2021-01-24] MEDS: Cholecalciferol (VIT D3) 25 MCG TABLET (1,000 UNITS) PO (05:18)
[2021-01-24] MEDS: Menthol/Lanolin/Calamine/Znox 113 GM Tube 1 APPLIC TOPICAL ×2 (05:18→17:16)
[2021-01-24] MEDS: Gabapentin 100 MG Capsule PO ×3 (08:05→19:35)
[2021-01-24] MEDS: Multivitamins,Therapeutic Tablet 1 TABLET PO (08:05)
[2021-01-24 10:00] VITALS: PULSE 71; RESP 18; O2SAT 96
[2021-01-24 13:50] LABS: Pathologist Review Reviewed
[2021-01-24 14:07] VITALS: BP 97/48; PULSE 62; RESP 18; TEMP 36.1; O2SAT 96
[2021-01-24] MEDS: Senna/Docusate Sodium 1 Tablet 2 TABLET PO (17:19)
[2021-01-25] MEDS: HYDROmorphone 1 MG/ML Syringe IV ×6 (01:18→21:21)
[2021-01-25] MEDS: 0.9% Saline Lock 10 ML Syringe IV ×6 (01:18→21:21)
[2021-01-25 05:50] VITALS: BP 95/61; PULSE 55; RESP 16; TEMP 37.1; O2SAT 93
[2021-01-25] MEDS: Cyanocobalamin 500 MCG Tablet 1000 MCG PO (05:52)
[2021-01-25] MEDS: oxyCODONE 5 MG Tablet 10 MG PO ×3 (05:52→17:23)
[2021-01-25] MEDS: Cholecalciferol (VIT D3) 25 MCG TABLET (1,000 UNITS) PO (05:52)
[2021-01-25] MEDS: Citalopram 20 MG Tablet PO (05:52)
[2021-01-25] MEDS: Menthol/Lanolin/Calamine/Znox 113 GM Tube 1 APPLIC TOPICAL ×2 (08:15→17:24)
[2021-01-25] MEDS: Gabapentin 100 MG Capsule PO ×3 (08:15→17:24)
[2021-01-25] MEDS: Multivitamins,Therapeutic Tablet 1 TABLET PO (10:50)
[2021-01-25] MEDS: Polyethylene Glycol 3350 17 GM PACKET PO (11:44)
--- NOTE | 2021-01-25 13:15 | NURSING ---
MEDICATED PT WITH DILAUDID BEFORE LEAVING FLOOR TO RADIATION VIA BED.
[2021-01-25 15:07] VITALS: BP 84/63; PULSE 57; RESP 17; TEMP 36.8; O2SAT 95
[2021-01-25] MEDS: Senna/Docusate Sodium 1 Tablet 2 TABLET PO (17:24)
[2021-01-26] MEDS: oxyCODONE 5 MG Tablet 10 MG PO ×5 (00:06→23:59)
[2021-01-26] MEDS: 0.9% Saline Lock 10 ML Syringe IV ×5 (01:40→22:01)
[2021-01-26] MEDS: HYDROmorphone 1 MG/ML Syringe IV ×4 (01:41→22:01)
[2021-01-26] MEDS: Cyanocobalamin 500 MCG Tablet 1000 MCG PO (05:50)
[2021-01-26] MEDS: Cholecalciferol (VIT D3) 25 MCG TABLET (1,000 UNITS) PO (05:50)
[2021-01-26] MEDS: Citalopram 20 MG Tablet PO (05:50)
[2021-01-26] MEDS: Menthol/Lanolin/Calamine/Znox 113 GM Tube 1 APPLIC TOPICAL ×2 (06:01→18:11)
[2021-01-26 06:03] VITALS: BP 106/52; PULSE 57; RESP 16; TEMP 36.6; O2SAT 97
[2021-01-26] MEDS: Gabapentin 100 MG Capsule PO ×3 (08:02→18:09)
[2021-01-26] MEDS: Multivitamins,Therapeutic Tablet 1 TABLET PO (08:02)
[2021-01-26] MEDS: Mineral Oil/Petrolatum Cr 1.75oz Bottle 1 APPLIC TOPICAL (15:53)
[2021-01-26 16:00] VITALS: BP 112/59; PULSE 60; RESP 20; TEMP 37.1; O2SAT 97
--- NOTE | 2021-01-26 20:01 | NURSING ---
This RN offered to set up sitz bath for patient during this time, patient refused. THis RN stated that if patient wanted to do it later in the shift for her to hit her call light and this RN would assist.
[2021-01-26] MEDS: LORazepam 0.5 MG Tablet PO (22:01)
--- NOTE | 2021-01-26 22:07 | NURSING ---
This RN offered to do sitz bath while patient was up in the bathroom, patient refused.
[2021-01-27 02:49] VITALS: BP 100/39; PULSE 60; RESP 16; TEMP 36.8; O2SAT 95
[2021-01-27 02:51] VITALS: BP 102/48
--- NOTE | 2021-01-27 04:27 | NURSING ---
Patient set up for sitz bath at this time.
[2021-01-27] MEDS: Mineral Oil/Petrolatum Cr 1.75oz Bottle 1 APPLIC TOPICAL ×3 (04:52→23:26)
[2021-01-27] MEDS: Cholecalciferol (VIT D3) 25 MCG TABLET (1,000 UNITS) PO (04:53)
[2021-01-27] MEDS: Cyanocobalamin 500 MCG Tablet 1000 MCG PO (04:53)
[2021-01-27] MEDS: Menthol/Lanolin/Calamine/Znox 113 GM Tube 1 APPLIC TOPICAL ×2 (04:53→17:20)
[2021-01-27] MEDS: Citalopram 20 MG Tablet PO (04:53)
[2021-01-27] MEDS: oxyCODONE 5 MG Tablet 10 MG PO ×4 (05:03→23:27)
[2021-01-27] MEDS: Gabapentin 100 MG Capsule PO ×3 (08:18→17:20)
[2021-01-27] MEDS: Multivitamins,Therapeutic Tablet 1 TABLET PO (08:18)
[2021-01-27 10:55] VITALS: BP 94/45; RESP 62
--- NOTE | 2021-01-27 12:48 | PCM.PN.PAL ---
Subjective Subjective Pain has been somewhat improved. Nursing reports she is asking for IV Dilaudid frequently. She does not appear to be in any acute distress. Rating her pain 8 out of 10, resting comfortably in bed. She is headed down for another radiation treatment. Pain seems to be moving in the right direction now. Having bowel movements. Nursing reports some dizziness, especially after IV Dilaudid. Hypotensive. Objective Data Objective Data Vital Signs: Vital Signs Temp Pulse Resp BP Pulse Ox 98.2 F 60 62 H 94/45 L 95 01/27/21 02:49 01/27/21 02:49 01/27/21 10:55 01/27/21 10:55 01/27/21 02:49 Oxygen Delivery Method Room Air Weight: 57.606 kg Body Mass Index (BMI) 23.0 Intake & Output: Intake and Output for Last 24 Hours 01/25/21 01/26/21 01/27/21 23:59 23:59 23:59 Intake Total 840 / 840 480 / 480 120 / 120 Balance 840 / 840 480 / 480 120 / 120 Lab / Micro Data Result Diagrams: 01/23/21 05:48 01/23/21 05:48 Micro: Microbiology 01/25/21 13:45 Nasal Secretion SARS-CoV-2 Antigen (Rapid) - Final 01/19/21 11:20 Interface Orders SARS-CoV-2 Antigen (Rapid) - Final 01/09/21 00:04 Urine, Catheterized Urine Culture - Final Enterococcus faecalis 01/03/21 12:20 Urine Catheter - Catheter Urine Culture - Final Enterococcus faecalis Physical Exam Const alert, oriented x3 and no apparent distress General Appearance: cooperative HEENT normocephalic and head/scalp atraumatic Resp normal respiratory effort and normal air movement Cardio S1 normal heart sound and S2 normal heart sound GI normal to inspection, nondistended, normoactive bowel sounds, soft to palpation and non-tender Extremity no clubbing, cyanosis or edema Neuro CN's II-XII intact bilaterally Psych Appearance: grossly normal Attitude: calm Activity / Motor Behavior: appropriate eye contact Speech: normal speech Memory / Cognition: cognition impaired Assessment & Plan Assessment/Plan (1) Anxiety: (2) Intractable pain: (3) Anal pain: (4) Anal fissure: (5) Mass of anus: (6) Weakness: (7) Anal squamous cell carcinoma: PLAN: 75-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 Following with Dr. Lu and Dr. Moya. Palliative care following for intractable rectal and low back pain. -OARRS completed. I suspect her tumor burden/radiation is initially causing the more severe pain. PLAN: 1. Continue therapy 2. Depression/anxiety: 01/07 Celexa increased to 20mg daily. Encouraged staff to utilize PRN Ativan for anxiety. Titrate PRN. 3. Pain: 01/03: gabapentin per attending, 100mg TID 01/04: start Methadone 5 mg BID. EKG 12/28/20, QTI in 450 range. Repeat EKG 01/17= QTI stable. Routine oxycodone 10mg q6h. Monitor bowels. More sedated but less pain since radiation. 01/27: d/c IV dilaudid Add oxycodone 5-10mg q6h PRN breakthrough pain Monitor bowels Utilize PRN acetaminophen Topical ointment to radiated area 4. EKG q3 months while on methadone, prn with dose changes 5. We will continue to follow, please call with concerns. Carey Cortes [phone] Thank you for the opportunity to participate in this patient's care, please do not hesitate to contact [facility] with any further questions or concerns. Palliative direct line is [phone]. We will follow up here in the hospital PRN and when discharged home. Patient is agreeable to services and consents are signed. Greater than 50% of F2F visit dedicated to education and counseling of palliative care services, medications, comorbid conditions and potential assistance with management, and plan of care moving forward. Start time:1238 End time:1300
--- NOTE | 2021-01-27 13:10 | CASEMGMT ---
Social Work Met with patient and patient spouse in room. Patient spouse request list of private duty aides. This delinquency prevention social worker provided list. Support provided. Patient with positive and encouraged affect. Patient reports to be encouraged by having more strength. Will continue to follow as needed. Valentina MARQUEZ, GREGGS
[2021-01-27 14:28] VITALS: BP 127/51; PULSE 61; RESP 16; TEMP 36.4; O2SAT 97
[2021-01-28 05:00] VITALS: BP 102/47; PULSE 69; RESP 20; TEMP 36.4
[2021-01-28] MEDS: Polyethylene Glycol 3350 17 GM PACKET PO (06:44)
[2021-01-28] MEDS: Citalopram 20 MG Tablet PO (06:45)
[2021-01-28] MEDS: Cyanocobalamin 500 MCG Tablet 1000 MCG PO (06:45)
[2021-01-28] MEDS: Cholecalciferol (VIT D3) 25 MCG TABLET (1,000 UNITS) PO (06:45)
[2021-01-28] MEDS: Senna/Docusate Sodium 1 Tablet 2 TABLET PO ×2 (06:46→17:55)
[2021-01-28] MEDS: Mineral Oil/Petrolatum Cr 1.75oz Bottle 1 APPLIC TOPICAL ×3 (06:47→20:35)
[2021-01-28] MEDS: Menthol/Lanolin/Calamine/Znox 113 GM Tube 1 APPLIC TOPICAL (06:47)
[2021-01-28] MEDS: oxyCODONE 5 MG Tablet 10 MG PO ×3 (06:52→17:54)
[2021-01-28] MEDS: Multivitamins,Therapeutic Tablet 1 TABLET PO (08:46)
[2021-01-28] MEDS: Gabapentin 100 MG Capsule PO ×3 (08:46→17:55)
[2021-01-28 09:50] VITALS: PULSE 71; RESP 18; O2SAT 98
--- NOTE | 2021-01-28 14:43 | NURSING ---
pt has been refusing sitz baths today. will continue to encourage. pt feeling better, less pain. resting in bed on lt side.
[2021-01-28 16:00] VITALS: BP 112/50; PULSE 61; RESP 18; TEMP 36.8; O2SAT 94
[2021-01-29] MEDS: oxyCODONE 5 MG Tablet 10 MG PO ×5 (00:55→23:50)
[2021-01-29] MEDS: Cyanocobalamin 500 MCG Tablet 1000 MCG PO (06:54)
[2021-01-29] MEDS: Polyethylene Glycol 3350 17 GM PACKET PO (06:54)
[2021-01-29] MEDS: Senna/Docusate Sodium 1 Tablet 2 TABLET PO (06:54)
[2021-01-29] MEDS: Citalopram 20 MG Tablet PO (06:55)
[2021-01-29] MEDS: Cholecalciferol (VIT D3) 25 MCG TABLET (1,000 UNITS) PO (06:55)
[2021-01-29] MEDS: Mineral Oil/Petrolatum Cr 1.75oz Bottle 1 APPLIC TOPICAL ×3 (07:02→22:39)
[2021-01-29] MEDS: Multivitamins,Therapeutic Tablet 1 TABLET PO (08:06)
[2021-01-29] MEDS: Gabapentin 100 MG Capsule PO ×3 (08:06→17:38)
[2021-01-29 16:00] VITALS: BP 98/46; PULSE 69; RESP 16; TEMP 36.1; O2SAT 94
--- NOTE | 2021-01-29 18:06 | NURSING ---
Notified Dr. Pedro of patient's refusing Miralax and requesting the med to be d/c'd.
--- NOTE | 2021-01-29 23:45 | NURSING ---
Pt questions this nurse what side effects she will endure from chemotherapy. Informed pt this nurse is unsure what side effects may occur. Will be dependent on medication(s) administered and that oncologist and nursing staff will review treatment regimen, including side effects. Pt verbalizes understanding.
--- NOTE | 2021-01-30 03:26 | NURSING ---
Left for social welfare research worker to f/u on pt's request for a list of private caregivers for additional support upon dc from TCU.
[2021-01-30 05:00] VITALS: BP 109/59; PULSE 68; RESP 16
[2021-01-30 05:26] LABS: Absolute Lymphocyte Count 0.29 X10^3/uL (0.83-4.51); Absolute Neutrophil Count 2.1 X10^3/uL (2.0-7.7); Basophil# 0.02 X10^3/uL; Basophil% 0.6 % (0-1); Eosinophil# 0.11 X10^3/uL; Eosinophils% 3.4 % (0-5); Hematocrit 36.9 % (37-47); Hemoglobin 12.1 g/dL (12.0-15.0); Lymphocyte # 0.29 X10^3/ul (0.83-4.51); Mean Corp Hgb Conc 32.8 g/dL (32-36); Mean Corpuscular Hgb 30.9 pg (27.0-32.0); Mean Corpuscular Volume 94.4 fL (81-99); Mean Platelet Vol. 9.3 fl (6.2-12.0); Monocyte# 0.64 X10^3/uL; Monocyte% 19.9 % (0-10); NRBC Flagged by Analyzer 0 % (0-5); Neutrophil # 2.14 X10^3/uL (2.7-7.7); Neutrophil % 66.5 % (47-70); POSITIVE DIFFERENTIAL YES; Platelet Count 131 K/mm3 (150-450); RBC Distribution Width CV 14.6 % (11.6-14.6); RBC Distribution Width SD 50.3 fl (35.1-43.9); Red Blood Count 3.91 M/mm3 (4.2-5.4); White Blood Count 3.2 K/mm3 (4.4-11.0)
[2021-01-30 05:35] LABS: Differential Indicated SCAN CRITERIA MET
[2021-01-30 05:41] LABS: Anion Gap 9 (5-15); BUN 15 mg/dL (7-18); BUN/Creat Ratio 22.1 RATIO (10-20); Calcium,Total 9.2 mg/dL (8.5-10.1); Chloride 101 mmol/L (98-107); Creatinine, Serum 0.68 mg/dL (0.55-1.02); EST Glomerular Filtration Rate 90 mL/min (>60); Est Glom Filt Rate - Afr Amer 109 mL/min (>60); Estimated Creatinine Clearance 41.45 ml/min; Glucose 134 mg/dL (74-106); Potassium 4.1 mmol/L (3.5-5.1); Sodium Level 135 mmol/L (136-145)
[2021-01-30] MEDS: Mineral Oil/Petrolatum Cr 1.75oz Bottle 1 APPLIC TOPICAL ×3 (05:41→20:04)
[2021-01-30] MEDS: Cholecalciferol (VIT D3) 25 MCG TABLET (1,000 UNITS) PO (05:42)
[2021-01-30] MEDS: Citalopram 20 MG Tablet PO (05:42)
[2021-01-30] MEDS: Cyanocobalamin 500 MCG Tablet 1000 MCG PO (05:43)
--- NOTE | 2021-01-30 05:49 | NURSING ---
Pt informs OPTICAL GLASS WET INSPECTOR she feels faint. BP 109/59, HR 68. In no acute distress. Converses without difficulty. Remains alert, not drowsy. Encouraged fluids. Strongly encouraged to lower HOB and elevate BLE to a tolerable level to ease sxs. Pt hesitant w/ suggestion to elevate LEs.
--- NOTE | 2021-01-30 06:45 | NURSING ---
SPRAY APPLICATOR alerts this nurse that pt c/o not feeling well. HOB further elevated from previous visit in room within the past hour. Upon arrival to room, pt immediately requests to go to the bathroom. Ambulates without difficulty using FWW and SBA of this nurse. Remains alert and is not drowsy. Incontinent of moderate amount of loose/liquid brown stool w/ a small amount of undigested food.
[2021-01-30] MEDS: Gabapentin 100 MG Capsule PO ×3 (08:00→16:49)
[2021-01-30] MEDS: Multivitamins,Therapeutic Tablet 1 TABLET PO (08:00)
[2021-01-30] MEDS: oxyCODONE 5 MG Tablet 10 MG PO ×2 (11:46→16:51)
[2021-01-30 14:05] VITALS: BP 132/74; PULSE 71; RESP 16; TEMP 36.4; O2SAT 98
[2021-01-30 14:07] VITALS: PULSE 71; RESP 18; O2SAT 98
--- NOTE | 2021-01-30 17:26 | NURSING ---
pt assisted to BR, began feeling sick to stomach, vomited sm amt of undigested meds yellow/orange liquid. sprite & jello given. pt feels better.
--- NOTE | 2021-01-30 17:40 | NURSING ---
pt only wanting one tab of scheduled oxyir, trying to wean self off meds. will update next shift and will notify MD/palliative nurse.
[2021-01-31] MEDS: oxyCODONE 5 MG Tablet 10 MG PO ×4 (00:05→17:44)
[2021-01-31] MEDS: Acetaminophen 325 MG Tablet 650 MG PO ×2 (03:41→22:30)
[2021-01-31] MEDS: Cyanocobalamin 500 MCG Tablet 1000 MCG PO ×2 (05:53→05:54)
[2021-01-31] MEDS: Mineral Oil/Petrolatum Cr 1.75oz Bottle 1 APPLIC TOPICAL ×3 (05:53→22:35)
[2021-01-31] MEDS: Citalopram 20 MG Tablet PO (05:54)
[2021-01-31] MEDS: Cholecalciferol (VIT D3) 25 MCG TABLET (1,000 UNITS) PO (05:56)
[2021-01-31 07:32] VITALS: BP 116/57; PULSE 66; RESP 12; TEMP 36.3; O2SAT 93
[2021-01-31] MEDS: Multivitamins,Therapeutic Tablet 1 TABLET PO (08:57)
[2021-01-31] MEDS: Gabapentin 100 MG Capsule PO ×3 (08:57→17:44)
[2021-01-31] MEDS: Ondansetron ODT 4 MG Tablet PO (10:00)
[2021-01-31 14:26] VITALS: BP 118/60; PULSE 78; RESP 17; TEMP 36.4; O2SAT 96
[2021-01-31] MEDS: Senna/Docusate Sodium 1 Tablet 2 TABLET PO (17:45)
[2021-01-31] MEDS: oxyCODONE 5 MG Tablet PO (22:29)
[2021-02-01 05:00] VITALS: BP 118/59; PULSE 70; RESP 16; TEMP 36.9; O2SAT 97
[2021-02-01] MEDS: oxyCODONE 5 MG Tablet 10 MG PO ×4 (05:43→23:33)
[2021-02-01] MEDS: Mineral Oil/Petrolatum Cr 1.75oz Bottle 1 APPLIC TOPICAL ×3 (05:44→20:50)
[2021-02-01] MEDS: Citalopram 20 MG Tablet PO (05:45)
[2021-02-01] MEDS: Senna/Docusate Sodium 1 Tablet 2 TABLET PO ×2 (05:45→17:53)
[2021-02-01] MEDS: Cholecalciferol (VIT D3) 25 MCG TABLET (1,000 UNITS) PO (05:46)
[2021-02-01] MEDS: Gabapentin 100 MG Capsule PO ×3 (05:46→17:54)
[2021-02-01] MEDS: Multivitamins,Therapeutic Tablet 1 TABLET PO (08:54)
--- NOTE | 2021-02-01 11:59 | NURSING ---
Pt requested to take 5mg of oxycodone stated her pain is only a 3 out of 10 on the pain scale.
[2021-02-01 12:15] LABS: Pathologist Review Reviewed
--- NOTE | 2021-02-01 13:20 | NURSING ---
Pt had one round of radiation this morning, second dose of radiation was cancelled per office, pt to see Adrianna MORELAND at 1430 for chemo education.
[2021-02-01 13:47] VITALS: BP 128/63; PULSE 70; RESP 18; TEMP 36.3; O2SAT 97
--- NOTE | 2021-02-01 13:51 | NURSING ---
Pt refused sitz bath at this time applied Aquaphor to rectal area.
--- NOTE | 2021-02-01 15:38 | CASEMGMT ---
Social Work Multiple attempts to speak with patient today, patient currently at doctors appointment. Per medical team patient wanting to discuss discharge date being set. Will continue to follow. Valentina MARQUEZ, CHUCK
[2021-02-01] MEDS: Polyethylene Glycol 3350 17 GM PACKET PO (18:16)
--- NOTE | 2021-02-01 20:16 | PN.TCU_ITS ---
Subjective Subjective Resident seen, examined in room. Her only complaint is constipation, and she requested Miralax 17GM daily as needed. Dolores had multiple questions regarding her discharge plan. She has been undergoing radiation treatments with Dr. Moya for rectal cancer. She will be starting chemotherapy 02/07/2021 with [facility]. She will need to be discharged from TCU for insurance to pay for chemotherapy. Objective Data Objective Data Vital Signs: Vital Signs Temp Pulse Resp BP Pulse Ox 97.4 F L 70 18 128/63 H 97 02/01/21 13:47 02/01/21 13:47 02/01/21 13:47 02/01/21 13:47 02/01/21 13:47 Oxygen Delivery Method Room Air Weight: 55.593 kg Body Mass Index (BMI) 23.0 Intake & Output: Intake and Output for Last 24 Hours 01/30/21 01/31/21 02/01/21 23:59 23:59 23:59 Intake Total 360 / 360 600 / 600 360 / 360 Balance 360 / 360 600 / 600 360 / 360 Lab / Micro Data Result Diagrams: 01/30/21 05:15 01/30/21 05:15 Labs: Laboratory Results - last 24 hr 01/30/21 05:15 Diff Path Review Reviewed Micro: Microbiology 01/25/21 13:45 Nasal Secretion SARS-CoV-2 Antigen (Rapid) - Final 01/19/21 11:20 Interface Orders SARS-CoV-2 Antigen (Rapid) - Final 01/09/21 00:04 Urine, Catheterized Urine Culture - Final Enterococcus faecalis 01/03/21 12:20 Urine Catheter - Catheter Urine Culture - Final Enterococcus faecalis Physical Exam Const alert and oriented x3 General Appearance: cooperative HEENT normocephalic Eyes PERRL and EOMs intact bilaterally Neck supple, no JVD and no carotid bruits Resp normal respiratory effort, normal air movement and clear to auscultation bilaterally Cardio regular rate and regular rhythm GI normal to inspection, nondistended, normoactive bowel sounds, non-tender and non-distended Extremity normal capillary refill General Extremity: Negative for edema Skin no rashes or lesions noted General Skin Exam: no breakdown Psych affect normal Appearance: appropriate Assessment & Plan Assessment/Plan (1) Debility: (2) Anal cancer: (3) Depression: QUALIFIERS: Depression Type: reactive depression Qualified Code(s): F32.9 - Major depressive disorder, single episode, unspecified (4) Anxiety: (5) Intractable pain: (6) Adult failure to thrive: PLAN: 75 year old female with below past medical history significant for anal cancer, undergoing radiation, starting chemotherapy in 6 days, admitted to TCU with debility, here for rehabilitation, strengthening, prior to discharge home with . * Debility - PT/OT, Tirsten unable to care for Dolores at home, she will need private duty aides upon dischage. * Pain - Tylenol 650MG Q4H PRN, Methadone 5MG twice daily, Oxycodone 10MG Q6H, Oxycodone 5-10MG Q6H PRN. * Bowel - Senna/colace 2 tablets twice daily, Miralax 17GM daily PRN. * Adult immunization - Administer Prevnar 13, Pneumovax 23, Fluzone, COVID19 vaccine as appropriate. * DVT prophylaxis - Hold. * Vitamin D deficiency - D3 25MCG daily. * Depression - Citalopram 20MG daily, stable chronic detention use, GDR not recommended. * Vitamin B12 deficiency - B12 1000MCG daily. * Nutrition - Ensure Enlive 120ML TIDCM. * Neuropathic pain - Gabapentin 100MG TIDCM. * Hemorrhoid - Hydrocortisone 25MG OH TID PRN. * Anxiety - Lorazepam 0.5MG Q4H PRN, stable chronic sort line use, GDR not recommended. * Skin irritation - Aquaphor topical TID. * Nausea - Zofran 4MG Q6H PRN. * Dry Eyes - Artificial Tears 2GTT Q1H PRN. Capacity Capacity Assessment Tool Can the patient make a choice & communicate that choice?: Yes Can the patient understand benefits, risks and alternatives?: Yes Can the patient make a logical, rational choice?: Yes Is the choice the patient makes consistent w/ their values?: Yes Is there an impending, emergent risk to the patient?: Yes Does the patient have an Advance Directive?: No Is there a Surrogate Available?: Yes i.e. HCPOA: Yes i.e. close relative (spouse, child, parent, sibling)?: Yes
--- NOTE | 2021-02-01 20:50 | NURSING ---
Pt refused sitz bath this evening.
[2021-02-02 06:24] VITALS: BP 133/61; PULSE 69; RESP 16; TEMP 36.8; O2SAT 97
[2021-02-02] MEDS: Cyanocobalamin 500 MCG Tablet 1000 MCG PO (06:25)
[2021-02-02] MEDS: Citalopram 20 MG Tablet PO (06:26)
[2021-02-02] MEDS: Cholecalciferol (VIT D3) 25 MCG TABLET (1,000 UNITS) PO (06:26)
[2021-02-02] MEDS: oxyCODONE 5 MG Tablet 10 MG PO (06:27)
[2021-02-02] MEDS: Mineral Oil/Petrolatum Cr 1.75oz Bottle 1 APPLIC TOPICAL ×3 (06:31→21:30)
[2021-02-02] MEDS: Multivitamins,Therapeutic Tablet 1 TABLET PO (08:49)
[2021-02-02] MEDS: Gabapentin 100 MG Capsule PO ×3 (08:49→18:06)
[2021-02-02 10:00] VITALS: PULSE 86; RESP 16
[2021-02-02] MEDS: LORazepam 0.5 MG Tablet PO (12:04)
--- NOTE | 2021-02-02 13:48 | PCM.PN.PAL ---
Subjective Subjective Patient lying in bed, appears comfortable. Her brother and spouse are in the room. She is wanting to review all of her medications. Discussed tapering of opioids since she is finally getting pain relief from radiation. She also wants to discuss what palliative services are versus hospice. We discussed this at length. All of her questions were answered. States her pain is currently at a 0 out of 10. Her low back does get sore, but this is chronic since she had lumbar surgery approximately 2 years ago. She has a heating pad on it, which helps. No radiation down her legs. States she was very constipated and took MiraLAX last night and had several episodes of diarrhea. No nausea or vomiting. No chest pain or shortness of breath. No edema. She is wondering if we can adjust her medications. Patient scheduled to be discharged this upcoming Sunday, home with home health services. She will start chemotherapy on Sunday. Following with Dr. Gil. Objective Data Objective Data Vital Signs: Vital Signs Temp Pulse Resp BP Pulse Ox 98.2 F 69 16 133/61 H 97 02/02/21 06:24 02/02/21 06:24 02/02/21 06:24 02/02/21 06:24 02/02/21 06:24 Oxygen Delivery Method Room Air Weight: 55.593 kg Body Mass Index (BMI) 23.0 Intake & Output: Intake and Output for Last 24 Hours 01/31/21 02/01/21 02/02/21 23:59 23:59 23:59 Intake Total 600 / 600 360 / 360 240 / 240 Balance 600 / 600 360 / 360 240 / 240 Lab / Micro Data Result Diagrams: 01/30/21 05:15 01/30/21 05:15 Micro: Microbiology 01/25/21 13:45 Nasal Secretion SARS-CoV-2 Antigen (Rapid) - Final 01/19/21 11:20 Interface Orders SARS-CoV-2 Antigen (Rapid) - Final 01/09/21 00:04 Urine, Catheterized Urine Culture - Final Enterococcus faecalis 01/03/21 12:20 Urine Catheter - Catheter Urine Culture - Final Enterococcus faecalis Physical Exam Const alert, oriented x3 and no apparent distress General Appearance: cooperative Orientation / Consciousness: awake, oriented to person, oriented to place and oriented to time HEENT normocephalic and head/scalp atraumatic Resp normal respiratory effort and normal air movement Effort and Inspection: able to speak in complete sentences and symmetric chest movement Auscultation: clear to auscultation bilaterally Cardio S1 normal heart sound and S2 normal heart sound Rate: regular rate Rhythm: regular rhythm GI normal to inspection, nondistended, normoactive bowel sounds, soft to palpation and non-tender Extremity no clubbing, cyanosis or edema Neuro CN's II-XII intact bilaterally Psych cooperative and speech normal Appearance: grossly normal Attitude: calm Activity / Motor Behavior: appropriate eye contact Memory / Cognition: other forgetful Assessment & Plan Assessment/Plan (1) Anxiety: (2) Intractable pain: (3) Anal pain: (4) Anal fissure: (5) Mass of anus: (6) Weakness: (7) Anal squamous cell carcinoma: PLAN: 75-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 Following with Dr. Lu and Dr. Moya. Palliative care following for intractable rectal and low back pain. She is scheduled for discharge on Sunday, 02/06. PLAN: 1. Continue therapy 2. Depression/anxiety: 01/07 Celexa increased to 20mg daily. Utilize PRN Ativan for anxiety. 3. Pain: 01/03: gabapentin per attending, 100mg TID. 01/04: start Methadone 5 mg BID. EKG 12/28/20, QTI in 450 range. Repeat EKG 01/17= QTI stable. Routine oxycodone 10mg q6h. Monitor bowels. More sedated but less pain since radiation. 01/27: d/c IV dilaudid Add oxycodone 5-10mg q6h PRN breakthrough pain Monitor bowels Utilize PRN acetaminophen Topical ointment to radiated area 02/02: pain significantly improved, has been refusing some of scheduled doses of oxycodone so will d/c. Keep scheduled methadone and PRN oxy, reevaluate in 1-2 days f/u as outpatient. Plan is to wean opioids as tolerated 4. EKG q3 months while on methadone, prn with dose changes 5. We will continue to follow, please call with concerns. Carey Cortes [phone] Thank you for the opportunity to participate in this patient's care, please do not hesitate to contact [facility] with any further questions or concerns. Palliative direct line is [phone]. We will follow up here in the hospital PRN and when discharged home. Patient is agreeable to services and consents are signed. Greater than 50% of F2F visit dedicated to education and counseling of palliative care services, medications, comorbid conditions and potential assistance with management, and plan of care moving forward. Start time: 1607 End time: 1639
[2021-02-02 15:33] VITALS: BP 147/76; PULSE 81; RESP 16; TEMP 36.9; O2SAT 95
--- NOTE | 2021-02-02 16:12 | CASEMGMT ---
Social Work. This social work assistant met with patient and patient spouse in room. Patient request to discharge to home on 02/06/2021 as patient is to begin chemo treatments on 02/07/2021. Patient plans to discharge to home with spouse. Patient is agreeable to recommendations for physical and occupational therapy as well as a home health aide and mcc. Patient request for home health services to be set up through [facility]. Patient reports to also need a walker at discharge. Patient spouse plans to provide transportation to home for patient. Patient and patient spouse with multiple questions about Meals on Wheels, this social work assistant provided patient spouse with hand out on MOW's services. Patient declines for this social work assistant to make referral to MOW's. Patient also inquired further about private duty aides and confirms to still have list provided by this social work assistant. Patient with no further questions. Support provided. Telephone call to [facility] ROJAS. Referral made for physical and occupational therapy as well as mcc and a home health aide. Order entered. Order for walker to be sent to [facility], when obtained. Proposed discharge date: 02/06/2021 per patient choice. Disposition: Home with spouse and home health services. Valentina MARQUEZ, BECKY-S
--- NOTE | 2021-02-02 20:35 | PCM.DC.SUM ---
Providers Date of Admission: 01/01/21 Primary Care Physician: Dr. Deondre Pedro MD Reason For Visit: RECTAL CANCER Diagnosis Discharge Diagnosis (1) Anxiety: Status: Acute Code(s): F41.9 - Anxiety disorder, unspecified (2) Intractable pain: Status: Acute Code(s): R52 - Pain, unspecified (3) Anal pain: Status: Acute Code(s): K62.89 - Other specified diseases of anus and rectum (4) Anal fissure: Status: Acute Code(s): K60.2 - Anal fissure, unspecified (5) Mass of anus: Status: Acute Code(s): K62.89 - Other specified diseases of anus and rectum (6) Weakness: Status: Acute Code(s): R53.1 - Weakness (7) Anal squamous cell carcinoma: Status: Acute Code(s): C21.0 - Malignant neoplasm of anus, unspecified Medications at Discharge Home Medications Cbd Oil 6 drp PO/SL BID 12/06/20 cholecalciferol (vitamin D3) 25 mcg PO DAILY 12/16/20 cyanocobalamin (vitamin B-12) 1,000 mcg PO DAILY 12/16/20 epinephrine 0.3 mg IM X1 12/16/20 acetaminophen [Tylenol] 650 mg PO Q4H PRN PRN #0 tab 02/02/21 citalopram 20 mg PO DAILY 30 Days #30 tab 02/02/21 gabapentin 100 mg PO TIDCM 30 Days #90 cap 02/02/21 lorazepam 0.5 mg PO Q4H PRN PRN 30 Days #30 tab 02/02/21 menthol-zinc oxide [Calmoseptine] 1 applic TOPICAL BID #0 g 02/02/21 methadone 5 mg PO BID #0 tab 02/02/21 peg 118-icdmlnrymdjk-unmhawda [Artificial Tears(vx-fiwk-iycj)] 2 drp EACH EYE Q1H PRN #0 ml 02/02/21 polyethylene glycol 3350 17 g PO DAILY PRN #0 ea 02/02/21 sennosides-docusate sodium [Stool Softener-Stimulant Laxat] 2 tab PO BID 30 Days #120 tab 02/02/21 white petrolatum [Aquaphor Healing] 1 applic TOPICAL TID #0 g 02/02/21 Hospital Course Operations None Procedures None Summary of Care Provided Minutes Spent on Discharge: 35 Hospital Course: 75 year old female with below past medical history significant for anal cancer, undergoing radiation, starting chemotherapy in 6 days, admitted to TCU with debility, here for rehabilitation, strengthening, prior to discharge home with . Discharge home with 02/06/2021, [facility] PT/OT/SN/ALUMINA REFINERY OPERATOR. Resident starting chemotherapy 02/07/2021, resident NOT pursing surgery as treatment option. Physical Exam Const alert and oriented x3 General Appearance: cooperative HEENT normocephalic Eyes PERRL and EOMs intact bilaterally Neck supple, no JVD and no carotid bruits Resp normal respiratory effort, normal air movement and clear to auscultation bilaterally Cardio regular rate and regular rhythm GI normal to inspection, nondistended, normoactive bowel sounds, non-tender and non-distended Extremity normal capillary refill General Extremity: Negative for edema Skin no rashes or lesions noted General Skin Exam: no breakdown Psych affect normal Appearance: appropriate Weight / BMI Weight Weight: 55.593 kg Body Mass Index (BMI) 23.0 ABG / Lab / Microbiology Data Result Diagrams: 01/30/21 05:15 01/30/21 05:15 Microbiology: Microbiology 01/25/21 13:45 Nasal Secretion SARS-CoV-2 Antigen (Rapid) - Final 01/19/21 11:20 Interface Orders SARS-CoV-2 Antigen (Rapid) - Final 01/09/21 00:04 Urine, Catheterized Urine Culture - Final Enterococcus faecalis 01/03/21 12:20 Urine Catheter - Catheter Urine Culture - Final Enterococcus faecalis D/C Instructions Discharge Diet: No restrictions Discharge Activity: Return to Normal Activity, May Shower and Use Walker Weight Bearing Status: Weight bearing as tolerated Call your doctor if you observe: Fever of 101 or Higher, Inability to urinate, Inability to have a bowel movement, Shortness of breath, Fainting spells, Chest pain, Increased palpitations (irregular heartbeat), Calf discomfort and Uncontrolled pain Additional Instructions: Discharge home with 02/06/2021, [facility] PT/OT/SN/ALUMINA REFINERY OPERATOR. Please Follow Up With: Deondre Pedro Chi, MD When: 1 week. Meaningful Use Info Meaningful Use Diagnoses (Choose all that apply): None applicable Discharge Plan Admission Admit Date/Time: 01/01/21 18:08 Primary Reason for Your Visit: Debility. Attending Provider: Deondre Pedro Chi Primary Care Provider: Deondre Pedro Chi Instructions Additional Instructions / Restrictions: Discharge home with 02/06/2021, [facility] PT/OT/SN/ALUMINA REFINERY OPERATOR. Discharge Orders/Prescriptions Prescriptions: New acetaminophen [Tylenol] 325 mg Tablet 650 mg PO Q4H PRN PRN (Reason: Pain Score 1-10) Qty: 0 RF: 0 citalopram 20 mg Tablet 20 mg PO DAILY 30 Days Qty: 30 RF: 0 gabapentin 100 mg Capsule 100 mg PO TIDCM 30 Days Qty: 90 RF: 0 polyethylene glycol 3350 17 gram Powder In Packet 17 g PO DAILY PRN (Reason: CONSTIPATION) Qty: 0 RF: 0 sennosides-docusate sodium [Stool Softener-Stimulant Laxat] 8.6-50 mg Tablet 2 tab PO BID 30 Days Qty: 120 RF: 0 lorazepam 0.5 mg Tablet 0.5 mg PO Q4H PRN PRN (Reason: Anxiety/panic attack) 30 Days Qty: 30 RF: 0 methadone 5 mg Tablet 5 mg PO BID Qty: 0 RF: 0 Artificial Tears(wp-xeea-okgp) 1-0.2-0.2 % Drops 2 drp EACH EYE Q1H PRN (Reason: DRY EYES) Qty: 0 RF: 0 Aquaphor Healing 41 % Ointment 1 applic topical TID Qty: 0 RF: 0 Calmoseptine 0.44-20.6 % Ointment 1 applic topical BID Qty: 0 RF: 0 Continued Cbd Oil 6 drp PO/SL BID RF: 0 cyanocobalamin (vitamin B-12) 1,000 mcg Tablet 1,000 mcg PO DAILY RF: 0 cholecalciferol (vitamin D3) 25 mcg (1,000 unit) Tablet 25 mcg PO DAILY RF: 0 epinephrine 0.3 MG auto-injector 0.3 mg IM X1 RF: 0 Discontinued citalopram 10 mg tablet 2.5 mg PO QODAY RF: 0 ultraflora womens 1 cap PO DAILY RF: 0 metagenics ostera 1 cap PO DAILY RF: 0 lidocaine-prilocaine 2.5-2.5 % cream 1 applic topical ONCE PRN (Reason: Port access ) 30 Days Qty: 30 RF: 0 ondansetron 4 mg tablet,disintegrating 4 mg PO Q8H PRN (Reason: nausea and vomiting) Qty: 30 RF: 1 morphine 15 mg Capsule 15 mg PO Q12H RF: 0 Icdiphenoxyl 1 tab PO/SL ACHS RF: 0 dicyclomine 10 mg capsule 10 mg PO TID PRN (Reason: Diarrhea) RF: 0 oxycodone-acetaminophen [Endocet] 5-325 mg tablet 1 tab PO Q6H PRN (Reason: pain) 5 Days Qty: 20 RF: 0 Referrals / Follow Up: Deondre Pedro Chi, MD [Primary Care Provider] - Disposition Disposition (needs filled in before D/C Order can be placed): Home Health Service
[2021-02-02] MEDS: Menthol/Lanolin/Calamine/Znox 113 GM Tube 1 APPLIC TOPICAL (21:29)
[2021-02-03 06:14] VITALS: BP 123/48; PULSE 79; RESP 16; TEMP 36.8; O2SAT 96
[2021-02-03] MEDS: Menthol/Lanolin/Calamine/Znox 113 GM Tube 1 APPLIC TOPICAL ×2 (06:17→18:00)
[2021-02-03] MEDS: Mineral Oil/Petrolatum Cr 1.75oz Bottle 1 APPLIC TOPICAL ×3 (06:17→20:45)
[2021-02-03] MEDS: Citalopram 20 MG Tablet PO (06:18)
[2021-02-03] MEDS: Cyanocobalamin 500 MCG Tablet 1000 MCG PO (06:18)
[2021-02-03] MEDS: Cholecalciferol (VIT D3) 25 MCG TABLET (1,000 UNITS) PO (06:18)
[2021-02-03] MEDS: Gabapentin 100 MG Capsule PO ×3 (08:26→18:00)
[2021-02-03] MEDS: Multivitamins,Therapeutic Tablet 1 TABLET PO (08:26)
[2021-02-03 10:00] VITALS: PULSE 83; RESP 18; O2SAT 97
[2021-02-03 13:53] VITALS: BP 129/72; PULSE 71; RESP 18; TEMP 36.1; O2SAT 97
--- NOTE | 2021-02-03 14:20 | CASEMGMT ---
Social Work Order for front wheeled walker faxed to Daryl Ronquillo to delivered to patient room prior to discharge. Telephone call received from [facility] Riya POWER. Unable to accept patient due to not having openings. This social security specialist to follow up with patient on second option for home health. Proposed discharge date: 02/06/2021 Valentina MARQUEZ, GREGGS
--- NOTE | 2021-02-03 14:21 | CASEMGMT ---
Social Work Brief interview for mental status (BIMS) and resident mood interview (PHQ-9) completed on this day. Valentina MARQUEZ, GREGGS
--- NOTE | 2021-02-03 14:34 | CASEMGMT ---
Social Work Met with patient and patient spouse in room. This oncology social worker updated patient that [facility] is unable to accept patient. This oncology social worker provided list of home health companies, patient and patient spouse to look over list and get back to this oncology social worker. Patient also request for clinical information to be faxed to [facility] in the event that patient does not do well with chemo and needs further care home care. Telephone call to Fadumo Linares. Fadumo reports to have already spoken with patient. Clinical information faxed. Will continue to follow. Valentina MARQUEZ, CHUCK
--- NOTE | 2021-02-03 15:52 | CASEMGMT ---
Social Work Patient updated this neonatal social worker that first choice for home health company is [facility] and second choice is [facility]. Telephone call to Nelly Hinojosa. Referral made for PT/OT/HOUSEHOLD APPLIANCES SALESPERSON/SN. Clinicals faxed along with order and discharge. Nelly to get back in contact with neonatal social worker to update on if able to accept or not. Proposed discharge date: 02/06/2021 Disposition: Home with spouse and home health care. Valentina MARQUEZ, GREGGS
[2021-02-04] MEDS: LORazepam 0.5 MG Tablet PO ×3 (02:09→23:11)
[2021-02-04] MEDS: Mineral Oil/Petrolatum Cr 1.75oz Bottle 1 APPLIC TOPICAL ×3 (04:31→23:09)
[2021-02-04] MEDS: Menthol/Lanolin/Calamine/Znox 113 GM Tube 1 APPLIC TOPICAL ×2 (04:32→18:18)
[2021-02-04] MEDS: Citalopram 20 MG Tablet PO (04:33)
[2021-02-04] MEDS: Cyanocobalamin 500 MCG Tablet 1000 MCG PO (04:34)
[2021-02-04] MEDS: Cholecalciferol (VIT D3) 25 MCG TABLET (1,000 UNITS) PO (04:34)
[2021-02-04 04:37] VITALS: BP 136/67; PULSE 74; RESP 16; TEMP 36.8; O2SAT 95
[2021-02-04] MEDS: Gabapentin 100 MG Capsule PO ×3 (08:09→18:17)
[2021-02-04] MEDS: Multivitamins,Therapeutic Tablet 1 TABLET PO (08:09)
--- NOTE | 2021-02-04 13:57 | CASEMGMT ---
Addendum entered by Vandana Riley 02/04/21 16:28: Social Work Discharge information faxed to Palliative Medicine with d/c date. [address] Original Note: Social Work SW met with pt spouse as pt is out of room for procedure. Informed that [facility] is able to accept pt with start date of 02/07/21. is agreeable. All questions answered. D/C complete. Plan: D/C home with spouse 02/06/21 and [facility] PT/OT/SN/ARCHITECT IN TRAINING [address]
[2021-02-04 14:51] VITALS: BP 128/57; PULSE 70; RESP 18; TEMP 36.7; O2SAT 96
--- NOTE | 2021-02-04 16:38 | PCM.PN.PAL ---
Subjective Subjective Patient chest had a sitz bath and her skin is feeling much better. Her pain is been controlled on current regimen. She had a FaceTime visit with our physician, Dr. Brina Galvan so that we will be able to prescribe her narcotics when she is discharged to Sunday. Discussed her current plan of care at length, many questions were answered to the patient and her 's satisfaction. Still having diarrhea, she is concerned that when she starts chemo on Sunday this will worsen. We discussed titrating her medications. Objective Data Objective Data Vital Signs: Vital Signs Temp Pulse Resp BP Pulse Ox 98.0 F 70 18 128/57 H 96 02/04/21 14:51 02/04/21 14:51 02/04/21 14:51 02/04/21 14:51 02/04/21 14:51 Oxygen Delivery Method Room Air Weight: 55.593 kg Body Mass Index (BMI) 23.0 Intake & Output: Intake and Output for Last 24 Hours 02/02/21 02/03/21 02/04/21 23:59 23:59 23:59 Intake Total 480 / 480 600 / 600 480 / 480 Balance 480 / 480 600 / 600 480 / 480 Lab / Micro Data Result Diagrams: 01/30/21 05:15 01/30/21 05:15 Micro: Microbiology 01/25/21 13:45 Nasal Secretion SARS-CoV-2 Antigen (Rapid) - Final 01/19/21 11:20 Interface Orders SARS-CoV-2 Antigen (Rapid) - Final 01/09/21 00:04 Urine, Catheterized Urine Culture - Final Enterococcus faecalis 01/03/21 12:20 Urine Catheter - Catheter Urine Culture - Final Enterococcus faecalis Physical Exam Const alert, oriented x3 and no apparent distress General Appearance: cooperative HEENT normocephalic and head/scalp atraumatic Resp normal respiratory effort and normal air movement Effort and Inspection: able to speak in complete sentences Auscultation: clear to auscultation bilaterally Cardio S1 normal heart sound and S2 normal heart sound Rate: regular rate Rhythm: regular rhythm GI normal to inspection, nondistended, normoactive bowel sounds, soft to palpation and non-tender Auscultation: normoactive bowel sounds Palpation: soft Back/Spine Back/Spine Narrative: lying on side, cannot lay on back d/t pain General Back: tenderness Extremity no clubbing, cyanosis or edema Neuro CN's II-XII intact bilaterally Psych cooperative and speech normal Appearance: grossly normal Mood & Affect: anxious Memory / Cognition: other forgetful Assessment & Plan Assessment/Plan (1) Anxiety: (2) Intractable pain: (3) Anal pain: (4) Anal fissure: (5) Mass of anus: (6) Weakness: (7) Anal squamous cell carcinoma: PLAN: 75-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 Following with Dr. Lu and Dr. Moya. Palliative care following for intractable rectal and low back pain. She is scheduled for discharge on Sunday, 02/06. PLAN: 1. Continue therapy 2. Depression/anxiety: 01/07 Celexa increased to 20mg daily. Utilize PRN Ativan for anxiety. 3. Pain: 01/03: gabapentin per attending, 100mg TID. 01/04: start Methadone 5 mg BID. EKG 12/28/20, QTI in 450 range. Repeat EKG 01/17= QTI stable. Routine oxycodone 10mg q6h. Monitor bowels. More sedated but less pain since radiation. 01/27: d/c IV dilaudid Add oxycodone 5-10mg q6h PRN breakthrough pain Monitor bowels Utilize PRN acetaminophen Topical ointment to radiated area 02/02: pain significantly improved, d/c scheduled oxycodone. Keep scheduled methadone and PRN oxy, reevaluate in 1-2 days f/u as outpatient. Plan is to wean opioids as tolerated, which I suspect we will be able to do fairly quick 02/04: pt will be dc'd home 02/06. We sent RXs for methadone and oxycodone to [facility] retail pharmacy. Plans are to wean her from methadone over the next few weeks, then use prn oxycodone for pain control. We will also likely have to monitor bowels/medications closely given her start of chemo on Sunday. 4. EKG q3 months while on methadone, prn with dose changes. 5. We will continue to follow, please call with concerns. Carey Cortes [phone] Thank you for the opportunity to participate in this patient's care, please do not hesitate to contact [facility] with any further questions or concerns. Palliative direct line is [phone]. We will follow up here in the hospital PRN and when discharged home. Patient is agreeable to services and consents are signed. Greater than 50% of F2F visit dedicated to education and counseling of palliative care services, medications, comorbid conditions and potential assistance with management, and plan of care moving forward. Start time: 1431 End time: 1545
--- NOTE | 2021-02-04 23:15 | NURSING ---
Pt expresses anxiety with pending dc and chemotherapy to start on 02/07. Informed this nurse, she was informed per high density finishing operator that diarrhea is a side effect of chemo. Helpdesk Technician has not visited nor been consulted per cumulative reports. Emotional support, reassurance, and active listening provided. Ativan administered to decrease anxiety and promote sleep.
[2021-02-05] MEDS: Cholecalciferol (VIT D3) 25 MCG TABLET (1,000 UNITS) PO (04:51)
[2021-02-05] MEDS: Citalopram 20 MG Tablet PO (04:53)
[2021-02-05] MEDS: Cyanocobalamin 500 MCG Tablet 1000 MCG PO (04:53)
[2021-02-05] MEDS: Mineral Oil/Petrolatum Cr 1.75oz Bottle 1 APPLIC TOPICAL ×3 (04:59→19:55)
[2021-02-05 05:00] VITALS: BP 121/53; PULSE 63; RESP 16; TEMP 36.3
[2021-02-05] MEDS: Multivitamins,Therapeutic Tablet 1 TABLET PO (09:19)
[2021-02-05] MEDS: Gabapentin 100 MG Capsule PO ×3 (09:19→17:26)
--- NOTE | 2021-02-05 12:23 | NURSING ---
Addendum entered by Jennifer Xiao 02/05/21 12:26: just finished with sitz bath, scant amt of stool in sitz bath when finished. pt denies pain. Original Note: pt really fixated on having BM's so often. Pt incont of small amt of liquid stool in attends x3 this am. pt has been doing this since admission. Explained to pt that she needs to discuss this with her oncologist/radiation specialist because this may be normal for her situation. pt verbalized understanding. will continue to monitor.
[2021-02-05 15:11] VITALS: BP 107/54; PULSE 69; RESP 16; TEMP 36.6; O2SAT 96
--- NOTE | 2021-02-05 18:33 | NURSING ---
pt using sitz bath at this time.
[2021-02-06 03:57] VITALS: BP 115/56; PULSE 67; RESP 16; TEMP 36.3; O2SAT 93
[2021-02-06] MEDS: Mineral Oil/Petrolatum Cr 1.75oz Bottle 1 APPLIC TOPICAL ×2 (04:04→14:11)
[2021-02-06] MEDS: Citalopram 20 MG Tablet PO (04:05)
[2021-02-06] MEDS: LORazepam 0.5 MG Tablet PO (04:05)
[2021-02-06] MEDS: Cholecalciferol (VIT D3) 25 MCG TABLET (1,000 UNITS) PO (04:05)
[2021-02-06] MEDS: Cyanocobalamin 500 MCG Tablet 1000 MCG PO (04:06)
[2021-02-06 07:03] LABS: Absolute Lymphocyte Count 0.25 X10^3/uL (0.83-4.51); Absolute Neutrophil Count 4.4 X10^3/uL (2.0-7.7); Basophil# 0.02 X10^3/uL; Basophil% 0.4 % (0-1); Eosinophil# 0.06 X10^3/uL; Eosinophils% 1.1 % (0-5); Hematocrit 37.7 % (37-47); Hemoglobin 12.1 g/dL (12.0-15.0); Lymphocyte # 0.25 X10^3/ul (0.83-4.51); Lymphocyte % 4.6 % (19-41); Mean Corp Hgb Conc 32.1 g/dL (32-36); Mean Corpuscular Hgb 30.6 pg (27.0-32.0); Mean Corpuscular Volume 95.2 fL (81-99); Monocyte# 0.75 X10^3/uL; Monocyte% 13.7 % (0-10); NRBC Flagged by Analyzer 0 % (0-5); Neutrophil # 4.37 X10^3/uL (2.7-7.7); Neutrophil % 79.7 % (47-70); POSITIVE DIFFERENTIAL YES; Platelet Count 152 K/mm3 (150-450); RBC Distribution Width CV 14.4 % (11.6-14.6); Red Blood Count 3.96 M/mm3 (4.2-5.4); White Blood Count 5.5 K/mm3 (4.4-11.0)
[2021-02-06 07:05] LABS: Differential Indicated SCAN CRITERIA MET
[2021-02-06 07:18] LABS: Anion Gap 3 (5-15); BUN 16 mg/dL (7-18); BUN/Creat Ratio 25.4 RATIO (10-20); Calcium,Total 9.3 mg/dL (8.5-10.1); Chloride 100 mmol/L (98-107); Creatinine, Serum 0.63 mg/dL (0.55-1.02); EST Glomerular Filtration Rate 98 mL/min (>60); Est Glom Filt Rate - Afr Amer 119 mL/min (>60); Estimated Creatinine Clearance 41.45 ml/min; Glucose 97 mg/dL (74-106); Potassium 4.6 mmol/L (3.5-5.1); Sodium Level 132 mmol/L (136-145)
[2021-02-06 07:24] LABS: Differential Comment SCANNED
[2021-02-06] MEDS: Acetaminophen 325 MG Tablet 650 MG PO (07:57)
[2021-02-06] MEDS: Multivitamins,Therapeutic Tablet 1 TABLET PO (07:58)
[2021-02-06] MEDS: Gabapentin 100 MG Capsule PO ×3 (07:58→17:06)
[2021-02-06 11:47] VITALS: PULSE 89; RESP 16; O2SAT 98
[2021-02-06 14:12] VITALS: BP 105/56; PULSE 70; RESP 16; TEMP 37.3; O2SAT 95
--- NOTE | 2021-02-06 14:48 | PCA ---
Addendum entered by Zoraida Marks 02/06/21 14:52: Spoke with Lawanda from [facility] 02/06/2021 14:43pm option #2. Original Note: Patient's asked me about a walker being delivered to this facility for home upon discharge for adenike. I came out and looked through notes from the neonatal social worker Sylvia. Notes explained that a walker would be obtained upon discharge for patient. I called [facility] regarding the walker they explained to me that they needed the physician's prescription faxed over to obtain the request. I explained the situation to primer charger Mary.
--- NOTE | 2021-02-06 17:33 | NURSING ---
Reviewed medications & DC instructions with pt and in much detail. pt very anxious about going home, 1:1 support given.
== END 2021-02-06 18:00 | disposition home health service (06) | DRG 376 ==
PROVIDERS: Internal Medicine; Admitting Provider Family Medicine Geriatric Medicine; PCP Family Medicine Geriatric Medicine; Visit Provider Family Medicine Geriatric Medicine
DX: C21.0 Malignant neoplasm of anus, unspecified (principal); F32.9 Major depressive disorder, single episode, unspecified; F41.9 Anxiety disorder, unspecified; G89.29 Other chronic pain; G25.81 Restless legs syndrome; G20 Parkinson's disease; M41.9 Scoliosis, unspecified; F02.80 Dementia in other diseases classified elsewhere, unspecified severity, without behavioral disturbance, psychotic disturbance, mood disturbance, and anxiety; F41.0 Panic disorder [episodic paroxysmal anxiety]; R35.0 Frequency of micturition; R39.15 Urgency of urination; M19.90 Unspecified osteoarthritis, unspecified site; R62.7 Adult failure to thrive; K64.9 Unspecified hemorrhoids; E55.9 Vitamin D deficiency, unspecified; K59.00 Constipation, unspecified; R15.9 Full incontinence of feces; Z87.891 Personal history of nicotine dependence; Z79.899 Other long term (current) drug therapy; Z98.1 Arthrodesis status; Z79.891 Long term (current) use of opiate analgesic
CPT/HCPCS: 36415; 74018; 80048; 81001; 85025; 87077; 87086; 87088; 87186; 87426; 87635; 92507; 92526; 93005; 97110; 97116; 97162; 97166; 97530; 97535; 97802; J7030; U0005; A4216; U0003

== ENCOUNTER 2021-02-16 14:48 | Inpatient (IN) | payer MEDICARE, OTHER, SELFPAY ==
[2021-02-14 10:36] VITALS: BMI 22.1
[2021-02-16 14:49] VITALS: BP 93/43; PULSE 84; RESP 18; TEMP 36.4; O2SAT 95; BMI 21.9
--- NOTE | 2021-02-16 15:02 | EKG12_ITS ---
Test Reason : WEAKNESS Blood Pressure : / mmHG Vent. Rate : 077 BPM Atrial Rate : 077 BPM P-R Int : 134 ms QRS Dur : 082 ms QT Int : 400 ms P-R-T Axes : 026 -15 039 degrees QTc Int : 452 ms Sinus rhythm with Premature atrial complexes Low voltage QRS Confirmed by COLLETTE WALLACE, SHILPA ([id number]), desk editor CARL BURROWS ([id number]) on 02/18/2021 10:12:01 AM Referred By: GABI Confirmed By:SHILPA MURDOCK MD
--- NOTE | 2021-02-16 15:12 | CT_ITS ---
STUDY: CT BRAIN WITHOUT CONTRAST REASON FOR EXAM: Female, 75 years old. confusion RADIATION DOSAGE (If Supplied By Facility): CTDIvol = ( 44.99 ) mGy, DLP = ( 779.24 ) mGycm TECHNIQUE: Transaxial CT imaging of the brain was performed without administration of intravenous contrast material. Individualized dose optimization techniques were used for this CT. COMPARISON: No relevant priors. FINDINGS: Normal soft tissue structures. Normal calvarium. There is mild cerebral atrophy with widening of the extra-axial spaces and ventricular dilatation. There are areas of decreased attenuation within the white matter tracts of the supratentorial brain, consistent with microvascular disease changes. There are conspicuous but amorphous calcifications of the bilateral basal ganglia and bilateral dentate (cerebellum) nuclei. The differential diagnostic considerations includes: Fahrs disease, or endocrine disorders (hyperparathyroidism, hypoparathyroidism, pseudohypoparathyroidism). Normal brainstem. Normal cerebellum. There is no intracranial hemorrhage. There are no findings of an acute ischemic infarction. Normal visualized paranasal sinuses. CT/Brain/Head without Contrast IMPRESSION: No acute intracranial hemorrhage or mass effect. Electronically Signed: Rakesh Lama MD (Brooks) at 16:28 EDT , Service support ,
--- NOTE | 2021-02-16 15:42 | EDS_ITS ---
HPI History of Present Illness Chief Complaint: Weakness Narrative Narrative: Patient has anal cancer has been getting radiation treatments, she has about 5 more left, she was discharged from TCU because of failure to thrive type scenario about 1 week ago, and is getting more confused and weaker. She cannot get around without a lot of assistance. states she has been more confused for maybe the past 2 weeks. He states sometimes she understands her scenario another time she is completely oblivious to it. She states she often has pain in her perianal area/rectum, right now she is not in pain. [facility] Medical History Acute hemorrhoid Anemia Anxiety Cataract Chronic pain Degenerative disc disease Depression Edema Former smoker h/o anterior lumbar interbody fusion L4-5, L5-S1. H/o Laminectomy L2-5, fusion T11-S1, instrumentation local History of IBS History of needle biopsy History of rectal bleeding Mitral and aortic valve disease Osteoporosis Osteoporosis Parkinson's disease Post-menopausal Rectal cancer Restless legs Scoliosis Spinal stenosis Syncope Wears hearing aid Wears hearing aid in both ears Home Medications cholecalciferol (vitamin D3) 25 mcg PO DAILY 12/16/20 [History Last Taken 02/16/21] cyanocobalamin (vitamin B-12) 1,000 mcg PO DAILY 12/16/20 [History Last Taken 02/16/21] epinephrine 0.3 mg IM X1 12/16/20 [History Last Taken Unknown] citalopram 20 mg PO DAILY 30 Days #30 tab 02/02/21 [Rx Last Taken 02/16/21] gabapentin 100 mg PO TIDCM 30 Days #90 cap 02/02/21 [Rx Last Taken 02/16/21] methadone 5 mg PO BID #0 tab 02/02/21 [Rx Last Taken 02/16/21] sennosides-docusate sodium [Stool Softener-Stimulant Laxat] 2 tab PO BID 30 Days #120 tab 02/02/21 [Rx Last Taken 02/16/21] white petrolatum [Aquaphor Healing] 1 applic TOPICAL TID #0 g 02/02/21 [Rx Last Taken 3 Days Ago ~02/13/21] oxycodone 5 mg capsule 5 mg PO Q4H PRN PRN 02/09/21 [History Last Taken 01/28 08/19] ciprofloxacin HCl 250 mg tablet 250 mg PO BID 02/14/21 [History Last Taken 02/16/21] Pinxav 1 applic TRANSDERMAL DAILY PRN PRN 02/16/21 [History Last Taken 02/16/21] Allergy/AdvReac Type Severity Reaction Status Date / Time nut - unspecified Allergy Anaphylaxis Verified 02/16/21 14:51 peanut Allergy Hives Verified 02/16/21 14:51 procaine HCl [From Novocain] Allergy Angioedema Verified 02/16/21 14:51 acetaminophen [From Vicodin] AdvReac Other Verified 02/16/21 14:51 alprazolam [From Xanax] AdvReac Other Verified 02/16/21 14:51 hydrocodone bitartrate AdvReac Other Verified 02/16/21 14:51 [From Vicodin] metaxalone [From Skelaxin] AdvReac Other Verified 02/16/21 14:51 nabumetone AdvReac Other Verified 02/16/21 14:51 Family History Mother Hypertension Cancer Skin cancer, at age 104 Father , at age: 88 emphysema Pneumonia Dementia Grandmother CVA (cerebral vascular accident) Surgical History H/O spinal fusion History of bronchoscopy History of cataract surgery History of tonsillectomy and adenoidectomy Hx of colonoscopy Port-A-Cath in place S/P ear surgery Social History household members: spouse housing: house Smoking Status: Former smoker pack-years: 8 Tobacco: How many years used: 10 alcohol intake: never substance use type: does not use what type of physical activity do you participate in: none marialuisa/spiritism: Buddhist seatbelt use: always do you feel safe at home: Yes ROS ROS ED Constitutional Constitutional ED: Denies chills or fever(s) Eyes Eyes: Denies change in vision or diplopia ENT ENT ED: Denies rhinorrhea or sore throat Cardiovascular Cardiovascular: Denies chest pain or palpitations Respiratory/Chest Respiratory/Chest: Denies cough or dyspnea Gastrointestinal Gastrointestinal: Reports as per HPI; Denies abdominal pain, diarrhea, nausea or vomiting Genitourinary Genitourinary ED: Denies dysuria or hematuria Musculoskeletal Musculoskeletal: Denies back pain or neck pain Integumentary Denies abscess or rash Neurologic Neurologic: Reports as per HPI and confusion; Denies focal weakness, headache(s), paresthesias or weakness Psychiatric Psychiatric: Denies anxiety or suicidal thoughts EXAM Physical Exam Const Vital Signs: 02/16/21 14:49 02/16/21 15:22 02/16/21 16:06 Temperature 97.5 F L Temperature Source Temporal Pulse Rate 84 Respiratory Rate 18 16 Respiratory Effort Normal Respiratory Pattern Normal Blood Pressure 93/43 L Blood Pressure Mean 59 Pulse Ox 95 Oxygen Delivery Method Room Air 02/16/21 17:28 Temperature Temperature Source Pulse Rate 74 Respiratory Rate 19 H Respiratory Effort Respiratory Pattern Blood Pressure 105/59 L Blood Pressure Mean 74 Pulse Ox 98 Oxygen Delivery Method Room Air Positive well nourished and well developed General Appearance ED: well developed and NAD HEENT Reports moist mucous membranes normocephalic and atraumatic Eyes PERRL and EOMs intact bilaterally Neck full ROM and supple Resp normal respiratory effort and clear to auscultation bilaterally Cardio regular rate, regular rhythm and no murmurs GI non-tender and non-distended Auscultation: normoactive bowel sounds Palpation: soft Back/Spine no CVA tenderness General Back: other FROM Extremity normal to inspection General Extremety ED: Negative for edema, pulses abnormal or tenderness General Extremity: Negative for edema or pulses abnormal Neuro CN's II-XII intact bilaterally and no sensory deficits noted Novi Coma Scale: document GCS findings Spontaneous Obeys Commands Confused 14 Sensorium / Orientation: awake, alert, oriented to person and oriented to place; Negative for oriented to time Motor Exam: strength 5/5 throughout Skin no rashes or lesions noted and no wounds MDM MDM MDM Narrative Medical decision making narrative: Work-up shows no acute explanation for her generalized weakness and confusion. Imaging is unremarkable, she is leukopenic/pancytopenic, but not neutropenic and having no fevers that we know of, nor is she febrile here. Given her generally declining condition, will admit for further evaluation and placement. Lab Data Attestation: I reviewed the patient's lab results. Labs: Laboratory Results - last 24 hr 02/16/21 02/16/21 02/16/21 15:45 15:45 17:25 WBC 1.5 L RBC 3.05 L Hgb 9.4 L Hct 28.5 L MCV 93.4 MCH 30.8 MCHC 33.0 RDW Std Deviation 47.0 H RDW Coeff of Selvin 13.8 Plt Count 103 L MPV 9.1 Immature Gran % (Auto) 0.700 Neut % (Auto) 68.4 Lymph % (Auto) 1.3 L Ed[place] % (Auto) 26.2 H Eos % (Auto) 2.7 Baso % (Auto) 0.7 Absolute Neuts (auto) 1.0 L Absolute Lymphs (auto) 0.02 L Nucleated RBC % 0 Differential Comment SCANNED Diff Path Review November foll Sodium 131 L Potassium 3.7 Chloride 99 Carbon Dioxide 27.0 Anion Gap 5 BUN 10 Creatinine 0.52 L Estim Creat Clear Calc 41.45 Est GFR (MDRD) Af Amer 148 Est GFR (MDRD) Non-Af 123 BUN/Creatinine Ratio 19.2 Glucose 117 H Calcium 8.9 Total Bilirubin 0.40 AST 14 L ALT 16 Alkaline Phosphatase 42 L Troponin I High Sens 8.4 Total Protein 5.8 L Albumin 2.3 L Globulin 3.5 Albumin/Globulin Ratio 0.7 L Urine Color Yellow Urine Clarity Clear Urine pH 5.0 Ur Specific [place] 1.020 Urine Protein 15 H Urine Glucose (UA) Normal Urine Ketones Negative Urine Occult Blood 50 H Urine Nitrite Negative Urine Bilirubin Negative Urine Urobilinogen Normal Ur Leukocyte Esterase 25 H Urine RBC 0-5 SEEN Urine WBC 0-5 SEEN Ur Squamous Epith Cells 0 SEEN Urine Bacteria 0 SEEN Urine Mucus 2+ Radiography Diagnostic Testing: Radiology Impression Brain CT 02/16/21 15:12 IMPRESSION: No acute intracranial hemorrhage or mass effect. Electronically Signed: Rakesh Lama MD ([place]) at 16:28 EDT , Service support , Chest X-Ray 02/16/21 16:10 IMPRESSION: 1. No airspace consolidation or pleural effusion. Electronically Signed: Rakesh Lama MD ([place]) at 16:29 EDT , Service support , EKG Initial EKG: Attestation: I personally reviewed and interpreted this EKG as follows: Interpretation: Sinus Rhythm and No Acute Injury Pattern Prior EKG tracings: available for review Prior: Unchanged Discharge Plan Dx/Rx/DC Orders Clinical Impression: Generalized weakness, Anal cancer Disposition Disposition: Acute Care Hospital [facility]
[2021-02-16 15:52] LABS: Absolute Lymphocyte Count 0.02 X10^3/uL (0.83-4.51); Basophil# 0.01 X10^3/uL; Basophil% 0.7 % (0-1); Eosinophil# 0.04 X10^3/uL; Eosinophils% 2.7 % (0-5); Hematocrit 28.5 % (37-47); Hemoglobin 9.4 g/dL (12.0-15.0); Lymphocyte # 0.02 X10^3/ul (0.83-4.51); Lymphocyte % 1.3 % (19-41); Mean Corpuscular Hgb 30.8 pg (27.0-32.0); Mean Corpuscular Volume 93.4 fL (81-99); Mean Platelet Vol. 9.1 fl (6.2-12.0); Monocyte# 0.39 X10^3/uL; Monocyte% 26.2 % (0-10); NRBC Flagged by Analyzer 0 % (0-5); Neutrophil # 1.02 X10^3/uL (2.7-7.7); Neutrophil % 68.4 % (47-70); POSITIVE COUNT YES; POSITIVE DIFFERENTIAL YES; POSITIVE MORPHOLOGY YES; Platelet Count 103 K/mm3 (150-450); RBC Distribution Width CV 13.8 % (11.6-14.6); Red Blood Count 3.05 M/mm3 (4.2-5.4); White Blood Count 1.5 K/mm3 (4.4-11.0)
[2021-02-16 16:06] VITALS: RESP 16
[2021-02-16] MEDS: 0.45% Normal Saline 1,000 ML 150 ML IV (16:07)
--- NOTE | 2021-02-16 16:10 | RAD_ITS ---
STUDY: X-RAY CHEST REASON FOR EXAM: Female, 75 years old. weakness TECHNIQUE: AP COMPARISON: 12/28/2020 FINDINGS: Right chest port stable. EKG leads project over the chest. No airspace consolidation. There is no demonstrated pleural abnormality. Normal size heart. Normal mediastinum and zaid. Normal visualized pulmonary arteries. There is atherosclerotic tortuosity of the aortic arch and descending thoracic aorta. There is demineralization of the osseous structures. Fusion hardware of the thoracolumbar spine. There is no demonstrated abnormality of the visualized soft tissue structures of the upper abdomen. RAD/Chest 1 View (Portable) IMPRESSION: 1. No airspace consolidation or pleural effusion. Electronically Signed: Rakesh Lama MD ([place]) at 16:29 EDT , Service support ,
[2021-02-16 16:15] LABS: Differential Indicated SCAN CRITERIA MET
[2021-02-16 16:17] LABS: ALB/GLOB Ratio 0.7 RATIO (0.9-2.4); AST(SGOT) 14 U/L (15-37); Alanine Aminotransfer ALT/SGPT 16 U/L (13-56); Albumin, Serum 2.3 g/dL (3.2-5.0); Alkaline Phosphatase 42 U/L (45-117); Anion Gap 5 (5-15); BUN 10 mg/dL (7-18); BUN/Creat Ratio 19.2 RATIO (10-20); Calcium,Total 8.9 mg/dL (8.5-10.1); Chloride 99 mmol/L (98-107); Creatinine, Serum 0.52 mg/dL (0.55-1.02); EST Glomerular Filtration Rate 123 mL/min (>60); Est Glom Filt Rate - Afr Amer 148 mL/min (>60); Estimated Creatinine Clearance 41.45 ml/min; Globulin 3.5 g/dL (2.2-4.2); Glucose 117 mg/dL (74-106); Potassium 3.7 mmol/L (3.5-5.1); Protein, Total 5.8 g/dL (6.4-8.2); Sodium Level 131 mmol/L (136-145); Troponin-I HS 8.4 pg/mL (3.0-53.7)
[2021-02-16 16:56] LABS: Differential Comment SCANNED
[2021-02-16 17:28] VITALS: BP 105/59; PULSE 74; RESP 19; O2SAT 98
[2021-02-16] MEDS: Morphine 2 MG/ML Syringe IV (17:28)
[2021-02-16 17:31] LABS: Bacteria 0 SEEN /hpf (None Seen); Color, Urine Yellow (Yellow); Glucose, Dipstick Normal (Normal); Ketone-Dipstick Negative (Negative); Leukocyte Esterase-Dipstick 25 /ul (Negative); Nitrite-Dipstick Negative (Negative); Occult Blood-Urine 50 /ul (Negative); Protein-Dipstick 15 mg/dl (Negative); Squamous Epithelial Cells - UA 0 SEEN /hpf (5-10); Urine Bilirubin Dipstick Negative (Negative); Urine Clarity Clear (Clear); Urine Urobilinogen Normal (Normal)
[2021-02-16 17:41] LABS: Mucous, Urine 2+ /hpf (<or=2+); Red Blood Cells-Urine 0-5 SEEN /hpf (0-5); White Blood Cells 0-5 SEEN /hpf (0-5)
--- NOTE | 2021-02-16 18:09 | NURSING ---
MED SURG AMAURY GENERALIZED WEAKNESS, ANAL CANCER
--- NOTE | 2021-02-16 18:15 | HP.PCM.HOS_ITS ---
HPI - General General Date of Admission: 02/16/21 HPI Narrative KALPANA LION, is a 75 F who presented to the emergency department [facility] on 02/16/2021 for debility. She has anal cancer and has been undergoing radiation and chemotherapy. She was discharged from the TCU about a week ago to home and complains that she is getting more confused and weaker. She is unable to ambulate without much assistance and her indicates she is been more confused in the past 2 weeks. She indicates that she has pain in the perianal and rectal area but not currently in any acute pain. She was admitted to the TCU for failure to thrive. Her last radiation treatment was today. There is documentation in Dr. Leahy's note from radiation oncology that he was going to initiate a palliative care referral. Her vital signs are stable other than some mild hypotension but this appears to be chronic. Her CBC shows a stable pancytopenia. Her BMP shows a stable hyponatremia. LFTs are within normal limits her UA shows no sign of acute infection. She will be admitted to medical surgical floor for further placement. [facility] Medical History Acute hemorrhoid Anemia Anxiety Cataract Chronic pain Degenerative disc disease Depression Edema Former smoker h/o anterior lumbar interbody fusion L4-5, L5-S1. H/o Laminectomy L2-5, fusion T11-S1, instrumentation local History of IBS History of needle biopsy History of rectal bleeding Mitral and aortic valve disease Osteoporosis Osteoporosis Parkinson's disease Post-menopausal Rectal cancer Restless legs Scoliosis Spinal stenosis Syncope Wears hearing aid Wears hearing aid in both ears Home Medications cholecalciferol (vitamin D3) 25 mcg PO DAILY 12/16/20 [History Last Taken 02/16/21] cyanocobalamin (vitamin B-12) 1,000 mcg PO DAILY 12/16/20 [History Last Taken 02/16/21] epinephrine 0.3 mg IM X1 12/16/20 [History Last Taken Unknown] citalopram 20 mg PO DAILY 30 Days #30 tab 02/02/21 [Rx Last Taken 02/16/21] gabapentin 100 mg PO TIDCM 30 Days #90 cap 02/02/21 [Rx Last Taken 02/16/21] methadone 5 mg PO BID #0 tab 02/02/21 [Rx Last Taken 02/16/21] sennosides-docusate sodium [Stool Softener-Stimulant Laxat] 2 tab PO BID 30 Days #120 tab 02/02/21 [Rx Last Taken 02/16/21] white petrolatum [Aquaphor Healing] 1 applic TOPICAL TID #0 g 02/02/21 [Rx Last Taken 3 Days Ago ~02/13/21] oxycodone 5 mg capsule 5 mg PO Q4H PRN PRN 02/09/21 [History Last Taken 02/16/21] ciprofloxacin HCl 250 mg tablet 250 mg PO BID 02/14/21 [History Last Taken 02/16/21] Pinxav 1 applic TRANSDERMAL DAILY PRN PRN 02/16/21 [History Last Taken 02/16/21] Allergy/AdvReac Type Severity Reaction Status Date / Time nut - unspecified Allergy Anaphylaxis Verified 02/16/21 14:51 peanut Allergy Hives Verified 02/16/21 14:51 procaine HCl [From Novocain] Allergy Angioedema Verified 02/16/21 14:51 acetaminophen [From Vicodin] AdvReac Other Verified 02/16/21 14:51 alprazolam [From Xanax] AdvReac Other Verified 02/16/21 14:51 hydrocodone bitartrate AdvReac Other Verified 02/16/21 14:51 [From Vicodin] metaxalone [From Skelaxin] AdvReac Other Verified 02/16/21 14:51 nabumetone AdvReac Other Verified 02/16/21 14:51 Family History Mother Hypertension Cancer Skin cancer, at age 104 Father , at age: 88 emphysema Pneumonia Dementia Grandmother CVA (cerebral vascular accident) Surgical History H/O spinal fusion History of bronchoscopy History of cataract surgery History of tonsillectomy and adenoidectomy Hx of colonoscopy Port-A-Cath in place S/P ear surgery Social History household members: spouse housing: house Smoking Status: Former smoker pack-years: 8 Tobacco: How many years used: 10 alcohol intake: never substance use type: does not use what type of physical activity do you participate in: none marialuisa/protestant: Uatsdin seatbelt use: always do you feel safe at home: Yes ROS Constitutional Constitutional: Reports malaise and weakness; Denies anorexia, change in weight, chills, fatigue, fever(s), night sweats or other Eyes Eyes: Denies blurry vision, change in eye color, change in vision, discharge from eye(s), double vision, erythema, eye pain, loss of vision or other ENT HEENT: Denies abnormal hearing, dysphagia, ear pain, epistaxis, headache(s), hearing loss, nasal congestion, nasal discharge, post nasal drip, sinus pressure, sore throat or other Cardiovascular Cardiovascular: Denies chest pain, claudication, dyspnea on exertion, edema, lightheadedness, orthopnea, palpitations, paroxysmal nocturnal dyspnea, rapid heart rate, syncope or other Respiratory/Chest Respiratory/Chest: Denies cough, dyspnea, excessive phlegm production, hemoptysis, productive cough, shortness of breath at rest, shortness of breath with exertion, wheezing or other Gastrointestinal Gastrointestinal: Reports loose stools; Denies abdominal pain, coffee ground emesis, constipation, diarrhea, dyspepsia, hematemesis, hematochezia, melena, nausea, vomiting or other Genitourinary Genitourinary: Denies burning urination, difficulty urinating, dysuria, hematuria, nocturia, urinary frequency, urinary hesitancy, urinary incontinence, urinary urgency or other Musculoskeletal Musculoskeletal: Denies arthralgias, back pain, joint pain, joint stiffness, joint swelling, myalgias, neck pain or other Neurologic Neurologic: Reports abnormal gait, confusion, paresthesias and other Details: Generalized weakness secondary to diffuse weakness Psychiatric Psychiatric: Reports depression; Denies anxiety, homicidal ideation, suicidal ideation or other Endocrine Endocrinology: Denies change in body appearance, cold intolerance, excessive sweating, heat intolerance, polydipsia, polyuria or other Hematologic/Lymphatic Hematologic/Lymphatic: Reports anemia Allergic/Immunologic Allergic/Immunologic: Denies rhinitis, hives, eczemia, asthma or other Vital Signs Vital Signs Vital Signs: 02/16/21 14:49 02/16/21 15:22 02/16/21 16:06 Temperature 97.5 F L Temperature Source Temporal Pulse Rate 84 Respiratory Rate 18 16 Respiratory Effort Normal Respiratory Pattern Normal Blood Pressure 93/43 L Blood Pressure Mean 59 Pulse Ox 95 Oxygen Delivery Method Room Air 02/16/21 17:28 Temperature Temperature Source Pulse Rate 74 Respiratory Rate 19 H Respiratory Effort Respiratory Pattern Blood Pressure 105/59 L Blood Pressure Mean 74 Pulse Ox 98 Oxygen Delivery Method Room Air Weight Weight: 56.245 kg Body Mass Index (BMI) 21.9 Physical Exam Const alert and oriented x3 Constitutional Narrative: Thin white female lying in left side-lying, appears debilitated but nontoxic HEENT normocephalic and head/scalp atraumatic HEENT Narrative: Dry mucous membranes Eyes PERRL and EOMs intact bilaterally Eyes Narrative: Pale conjunctiva Neck supple Neck Narrative: Trachea midline Resp normal respiratory effort, no retractions, no use of accessory muscles and clear to auscultation bilaterally Auscultation: Negative for crackles, rales, rhonchi or wheezes Cardio regular rate, S1 normal heart sound, S2 normal heart sound, no murmurs, no rub, no gallops, no clicks and no JVD GI normal to inspection, nondistended, normoactive bowel sounds, soft to palpation, non-tender, non-distended and hepatosplenomegaly Palpation: Negative for tender, guarding or hernia Extremity normal to inspection and no clubbing, cyanosis or edema Peripheral Pulses: Yes pulses 2+ throughout Skin no rashes or lesions noted, no wounds, skin turgor normal, no jaundice, no petechiae and no mottling Skin Narrative: Pale skin, periarea is very macerated and erythematous Neuro oriented x3, CN's II-XII intact bilaterally and moves all extremities Sensorium / Orientation: awake, alert, oriented to person, oriented to place and oriented to time Speech: speech normal Psych Psych Narrative: Flat affect appears depressed Mood & Affect: depressed Results Lab / Micro Data Attestation: I reviewed the patient's lab results. Result Diagrams: 02/16/21 15:45 02/16/21 15:45 Labs: Laboratory Results - last 24 hr 02/16/21 15:45: Sodium 131 L, Potassium 3.7, Chloride 99, Carbon Dioxide 27.0, Anion Gap 5, BUN 10, Creatinine 0.52 L, Estim Creat Clear Calc 41.45, Est GFR (MDRD) Af Amer 148, Est GFR (MDRD) Non-Af 123, BUN/Creatinine Ratio 19.2, Glucose 117 H, Calcium 8.9, Total Bilirubin 0.40, AST 14 L, ALT 16, Alkaline Phosphatase 42 L, Troponin I High Sens 8.4, Total Protein 5.8 L, Albumin 2.3 L, Globulin 3.5, Albumin/Globulin Ratio 0.7 L 02/16/21 15:45: WBC 1.5 L, RBC 3.05 L, Hgb 9.4 L, Hct 28.5 L, MCV 93.4, MCH 30.8, MCHC 33.0, RDW Std Deviation 47.0 H, RDW Coeff of Selvin 13.8, Plt Count 103 L, MPV 9.1, Immature Gran % (Auto) 0.700, Neut % (Auto) 68.4, Lymph % (Auto) 1.3 L, [place] % (Auto) 26.2 H, Eos % (Auto) 2.7, Baso % (Auto) 0.7, Absolute Neuts ( auto) 1.0 L, Absolute Lymphs (auto) 0.02 L, Nucleated RBC % 0, Differential Comment SCANNED, Diff Path Review November02/16/21 17:25: Urine Color Yellow, Urine Clarity Clear, Urine pH 5.0, Ur Specific [place] 1.020, Urine Protein 15 H, Urine Glucose (UA) Normal, Urine Ketones Negative, Urine Occult Blood 50 H, Urine Nitrite Negative, Urine Bilirubin Negative, Urine Urobilinogen Normal, Ur Leukocyte Esterase 25 H, Urine RBC 0-5 SEEN, Urine WBC 0-5 SEEN, Ur Squamous Epith Cells 0 SEEN, Urine Bacteria 0 SEEN, Urine Mucus 2+ Radiology Impression Brain CT 02/16/21 15:12 IMPRESSION: No acute intracranial hemorrhage or mass effect. Electronically Signed: Rakesh Lama MD ([place]) at 16:28 EDT , Service support , Chest X-Ray 02/16/21 16:10 IMPRESSION: 1. No airspace consolidation or pleural effusion. Electronically Signed: Rakesh Lama MD ([place]) at 16:29 EDT , Service support , Assessment & Plan Assessment/Plan (1) Debility: (2) Generalized weakness: (3) Anal cancer: (4) Pancytopenia: (5) Adult failure to thrive: PLAN: Generalized weakness/debility/failure to thrive -Patient with recent admission to TCU and was discharged home approximately week before presentation -We will need replacement as patient and family are not able to cope at home with current debility -PT/OT consult -Generalized diet to improve p.o. intake -Consultation to palliative care for assistance with symptom management related to radiation and chemotherapy Anal cancer -Undergoing chemo and radiation -Sees Dr. Meadows -Palliative care consultation -Continue methadone, oxycodone as needed, gabapentin Pancytopenia -Likely related to radiation and chemotherapy -Monitor counts History of lumbar DJD/DDD -Status post surgical intervention remotely -Continue chronic pain medication Skin breakdown in periarea -Continue home creams -Consultation to wound care Depression -Continue citalopram DVT prophylaxis -Continue Lovenox CODE STATUS -Full code Charges/Coding Visit Charges Inpatient E&M: 58395 Init Hosp L2
[2021-02-16 18:19] VITALS: BP 97/57; PULSE 76; RESP 16; TEMP 37.3; O2SAT 94
[2021-02-16 18:38] VITALS: BMI 22.8
--- NOTE | 2021-02-16 18:42 | ED.RN ---
left message for re: admission
[2021-02-16 18:52] VITALS: BP 96/58; PULSE 72; RESP 16; TEMP 37.1; O2SAT 98
[2021-02-16] MEDS: 0.9% Normal Saline 1,000 ML 50 ML IV (19:04)
[2021-02-16] MEDS: Menthol/Lanolin/Calamine/Znox 113 GM Tube 1 APPLIC TOPICAL (20:52)
[2021-02-16] MEDS: Mineral Oil/Petrolatum Cr 1.75oz Bottle 1 APPLIC TOPICAL (20:52)
[2021-02-16] MEDS: Ciprofloxacin 250 MG Tablet PO (20:53)
[2021-02-16] MEDS: Senna/Docusate Sodium 1 Tablet 2 TABLET PO (20:53)
[2021-02-17 01:00] VITALS: BP 98/53; PULSE 71; RESP 16; TEMP 37; O2SAT 100
[2021-02-17] MEDS: Mineral Oil/Petrolatum Cr 1.75oz Bottle 1 APPLIC TOPICAL ×2 (05:09→13:06)
[2021-02-17 06:25] LABS: Absolute Lymphocyte Count 0.03 X10^3/uL (0.83-4.51); Absolute Neutrophil Count 0.7 X10^3/uL (2.0-7.7); Eosinophil# 0.03 X10^3/uL; Eosinophils% 2.8 % (0-5); Hematocrit 25.6 % (37-47); Hemoglobin 8.4 g/dL (12.0-15.0); Lymphocyte # 0.03 X10^3/ul (0.83-4.51); Lymphocyte % 2.8 % (19-41); Mean Corp Hgb Conc 32.8 g/dL (32-36); Mean Corpuscular Hgb 30.9 pg (27.0-32.0); Mean Corpuscular Volume 94.1 fL (81-99); Mean Platelet Vol. 9.3 fl (6.2-12.0); Monocyte# 0.35 X10^3/uL; Monocyte% 32.4 % (0-10); NRBC Flagged by Analyzer 0 % (0-5); Neutrophil # 0.66 X10^3/uL (2.7-7.7); Neutrophil % 61.1 % (47-70); POSITIVE COUNT YES; POSITIVE DIFFERENTIAL YES; POSITIVE MORPHOLOGY YES; Platelet Count 104 K/mm3 (150-450); RBC Distribution Width CV 13.8 % (11.6-14.6); RBC Distribution Width SD 47.3 fl (35.1-43.9); Red Blood Count 2.72 M/mm3 (4.2-5.4)
[2021-02-17 06:32] LABS: Differential Indicated SCAN CRITERIA MET; White Blood Count 1.1 K/mm3 (4.4-11.0)
[2021-02-17 06:37] VITALS: BP 98/56; PULSE 85; RESP 16; TEMP 37.2; O2SAT 98
[2021-02-17 06:53] LABS: Differential Comment SCANNED
[2021-02-17 07:08] LABS: Anion Gap 8 (5-15); BUN 7 mg/dL (7-18); BUN/Creat Ratio 18.7 RATIO (10-20); Calcium,Total 8.5 mg/dL (8.5-10.1); Chloride 102 mmol/L (98-107); Creatinine, Serum 0.37 mg/dL (0.55-1.02); EST Glomerular Filtration Rate 179 mL/min (>60); Est Glom Filt Rate - Afr Amer 217 mL/min (>60); Estimated Creatinine Clearance 41.45 ml/min; Glucose 84 mg/dL (74-106); Potassium 3.6 mmol/L (3.5-5.1); Sodium Level 133 mmol/L (136-145)
--- NOTE | 2021-02-17 07:30 | PN.HOSP_ITS ---
Subjective Subjective Patient was seen and examined. She complains of severe pain in her perineal region. Nursing reports that patient has raw areas in her perineum. Patient states that she does not want to continue with radiation or chemotherapy. She is looking forward to discharge in a residential facility so her can get a break. She denied fever or chills. She has some diarrhea which is not new. She usually takes Imodium for that. Objective Data Objective Data Vital Signs: Vital Signs Temp Pulse Resp BP Pulse Ox 99.0 F 85 16 98/56 L 98 02/17/21 06:37 02/17/21 06:37 02/17/21 06:37 02/17/21 06:37 02/17/21 06:37 Oxygen Delivery Method Room Air Weight: 58.4 kg Body Mass Index (BMI) 22.8 Intake & Output: Intake and Output for Last 24 Hours 02/15/21 02/16/21 02/17/21 23:59 23:59 23:59 Intake Total 1200 / 1200 100 / 100 Output Total 0 / 0 250 / 250 Balance 1200 / 1200 -150 / -150 Lab / Micro Data Result Diagrams: 02/17/21 05:40 02/17/21 05:40 Labs: Laboratory Results - last 24 hr 02/16/21 15:45: Sodium 131 L, Potassium 3.7, Chloride 99, Carbon Dioxide 27.0, Anion Gap 5, BUN 10, Creatinine 0.52 L, Estim Creat Clear Calc 41.45, Est GFR (MDRD) Af Amer 148, Est GFR (MDRD) Non-Af 123, BUN/Creatinine Ratio 19.2, Glucose 117 H, Calcium 8.9, Total Bilirubin 0.40, AST 14 L, ALT 16, Alkaline Phosphatase 42 L, Troponin I High Sens 8.4, Total Protein 5.8 L, Albumin 2.3 L, Globulin 3.5, Albumin/Globulin Ratio 0.7 L 02/16/21 15:45: WBC 1.5 L, RBC 3.05 L, Hgb 9.4 L, Hct 28.5 L, MCV 93.4, MCH 30.8, MCHC 33.0, RDW Std Deviation 47.0 H, RDW Coeff of Selvin 13.8, Plt Count 103 L, MPV 9.1, Immature Gran % (Auto) 0.700, Neut % (Auto) 68.4, Lymph % (Auto) 1.3 L, [place] % (Auto) 26.2 H, Eos % (Auto) 2.7, Baso % (Auto) 0.7, Absolute Neuts (auto) 1.0 L, Absolute Lymphs (auto) 0.02 L, Nucleated RBC % 0, Differential Comment SCANNED, Diff Path Review November [facility] 02/16/21 17:25: Urine Color Yellow, Urine Clarity Clear, Urine pH 5.0, Ur Specific [place] 1.020, Urine Protein 15 H, Urine Glucose (UA) Normal, Urine Ketones Negative, Urine Occult Blood 50 H, Urine Nitrite Negative, Urine Bilirubin Negative, Urine Urobilinogen Normal, Ur Leukocyte Esterase 25 H, Urine RBC 0-5 SEEN, Urine WBC 0-5 SEEN, Ur Squamous Epith Cells 0 SEEN, Urine Bacteria 0 SEEN, Urine Mucus 2+ 02/17/21 05:40: WBC 1.1 L*, RBC 2.72 L, Hgb 8.4 L, Hct 25.6 L, MCV 94.1, MCH 30.9, MCHC 32.8, RDW Std Deviation 47.3 H, RDW Coeff of Selvin 13.8, Plt Count 104 L, MPV 9.3, Immature Gran % (Auto) 0.900, Neut % (Auto) 61.1, Lymph % (Auto) 2.8 L, [place] % (Auto) 32.4 H, Eos % (Auto) 2.8, Baso % (Auto) 0.0, Absolute Neuts (auto) 0.7 L, Absolute Lymphs (auto) 0.03 L, Nucleated RBC % 0, Differential Comment SCANNED, Diff Path Review November [facility] 02/17/21 05:40: Sodium 133 L, Potassium 3.6, Chloride 102, Carbon Dioxide 23.0, Anion Gap 8, BUN 7, Creatinine 0.37 L, Estim Creat Clear Calc 41.45, Est GFR (MDRD) Af Amer 217, Est GFR (MDRD) Non-Af 179, BUN/Creatinine Ratio 18.7, Glucose 84, Calcium 8.5 Radiography Diagnostic Testing: Radiology Impression Brain CT 02/16/21 15:12 IMPRESSION: No acute intracranial hemorrhage or mass effect. Electronically Signed: Rakesh Lama MD (Brooks) at 16:28 EDT , Service support , Chest X-Ray 02/16/21 16:10 IMPRESSION: 1. No airspace consolidation or pleural effusion. Electronically Signed: Rakesh Lama MD ([place]) at 16:29 EDT , Service support , Physical Exam Narrative Physical exam: General: Alert, Oriented x3, Cooperative, No apparent distress, Well developed HEENT: Atraumatic Oral: Moist Mucosa Neck: Supple Lungs: Clear to auscultation Cardiovascular: HS I+II, regular, no murmurs Abdomen: Bowel Sounds Present, Soft, Non Tender, tenderness over the perineum, reported overall areas Extremities: No edema Skin: See under wound RN notes Assessment & Plan Assessment/Plan (1) Pancytopenia: (2) Generalized weakness: (3) Debility: (4) Anal cancer: (5) Depression: QUALIFIERS: Depression Type: reactive depression Qualified Code(s): F32.9 - Major depressive disorder, single episode, unspecified (6) Anxiety: (7) Intractable pain: (8) Acute diarrhea: (9) Anal squamous cell carcinoma: PLAN: 1. Debility/failure to thrive secondary to squamous cell carcinoma PT/OT to evaluate and treat 2. Acute intractable pain secondary to anal cancer - squamous cell carcinoma, status post chemotherapy and radiation Palliative care consulted, continue on methadone, oxycodone, morphine as needed as well as gabapentin 3. Pancytopenia, WBC count slightly worse, absolute neutrophil count is 700 Secondary to radiation chemotherapy Will continue on chemoprophylaxis and monitoring 4. Acute perineal skin irritation secondary to radiation, wound RN consulted We will continue on, Ceftin and Citrobacter 5. Rest of chronic medical problems are stable Charges/Coding Visit Charges Inpatient E&M: 75518 Subs Hosp L3
[2021-02-17 07:55] LABS: Ferritin 242 ng/mL (8-252); Iron 15 ug/dL (50-170); Iron Binding Capacity,Total 211 ug/dL (250-450); PERCENT IRON SATURATION 7.1 % (15.0-55.0)
[2021-02-17 07:56] VITALS: O2SAT 97
[2021-02-17] MEDS: Ondansetron 4 MG/2 ML Vial IV (07:57)
[2021-02-17] MEDS: oxyCODONE 5 MG Tablet PO (08:12)
[2021-02-17] MEDS: Gabapentin 100 MG Capsule PO ×3 (08:13→19:15)
[2021-02-17 08:16] VITALS: BP 103/50; PULSE 72; RESP 18
--- NOTE | 2021-02-17 09:12 | NURSING ---
Was asked to see patient for redness and irritation to the anita-rectal area. patient has a history of anal cancer and has had chemo and three radiation treatments so far. patient is very painful with urinating and bowel movements, and with wiping anita-rectal area. patient was recommended to do sitz baths at home and apply Aquaphor. on admission patient was ordered calmoseptine. If pt decides to continue radiation, patient will most likely continue with the use of calmoseptine. Pt is currently stating she does not want any further radiation. for now, patient was cleansed gently after having a small BM and Aquaphor was applied at this time. pt very painful with wiping. will continue to monitor. no photos taken.
[2021-02-17] MEDS: oxyCODONE 5 MG Tablet 10 MG PO (10:01)
[2021-02-17] MEDS: Loperamide 2 MG Capsule PO (10:01)
[2021-02-17] MEDS: Morphine 4 MG/ML Syringe IV ×4 (10:01→19:45)
[2021-02-17] MEDS: Citalopram 20 MG Tablet PO (10:03)
[2021-02-17] MEDS: Cyanocobalamin 500 MCG Tablet 1000 MCG PO (10:03)
[2021-02-17] MEDS: Ciprofloxacin 250 MG Tablet PO (10:03)
[2021-02-17] MEDS: Cholecalciferol (VIT D3) 25 MCG TABLET (1,000 UNITS) PO (10:03)
[2021-02-17] MEDS: Enoxaparin 40 MG/0.4 ML Syringe SC (10:04)
--- NOTE | 2021-02-17 11:24 | CASEMGMT ---
Social Work Assessment Referral Date: 02/17/2021 Date of Assessment: 02/17/2021 Personal Status: SW met with pt to complete initial assessment. DEV introduced self and role at [facility]. Pt is alert and orientated, pt's Moo present in room. Pt gave this worker permission to talk to her in front of her guest. Moo assisted pt in answering some of the questions during assessment. Living Arrangements: Pt lives with her Moo in a one story home (with a basement) with two steps to enter. There are railings by the steps. Moo states pt primarily stays in one floor. DME: Cane, Walker, shower chair, bedside commode PCP: Dr. Pedro Pharmacy: [facility] Specialists: Per chart review, pt see's Dr. Lu for oncology ADLs: Pt states Moo assists with all ADLs, also states she has HHC that was helping as well Transportation: Pt's Moo Advanced Directives: Pt states she has completed HCPOA and LW. DEV reviewed pt's chart, LW is on file, not HCPOA. DEV updated pt and Moo that HCPOA is not on file at [facility]. Moo states he is HCPOA. Substance Abuse Hx: Pt denied Mental Health Hx: Pt initially denied. Moo then states pt has anxiety related to diagnosis. Pt state she does medication for her anxiety. HHC: Pending sale to [facility] SNF: [facility]. Per previous notes from TCU, pt had requested initial information be faxed to [facility] in the event pt needed additional care after pt has Chemo/radiation. Cancer treatment: Pt states she is done with chemotherapy, was getting radiation but states she is no longer getting radiation at this time. Moo confirms this. DEV spoke with pt and Moo about discharge plans. DEV updated pt and Moo that medically pt is ready for discharge so discharge plans need to be confirmed. Patient was provided a list of SNF providers including quality and resource use data and consistent with the patient?s preferred geographic region, medical needs, and insurance network. Pt and Moo preferred provider is [facility]. DEV explained that this worker will need to check on bed availability at [facility]. DEV explained Medicare Coverage at SNF and pt may be in copay days. Moo asked this worker about their group home policy at SNF. DEV informed Moo that this worker is not familiar with [employer] policies, encouraged Moo to have SW at [facility] or any SNF talk to them about [employer] policy once pt is there. Moo states understanding. Moo also asked about a walker that has four wheels instead of the one that they currently have. Moo states SW on TCU was going to set up walker for them before they left TCU, but it never got delivered. Moo states he had to borrow a walker. DEV informed Moo that this worker is not sure if insurance would cover four wheeled walker but will ask. DEV placed a call to Valentina PENA on TCU. Valentina Garcia states she sent walker order to [facility], pt was a weekend discharge and [facility] never delivered the walker to [facility]. DEV spoke with RN MARTINE, insurance will cover a basic walker but upgrades for a rollator (with four wheels, brakes etc) insurance would not cover. DEV will update Moo of this. DEV placed a call to Fadumo at [facility] and provided referral. DEV faxed referral, will fax PT/OT when available. Plan: [facility] pending acceptance Jelena Sanabria SWAGER OPERATOR, RECEPTION INTERVIEWER
[2021-02-17 12:20] LABS: Pathologist Review Reviewed
[2021-02-17 12:20] LABS: Pathologist Review Reviewed
--- NOTE | 2021-02-17 13:03 | PCM.TXEXTCAR ---
Diet 02/16/21 19:02 Diet: Regular - General Food consistency:: Regular Liquid Consistency:: Regular/Thin Routine Orders/Code Status Routine Lab Work: CBC (within 3 days) and BMP (within 3 days) Code Status: Full Code Suggestions for Active Care Change Position every (hours): 2 Therapies Weight Bearing: Weight bearing as tolerated Physical Therapy: Eval and Treat Occupational Therapy: Eval and Treat Problem/Diagnosis (1) Pancytopenia: Status: Acute (2) Generalized weakness: Status: Acute (3) Debility: Status: Acute (4) Anal cancer: Status: Acute (5) Depression: Status: Acute (6) Anxiety: Status: Acute Comment: ON MED (7) Intractable pain: Status: Acute (8) Acute diarrhea: Status: Resolved (9) Anal squamous cell carcinoma: Status: Acute Allergies/Procedures Done in Hospital Allergies nut - unspecified Allergy (Verified 02/16/21 14:51) Anaphylaxis peanut Allergy (Verified 02/16/21 14:51) Hives procaine HCl [From Novocain] Allergy (Verified 02/16/21 14:51) Angioedema acetaminophen [From Vicodin] Adverse Reaction (Verified 02/16/21 14:51) Other I DON'T LIKE HOW IT MAKES ME FEEL alprazolam [From Xanax] Adverse Reaction (Verified 02/16/21 14:51) Other I DON'T LIKE HOW IT MAKES ME FEEL hydrocodone bitartrate [From Vicodin] Adverse Reaction (Verified 02/16/21 14:51) Other I DON'T LIKE HOW IT MAKES ME FEEL metaxalone [From Skelaxin] Adverse Reaction (Verified 02/16/21 14:51) Other I DON'T LIKE HOW IT MAKES ME FEEL nabumetone Adverse Reaction (Verified 02/16/21 14:51) Other I DON'T LIKE HOW IT MAKES ME FEEL Procedures: None Type of Care/Length of Stay Estimated LOS: Convalescent Care Less Than 30 days Type of Care Needed: Skilled Rehab Potential: Good Prognosis: Fair Additional Orders/Day of Discharge Day of Discharge: 02/18/21 Dietary and Speech Recommendations Dietitian Recommendations/Changes: Continue regular/general diet. Add ensure enlive 120mL PO 4x/day at [facility]. Add magic cup BID at lunch and dinner. Discharge Plan Admission Admit Date/Time: 02/16/21 18:14 Primary Reason for Your Visit: Debility Attending Provider: Adry Vasquez Primary Care Provider: Deondre Pedro Chi Consulting Providers: Ashley Locke ; Leif Yip ; Brina Galvan ; Carey Cortes ; Grecia Stevens ; Velvet Rich COLLECTION SUPERVISOR Discharge Orders/Prescriptions Prescriptions: Continued cyanocobalamin (vitamin B-12) 1,000 mcg Tablet 1,000 mcg PO DAILY RF: 0 cholecalciferol (vitamin D3) 25 mcg (1,000 unit) Tablet 25 mcg PO DAILY RF: 0 epinephrine 0.3 MG auto-injector 0.3 mg IM X1 RF: 0 citalopram 20 mg Tablet 20 mg PO DAILY 30 Days Qty: 30 RF: 0 gabapentin 100 mg Capsule 100 mg PO TIDCM 30 Days Qty: 90 RF: 0 sennosides-docusate sodium [Stool Softener-Stimulant Laxat] 8.6-50 mg Tablet 2 tab PO BID 30 Days Qty: 120 RF: 0 methadone 5 mg Tablet 5 mg PO BID Qty: 0 RF: 0 Aquaphor Healing 41 % Ointment 1 applic topical TID Qty: 0 RF: 0 Pinxav 1 applic transdermal DAILY PRN PRN (Reason: Skin Cleansing) RF: 0 Changed oxycodone 5 mg capsule 10 mg PO Q4H PRN PRN (Reason: Pain) Qty: 0 RF: 0 Discontinued ciprofloxacin HCl [Cipro] 250 mg tablet 250 mg PO BID RF: 0 Referrals / Follow Up: Deondre Pedro Chi, MD [Primary Care Provider] - Within 2 Weeks Disposition Disposition (needs filled in before D/C Order can be placed): Detention Facility
--- NOTE | 2021-02-17 13:50 | CASEMGMT ---
Social Work Note Social Work Note SW reviewed PT/OT, pt refused to work with them today. DEV placed a call to Fadumo at [facility], they will need pt to work with PT/OT as there is nothing else they can use to skill pt. SW in to speak with pt and oMo is present. SW updated Moo that insurance will cover basic walker but the upgrades, insurance will not cover. DEV spoke with pt and Moo that pt will need to work with PT/OT to go to SNF and pt cannot just refuse them. Pt agreeable to working with PT/OT. SW informed pt that this worker will see if PT/OT will come back and see pt today for eval. Pt states understanding. SW asked PT/OT to see pt again today for SNF. SW will fax updated PT/OT when available. Plan: [facility] pending acceptance Jelena Sanabria DIRECTOR OF GUIDANCE IN PUBLIC SCHOOLS, SUPERVISOR RESIDENTIAL
[2021-02-17 14:25] VITALS: BP 104/48; PULSE 74; RESP 18; TEMP 37.2; O2SAT 94
[2021-02-17] MEDS: 0.9% Normal Saline 1,000 ML 50 ML IV (14:27)
--- NOTE | 2021-02-17 15:17 | CASEMGMT ---
Social Work Note DEV faxed PT/OT to Rumson at [facility]. DEV placed a call to Rumson at [facility] and left message regarding referral. Plan: [facility] pending acceptance Jleena Sanabria MSW, AIRCRAFT INSTRUMENT ENGINEER
--- NOTE | 2021-02-17 16:05 | DS.PCM_ITS ---
Providers Date of Admission: 02/16/21 Date of Discharge: 02/17/21 Primary Care Physician: Dr. Deondre Pedro MD Consultations 02/16/21 19:02 Consult: Hospice / Palliative Care Routine Consulting Provider: [facility] Reason for Consult: Palliative care consultation for anal cancer EMERGENT Consult: No MD Notified: Yes Date Notified: 02/16/21 Time Notified: 08:00 Method of Notification: office Consult: Onc/Wound/hr representative Routine Comment: Reason for Consult:: Periarea wounds Reason For Visit: DEBILITY Diagnosis Discharge Diagnosis (1) Pancytopenia: Status: Acute Code(s): D61.818 - Other pancytopenia (2) Anal cancer: Status: Chronic Code(s): C21.0 - Malignant neoplasm of anus, unspecified (3) Depression: Status: Chronic Code(s): F32.9 - Major depressive disorder, single episode, unspecified Qualifiers: Depression Type: reactive depression Qualified Code(s): F32.9 - Major depressive disorder, single episode, unspecified (4) Anxiety: Status: Chronic Code(s): F41.9 - Anxiety disorder, unspecified (5) Intractable pain: Status: Acute Code(s): R52 - Pain, unspecified (6) Anal squamous cell carcinoma: Status: Acute Code(s): C21.0 - Malignant neoplasm of anus, unspecified (7) Severe protein-calorie malnutrition: Status: Chronic Code(s): E43 - Unspecified severe protein-calorie malnutrition Medications at Discharge Home Medications cholecalciferol (vitamin D3) 25 mcg PO DAILY 12/16/20 cyanocobalamin (vitamin B-12) 1,000 mcg PO DAILY 12/16/20 epinephrine 0.3 mg IM X1 12/16/20 Aquaphor Healing 1 applic TOPICAL TID #0 g 02/02/21 citalopram 20 mg PO DAILY 30 Days #30 tab 02/02/21 gabapentin 100 mg PO TIDCM 30 Days #90 cap 02/02/21 methadone 5 mg PO BID #0 tab 02/02/21 sennosides-docusate sodium [Stool Softener-Stimulant Laxat] 2 tab PO BID 30 Days #120 tab 02/02/21 Pinxav 1 applic TRANSDERMAL DAILY PRN PRN 02/16/21 food supplemt, lactose-reduced [Ensure Enlive] 120 ml PO 4X/DAY #0 ml 02/17/21 loperamide 2 mg PO Q2H PRN PRN #0 cap 02/17/21 menthol-zinc oxide [Calmoseptine] 1 applic TOPICAL DAILY PRN #113 g 02/17/21 methadone 5 mg PO BID 1 Days #2 tab 02/17/21 oxycodone 10 mg PO Q4H PRN PRN #0 cap 02/17/21 oxycodone 10 mg PO Q4H PRN PRN 1 Days #12 tab 02/17/21 Hospital Course Operations None Procedures None Summary of Care Provided Minutes Spent on Discharge: 50 Hospital Course: 75-year-old female with past medical history anal squamous cell CA status post radiation aned chemotherapy, who was recently discharged from TCU, presents with progressive weakness and confusion. Patient is currently undergoing radiation therapy. Her family is unable to take care of her. She was discharged home a week ago from TCU. She is currently with palliative care. Patient had pancytopenia on admisison, which is related to radiation and chemotherapy. She had a skin breakdown in her perineal area. Wound RN was con sulted, she was managed on barrier creams. Patient had changes to her pain medications. Patient was accepted for discharge to alf facility. She stated that she was not interested in any more treatments. Was recommended that she get hospice on discharge. Physical Exam Narrative See progress note of the day Medical Records Data Medical Nutrition Assessment Dietitian: Nutrition Therapy Diagnosis Start: 02/17/21 14:11 Freq: Status: Active Protocol: Document 02/17/21 14:11 (Rec: 02/17/21 14:11 [id number]) Nutrition Malnutrition Evidence of Malnutrition Exists Yes Malnutrition (severe): Chronic Evidenced By Suboptimal Energy Intake ( Severe),Weight Loss (Severe), Physical Changes (Moderate) Intake Problem Inadequate Oral Intake Etiology r/t increased protein calorie needs d/t cancer and decreased appetite Signs/Symptoms as evidenced by pt report of consuming <50% of meals. Status Active Problem Clinical Problem Chronic Disease or Condition Related Malnutrition Etiology severe, chronic malnutrition r /t inadequate energy intake w/ increased nutrient needs d/t cancer Signs/Symptoms as evidenced by recent unintentional wt loss of 11.2# /8.3%, estimated PO intake meeting less than 75% of pt's nutritional needs x 2 months, physical debility suggestive of muscle wasting Status Active Problem Recommendation Dietitian Recommendations/Changes Continue regular/general diet. Add ensure enlive 120mL PO 4x/ day at [place]. Add magic cup BID at lunch and dinner. Weight / BMI Weight Weight: 58.4 kg Body Mass Index (BMI) 22.8 ABG / Lab / Microbiology Data Result Diagrams: 02/17/21 05:40 02/17/21 05:40 Laboratory: Laboratory Results - last 24 hr 02/16/21 15:45: Sodium 131 L, Potassium 3.7, Chloride 99, Carbon Dioxide 27.0, Anion Gap 5, BUN 10, Creatinine 0.52 L, Estim Creat Clear Calc 41.45, Est GFR (MDRD) Af Amer 148, Est GFR (MDRD) Non-Af 123, BUN/Creatinine Ratio 19.2, Glucose 117 H, Calcium 8.9, Total Bilirubin 0.40, AST 14 L, ALT 16, Alkaline P hosphatase 42 L, Troponin I High Sens 8.4, Total Protein 5.8 L, Albumin 2.3 L, Globulin 3.5, Albumin/Globulin Ratio 0.7 L 02/16/21 15:45: WBC 1.5 L, RBC 3.05 L, Hgb 9.4 L, Hct 28.5 L, MCV 93.4, MCH 30.8, MCHC 33.0, RDW Std Deviation 47.0 H, RDW Coeff of Selvin 13.8, Plt Count 103 L, MPV 9.1, Immature Gran % (Auto) 0.700, Neut % (Auto) 68.4, Lymph % (Auto) 1.3 L, [place] % (Auto) 26.2 H, Eos % (Auto) 2.7, Baso % (Auto) 0.7, Absolute Neuts (auto) 1.0 L, Absolute Lymphs (auto) 0.02 L, Nucleated RBC % 0, Differential Comment SCANNED, Diff Path Review Reviewed 02/16/21 17:25: Urine Color Yellow, Urine Clarity Clear, Urine pH 5.0, Ur Specific [place] 1.020, Urine Protein 15 H, Urine Glucose (UA) Normal, Urine Ketones Negative, Urine Occult Blood 50 H, Urine Nitrite Negative, Urine Bilirubin Negative, Urine Urobilinogen Normal, Ur Leukocyte Esterase 25 H, Urine RBC 0-5 SEEN, Urine WBC 0-5 SEEN, Ur Squamous Epith Cells 0 SEEN, Urine Bacteria 0 SEEN, Urine Mucus 2+ 02/17/21 05:40: WBC 1.1 L*, RBC 2.72 L, Hgb 8.4 L, Hct 25.6 L, MCV 94.1, MCH 30.9, MCHC 32.8, RDW Std Deviation 47.3 H, RDW Coeff of [place] 13.8, Plt Count 104 L, MPV 9.3, Immature Gran % (Auto) 0.900, Neut % (Auto) 61.1, Lymph % (Auto) 2.8 L, [place] % (Auto) 32.4 H, Eos % (Auto) 2.8, Baso % (Auto) 0.0, Absolute Neuts (auto) 0.7 L, Absolute Lymphs (auto) 0.03 L, Nucleated RBC % 0, Differential Comment SCANNED, Diff Path Review Reviewed 02/17/21 05:40: Sodium 133 L, Potassium 3.6, Chloride 102, Carbon Dioxide 23.0, Anion Gap 8, BUN 7, Creatinine 0.37 L, Estim Creat Clear Calc 41.45, Est GFR (MDRD) Af Amer 217, Est GFR (MDRD) Non-Af 179, BUN/Creatinine Ratio 18.7, Glucose 84, Calcium 8.5 02/17/21 05:40: Iron 15 L, TIBC 211 L, Iron Saturation 7.1 L, Ferritin 242 Radiography Diagnostic Testing: Radiology Impression Brain CT 02/16/21 15:12 IMPRESSION: No acute intracranial hemorrhage or mass effect. Electronically Signed: Rakesh Lama MD ([place]) at 16:28 EDT , Service support , Chest X-Ray 02/16/21 16:10 IMPRESSION: 1. No airspace consolidation or pleural effusion. Electronically Signed: Rakesh Lama MD ([place]) at 16:29 EDT , Service support , Meaningful Use Info Meaningful Use Diagnoses (Choose all that apply): None applicable Discharge Plan Admission Admit Date/Time: 02/16/21 18:14 Primary Reason for Your Visit: Debility Attending Provider: Adry Vasquez Primary Care Provider: Deondre Pedro Chi Consulting Providers: Ashley Locke ; Leif Yip ; Brina Galvan ; Carey Cortes ; Grecia Stevens ; Velvet Rich CRANK HAND Discharge Orders/Prescriptions Prescriptions: New loperamide 2 mg Capsule 2 mg PO Q2H PRN PRN (Reason: Diarrhea) Qty: 0 RF: 0 Ensure Enlive 0.08 gram-1.5 kcal/mL Liquid 120 ml PO 4X/DAY Qty: 0 RF: 0 Calmoseptine 0.44-20.6 % ointment 1 applic topical DAILY PRN (Reason: skin irritation) Qty: 113 RF: 0 oxycodone 5 mg Tablet 10 mg PO Q4H PRN PRN (Reason: Pain 1-10) 1 Days Qty: 12 RF: 0 methadone 5 mg Tablet 5 mg PO BID 1 Days Qty: 2 RF: 0 Continued cyanocobalamin (vitamin B-12) 1,000 mcg Tablet 1,000 mcg PO DAILY RF: 0 cholecalciferol (vitamin D3) 25 mcg (1,000 unit) Tablet 25 mcg PO DAILY RF: 0 epinephrine 0.3 MG auto-injector 0.3 mg IM X1 RF: 0 citalopram 20 mg Tablet 20 mg PO DAILY 30 Days Qty: 30 RF: 0 gabapentin 100 mg Capsule 100 mg PO TIDCM 30 Days Qty: 90 RF: 0 sennosides-docusate sodium [Stool Softener-Stimulant Laxat] 8.6-50 mg Tablet 2 tab PO BID 30 Days Qty: 120 RF: 0 methadone 5 mg Tablet 5 mg PO BID Qty: 0 RF: 0 Aquaphor Healing 41 % Ointment 1 applic topical TID Qty: 0 RF: 0 Pinxav 1 applic transdermal DAILY PRN PRN (Reason: Skin Cleansing) RF: 0 Changed oxycodone 5 mg capsule 10 mg PO Q4H PRN PRN (Reason: Pain) Qty: 0 RF: 0 Discontinued ciprofloxacin HCl [Cipro] 250 mg tablet 250 mg PO BID RF: 0 Referrals / Follow Up: Deondre Pedro Chi, MD [Primary Care Provider] - Within 2 Weeks Disposition Disposition (needs filled in before D/C Order can be placed): Snf Facility Charges/Coding Visit Charges Inpatient E&M: 99221 Disch Hosp
--- NOTE | 2021-02-17 16:57 | CASEMGMT ---
Social Work Note DEV received call from Fadumo at [facility] stating they can accept pt today. DEV updated physician, pt is medically ready for discharge today. DEV updated pt's Moo who was leaving the floor that [facility] is able to accept pt, pt will discharge there today. Moo asked to be called when transportation is arranged. DEV faxed completed discharge paperwork to Fadumo at [facility] including transfer to extended care facility, signed medication list, any scripts, and Convalescent 7000. Original in SNF Folder and copy on pt's chart. DEV completed convalescent 7000 in [facility]. Original in SNF folder and copy on pt's chart. DEV accessed trip assist and arranged transportation via cot for 8:00pm as this is the earliest Physician's can transport pt. Transportation form completed and placed on SNF folder and copy on pt's chart. DEV updated RN on transportation time. DEV placed a call to pt's Moo and updated him on transportation time. DEV placed a call to Fadumo at [facility] and left message updating her on transportation and that pt is active with [facility]. Pt updated. Plan: [facility] skilled today with Physician's transporting pt via cot at 8:00pm Jelena Sanabria MSW, [employer]
--- NOTE | 2021-02-17 18:25 | NURSING ---
report called to [facility]
[2021-02-17] MEDS: 0.9% Saline Lock 10 ML Syringe IV ×2 (19:45→19:53)
[2021-02-17 19:55] VITALS: BP 94/48; PULSE 72; RESP 16; TEMP 36.9; O2SAT 97
== END 2021-02-17 20:30 | disposition skilled nursing facility (03) | DRG 374 ==
LOC: ED 18:00 → MS3 18:12
PROVIDERS: Admitting Provider Internal Medicine; Emergency Provider Emergency Medicine; PCP Family Medicine Geriatric Medicine; Visit Provider Internal Medicine
DX: C21.0 Malignant neoplasm of anus, unspecified (principal); D61.810 Antineoplastic chemotherapy induced pancytopenia; E43 Unspecified severe protein-calorie malnutrition; E87.1 Hypo-osmolality and hyponatremia; N39.0 Urinary tract infection, site not specified; T45.1X5A Adverse effect of antineoplastic and immunosuppressive drugs, initial encounter; R62.7 Adult failure to thrive; L59.8 Other specified disorders of the skin and subcutaneous tissue related to radiation; F41.9 Anxiety disorder, unspecified; F32.9 Major depressive disorder, single episode, unspecified; G89.29 Other chronic pain; G20 Parkinson's disease; F02.80 Dementia in other diseases classified elsewhere, unspecified severity, without behavioral disturbance, psychotic disturbance, mood disturbance, and anxiety; I95.9 Hypotension, unspecified; E55.9 Vitamin D deficiency, unspecified; Z87.891 Personal history of nicotine dependence; Z68.22 Body mass index [BMI] 22.0-22.9, adult; Z79.899 Other long term (current) drug therapy; M47.896 Other spondylosis, lumbar region; Z45.2 Encounter for adjustment and management of vascular access device
CPT/HCPCS: 36415; 36591; 70450; 71045; 77336; 77386; 80048; 80053; 81001; 82728; 83540; 83550; 83735; 84100; 84484; 85025; 87426; 93005; 96360; 96361; 97162; 97166; 97802; 99251; 99285; J7030; A4216; G0463; J2405

== ENCOUNTER → 2021-11-15 | Outpatient (CLI) | payer MEDICARE, OTHER, SELFPAY ==
--- NOTE | 2021-11-15 14:10 | CT_ITS ---
STUDY: CT CHEST, ABDOMEN T PELVIS WITH CONTRAST REASON FOR EXAM: Female, 76 years old. F/U ANAL CANCER RADIATION DOSAGE (If Supplied By Facility): CTDIvol = ( 12.49 ) mGy, DLP = ( 1110.36 ) mGycm TECHNIQUE: Transaxial imaging was performed following intravenous administration of Oral and amp;amp; IV Readi-CAT and amp;amp; 75mL Isovue-370. Individualized dose optimization techniques were used for this CT. COMPARISON: No relevant priors. FINDINGS: CHEST there are small nodular densities adjacent to the pleura bilaterally. There is no demonstrated pleural abnormality. Normal heart and pericardium. Normal mediastinum. Normal hilar regions. Normal unenhanced pulmonary arteries. Normal aorta arch and descending thoracic aorta. Normal osseous structures. There is no demonstrated abnormality of the visualized upper abdomen. ABDOMEN The visualized lung bases are unremarkable. The visualized portions of the heart are within normal limits. Normal liver. Normal gallbladder and extrahepatic biliary system. Normal spleen. Normal pancreas. Normal bilateral adrenal glands. Normal right kidney. Normal left kidney. Normal visualized stomach. Normal small intestine. Normal colon. The appendix is visualized and appears normal. Normal abdominal aorta. Normal inferior vena cava. Normal retroperitoneum. Normal abdominal wall. Normal osseous structures. PELVIS Normal urinary bladder. Normal visualized small intestine. Normal visualized colon. There is no pelvic fluid. There is no pelvic lymphadenopathy or mass lesion. Normal visualized pelvic arteries. Normal abdominal wall. Normal osseous structures. CT/CT Chest, Abd, Pel w/Contrast IMPRESSION: There are small pulmonary nodules adjacent to the pleura bilaterally. Electronically Signed: Vaibhav Alfaro MD at 6:55 EDT ,
[2021-11-15] MEDS: 0.9% Saline Lock 10 ML Syringe IV (14:30)
== END | disposition home or self-care (01) ==
LOC: CT 14:06
PROVIDERS: PCP Family Medicine Geriatric Medicine; Referring Provider Internal Medicine Hematology & Oncology; Visit Provider Internal Medicine Hematology & Oncology
DX: C21.0 Malignant neoplasm of anus, unspecified (principal)
CPT/HCPCS: 71260; 74177; Q9967; A4216

== ENCOUNTER → 2022-01-12 | Outpatient (CLI) | payer MEDICARE, OTHER, SELFPAY ==
[2022-01-12 15:15] LABS: Absolute Lymphocyte Count 0.73 X10^3/uL (0.83-4.51); Absolute Neutrophil Count 2.7 X10^3/uL (2.0-7.7); Basophil# 0.01 X10^3/uL; Basophil% 0.2 % (0-1); Eosinophil# 0.07 X10^3/uL; Eosinophils% 1.7 % (0-5); Hematocrit 38.5 % (37-47); Hemoglobin 12.5 g/dL (12.0-15.0); Lymphocyte # 0.73 X10^3/ul (0.83-4.51); Lymphocyte % 17.8 % (19-41); Mean Corp Hgb Conc 32.5 g/dL (32-36); Mean Corpuscular Hgb 30.8 pg (27.0-32.0); Mean Corpuscular Volume 94.8 fL (81-99); Mean Platelet Vol. 10.4 fl (6.2-12.0); Monocyte# 0.58 X10^3/uL; Monocyte% 14.1 % (0-10); NRBC Flagged by Analyzer 0 % (0-5); Neutrophil # 2.71 X10^3/uL (2.7-7.7); Platelet Count 168 K/mm3 (150-450); RBC Distribution Width CV 13.8 % (11.6-14.6); RBC Distribution Width SD 48.5 fl (35.1-43.9); Red Blood Count 4.06 M/mm3 (4.2-5.4); White Blood Count 4.1 K/mm3 (4.4-11.0)
[2022-01-12 16:08] LABS: Vitamin D,25 Hydroxy 47.8 ng/mL
[2022-01-12 16:34] LABS: ALB/GLOB Ratio 0.9 RATIO (0.9-2.4); AST(SGOT) 12 U/L (15-37); Alanine Aminotransfer ALT/SGPT 22 U/L (13-56); Albumin, Serum 3.4 g/dL (3.2-5.0); Alkaline Phosphatase 69 U/L (45-117); Anion Gap 4 (5-15); BUN 18 mg/dL (7-18); BUN/Creat Ratio 27.3 RATIO (10-20); Calcium,Total 9.5 mg/dL (8.5-10.1); Chloride 108 mmol/L (98-107); Creatinine, Serum 0.66 mg/dL (0.55-1.02); EST Glomerular Filtration Rate 93 mL/min (>60); Est Glom Filt Rate - Afr Amer 113 mL/min (>60); Globulin 3.7 g/dL (2.2-4.2); Glucose 87 mg/dL (74-106); Potassium 3.9 mmol/L (3.5-5.1); Protein, Total 7.1 g/dL (6.4-8.2); Sodium Level 137 mmol/L (136-145); Thyroid Stim Hormone (TSH) 2.09 uIU/mL (0.358-3.74)
== END | disposition home or self-care (01) ==
LOC: POLAB3 11:16
PROVIDERS: PCP Family Medicine Geriatric Medicine; Visit Provider Family Medicine Geriatric Medicine
DX: E55.9 Vitamin D deficiency, unspecified (principal); R53.83 Other fatigue
CPT/HCPCS: 36415; 80053; 82306; 84443; 85025

== ENCOUNTER 2022-01-13 05:14 | Day surgery (SDC) | payer MEDICARE, OTHER, SELFPAY ==
[2022-01-13] VITALS (7 sets, daily range): BP systolic 106–130; BP diastolic 56–68; PULSE 55–76; RESP 16; TEMP 36–36.7; O2SAT 93–100; BMI 20.1
[2022-01-13] MEDS: Lactated Ringers 1,000 ML 15 ML IV (05:40)
--- NOTE | 2022-01-13 06:30 | COLBX_PTH ---
PATIENT: KALPANA LION LOC: EN U#:[id number] AGE/SX: 76/F ROOM: RE01/13/[address]: Dr. Berry Zaidi DO : 1945 BED: DIS: 01/13/2022 SPEC #: [id number] RECD: 01/13/22 10:25 STATUS: FAINA SEBASTIÁN #: [id number] NINO: 01/13/22 06:[address]: Berry Zaidi DEPT: SURGICAL PATHOLOGY RECD BY: Vivienne Maldonado ENTERED: 01/13/22 10:47 SP TYPE: COLON BX OTHR DR: Dr. Deondre Pedro MD Tissues: A - Ascending colon B - Rectum, NOS Procedures: Surgery Specimen Level IV HEADER OPERATION: Colonoscopy (MAC), dilation, biopsies PRE-OP DIAGNOSIS: Anal cancer TISSUE SUBMITTED: A ? Ascending colon polyp, B ? Anal rectal verge biopsy MICROSCOPIC DIAGNOSIS A. Ascending colon polyp, biopsy: Tubular adenoma. B. Anal rectal verge, biopsy: Mild architectural change. No evidence of colitis. AM:fanny 01/16/2022 MICROSCOPIC DESCRIPTION Slides are reviewed. GROSS DESCRIPTION A - Received in fixative is one container labeled with the patient's name and designated ascending colon polyp. The specimen consists of one irregular fragment of light lloyd soft tissue that measures 0.3 x 0.1 x 0.1 cm. The specimen is totally submitted in one cassette. B - Received in fixative is one container labeled with the patient's name and designated anal verge biopsy. The specimen consists of multiple irregular fragments of light lloyd soft tissue that in aggregate measure 1 x 0.4 x 0.1 cm. The specimen is totally submitted in one cassette. / SJ:fanny 01/13/2022 TC:5 [facility]: [id number] x2
--- NOTE | 2022-01-13 06:36 | PCM.HP.BLA ---
History and Physical Date of Admission: 01/13/22 KALPANA LION, is a 76 F who presents to the office today for need to schedule endoscopy to evaluate response to treatment of anal cancer. She is accompanied by her daughter. 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 She received radiation to the primary tumor, the enlarged perirectal lymph node, and the bilateral at risk pelvic and inguinal lymph nodes ending 02/25/21. She received concurrent chemotherapy for one cycle (5FU and MMC ). Following definitive treatment she had a protracted debility and recovery time. She opted for hospice at a correction facility and did not have her electively planned endoscopic follow-up with Dr. Walker. However by September 2021 she had recovered enough to come off hospice and was able to go home in 10/2020. She has tapered off routine oxycodone, now just takes it at HS prn left leg/foot pain. Constipation resolved once she no longer took routine opioid. No diarrhea. No melena or hematochezia. Denies abdominal pain. She denies any upper GI issues; no dysphagia, heartburn, nausea, vomiting, chest or abdominal pain. She reports she had routine screening colonoscopies. 11/15/21 CT Chest, Abd, Pel w/Contrast IMPRESSION: There are small pulmonary nodules adjacent to the pleura bilaterally. ? ROS Const Constitutional: Positive for weakness; No fatigue ENT ENT: No difficulty swallowing Gastro GI: Positive for change in bowel habits; No abdominal pain, belching, bloating, change in stool character, coffee ground emesis, constipation, cramping, diarrhea, heartburn, difficulty swallowing, feeling full early, excessive flatus, incontinent of stools, Vomiting blood/hematemesis, Blood in stool, loose stools, Black,tarry stools, nausea/dyspepsia, pain with swallowing, vomiting or other Musc Musculoskeletal: Positive for back pain, muscle cramps, muscle weakness, numbness, tingling, Arthritis and leg pain at night; No joint pain Skin Skin: No yellowing of the eye or itchy eyes Neuro Neurology: Positive for weakness, numbness and tingling Psych Psychiatric: No anxiety and No depression Endo Endocrine: No fatigue Aller/Imm Allergy/Immunologic: No itchy eyes Bruno/Lymp Hematologic/Lymphatic: No easy bleeding or easy bruising Exam Const General: cooperative, comfortable, well developed and well groomed Other: using a walker Psych Mental Status: mental status grossly normal Mood: euthymic mood Affect: normal affect Quality Reporting Tobacco Screening ([facility] 138) Smoking Status: Former smoker Assessment and Plan Assessment and Plan (1) Anal cancer: ?Status:?Chronic ?Plan - Sara Us NP, 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 She needs evaluation of response to treatment by endoscopy. We will schedule her for colonoscopy with Dr Zaidi on 01/13/22; f/u [address] Zaidi to discuss any biopsy results. Per Dr Gil's note, per NCCN guidelines, endoscopic examination is recommended every 6 to 12 months for the first 3 years following completion of treatment. I have re-examined the patient. There are no clinical changes since date of exam.
--- NOTE | 2022-01-13 07:18 | OP.COLON_ITS ---
Patient Name: Dolores Arthur Procedure Date: 01/13/2022 6:16 AM Date of : 1945 Age: 76 Procedure: Colonoscopy Indications: Follow-up of anorectal cancer Providers: Berry Zaidi DO Referring MD: Deondre Pedro MD Medicines: Monitored Anesthesia Care Patient Profile: This is a 76 year old female. Refer to note in patient chart for documentation of history and physical. Last Colonoscopy: 10 years ago. Complications: No immediate complications. Procedure: Pre-Anesthesia Assessment: - Prior to the procedure, a History and Physical was performed, and patient medications and allergies were reviewed. The patient is competent. The risks and benefits of the procedure and the sedation options and risks were discussed with the patient. All questions were answered and informed consent was obtained. Patient identification and proposed procedure were verified by the physician in the pre-procedure area. Mental Status Examination: alert and oriented. Airway Examination: normal oropharyngeal airway and neck mobility. Respiratory Examination: clear to auscultation. CV Examination: normal. Prophylactic Antibiotics: The patient does not require prophylactic antibiotics. Prior Anticoagulants: The patient has taken no previous anticoagulant or antiplatelet agents. ASA Grade Assessment: II - A patient with mild systemic disease. After reviewing the risks and benefits, the patient was deemed in satisfactory condition to undergo the procedure. The anesthesia plan was to use moderate sedation / analgesia (conscious sedation). Immediately prior to administration of medications, the patient was re-assessed for adequacy to receive sedatives. The heart rate, respiratory rate, oxygen saturations, blood pressure, adequacy of pulmonary ventilation, and response to care were monitored throughout the procedure. The physical status of the patient was re-assessed after the procedure. After I obtained informed consent, the scope was passed under direct vision. Throughout the procedure, the patient's blood pressure, pulse, and oxygen saturations were monitored continuously. The colonoscope was introduced through the anus and advanced to the cecum, identified by the appendiceal orifice, IC valve and transillumination. The colonoscopy was performed without difficulty. The patient tolerated the procedure well. The quality of the bowel preparation was good. Scope In: 6:51:43 AM Scope Withdrawal Time 0 hours 9 minutes 20 seconds Scope Out: 7:09:18 AM Total Procedure Duration Time 0 hours 17 minutes 35 seconds Findings: Skin tags were found on perianal exam. There was evidence of a prior end-to-end colo-anal anastomosis at the anus. This was patent and was characterized by congestion, edema, erythema, friable mucosa and severe stenosis. The anastomosis was traversed after dilation. A guidewire was placed and the scope was withdrawn. Dilation was performed with a Savary dilator with no resistance at 36 Fr. The dilation site was examined following endoscope reinsertion and showed complete resolution of luminal narrowing. Estimated blood loss was minimal. A few small-mouthed diverticula were found in the sigmoid colon. There also was some radiation changes seen just beyond the anastomosis. Biopsies were taken of the surrounding areas. A 5 mm polyp was found in the ascending colon. The polyp was sessile. The polyp was removed with a cold snare. Resection and retrieval were complete. Verification of patient identification for the specimen was done. Estimated blood loss was minimal. The mucosa vascular pattern in the rectum was segmentally increased. Biopsies were taken with a cold forceps for histology. Verification of patient identification for the specimen was done. Estimated blood loss was minimal. Impression: - Perianal skin tags found on perianal exam. - Patent end-to-end colo-anal anastomosis, characterized by congestion, edema, erythema, friable mucosa and severe stenosis. Dilated. - Diverticulosis in the sigmoid colon. - One 5 mm polyp in the ascending colon, removed with a cold snare. Resected and retrieved. Recommendation: - No recommendation at this time regarding repeat colonoscopy due to age. -Colace one per day and metamucil once or twice a day.. - Continue present medications. Procedure Code(s): --- Professional --- 12909, 51,59, Colonoscopy, flexible; with removal of tumor(s), polyp(s), or other lesion(s) by snare technique 46726, 59, Colonoscopy, flexible; with biopsy, single or multiple 52418, Unlisted procedure, anus CPT copyright 2017 [employer]. All rights reserved. The codes documented in this report are preliminary and upon employee counselor review may be revised to meet current compliance requirements. Berry Zaidi DO 01/13/2022 7:17:43 AM This report has been signed electronically. Number of Addenda: 1 Note Initiated On: 01/13/2022 6:16 AM Addendum Number: 1 Addendum Date: 05/02/2022 6:11:20 AM MAC was used as sedation for this procedure. Berry Zaidi DO 05/02/2022 6:11:26 AM This report has been signed electronically.
--- NOTE | 2022-01-13 07:19 | OP.CCLET_ITS ---
05/02/2022 Deondre Pedro MD [address] [place] [address] Re : Colonoscopy procedure for Dolores Arthur Dear Dr. Pedro This procedure was performed on Thursday, January 13, 2022. My impressions and recommendations are as follows: Impressions : - Perianal skin tags found on perianal exam. - Patent end-to-end colo-anal anastomosis, characterized by congestion, edema, erythema, friable mucosa and severe stenosis. Dilated. - Diverticulosis in the sigmoid colon. - One 5 mm polyp in the ascending colon, removed with a cold snare. Resected and retrieved. Recommendations : - No recommendation at this time regarding repeat colonoscopy due to age. -Colace one per day and metamucil once or twice a day.. - Continue present medications. My findings are described in the full procedure note, which is enclosed. If I can be of further assistance, please feel free to contact me at . Sincerely, Berry Zaidi, 01/13/2022 7:17:43 AM This report has been signed electronically.
[2022-01-13] MEDS: 0.9% Saline Lock 10 ML Syringe IV (07:59)
== END 2022-01-13 08:42 | disposition home or self-care (01) ==
LOC: EN 05:15 → AC 05:16
PROVIDERS: PCP Family Medicine Geriatric Medicine; Referring Provider Family Medicine Geriatric Medicine; Visit Provider Internal Medicine Gastroenterology
PROC: 0DJD8ZZ Inspection of Lower Intestinal Tract, Via Natural or Artificial Opening Endoscopic (ICD-10-PCS; CPT 45378; principal; 2022-01-13 06:25)
DX: D12.2 Benign neoplasm of ascending colon (principal); G20 Parkinson's disease; K57.30 Diverticulosis of large intestine without perforation or abscess without bleeding; K64.4 Residual hemorrhoidal skin tags; F41.9 Anxiety disorder, unspecified; F32.A Depression, unspecified; Z79.899 Other long term (current) drug therapy; Z87.891 Personal history of nicotine dependence
CPT/HCPCS: 45385; 45380; 88305; J7120; A4216; C1769; J2405

== ENCOUNTER → 2022-02-09 | Outpatient (CLI) | payer MEDICARE, OTHER, SELFPAY ==
--- NOTE | 2022-02-09 13:58 | BI_ITS ---
MAMMOGRAPHY - BILATERAL SCREENING REASON FOR EXAM: Female, 76 years old. Routine annual screening examination. PERTINENT HISTORY: Non-contributory. TECHNIQUE: Digital bilateral breast geovanny (3D mammographic acquisition) in the CC and MLO projections. 2-D mediolateral oblique (MLO) and craniocaudad (CC) views of both breasts were obtained. CAD: Full Field Digital Mammography with Computer Added Detection was performed. COMPARISON: Comparison is made with prior study dated 01/07/2020 and 03/11/2018. FINDINGS: Breast Composition: The breasts are heterogeneously dense, which may obscure small masses. There are no dominant masses or suspicious calcifications. No other significant abnormalities are identified. There has been no significant change since the prior study. BI/SCRN MAMM (CAD)W/GEOVANNY BILAT IMPRESSION: Stable bilateral screening mammogram. Yearly follow-up mammogram recommended. (A) ASSESSMENT CATEGORY: BIRADS Category 1: Negative. A letter regarding these results will be sent to the patient by the facility within 30 days. Approximately 10% of breast cancers are not detected by mammography. A normal mammogram should not delay biopsy of a clinically suspicious abnormality. [id number] Electronically Signed: Gerald Mg MD at 15:26 EDT ,
== END | disposition home or self-care (01) ==
LOC: OPBI 13:56
PROVIDERS: PCP Family Medicine Geriatric Medicine; Visit Provider Family Medicine Geriatric Medicine
DX: Z12.31 Encounter for screening mammogram for malignant neoplasm of breast (principal)
CPT/HCPCS: 77063; 77067

== ENCOUNTER 2022-04-19 07:56 | Day surgery (SDC) | payer MEDICARE, SELFPAY ==
[2022-04-19] VITALS (8 sets, daily range): BP systolic 85–113; BP diastolic 47–64; PULSE 58–73; RESP 15–18; TEMP 36.2–37.2; O2SAT 95–99; BMI 23.8
--- NOTE | 2022-04-19 08:08 | HP.PCM_ITS ---
History and Physical Date of Admission: 04/19/22 KALPANA LION, is a 76 F who presents to the office today for f/u colonoscopy performed by Dr. Zaidi on 01/13/2022, she is accompanied by caregiver.? She has a history of anal cancer treated in January 2021 with radiation and chemotherapy.? Colonoscopy was needed to evaluate response to treatment.? Per Dr. Gil's note, per NCCN guidelines, endoscopic examination is recommended every 6 to 12 months for the first 3 years following completion of treatment.? On colonoscopy Dr. Zaidi found severe stenosis at the coloanal anastomosis, it was traversed after dilation; there were some radiation changes just beyond the anastomosis colon biopsies were taken of the surrounding areas; a 5 mm polyp was in the ascending colon, it was removed; biopsies were taken in the rectum; diverticulosis in the sigmoid colon.? The polyp was a tubular adenoma; there was mild architectural change found at the anal rectal verge, no evidence of colitis.? Since her colonoscopy she has had follow-up with both oncology and radiation oncology. Dr. Zaidi recommended Colace and fiber supplement; she tried that but had 7-8 bowel movements per day which she found very frustrating so she discontinued that regimen.? Even prior to that she found she was having multiple bowel movements per day.? Caregiver reports she may use multiple rolls of toilet paper per day, when she wipes the patient the stool is not completely coming out.? Stool is typically formed.? She does not usually have diarrhea or loose stools.? Patient has tried changing her diet in order to limit her bowel movements, such as a BRAT diet, she wants to have fewer bowel movements. 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 She received radiation to the primary tumor, the enlarged perirectal lymph node, and the bilateral at risk pelvic and inguinal lymph nodes ending 02/25/21. She received concurrent chemotherapy for one cycle (5FU and MMC ). Following definitive treatment she had a protracted debility and recovery time. She opted for hospice [place] [facility] facility and did not have her electively planned endoscopic follow-up with Dr. Walker. However by September 2021 she had recovered enough to come off hospice and was able to go home in 10/2020. She has tapered off routine oxycodone, now just takes it at HS prn left leg/foot pain. Constipation resolved once she no longer took routine opioid. No diarrhea. No melena or hematochezia. Denies abdominal pain. She denies any upper GI issues; no dysphagia, heartburn, nausea, vomiting, chest or abdominal pain. 01/13/22 Colonoscopy Findings: ?? ? Skin tags were found on perianal exam. ?? ? There was evidence of a prior end-to-end colo-anal anastomosis at the ?? ? anus. This was patent and was characterized by congestion, edema, ?? ? erythema, friable mucosa and severe stenosis. The anastomosis was ?? ? traversed after dilation. A guidewire was placed and the scope was ?? ? withdrawn. Dilation was performed with a Nano Terraary dilator with no ?? ? resistance at 36 Fr. The dilation site was examined following endoscope ?? ? reinsertion and showed complete resolution of luminal narrowing. ?? ? Estimated blood loss was minimal. ?? ? A few small-mouthed diverticula were found in the sigmoid colon. There ?? ? also was some radiation changes seen just beyond the anastomosis. ?? ? Biopsies were taken of the surrounding areas. ?? ? A 5 mm polyp was found in the ascending colon. The polyp was sessile. ?? ? The polyp was removed with a cold snare. Resection and retrieval were ?? ? complete. Verification of patient identification for the specimen was ?? ? done. Estimated blood loss was minimal. ?? ? The mucosa vascular pattern in the rectum was segmentally increased. ?? ? Biopsies were taken with a cold forceps for histology. Verification of ?? ? patient identification for the specimen was done. Estimated blood loss ?? ? was minimal. Impression: ? - Perianal skin tags found on perianal exam. ? - Patent end-to-end colo-anal anastomosis, ? characterized by congestion, edema, erythema, ? friable mucosa and severe stenosis. Dilated. ? - Diverticulosis in the sigmoid colon. ? - One 5 mm polyp in the ascending colon, ? removed with a cold snare. Resected and ? retrieved. MICROSCOPIC DIAGNOSIS A.? Ascending colon polyp, biopsy: ?Tubular adenoma. B.? Anal rectal verge, biopsy: ?Mild architectural change. ?No evidence of colitis ROS Const Constitutional: Positive for fatigue ENT ENT: No difficulty swallowing Gastro GI: Positive for bloating, change in bowel habits and excessive flatus; No abdominal pain, belching, change in stool character, coffee ground emesis, constipation, cramping, diarrhea, heartburn, difficulty swallowing, feeling full early, incontinent of stools, Vomiting blood/hematemesis, Blood in stool, loose stools, Black,tarry stools, nausea/dyspepsia, pain with swallowing, vomiting or other Musc Musculoskeletal: Positive for abnormal gait, back pain, stiffness and Arthritis; No joint pain Skin Skin: No yellowing of the eye or itchy eyes Neuro Neurology: Positive for abnormal gait Psych Psychiatric: No anxiety and No depression Endo Endocrine: Positive for fatigue Aller/Imm Allergy/Immunologic: No itchy eyes Bruno/Lymp Hematologic/Lymphatic: No easy bleeding or easy bruising Exam Const General: cooperative and comfortable Orientation: alert, awake and oriented x3 Other: Uses a cane Quality Reporting Tobacco Screening ([facility] 138) Smoking Status: Former smoker Assessment and Plan Assessment and Plan (1) Constipation: ?Status:?Acute (2) History of anal cancer: ?Status:?Acute ?Plan: I reviewed the results of her colonoscopy and biopsies with patient and caregiver.? Her complaint is when she has frequent bowel movements but bowels are not emptied.? A combination of Colace and fiber was not effective, or at least she wasn't pleased with frequency of BMs.? She has MiraLAX at home and has used it as needed in the past; she will try using it nightly for the next 2 weeks and will call or send a portal message with an update.? I reviewed her case with Dr Zaidi, he recommends dilation of her anal stenosis q3 mos until it remains more open, he could inject it with steroids, that would help with her BMs, she would need Fleets enema as prep. I have re-examined the patient. There are no clinical changes since date of exam. I have re-examined the patient. There are no clinical changes since date of exam.
[2022-04-19] MEDS: Lactated Ringers 1,000 ML 15 ML IV (08:26)
[2022-04-19] MEDS: Triamcinolone Acetonide 40 MG/ML Vial (09:59)
--- NOTE | 2022-04-19 10:15 | OP.FLEXSIG_ITS ---
Patient Name: Dolores Arthur Procedure Date: 04/19/2022 9:35 AM Date of : 1945 Age: 76 Procedure: Flexible Sigmoidoscopy Indications: Personal history of malignant rectal neoplasm Providers: Berry Zaidi DO Medicines: Monitored Anesthesia Care Patient Profile: This is a 76 year old female. Refer to note in patient chart for documentation of history and physical. Last Colonoscopy: 6 months ago. Complications: No immediate complications. Procedure: Pre-Anesthesia Assessment: - Prior to the procedure, a History and Physical was performed, and patient medications and allergies were reviewed. The risks and benefits of the procedure and the sedation options and risks were discussed with the patient. All questions were answered and informed consent was obtained. Patient identification and proposed procedure were verified by the physician in the pre-procedure area. Mental Status Examination: alert and oriented. Airway Examination: normal oropharyngeal airway and neck mobility. Respiratory Examination: clear to auscultation. CV Examination: normal. Prophylactic Antibiotics: The patient does not require prophylactic antibiotics. Prior Anticoagulants: The patient has taken no previous anticoagulant or antiplatelet agents. ASA Grade Assessment: II - A patient with mild systemic disease. After reviewing the risks and benefits, the patient was deemed in satisfactory condition to undergo the procedure. The anesthesia plan was to use moderate sedation / analgesia (conscious sedation). Immediately prior to administration of medications, the patient was re-assessed for adequacy to receive sedatives. The heart rate, respiratory rate, oxygen saturations, blood pressure, adequacy of pulmonary ventilation, and response to care were monitored throughout the procedure. The physical status of the patient was re-assessed after the procedure. After obtaining informed consent, the endoscope was passed under direct vision. Throughout the procedure, the patient's blood pressure, pulse, and oxygen saturations were monitored continuously. The Colonoscope was introduced through the anus and advanced to the sigmoid colon. The flexible sigmoidoscopy was accomplished without difficulty. The patient tolerated the procedure well. Scope In: 9:51:12 AM Scope Out: 10:08:23 AM Total Procedure Duration Time 0 hours 17 minutes 11 seconds Findings: The digital rectal exam findings include anal stricture. There was evidence of a prior end-to-end colo-anal anastomosis at the anus. This was non-patent and was characterized by severe stenosis. The anastomosis was traversed after dilation. A guidewire was placed and the scope was withdrawn. Dilation was performed with a Savary dilator with no resistance at 48 Fr. The dilation site was examined following endoscope reinsertion and showed complete resolution of luminal narrowing. Area was successfully injected with 3 mL of triamcinolone (10 mg/mL) for muscle relaxation. Coagulation for hemostasis using argon plasma at 0.3 liters/minute and 20 davis was successful. Impression: - Anal stricture found on digital rectal exam. - Non-patent end-to-end colo-anal anastomosis, characterized by severe stenosis. Dilated. Injected. Treated with argon plasma coagulation (APC). - No specimens collected. Recommendation: - Use fiber, for example Citrucel, Fibercon, Konsyl or Metamucil. Procedure Code(s): --- Professional --- 63954, Sigmoidoscopy, flexible; with control of bleeding, any method 03974, Unlisted procedure, anus CPT copyright 2017 [employer]. All rights reserved. The codes documented in this report are preliminary and upon outpatient coder review may be revised to meet current compliance requirements. Berry Zaidi DO 04/19/2022 10:15:34 AM This report has been signed electronically. Number of Addenda: 0 Note Initiated On: 04/19/2022 9:35 AM
--- NOTE | 2022-04-19 10:15 | OP.CCLET_ITS ---
04/19/2022 Louise Mcgrath Do Re : Flexible Sigmoidoscopy procedure for Dolores Arthur Dear Alcides This procedure was performed on Tuesday, April 19, 2022. My impressions and recommendations are as follows: Impressions : - Anal stricture found on digital rectal exam. - Non-patent end-to-end colo-anal anastomosis, characterized by severe stenosis. Dilated. Injected. Treated with argon plasma coagulation (APC). - No specimens collected. Recommendations : - Use fiber, for example Citrucel, Fibercon, Konsyl or Metamucil. My findings are described in the full procedure note, which is enclosed. If I can be of further assistance, please feel free to contact me at . Sincerely, Berry Zaidi, 04/19/2022 10:15:34 AM This report has been signed electronically.
== END 2022-04-19 11:32 | disposition home or self-care (01) ==
LOC: EN 07:59 → AC 08:01
PROVIDERS: PCP Family Medicine; Referring Provider Family Medicine; Visit Provider Internal Medicine Gastroenterology
PROC: 0DJD8ZZ Inspection of Lower Intestinal Tract, Via Natural or Artificial Opening Endoscopic (ICD-10-PCS; CPT 45330; principal; 2022-04-19 08:55)
DX: K62.4 Stenosis of anus and rectum (principal); F32.A Depression, unspecified; F41.9 Anxiety disorder, unspecified; Z79.899 Other long term (current) drug therapy; Z87.891 Personal history of nicotine dependence
CPT/HCPCS: 45334; J7120; C1769; J2405; J3490

== ENCOUNTER 2022-08-01 05:21 | Day surgery (SDC) | payer MEDICARE, SELFPAY ==
[2022-08-01 05:53] VITALS: BP 106/58; PULSE 75; RESP 16; TEMP 37; O2SAT 95; BMI 29.2
[2022-08-01] MEDS: Lactated Ringers 1,000 ML 15 ML IV (05:57)
--- NOTE | 2022-08-01 06:31 | HP.PCM_ITS ---
History and Physical Date of Admission: 08/01/22 KALPANA LION, is a 77 F who presents to the office today for Follow up visit. Kalpana established with this clinic 12.05.21 with referral from oncologist for anal cancer. 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 Treated with radiation 01.12.21-02.25.21 and one cycle of Mitomycin 02.07.21. She was admitted to hospice services at a [facility], but recovered enough she was able to be discharged from hospice and [facility]TC[facility] services to home. Colonoscopy 01.13.22 finding perianal skin tags; patent end-to-end colo-anal anastomosis characterized by congestion, edema, erythema, friable mucosa and severe stenosis, dilated to 36F; sigmoid diverticulosis; 5mm tubular adenoma polyp in ascending colon. Sigmoidoscopy 04.19.22 noting anal stricture; non-patent end-to-end colo-anal anastomosis with sever stenosis, dilated to 48F and treated with APC. No specimens collected. Plan LV 02.15.22: Constipation, anal cancer ? frequent BM without complete evacuation. Recommend routine dilation of anal stenosis until remains open. She was doing very well following her sigmoidoscopy; with dilation and use of fiber and stool softeners she was having normal-like formed stools. However recently she has been having difficulty with a narrowing of the stools and they continue to be soft. ROS Const Constitutional: No fatigue, malaise, night sweats, weight change, sleep problems, abnormal sleep pattern or change in appetite ENT ENT: No difficulty swallowing, hoarseness or sore throat Cardio Cardiology: No chest pain at rest Gastro GI: No abdominal pain, belching, bloating, change in bowel habits, coffee ground emesis, constipation, cramping, diarrhea, heartburn, difficulty swallowing, feeling full early, excessive flatus, incontinent of stools, Vomiting blood/hematemesis, Blood in stool, loose stools, Black,tarry stools, nausea/dyspepsia, pain with swallowing, vomiting or other Musc Musculoskeletal: No joint pain Skin Skin: No yellowing of the eye or itchy eyes Neuro Neurology: No behavioral changes Psych Psychiatric: No abnormal sleep pattern, No anxiety, No behavioral changes, No change in appetite and No depression Endo Endocrine: No fatigue or weight change Aller/Imm Allergy/Immunologic: No itchy eyes Bruno/Lymp Hematologic/Lymphatic: No easy bleeding or easy bruising Exam Const General: cooperative and comfortable Orientation: alert, awake and oriented x3 Other: Uses a cane Quality Reporting Tobacco Screening ([facility] 138) Smoking Status: Former smoker Assessment and Plan Assessment and Plan (1) 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 She was able to be dilated up to a 39 Hungarian savory dilator.? She does have anal stenosis.? We will schedule her for Botox injection for her anal fissure and possibly steroid therapy to relax the anal sphincter status post radiation therapy and surgery for anal cancer.? There has been no sign of recurrence since her last procedure.? 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 We strict diet that she is to take along with approximately 30 g of fiber and a stool softener.? We will perform a flexible sigmoidoscopy with Botox injections. She was explained alternatives, risk, benefits including not withstanding bleeding, infection, sepsis, perforation, need for emergent surgery . She will have an ASA of 2. (2) Anal cancer: ?Status:?Chronic I have examined the patient and the H&P has been reviewed. There are no clinical changes since date of exam.
[2022-08-01] MEDS: 0.9% Saline Lock 10 ML Syringe IV ×2 (07:03→07:10)
[2022-08-01] MEDS: Botulinum Toxin A 100 Units Vial IM (07:03)
[2022-08-01 07:16] VITALS: BP 106/58; BP 126/77; PULSE 78; RESP 16; TEMP 36.1; O2SAT 98
[2022-08-01 07:20] VITALS: BP 104/74; BP 106/58; PULSE 78; RESP 16; O2SAT 100
--- NOTE | 2022-08-01 07:24 | OP.FLEXSIG_ITS ---
Patient Name: Dolores Arthur Procedure Date: 08/01/2022 6:11 AM Date of : 1945 Age: 77 Procedure: Flexible Sigmoidoscopy Indications: Personal history of malignant rectal neoplasm Providers: Berry Zaidi DO Medicines: Monitored Anesthesia Care Patient Profile: This is a 77 year old female. Refer to note in patient chart for documentation of history and physical. Last Colonoscopy: 6 months ago. Complications: No immediate complications. Procedure: Pre-Anesthesia Assessment: - Prior to the procedure, a History and Physical was performed, and patient medications and allergies were reviewed. The patient is competent. The risks and benefits of the procedure and the sedation options and risks were discussed with the patient. All questions were answered and informed consent was obtained. Patient identification and proposed procedure were verified by the physician. Mental Status Examination: normal. Respiratory Examination: clear to auscultation. Prophylactic Antibiotics: The patient does not require prophylactic antibiotics. Prior Anticoagulants: The patient has taken no previous anticoagulant or antiplatelet agents. ASA Grade Assessment: II - A patient with mild systemic disease. After reviewing the risks and benefits, the patient was deemed in satisfactory condition to undergo the procedure. The anesthesia plan was to use monitored anesthesia care (MAC). Immediately prior to administration of medications, the patient was re-assessed for adequacy to receive sedatives. The heart rate, respiratory rate, oxygen saturations, blood pressure, adequacy of pulmonary ventilation, and response to care were monitored throughout the procedure. The physical status of the patient was re-assessed after the procedure. After obtaining informed consent, the endoscope was passed under direct vision. Throughout the procedure, the patient's blood pressure, pulse, and oxygen saturations were monitored continuously. The gastroscope was introduced through the anus and advanced to the splenic flexure. The flexible sigmoidoscopy was accomplished without difficulty. The patient tolerated the procedure well. The quality of the bowel preparation was good. Scope In: 6:47:23 AM Scope Out: 7:11:57 AM Total Procedure Duration Time 0 hours 24 minutes 34 seconds Findings: The perianal exam findings include anal canal stenosis. A severe stenosis measuring 3 cm (in length) x 4 mm (inner diameter) was found at the anus and was traversed after dilation. A guidewire was placed and the scope was withdrawn. Dilation was performed with a Savary dilator with no resistance at 45 Fr. The dilation site was examined following endoscope reinsertion and showed complete resolution of luminal narrowing. Area was successfully injected with 100 units botulinum toxin. Impression: - Anal canal stenosis found on perianal exam. - Stricture at the anus. Dilated. Injected with botulinum toxin. - No specimens collected. Recommendation: - Use fiber, for example Citrucel, Fibercon, Konsyl or Metamucil. Procedure Code(s): --- Professional --- 82714, Sigmoidoscopy, flexible; with directed submucosal injection(s), any substance 09069, Unlisted procedure, anus CPT copyright 2017 [employer]. All rights reserved. The codes documented in this report are preliminary and upon planer hand review may be revised to meet current compliance requirements. Berry Zaidi DO 08/01/2022 7:24:04 AM This report has been signed electronically. Number of Addenda: 0 Note Initiated On: 08/01/2022 6:11 AM
[2022-08-01 07:25] VITALS: BP 101/50; BP 106/58; PULSE 75; RESP 16; O2SAT 100
--- NOTE | 2022-08-01 07:25 | OP.CCLET_ITS ---
08/01/2022 Louise Mcgrath Do Re : Flexible Sigmoidoscopy procedure for Dolores Arthur Dear Alcides This procedure was performed on Monday, August 01, 2022. My impressions and recommendations are as follows: Impressions : - Anal canal stenosis found on perianal exam. - Stricture at the anus. Dilated. Injected with botulinum toxin. - No specimens collected. Recommendations : - Use fiber, for example Citrucel, Fibercon, Konsyl or Metamucil. My findings are described in the full procedure note, which is enclosed. If I can be of further assistance, please feel free to contact me at . Sincerely, Berry Zaidi, 08/01/2022 7:24:04 AM This report has been signed electronically.
[2022-08-01 07:33] VITALS: BP 101/61; BP 106/58; PULSE 74; RESP 16; TEMP 36.1; O2SAT 98
[2022-08-01 07:56] VITALS: BP 106/58
== END 2022-08-01 08:23 | disposition home or self-care (01) ==
LOC: EN 05:26 → AC 05:26
PROVIDERS: PCP Family Medicine; Referring Provider Family Medicine; Visit Provider Internal Medicine Gastroenterology
PROC: 0DJD8ZZ Inspection of Lower Intestinal Tract, Via Natural or Artificial Opening Endoscopic (ICD-10-PCS; CPT 45330; principal; 2022-08-01 06:25)
DX: K62.4 Stenosis of anus and rectum (principal); C21.0 Malignant neoplasm of anus, unspecified; K60.2 Anal fissure, unspecified; F41.9 Anxiety disorder, unspecified; F32.A Depression, unspecified; Z87.891 Personal history of nicotine dependence; Z79.899 Other long term (current) drug therapy
CPT/HCPCS: 45335; J7120; A4216; C1769; J0585; J2405

== ENCOUNTER → 2022-10-16 | Outpatient (CLI) | payer MEDICARE, OTHER, SELFPAY ==
--- NOTE | 2022-10-16 13:25 | CT_ITS ---
EXAM: CT CHEST, ABDOMEN AND PELVIS WITH INTRAVENOUS CONTRAST CLINICAL INDICATION: anal cancer treated, monitor TECHNIQUE: Helically acquired images were obtained of the chest, abdomen and pelvis with intravenous contrast. This CT exam was performed using one or more of the following dose reduction techniques: automated exposure control, adjustment of the mA and/or kV according to patient size, and/or use of iterative reconstruction technique. This report was created using [employer] report generation technology. Oral contrast was administered. Coronal and sagittal reformatted images were created and reviewed. CONTRAST: 100 mL Isovue-300 RADIATION DOSE: CTDIvol = 12.00 mGy, DLP = 707.66 mGy-cm COMPARISON: 11/15/2021 FINDINGS: CHEST: LUNGS AND PLEURAL SPACES: Reticulonodular densities of the bilateral upper lobes remain unchanged since the prior study. Mild subpleural fibrotic densities of the bilateral lung bases also stable. Nodule in the lateral right upper lobe on image 29 series 2 measures 4.7 x 7.6 mm (previously measured 3.2 x 4.6 mm). No pneumothorax. HEART: Unremarkable. Heart size is normal. No pericardial effusion. MEDIASTINUM: Unremarkable. No mediastinal or hilar adenopathy. Esophagus is unremarkable. No hiatal hernia. THYROID: Unremarkable. No thyroid lesions. ABDOMEN: LIVER: Unremarkable. Homogeneous. No focal mass. GALLBLADDER AND BILE DUCTS: Unremarkable. No calcified gallstones. No gallbladder distention or wall edema. No intra- or extrahepatic biliary ductal dilation. PANCREAS: Unremarkable. No focal cystic or solid mass. SPLEEN: Unremarkable. Normal size without focal cystic or solid mass. ADRENALS: Unremarkable. No nodules. KIDNEYS AND URETERS: Simple left renal cyst. Stable. No required imaging follow-up needed given high likelihood of benign nature. Normal renal size and position. No hydronephrosis. STOMACH AND BOWEL: Diverticulosis of the colon without evidence of diverticulitis. No stomach or bowel distention. PELVIS: APPENDIX: The appendix is not seen but no secondary signs of appendicitis. BLADDER: Tiny locule of air in the nondependent urinary bladder likely related to recent catheterization/instrumentation. REPRODUCTIVE: Unremarkable as visualized. No mass. CHEST, ABDOMEN and PELVIS: INTRAPERITONEAL SPACE: Unremarkable. No ascites or other fluid collection. No free air. BONES/JOINTS: Long segment fusion of the lower thoracic spine extending into the upper sacrum. Arthrosis of the bilateral sacroiliac joints. No suspicious lytic or blastic abnormality. SOFT TISSUES: Mild soft tissue thickening adjacent to the anal rectal region along the right side is likely related to prior surgeries and/or radiation therapy. No discrete abdominal or pelvic wall hernia. VASCULATURE: Coronary artery atherosclerosis. Aorta is non-dilated. No aortic dissection. No obvious central pulmonary embolism although this study was not performed with the pulmonary embolism protocol. LYMPH NODES: There are calcified lymph nodes adjacent to the upper abdominal aorta. No retroperitoneal soft tissue adenopathy. TUBES, LINES AND DEVICES: Right chest port has been removed. CT/CT Chest, Abd, Pel w/Contrast IMPRESSION: 1. Right upper lobe pulmonary nodule has mildly increased in size since prior study. Nodule is below size limitations a PET scan. Recommend follow-up CT to document stability/change, suggest 2-3 months. 2. Mild soft tissue thickening adjacent to the anal rectal region along the right side is likely related to prior surgeries and/or radiation therapy. No discrete focal mass. Electronically Signed: Rakesh Lama (Brooks), at 15:06 EDT ,
[2022-10-16 13:51] LABS: CREATININE FINGERSTICK < 0.9 mg/dL (0.55-1.02); EGFR FINGERSTICK > 60.0000 mL/min (>60)
== END | disposition home or self-care (01) ==
LOC: CT 12:52
PROVIDERS: PCP Family Medicine; Visit Provider Student in an Organized Health Care Education/Training Program
DX: C21.0 Malignant neoplasm of anus, unspecified (principal)
CPT/HCPCS: 71260; 74177; Q9967

== ENCOUNTER → 2022-12-20 | Outpatient (CLI) | payer MEDICARE, SELFPAY ==
[2022-12-25 13:07] LABS: Beef <0.10 kU/L (Class 0); Chocolate <0.10 kU/L (Class 0); Clam <0.10 kU/L (Class 0); Codfish <0.10 kU/L (Class 0); Corn <0.10 kU/L (Class 0); Egg, White <0.10 kU/L (Class 0); Egg, Whole <0.10 kU/L (Class 0); Milk (Cow) <0.10 kU/L (Class 0); Peanut <0.10 kU/L (Class 0); Pork <0.10 kU/L (Class 0); SCALLOP <0.10 kU/L (Class 0); SESAME SEED <0.10 kU/L (Class 0); Shrimp <0.10 kU/L (Class 0); Soybean <0.10 kU/L (Class 0); Walnut, (Food) <0.10 kU/L (Class 0); Wheat <0.10 kU/L (Class 0)
== END | disposition home or self-care (01) ==
LOC: LAB 13:47
PROVIDERS: PCP Family Medicine; Referring Provider Internal Medicine Gastroenterology; Visit Provider Internal Medicine Gastroenterology
DX: K52.9 Noninfective gastroenteritis and colitis, unspecified (principal)
CPT/HCPCS: 36415; 86003; 86005

== ENCOUNTER → 2023-01-02 | Outpatient (CLI) | payer MEDICARE, SELFPAY ==
--- NOTE | 2023-01-02 09:51 | RAD_ITS ---
EXAM: XR ABDOMEN, 1 VIEW CLINICAL INDICATION: Sitz marker, constipation TECHNIQUE: Frontal supine view of the abdomen/pelvis. COMPARISON: No relevant prior studies available. FINDINGS: LOWER THORAX: There is extensive orthopedic hardware in the lower thoracic and lumbar spine from a posterior fusion. GASTROINTESTINAL TRACT: Unremarkable. Non-obstructive. No bowel or stomach distention. ORGANS: Unremarkable as visualized. No organomegaly. No abnormal calcifications. BONES/JOINTS: There are 2 small radiopaque densities overlying the left sacral wing which may represent surgical clips or perhaps 2 Sitzmarks markers. No other Sitzmarks markers are identified. SOFT TISSUES: No acute pathology. RAD/Abdomen Single View IMPRESSION: 2 possible Sitzmarks markers seen within the region of the sigmoid colon. No other markers are identified. Electronically Signed: Rafa Zamora MD at 22:11 EDT ,
== END | disposition home or self-care (01) ==
LOC: RAD 09:46
PROVIDERS: PCP Family Medicine; Referring Provider Internal Medicine Gastroenterology; Visit Provider Internal Medicine Gastroenterology
DX: K59.00 Constipation, unspecified (principal)
CPT/HCPCS: 74018

== ENCOUNTER → 2023-01-04 | Outpatient (CLI) | payer MEDICARE, SELFPAY ==
--- NOTE | 2023-01-04 11:00 | RAD_ITS ---
INDICATION: Sitz marker, constipation EXAMINATION/TECHNIQUE: X-RAY - XR Abdomen 1 View COMPARISON: FINDINGS: No definite Sitz markers identified. There is a cluster of 4 densities in the left mid abdomen most likely still related content in the descending colon. These do not have the typical appearance of markers. There are 2 surgical clips overlying the left hemisacrum which are unchanged. Mild stool throughout the colon. No bowel obstruction. Surgical hardware in the spine. RAD/Abdomen Single View IMPRESSION: No definite Sitz markers identified. Electronically Signed: Leticia Mtz MD at 6:53 EDT ,
== END | disposition home or self-care (01) ==
LOC: RAD 10:45
PROVIDERS: PCP Family Medicine; Referring Provider Internal Medicine Gastroenterology; Visit Provider Internal Medicine Gastroenterology
DX: K59.00 Constipation, unspecified (principal)
CPT/HCPCS: 74018

== ENCOUNTER → 2023-01-12 | Outpatient (CLI) | payer MEDICARE, SELFPAY ==
--- NOTE | 2023-01-12 10:03 | NM_ITS ---
CLINICAL: 77-year-old female with history of clinical gastroparesis. SEMI-SOLID PHASE 99m Tc SULFUR COLLOID GASTRIC EMPTYING STUDY COMPARISON: None available FINDINGS: The patient was administered 1.2 mCi of 99m Tc sulfur colloid mixed with oatmeal and consumed per os. Image acquisitions in the anterior-posterior projections were obtained for 60 minutes. There is prompt visualization of the stomach. There is no gastroesophageal reflux identified. The T ? raw data emptying was calculated to be 15.27 minutes, (Normal: 12-56 minutes). NM/Gastric Emptying Study IMPRESSION: 1. NORMAL 99m Tc sulfur colloid semi-solid phase (oatmeal) gastric emptying imaging examination. A. There is normal and preserved semi-solid phase gastric emptying compared to normal controls. (Meagan et al, J Nucl Med Tech 38: 186, 2010). Electronically Signed: Fransisco Arita, at 10:46 EDT ,
== END | disposition home or self-care (01) ==
LOC: NM 10:02
PROVIDERS: PCP Family Medicine; Referring Provider Internal Medicine Gastroenterology; Visit Provider Internal Medicine Gastroenterology
DX: K31.84 Gastroparesis (principal); K52.9 Noninfective gastroenteritis and colitis, unspecified
CPT/HCPCS: 78264; A9541

== ENCOUNTER → 2023-02-05 | Outpatient (CLI) | payer MEDICARE, SELFPAY ==
--- NOTE | 2023-02-05 13:20 | CT_ITS ---
INDICATION: tracking lung nodule, h/o anal cancer -- please compare to prior EXAMINATION: - CT Chest W/O Contrast Injection A radiation dose optimization technique was used for this scan. Radiation CTDIvol 8.02 Radiation DLP 232.75 COMPARISON: Chest CT 10/16/2022 and 11/15/2021. FINDINGS: Noncontrast serial CT axial images through the chest with coronal and sagittal reformatted series. MEDIASTINUM: No significant coronary artery atherosclerotic calcifications. Stable borderline mediastinal adenopathy containing calcifications. LUNG PARENCHYMA: Stable biapical pleural plaques containing calcifications. Stable 8 mm right upper lobe bilobed pulmonary nodule. Multiple additional stable bilateral subcentimeter pulmonary nodules. PLEURA: No pleural effusion. No pneumothorax. BONES: Thoracolumbar orthopedic hardware, incompletely imaged, although no obvious hardware complication. Again noted lower thoracic vertebral body anterior wedge deformities. UPPER ABDOMEN: Unremarkable. CT/Chest without Contrast IMPRESSION: Numerous stable pulmonary nodules from only 4 months prior (however, some of which had increased in size from previous year). Recommend continued short interval follow-up as metastatic disease is not excluded. Electronically Signed: Phil Marley MD at 3:14 EDT ,
== END | disposition home or self-care (01) ==
LOC: CT 12:50
PROVIDERS: PCP Family Medicine; Referring Provider Student in an Organized Health Care Education/Training Program; Visit Provider Student in an Organized Health Care Education/Training Program
DX: R91.8 Other nonspecific abnormal finding of lung field (principal)
CPT/HCPCS: 71250

== ENCOUNTER → 2023-11-08 | Outpatient (CLI) | payer MEDICARE, SELFPAY ==
--- NOTE | 2023-11-08 13:41 | CT_ITS ---
STUDY: CT CHEST, ABDOMEN T PELVIS WITH CONTRAST REASON FOR EXAM: Female, 78 years old. follow up lung nodules, h/o treated anal cancer -- please compare to prior RADIATION DOSAGE (If Supplied By Facility): CTDIvol = ( 14.11 ) mGy, DLP = ( 952.19 ) mGycm TECHNIQUE: Transaxial imaging was performed following intravenous administration of Oral and amp; IV Readi-CAT and amp; 75mL Isovue-370. Individualized dose optimization techniques were used for this CT. COMPARISON: CT chest February 05, 2023 CT abdomen and pelvis December 30, 2020. FINDINGS: CHEST Multiple peripheral pulmonary nodules again noted bilaterally. Some of these appear partially calcified. Some of these abut the pleura. Most of these appear more conspicuous/slightly larger. Left upper lobe nodule image #35 measures 5 mm. Left upper lobe nodules measuring up to 6 mm on image #46. Right lower lobe subsegmental atelectasis. Right upper lobe pleural parenchymal scarring appears stable. Right upper lobe as ago esophageal recess nodule measures 8 mm image #24. Right upper lobe nodule or cluster measuring 8 mm in overall diameter image #31. New small left effusion and left lower lobe airspace disease. Small right effusion also appears new. Cardiomegaly and calcific coronary artery disease. Multiple small calcified mediastinal lymph nodes are noted. Normal hilar regions. Normal unenhanced pulmonary arteries. Normal aorta arch and descending thoracic aorta. Moderate kyphosis dextroconvex scoliosis, Burk rods and vacuum disc disease. The colon is Interposed between the liver and the diaphragm. Oral contrast noted in the stomach and colon. ABDOMEN Normal liver. Normal gallbladder and extrahepatic biliary system. Normal spleen. Normal pancreas. Normal bilateral adrenal glands. Normal right kidney. Simple left renal cortical cysts measuring up to 2.3 cm do not require follow-up as they appear simple/benign. Normal visualized stomach. Oral contrast noted throughout the small bowel. Colonic diverticulosis. Persistent induration noted in the perianal region. Appendix not identified. Normal abdominal aorta. Normal inferior vena cava. Normal retroperitoneum. Normal abdominal wall. Moderate levoconvex scoliosis and Burk rods. Multilevel vacuum disc phenomena. Diffuse demineralization. No osteolytic or osteoblastic disease noted. Hardware appears intact. Intervertebral disc spaces L4-5 and L5-S1. PELVIS Normal urinary bladder. Uterus normal. Normal visualized small intestine. Normal visualized colon. There is no pelvic fluid. There is no pelvic lymphadenopathy or mass lesion. Normal visualized pelvic arteries. Normal abdominal wall. Normal osseous structures. CT/CT Chest, Abd, Pel w/Contrast IMPRESSION: New left greater than right pleural effusions and left lower lobe atelectasis/airspace disease. Multiple pulmonary nodules demonstrating interval increase in size consistent with metastatic disease. Persistent induration perianal region consistent with patient''s history of anal cancer. Other incidental findings as above. Electronically Signed: Abdi Powell MD at 17:23 EDT ,
[2023-11-08 14:27] LABS: CREATININE FINGERSTICK < 1.0 mg/dL (0.55-1.02); EGFR FINGERSTICK > 60.0000 mL/min (>60)
== END | disposition home or self-care (01) ==
LOC: CT 13:39
PROVIDERS: PCP Family Medicine; Referring Provider Student in an Organized Health Care Education/Training Program; Visit Provider Student in an Organized Health Care Education/Training Program
DX: Z85.048 Personal history of other malignant neoplasm of rectum, rectosigmoid junction, and anus (principal)
CPT/HCPCS: 71260; 74177; Q9967; A4216

== ENCOUNTER 2024-01-02 06:25 | Day surgery (SDC) | payer MEDICARE, SELFPAY ==
[2024-01-02 07:06] VITALS: BP 110/62; PULSE 72; RESP 16; TEMP 36.6; O2SAT 96; BMI 25.3
[2024-01-02] MEDS: Lactated Ringers 1,000 ML 15 ML IV (07:12)
--- NOTE | 2024-01-02 07:38 | HP.PCM_ITS ---
History and Physical Date of Admission: 01/02/24 78 F who presents to the office today for follow up. *[facility] established 12.05.21 with referral from oncologist for anal cancer. 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 Treated with radiation 01.12.21-7 and one cycle of Mitomycin 02.07.21. She was admitted to hospice services at a [facility], but recovered enough she was able to be discharged from hospice and LTCF services to home. Colonoscopy 01.13.22 perianal skin tags; patent end-to-end colo-anal anastomosis characterized by congestion, edema, erythema, friable mucosa and severe stenosis, dilated to 36F; sigmoid diverticulosis; 5mm TA polyp in ascending colon. OV 57.. fiber and Colace caused increased BM frequency which she found frustrating. Sigmoidoscopy 04.19.22 non-patent end-to-end colo-anal anastomosis at anus with severe stenosis, dilated to 48F with resolution, triamcinolone injected, APC. No specimens collected. OV 06.07.22 She was doing very well following her sigmoidoscopy; with dilation and use of fiber and stool softeners she was having normal-like formed stools. However recently she has been having difficulty with a narrowing of the stools and they continue to be soft. ? Sigmoidoscopy .10.19 severe anal stenosis 4mm diameter, Savary dilator 45F with complete resolution, Botox injected. OV 12.20.22 Feels she is doing well at this time. Stools are very soft usually 1- 2/day with occasional 3/day and are sometimes urgent/uncontrollable and occasionally she does not have BM sensation. Rectal pain r/t hemorrhoid. She is not taking any bowel regimen medications; fiber increased her BM frequency. ? Biochemical RAST without pertinent abnormality. ? Gastric emptying study 01.12.23 15.27 minutes ? SITZ no remaining rings Contact 01.15.23 recommending anti-dumping diet. OV 8.28.23 Stooling frequency has reduced to 2+ loose stools per day with intermittent preceding abdominal cramping; her concern is that she is still restricting lifestyle/going out because of worry about having incontinence. Continues with anti-dumping diet. She is not currently taking fiber supplement, Imodium or other bowel medications. OV 5.24.24 pt reports that she continues to have several loose bm per day, including nocturnal fecal incontinence. Pt reports that she is no longer following the anti-dumping diet because she did not see any results. Pt reports that she continues with buspirone. ROS Const Constitutional: No fatigue, fever(s) or weight change ENT ENT: No difficulty swallowing Gastro GI: Positive for diarrhea and incontinent of stools; No abdominal pain, belching, bloating, change in bowel habits, change in stool character, coffee ground emesis, constipation, cramping, heartburn, difficulty swallowing, feeling full early, excessive flatus, Vomiting blood/hematemesis, Blood in stool, loose stools, Black,tarry stools, nausea/dyspepsia, pain with swallowing, vomiting or other Musc Musculoskeletal: No joint pain Skin Skin: No yellowing of the eye or itchy eyes Psych Psychiatric: No anxiety and No depression Endo Endocrine: No fatigue or weight change Aller/Imm Allergy/Immunologic: No itchy eyes Bruno/Lymp Hematologic/Lymphatic: No easy bleeding or easy bruising Exam Const General: cooperative and comfortable Orientation: alert, awake and oriented x3 Other: Uses a cane Assessment and Plan Assessment and Plan (1) Stricture of anal canal: Status: Acute (2) Frequent stools: Status: Chronic Plan: Since she is having some increase accelerated gastrocolic reflex. We will need to get a gastric emptying study. We will also need to get a sits marker test. I will likely need to put on pancreatic enzymes for exocrine pancreatic insufficiency. We will hold off on that for now. I will get food allergy testing. Once I have more information then I will be able to hopefully help her with what sounds like overflow incontinence or accelerated gastrocolic reflex. (3) History of anal cancer: Status: Chronic (4) Anal stenosis: Status: Chronic Plan: Anal stenosis status post dilation with 33 Nigerian savory dilators. She was able to be dilated up to a 39 Nigerian savory dilator. She does have anal stenosis. We will schedule her for Botox injection for her anal fissure and possibly steroid therapy to relax the anal sphincter status post radiation therapy and surgery for anal cancer. There has been no sign of recurrence since her last procedure. Risk and benefits of Botox a steroid therapy along with dilation were explained to the patient and her landscape architecture professor who is with her. We strict diet that she is to take along with approximately 30 g of fiber and a stool softener. (5) Anal cancer: Status: Chronic Orders: Orders Colonoscopy 01/02/24 K62.4 - Stenosis of anus and rectum I have examined the patient and the H&P has been reviewed. There are no clinical changes since date of exam.
[2024-01-02] MEDS: 0.9% Normal Saline (Pres. free 10 ML Vial (08:15)
[2024-01-02] MEDS: Botulinum Toxin A 100 Units Vial IJ (08:15)
[2024-01-02] MEDS: 0.9% Saline Lock 10 ML Syringe IV (08:19)
[2024-01-02 08:25] VITALS: BP 110/62; BP 96/70; PULSE 84; RESP 16; TEMP 36.6; O2SAT 96
[2024-01-02 08:30] VITALS: BP 110/62; BP 110/63; PULSE 74; RESP 16; O2SAT 94
[2024-01-02 08:35] VITALS: BP 110/62; BP 90/52; PULSE 74; RESP 16; O2SAT 95
--- NOTE | 2024-01-02 08:36 | OP.CCLET_ITS ---
01/02/2024 Vinicius Doran Md Re : Flexible Sigmoidoscopy procedure for Dolores Kovacsr Espinoza This procedure was performed on Tuesday, January 02, 2024. 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 - Anal stricture found on digital rectal exam. - Scar at the anus. - Stricture at the anus. Dilated. Treated with argon plasma coagulation (APC). Injected with botulinum toxin. - No specimens collected. Recommendations : - Use Benefiber Chewable one tablet PO BID. My findings are described in the full procedure note, which is enclosed. If I can be of further assistance, please feel free to contact me at . Sincerely, Berry Zaidi, 01/02/2024 8:35:43 AM This report has been signed electronically.
--- NOTE | 2024-01-02 08:36 | OP.FLEXSIG_ITS ---
Patient Name: Dolores Arthur Procedure Date: 01/02/2024 7:37 AM Date of : 1945 Age: 78 Procedure: Flexible Sigmoidoscopy Indications: High risk colon cancer surveillance: Personal history of colon cancer Providers: Berry Zaidi DO Medicines: Monitored Anesthesia Care Patient Profile: This is a 78 year old female. Refer to note in patient chart for documentation of history and physical. Last Colonoscopy: 6 months ago. Complications: No immediate complications. Procedure: Pre-Anesthesia Assessment: - Prior to the procedure, a History and Physical was performed, and patient medications and allergies were reviewed. The patient is competent. The risks and benefits of the procedure and the sedation options and risks were discussed with the patient. All questions were answered and informed consent was obtained. Patient identification and proposed procedure were verified by the physician in the pre-procedure area. Mental Status Examination: normal. Prophylactic Antibiotics: The patient does not require prophylactic antibiotics. Prior Anticoagulants: The patient has taken no anticoagulant or antiplatelet agents. After reviewing the risks and benefits, the patient was deemed in satisfactory condition to undergo the procedure. The anesthesia plan was to use monitored anesthesia care (MAC). Immediately prior to administration of medications, the patient was re-assessed for adequacy to receive sedatives. The heart rate, respiratory rate, oxygen saturations, blood pressure, adequacy of pulmonary ventilation, and response to care were monitored throughout the procedure. The physical status of the patient was re-assessed after the procedure. After obtaining informed consent, the endoscope was passed under direct vision. Throughout the procedure, the patient's blood pressure, pulse, and oxygen saturations were monitored continuously. The Colonoscope was introduced through the anus and advanced to the splenic flexure. The flexible sigmoidoscopy was accomplished without difficulty. The patient tolerated the procedure well. The quality of the bowel preparation was good. Scope In: 7:54:24 AM Scope Out: 8:20:04 AM Total Procedure Duration Time 0 hours 25 minutes 40 seconds Findings: The perianal exam findings include perianal fistula. The digital rectal exam findings include anal stricture. A 5 mm scar was found at the anus. A benign-appearing, intrinsic severe stenosis measuring 4 cm (in length) x 5 mm (inner diameter) was found at the anus and was traversed after dilation. A guidewire was placed and the scope was withdrawn. Dilation was performed with a Savary dilator with no resistance at 45 Fr. The dilation site was examined following endoscope reinsertion and showed moderate improvement in luminal narrowing. Coagulation for tissue destruction using argon plasma at 0.9 liters/minute and 15 davis was successful. Area was successfully injected with 100 units botulinum toxin. 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 - Anal stricture found on digital rectal exam. - Scar at the anus. - Stricture at the anus. Dilated. Treated with argon plasma coagulation (APC). Injected with botulinum toxin. - No specimens collected. Recommendation: - Use Benefiber Chewable one tablet PO BID. Procedure Code(s): --- Professional --- 35001, Sigmoidoscopy, flexible; with ablation of tumor(s), polyp(s), or other lesion(s) (includes pre- and post-dilation and guide wire passage, when performed) 28322, Sigmoidoscopy, flexible; with directed submucosal injection(s), any substance CPT copyright 2021 [employer]. All rights reserved. The codes documented in this report are preliminary and upon transcript evaluator review may be revised to meet current compliance requirements. Berry Zaidi DO 01/02/2024 8:35:43 AM This report has been signed electronically. Number of Addenda: 0 Note Initiated On: 01/02/2024 7:37 AM
[2024-01-02 08:39] VITALS: BP 110/62; BP 93/51; PULSE 69; RESP 16; TEMP 36.4; O2SAT 100
[2024-01-02 09:21] VITALS: BP 110/62
== END 2024-01-02 09:22 | disposition home or self-care (01) ==
LOC: EN 06:28 → AC 06:29
PROVIDERS: PCP Family Medicine; Referring Provider Family Medicine; Visit Provider Internal Medicine Gastroenterology
PROC: 0DJD8ZZ Inspection of Lower Intestinal Tract, Via Natural or Artificial Opening Endoscopic (ICD-10-PCS; CPT 45330; principal; 2024-01-02 07:25)
DX: K62.4 Stenosis of anus and rectum (principal); G20.A1 Parkinson's disease without dyskinesia, without mention of fluctuations; Z85.048 Personal history of other malignant neoplasm of rectum, rectosigmoid junction, and anus; K60.3 Anal fistula; K62.89 Other specified diseases of anus and rectum; F41.9 Anxiety disorder, unspecified; Z79.899 Other long term (current) drug therapy
CPT/HCPCS: 45346; 45335; J7120; A4216; C1769; J0585; J2405; J3490

== ENCOUNTER → 2024-05-12 | Outpatient (CLI) | payer MEDICARE, SELFPAY ==
--- NOTE | 2024-05-12 06:58 | CT_ITS ---
INDICATION: Lung nodules EXAMINATION: CT CHEST WITH CONTRAST - CT Chest W/ Contrast Injection TECHNIQUE: Helically acquired images were obtained of the chest following IV contrast. A radiation dose optimization technique was used for this scan. IV Contrast dosage and agent: COMPARISON: 11/08/2023 FINDINGS: LUNGS, PLEURA AND LARGE AIRWAYS: Mild bilateral apical scarring. No change the 5 mm noncalcified nodule in the subpleural left upper lobe with lungs on image 35. No change in a 6 mm noncalcified nodule in the periphery of the left upper lobe the lungs on image 43 likely part of the scar. Interval decrease in the size of the nodule in the medial right upper lobe of the lungs on image 27 from 8 to 4 mm in diameter likely consistent with scar. No change in the 8 mm noncalcified nodule in the periphery of the right upper lobe lung zone image 28 likely part of the scar. No pleural effusion or thickening. No pneumothorax. THYROID: No thyroid lesions. HEART AND PERICARDIUM: Heart size is normal. No pericardial effusion. VESSELS: Thoracic aorta is not dilated. No aortic dissection. No obvious central pulmonary embolism although this study was not performed with the pulmonary embolism protocol. MEDIASTINUM AND ALEC: No mediastinal or hilar adenopathy. Esophagus is unremarkable. No hiatal hernia. UPPER ABDOMEN: No acute pathology. BONES: No suspicious lytic or blastic abnormality. CT/Chest WITH Contrast IMPRESSION: No change or improvement in bilateral upper lobe nodules felt to likely represent scarring or noncalcified granulomata. Follow-up CT is recommended in 6 months to document further stability based on lung rads criteria. Electronically Signed: Fransisco Mix MD at 13:03 EDT ,
[2024-05-12 07:26] LABS: CREATININE FINGERSTICK < 1.0 mg/dL (0.55-1.02); EGFR FINGERSTICK > 60.0000 mL/min (>60)
== END | disposition home or self-care (01) ==
LOC: CT 06:55
PROVIDERS: PCP Family Medicine; Referring Provider Nurse Practitioner Family; Visit Provider Nurse Practitioner Family
DX: R91.8 Other nonspecific abnormal finding of lung field (principal)
CPT/HCPCS: 71260; Q9967

== ENCOUNTER → 2024-06-20 | Outpatient (CLI) | payer MEDICARE, SELFPAY ==
--- NOTE | 2024-06-20 09:52 | VDLE_ITS ---
Reason For Study: Bilateral leg pain RIGHT LEFT GSV is normal. GSV is normal. CFV is compressible, spontaneous, phasic, CFV is compressible, spontaneous, phasic, competent and demonstrates normal competent, and demonstrates normal augmentation. augmentation. FV is compressible, spontaneous, phasic, FV is compressible, spontaneous, phasic, competent and demonstrates normal competent and demonstrates normal augmentation. augmentation. POP V is compressible, spontaneous, phasic, POP V is compressible, spontaneous, phasic, competent and demonstrates normal competent and demonstrates normal augmentation. augmentation. T/P Trunk is compressible. T/P Trunk is compressible. PTV is compressible. PTV is compressible. RT PerV is compressible. LT PerV is compressible. Procedure This is a venous duplex using B-mode, color flow and spectral Doppler. Exam performed in department. VL/Venous Duplex US - Huseyin Extrem Interpretation Summary Deep veins of the bilateral lower extremities are patent and compressible segme ntally. There is no evidence of bilateral lower extremity deep vein thrombosis. The bilateral great saphenous veins appear patent and compressible segmentally. Ordering Physician: Lonnie Golden Referring Physician: Vinicius Doran Performed By: Jelena Fox RVT
--- NOTE | 2024-06-20 09:52 | ART_ITS ---
Reason For Study: PVD Procedure A bilateral lower extremity continuous wave Doppler with analog waveform analysis,segmental pressures,and ankle brachial indexes without exercise. Left Segmental Pressures Left brachial= 91mmHg. Left posterior tibial artery = 97mmHg. Left dorsalis pedis artery = 100mmHg. Left digit = 0.97 mmHg. The left dorsalis pedis waveforms are triphasic. The left posterior tibial artery waveforms are triphasic. Right Segmental Pressures Right brachial= 93mmHg. Right posterior tibial artery = 104mmHg. Right dorsalis pedis artery = 94mmHg. Right digit = 80 mmHg. The right dorsalis pedis waveforms are triphasic. The right posterior tibial artery waveforms are triphasic. Indices The right ankle brachial index by the dorsalis pedis is 1.01. The right ankle brachial index by the posterior tibial artery is 1.12. The right digital-brachial index is 0.86. The left ankle brachial index by the dorsalis pedis is 1.08. The left ankle brachial index by the posterior tibial artery is 1.04. The left digital-brachial index is 0.97. VL/Lower Ext Art Exam w/o Exercis Interpretation Summary Right ALBA 1.12, normal. TBI and Doppler/PVR waveforms of the right leg normal a t rest. Left ALBA 1.08, normal. TBI and Doppler/PVR waveforms of the left leg normal at rest. Ordering Physician: Lonnie Golden Referring Physician: Vinicius Doran Performed By: Jelena Fox RVT
== END | disposition home or self-care (01) ==
LOC: CVS 09:50
PROVIDERS: PCP Family Medicine; Referring Provider Podiatrist Foot & Ankle Surgery; Visit Provider Podiatrist Foot & Ankle Surgery
DX: M79.604 Pain in right leg (principal); M79.605 Pain in left leg; I73.9 Peripheral vascular disease, unspecified
CPT/HCPCS: 93923; 93970

== ENCOUNTER → 2024-07-03 | Outpatient (CLI) | payer MEDICARE, SELFPAY ==
--- NOTE | 2024-07-03 12:07 | BI_ITS ---
MAMMOGRAPHY - BILATERAL SCREENING REASON FOR EXAM: Female, 79 years old. Routine annual screening examination. PERTINENT HISTORY: Non-contributory. TECHNIQUE: Digital bilateral breast geovanny (3D mammographic acquisition) in the CC and MLO projections. 2-D mediolateral oblique (MLO) and craniocaudad (CC) views of both breasts were obtained. CAD: Full Field Digital Mammography with Computer Added Detection was performed. COMPARISON: Comparison is made with prior study dated February 09, 2022 and January 07, 2020. FINDINGS: Breast Composition: The breasts are heterogeneously dense, which may obscure small masses. There are no dominant masses or suspicious calcifications. No other significant abnormalities are identified. There has been no significant change since the prior study. BI/SCRN MAMM (CAD)W/GEVOANNY BILAT IMPRESSION: Stable bilateral screening mammogram. Yearly follow-up mammogram recommended. (A) ASSESSMENT CATEGORY: BIRADS Category 1: Negative. A letter regarding these results will be sent to the patient by the facility within 30 days. Approximately 10% of breast cancers are not detected by mammography. A normal mammogram should not delay biopsy of a clinically suspicious abnormality. [id number] Electronically Signed: Gerald Mg MD at 13:17 EST ,
== END | disposition home or self-care (01) ==
LOC: OPBI 12:05
PROVIDERS: PCP Family Medicine; Referring Provider Family Medicine; Visit Provider Family Medicine
DX: Z12.31 Encounter for screening mammogram for malignant neoplasm of breast (principal)
CPT/HCPCS: 77063; 77067

== ENCOUNTER → 2024-10-17 | Outpatient (CLI) | payer MEDICARE, SELFPAY ==
--- NOTE | 2024-10-17 13:21 | CT_ITS ---
PROCEDURE: CT CHEST, ABD, PEL W/CONTRAST 10/17/2024 REASON FOR EXAM: ANAL CANCER Follow-up examination. History of prior chemotherapy and radiation therapy. TECHNIQUE: Chest, abdomen and pelvis CT with intravenous contrast. Coronal and Sagittal reconstruction series were provided. One or more dose reduction techniques were used (e.g., Automated exposure control, adjustment of the mA and/or kV according to patient size, use of iterative reconstruction technique. PATIENT PREPARATION: Per protocol ORAL CONTRAST TYPE: None. CONTRAST: Isovue-300 VOLUME: 75mL RADIATION DOSE SUMMARY: CTDlvol: 11.5 mGy DLP: 794.92 mGycm COMPARISON: Comparison is made with prior study dated May 12, 2024. FINDINGS: CT CHEST: Hardware: None Lymph nodes: Benign granulomatous calcifications. Heart and Vasculature: Coronary artery calcifications are noted. Lungs and Airways: Stable scattered calcified granulomas in both lungs. The previously seen spiculated nodule in the lateral aspect of the right upper lobe has decreased in size as seen on image number 36 it presently measures 4.3 mm. Stable scarring at the lung apices as well as at the lung bases slightly more prominent on the left side. Pleura: Unremarkable Bones: Multilevel intrapedicular screw and param fixation. CT ABDOMEN/PELVIS: Liver: Normal size. No mass. Gallbladder: No acute abnormality Spleen: Normal size. Pancreas: Diffuse fatty atrophy. Adrenals: Unremarkable Kidneys: Stable small bilateral renal cysts. Bladder: Unremarkable Reproductive Organs: Unremarkable Bowel: Colonic diverticulosis without diverticulitis. Lymph nodes: Unremarkable. Vasculature: Mild diffuse atherosclerotic calcifications are noted. Peritoneum / Retroperitoneum: Persistent soft tissue prominence/induration in the anal region. Bones: Multilevel fusion with intrapedicular screw and param fixation and prosthetic disc at the L4-L5 and L5-S1 levels. CT/CT Chest, Abd, Pel w/Contrast IMPRESSION: Interval improvement of the previously seen spiculated nodule in the right uppe r lobe. Otherwise unchanged. Reading Location: [place] [id number]
== END | disposition home or self-care (01) ==
LOC: CT 12:47
PROVIDERS: PCP Family Medicine; Referring Provider Internal Medicine Hematology & Oncology; Visit Provider Internal Medicine Hematology & Oncology
DX: C21.0 Malignant neoplasm of anus, unspecified (principal)
CPT/HCPCS: 71260; 74177; Q9967

== ENCOUNTER 2024-11-10 10:13 | Day surgery (SDC) | payer MEDICARE, SELFPAY ==
--- NOTE | 2024-11-06 13:29 | PAT.ANE_ITS ---
Pre-Assessment Diagnosis/Proposed Procedure Planned Operative Procedure(s): FLEX SIGMOID Anesthesia History Anesthesia History - rehabilitation case coordinator: Anesthesia History - rehabilitation case coordinator Hx Hospitalization No 11/06/24 11:57 Any Problems With Anesthesia No 11/06/24 11:57 Cholinesterase deficiency No 11/06/24 11:57 You/Your Family Experience No 11/06/24 11:57 fever (hyperthermia) with Relationship Recent Exposure to Contagious No 01/02/24 07:06 Disease Does patient have nerve No 11/06/24 11:57 stimulator Patient instructed to have device shut off --Does patient have Pacemaker or ICD? When Was Last Pacemaker Check QUESTION #4 FULL TEXT: You/Your Family Experience fever (hyperthermia) with Anesthesia Last Oral Intake Last Oral intake: Last Oral Intake NPO since Meds taken in AM with sips of water? Meds patient instructed to take am of surgery PONV PONV - rehabilitation case coordinator: PONV - rehabilitation case coordinator Female Yes 11/06/24 11:57 HX of Motion Sickness No 11/06/24 11:57 HX of N/V After Surgery No 11/06/24 11:57 Non-Smoker Yes 11/06/24 11:57 Duration of Surgery greater No 11/06/24 11:57 than 60 minutes Number of Risk Factors 2 11/06/24 11:57 PONV Score Moderate Risk 11/06/24 11:57 Height & Weight Height & Weight: Anesthesia: Height & Weight Height 4 ft 11 in 05/19/24 14:07 Respiratory Assessment Respiratory Assessment - rehabilitation case coordinator: Respiratory Tract Infection Hx - rehabilitation case coordinator Hx Respiratory Tract Infection No 11/06/24 11:57 STOP Sleep Apnea STOP Sleep Apnea - rehabilitation case coordinator: STOP Sleep Apnea - rehabilitation case coordinator Hx Hypertension No 11/06/24 11:57 Hx Sleep Apnea No 11/06/24 11:57 CPAP BIPAP Do you snore loudly (louder No 11/06/24 11:57 than talking or can be heard Do you often feel tired/ No 11/06/24 11:57 fatigued/ sleepy during daytime? Has anyone observed you stop No 11/06/24 11:57 breathing during sleep? STOP Results Negative 11/06/24 11:57 QUESTION #5 FULL TEXT : Do you snore loudly (louder than talking or can be heard through closed doors)? Tobacco Use History Tobacco Use History - rehabilitation case coordinator: Tobacco Use History - rehabilitation case coordinator Tobacco Use Non-smoker 03/14/22 15:04 Smoking Status Former smoker 11/06/24 11:57 Hx Tobacco Use No 11/06/24 11:57 Years Smoking Packs Smoked per Day Smoking Cessation Date was No - quit smoking greater 11/06/24 11:57 within the last 15 years than 15 years ago Hx Smoking Cessation Date 07/30/83 11/06/24 11:57 Hx Smoking Cessation Counseling Hematologic Medial History Hematologic Hx - rehabilitation case coordinator: Hematologic Medical Hx - student development advisor Hx of Blood Transfusion No 11/06/24 11:57 Hx of Transfusion in last 3 No 11/06/24 11:57 Months Date of Last Transfusion (if within last 3 months) Ever experience any problems No 11/06/24 11:57 with transfusion(s)? Specify any problems Hx of Preganancy in last 3 No 11/06/24 11:57 Months Nurse Filling Out Transfusion EHRUTH 11/06/24 11:57 & Questions: Date: 11/06/24 11/06/24 11:57 Time: 12:02 11/06/24 11:57 Patient unable to answer at this time (ie. confused, unrespo /Reproduction History /Reproductive History - rehabilitation case coordinator: /Reproductive Hx- rehabilitation case coordinator Hx Now Gestational Age (in weeks): EDC: Hx Hx Para Hx Section SAB No 08/08/24 12:13 PFSH Medical History (Updated 11/06/24 @ 12:01 by Gi Lizarraga) Hx of flexible sigmoidoscopy Cancer Lung nodule, multiple Wears hearing aid Depression Scoliosis Degenerative disc disease Parkinson's disease History of IBS History of needle biopsy Rectal cancer Chronic pain Osteoporosis Wears hearing aid in both ears Anemia Post-menopausal Anxiety Osteoporosis History of rectal bleeding Former smoker Mitral and aortic valve disease Restless legs Syncope Cataract H/o Laminectomy L2-5, fusion T11-S1, instrumentation local h/o anterior lumbar interbody fusion L4-5, L5-S1. Spinal stenosis Acute hemorrhoid Home Medications ?Medication ?Instructions ?Recorded ?Last Taken ?Type sertraline 50 mg tablet 25 mg PO BID 12/31/23 Unknow n History buspirone 10 mg tablet 10 mg PO TID #90 TABLETS Unknown Rx Allergy/AdvReac Type Severity Reaction Status Date / Time procaine HCl (From Novocain) Allergy Angioedema Verified 11/06/24 11:54 acetaminophen (From Vicodin) AdvReac Other Verified 11/06/24 11:54 alprazolam (From Xanax) AdvReac Other Verified 11/06/24 11:54 hydrocodone bitartrate (From AdvReac Other Verified 11/06/24 11:54 Vicodin) metaxalone (From Skelaxin) AdvReac Other Verified 11/06/24 11:54 nabumetone AdvReac Other Verified 11/06/24 11:54 Family History Mother Hypertension Cancer Skin cancer, at age 104 Father , at age: 88 emphysema Pneumonia Dementia Grandmother CVA (cerebral vascular accident) Surgical History Port-A-Cath in place History of cataract surgery History of bronchoscopy Hx of colonoscopy H/O spinal fusion History of tonsillectomy and adenoidectomy Social History household members: spouse housing: house Smoking Status: Former smoker pack-years: 8 Tobacco: How many years used: 10 alcohol intake: never substance use type: does not use what type of physical activity do you participate in: none marialuisa/taoism: Scientologist seatbelt use: always do you feel safe at home: Yes Audit: Pertinent Findings Pertinent Findings EKG Perinent findings: 02/16/2021. Sinus rhythm with PACs Recommendation Anesthesia Recommendation Anesthesia recommendation: OPTIMIZED for anesthesia
[2024-11-10] VITALS (8 sets, daily range): BP systolic 88–105; BP diastolic 48–67; PULSE 64–74; RESP 16; TEMP 36.3–37; O2SAT 94–98; BMI 30.5
--- NOTE | 2024-11-10 11:06 | PRE.ANES_ITS ---
ASA Classification* ASA Classification ASA Classification: 3 Assessment & Plan Anesthesia* Anesthesia Assessment Anesthesia Assessment: Discussed sedation and/or anesthesia options, risks, benefits, and alternatives with patient/parents/legal guardian/POA. Questions invited. The patient/parents/legal guardian/POA seems to understand and agrees to proceed with anesthesia plan. Reviewed the physical assessment, medical history, allergy history and patient home medications list prior to surgery/procedure/anesthetic and documented any changes. Performed airway and anesthesia risk assessments. Anesthesia Type Anesthesia Type: MAC (Novacaine allergy) Anesthesia Focused Assessment* Temperature: 98 F Pulse Rate: 64 Blood Pressure: 105/67 Respiratory Rate: 16 Pulse Ox: 98 Airway Assessment Mouth opens: >3 cm Mallampati Score: II Focused Labs Anesthesia Preop lab: CBC WBC 5.2 K/mm3 (4.4-11.0) 05/19/24 13:43 05/19/24 RBC 4.23 M/mm3 (4.2-5.4) 05/19/24 13:43 05/19/24 Hgb 12.9 g/dL (12.0-15.0) 05/19/24 13:43 05/19/24 Hct 39.6 % (37-47) 05/19/24 13:43 05/19/24 Plt Count 147 K/mm3 (150-450) L 05/19/24 13:43 05/19/24 CHEMISTRY Potassium 3.6 mmol/L (3.5-5.1) 05/19/24 13:43 05/19/24 Sodium 140 mmol/L (136-145) 05/19/24 13:43 05/19/24 Magnesium 2.2 mg/dL (1.6-2.6) 08/06/23 13:05 08/06/23 Phosphorus 3.8 mg/dL (2.5-4.9) 08/06/23 13:05 08/06/23 BUN 17 mg/dL (7-18) 05/19/24 13:43 05/19/24 Creatinine 0.81 mg/dL (0.55-1.02) 05/19/24 13:43 05/19/24 Glucose 91 mg/dL (74-106) 05/19/24 13:43 05/19/24 TSH 2.09 uIU/mL (0.358-3.74) 01/12/22 11:17 COAG PT 12.8 SECONDS (11.7-14.9) 01/02/17 16:43 Pre-Assessment Diagnosis/Proposed Procedure Planned Operative Procedure(s): FLEX SIGMOID Anesthesia History 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 When Was Last Pacemaker Check QUESTION #4 FULL TEXT: You/Your Family Experience fever (hyperthermia) with Anesthesia Last Oral Intake Last Oral intake: Last Oral Intake NPO since 00:00 11/10/24 10:49 Meds taken in AM with sips of No 11/10/24 10:49 water? 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 Female Yes 11/06/24 11:57 HX of Motion Sickness No 11/06/24 11:57 HX of N/V After Surgery No 11/06/24 11:57 Non-Smoker Yes 11/06/24 11:57 Duration of Surgery greater No 11/06/24 11:57 than 60 minutes Number of Risk Factors 2 11/06/24 11:57 PONV Score Moderate Risk 11/06/24 11:57 Height & Weight Height & Weight: Anesthesia: Height & Weight Height 4 ft 6 in 11/10/24 10:49 Weight: 57.5 kg 11/10/24 10:49 Body Mass Index (BMI) 30.5 11/10/24 10:49 Respiratory Assessment Respiratory Assessment - slitting and shipping supervisor: Respiratory Tract Infection Hx - slitting and shipping supervisor Hx Respiratory Tract Infection No 11/06/24 11:57 STOP Sleep Apnea STOP Sleep Apnea - slitting and shipping supervisor: STOP Sleep Apnea - slitting and shipping supervisor Hx Hypertension No 11/06/24 11:57 Hx Sleep Apnea No 11/06/24 11:57 CPAP BIPAP Do you snore loudly (louder No 11/06/24 11:57 than talking or can be heard Do you often feel tired/ No 11/06/24 11:57 fatigued/ sleepy during daytime? Has anyone observed you stop No 11/06/24 11:57 breathing during sleep? STOP Results Negative 11/06/24 11:57 QUESTION #5 FULL TEXT : Do you snore loudly (louder than talking or can be heard through closed doors)? 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 Specify any problems Hx of Preganancy in last 3 No 11/06/24 11:57 Months Nurse Filling Out Transfusion [facility] 11/06/24 11:57 & Questions: Date: 11/06/24 11/06/24 11:57 Time: 12:02 11/06/24 11:57 Patient unable to answer at this time (ie. 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: /Reproductive Hx- slitting and shipping supervisor Hx Now Gestational Age (in weeks): EDC: Hx Hx Para Hx Section SAB No 08/08/24 12:13 PFSH Medical History Hx of flexible sigmoidoscopy Cancer Lung nodule, multiple Wears hearing aid Depression Scoliosis Degenerative disc disease Parkinson's disease History of IBS History of needle biopsy Rectal cancer Chronic pain Osteoporosis Wears hearing aid in both ears Anemia Post-menopausal Anxiety Osteoporosis History of rectal bleeding Former smoker Mitral and aortic valve disease Restless legs Syncope Cataract H/o Laminectomy L2-5, fusion T11-S1, instrumentation local h/o anterior lumbar interbody fusion L4-5, L5-S1. Spinal stenosis Acute hemorrhoid Home Medications ?Medication ?Instructions ?Recorded ?Last Taken ?Type sertraline 50 mg tablet 25 mg PO BID 12/31/23 Unknow n History buspirone 10 mg tablet 10 mg PO TID #90 TABLETS Unknown Rx Allergy/AdvReac Type Severity Reaction Status Date / Time procaine HCl (From Novocain) Allergy Angioedema Verified 11/10/24 10:49 alprazolam (From Xanax) AdvReac Other Verified 11/10/24 10:49 hydrocodone bitartrate (From AdvReac Other Verified 11/10/24 10:49 Vicodin) metaxalone (From Skelaxin) AdvReac Other Verified 11/10/24 10:49 nabumetone AdvReac Other Verified 11/10/24 10:49 Family History Mother Hypertension Cancer Skin cancer, at age 104 Father , at age: 88 emphysema Pneumonia Dementia Grandmother CVA (cerebral vascular accident) Surgical History Port-A-Cath in place History of cataract surgery History of bronchoscopy Hx of colonoscopy H/O spinal fusion History of tonsillectomy and adenoidectomy Social History household members: spouse housing: house Smoking Status: Former smoker pack-years: 8 Tobacco: How many years used: 10 alcohol intake: never substance use type: does not use what type of physical activity do you participate in: none marialuisa/temple: Sabianist seatbelt use: always do you feel safe at home: Yes Review of Systems (Anesthesia) ROS Narrative System reviewed and no additional complaints, except as documented.
--- NOTE | 2024-11-10 12:16 | PCM.HP.STD ---
HPI - General General Date of Admission: 11/10/24 Date of Service: 11/10/24 Chief Complaint: anal stricture HPI Narrative KALPANA LION, is a 79 F who presents today for treatment of anal stricture. *I established 12.05.21 with referral from oncologist for anal cancer. 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 Treated with radiation 01.12.21-02.25.21 and one cycle of Mitomycin 02.07.21. She was admitted to hospice services at a [facility], but recovered enough she was able to be discharged from hospice and LTC[facility] services to home. Colonoscopy 01.13.22 perianal skin tags; patent end-to-end colo-anal anastomosis characterized by congestion, edema, erythema, friable mucosa and severe stenosis, dilated to 36F; sigmoid diverticulosis; 5mm TA polyp in ascending colon. OV 57..22 fiber and Colace caused increased BM frequency which she found frustrating. Sigmoidoscopy 04.19.22 non-patent end-to-end colo-anal anastomosis at anus with severe stenosis, dilated to 48F with resolution, triamcinolone injected, APC. No specimens collected. OV 11 She was doing very well following her sigmoidoscopy; with dilation and use of fiber and stool softeners she was having normal-like formed stools. However recently she has been having difficulty with a narrowing of the stools and they continue to be soft. ? Sigmoidoscopy .10.19 severe anal stenosis 4mm diameter, Savary dilator 45F with complete resolution, Botox injected. OV 5.23 Feels she is doing well at this time. Stools are very soft usually 1-2/day with occasional 3/day and are sometimes urgent/uncontrollable and occasionally she does not have BM sensation. Rectal pain r/t hemorrhoid. She is not taking any bowel regimen medications; fiber increased her BM frequency. ? Biochemical RAST without pertinent abnormality. ? Gastric emptying study 01.12.23 15.27 minutes ? SITZ 6.2023 no remaining rings Contact 01.15.23 recommending anti-dumping diet. OV 03.26.23 Stooling frequency has reduced to 2+ loose stools per day with intermittent preceding abdominal cramping; her concern is that she is still restricting lifestyle/going out because of worry about having incontinence. Continues with anti-dumping diet. She is not currently taking fiber supplement, Imodium or other bowel medications. OV 12.21.23 pt reports that she continues to have several loose bm per day, including nocturnal fecal incontinence. Pt reports that she is no longer following the anti-dumping diet because she did not see any results. Pt reports that she continues with buspirone. 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 Anal stricture found on digital rectal exam. Scar at the anus. Stricture at the anus. Dilated. Treated with plasma coagulation (APC). Injected with botulinum toxin. No specimens collected. OV 06.11.24 Pt reports that she does not think the botox after her sigmoidoscopy helped. Pt reports she began drinking Kefir last week and stopped having diarrhea until yesterday. [facility], [facility] Medical History Hx of flexible sigmoidoscopy Cancer Lung nodule, multiple Wears hearing aid Depression Scoliosis Degenerative disc disease Parkinson's disease History of IBS History of needle biopsy Rectal cancer Chronic pain Osteoporosis Wears hearing aid in both ears Anemia Post-menopausal Anxiety Osteoporosis History of rectal bleeding Former smoker Mitral and aortic valve disease Restless legs Syncope Cataract H/o Laminectomy L2-5, fusion T11-S1, instrumentation local h/o anterior lumbar interbody fusion L4-5, L5-S1. Spinal stenosis Acute hemorrhoid Home Medications ?Medication ?Instructions ?Recorded ?Last Taken ?Type sertraline 50 mg tablet 25 mg PO BID 12/31/23 Unknown History buspirone 10 mg tablet 10 mg PO TID #90 TABLETS 09/17/24 Unknown Rx Allergy/AdvReac Type Severity Reaction Status Date / Time procaine HCl (From Novocain) Allergy Angioedema Verified 11/10/24 10:49 alprazolam (From Xanax) AdvReac Other Verified 11/10/24 10:49 hydrocodone bitartrate (From AdvReac Other Verified 11/10/24 10:49 Vicodin) metaxalone (From Skelaxin) AdvReac Other Verified 11/10/24 10:49 nabumetone AdvReac Other Verified 11/10/24 10:49 Family History Mother Hypertension Cancer Skin cancer, at age 104 Father , at age: 88 emphysema Pneumonia Dementia Grandmother CVA (cerebral vascular accident) Surgical History Port-A-Cath in place History of cataract surgery History of bronchoscopy Hx of colonoscopy H/O spinal fusion History of tonsillectomy and adenoidectomy Social History household members: spouse housing: house Smoking Status: Former smoker pack-years: 8 Tobacco: How many years used: 10 alcohol intake: never substance use type: does not use what type of physical activity do you participate in: none marialuisa/church: Yazdanism seatbelt use: always do you feel safe at home: Yes ROS Constitutional Constitutional: Denies fatigue, fever(s), poor appetite, weight gain or weight loss Gastrointestinal Gastrointestinal: Denies belching, bloating, change in bowel habits, change in stool character, chewing difficulty, coffee ground emesis, constipation, cramping, diarrhea, dyspepsia, dysphagia, early satiety, excessive flatus, fecal incontinence, heartburn, hematemesis, hematochezia, hemorrhoids, loose stools, melena, nausea, odynophagia, rectal bleeding, tenesmus, vomiting or weight changes Vital Signs Vital Signs Vital Signs: 11/10/24 10:49 11/10/24 10:49 11/10/24 11:07 Temperature 98 F 98 F Temperature Source Temporal Pulse Rate 64 64 Respiratory Rate 16 16 Respiratory Pattern Normal Blood Pressure 105/67 105/67 Blood Pressure Mean 79 Blood Pressure Source Monitor Blood Pressure Position Semi-Fowlers Blood Pressure Location Right Arm Pulse Ox 98 98 Oxygen Delivery Method Room Air Weight Weight: 126 lb 12.253 oz Body Mass Index (BMI) 30.5 Physical Exam Narrative ECOG 2, hard of hearing, seen with a caregiver Const alert and oriented x3 General Appearance: cooperative and frail; Negative for in distress HEENT normocephalic Face and Sinus: normal facial exam Mouth: oral and palatal mucosa normal Eyes conjunctivae normal and no scleral icterus Neck no lymphadenopathy, supple and no JVD Lymph Lymphatic: no lymphadenopathy noted Chest Chest: symmetrical chest wall rise Resp clear to auscultation bilaterally Cardio regular rate, regular rhythm, S1 normal heart sound and S2 normal heart sound Jugular Venous Distention: Negative for JVD GI soft to palpation, non-tender and non-distended; Negative for hepatosplenomegaly Back/Spine no thoracic nor lumbar tenderness Extremity no clubbing, cyanosis or edema Skin no rashes or lesions noted Neuro CN's II-XII intact bilaterally and moves all extremities Coordination / Balance: [id number] test normal Speech: speech normal Gait (Neuro): normal gait and assistive device used cane Psych cooperative and affect normal Assessment & Plan Assessment/Plan (1) Stricture of anal canal: (2) Frequent stools: (3) Anal stenosis: PLAN: Assessment and Plan Assessment and Plan (1) Stricture of anal canal: Status: Acute (2) Frequent stools: Status: Chronic Plan: Since she is having some increase accelerated gastrocolic reflex. We will need to get a gastric emptying study. We will also need to get a sits marker test. I will likely need to put on pancreatic enzymes for exocrine pancreatic insufficiency. We will hold off on that for now. I will get food allergy testing. Once I have more information then I will be able to hopefully help her with what sounds like overflow incontinence or accelerated gastrocolic reflex. (3) History of anal cancer: Status: Chronic (4) Anal stenosis: Status: Chronic Plan: Anal stenosis status post dilation with 33 Vietnamese savory dilators. She was able to be dilated up to a 39 Vietnamese savory dilator. She does have anal stenosis. We will schedule her for Botox injection for her anal fissure and possibly steroid therapy to relax the anal sphincter status post radiation therapy and surgery for anal cancer. There has been no sign of recurrence since her last procedure. Risk and benefits of Botox a steroid therapy along with dilation were explained to the patient and her sand conditioner who is with her. We strict diet that she is to take along with approximately 30 g of fiber and a stool softener. (5) Anal cancer: Status: Chronic
[2024-11-10] MEDS: 0.9% Normal Saline (Pres. free 10 ML Vial (12:38)
[2024-11-10] MEDS: Botulinum Toxin A 100 Units Vial IJ (12:38)
--- NOTE | 2024-11-10 13:07 | OP.CCLET_ITS ---
11/10/2024 Vinicius Doran Md Re : Flexible Sigmoidoscopy procedure for Dolores Kovacscrystal Doran This procedure was performed on Sunday, November 10, 2024. My impressions and recommendations are as follows: Impressions : - Preparation of the colon was fair. - Anal stricture found on digital exam. - Stricture at the anus and in the rectum. Dilated. - Stricture at the anus. Injected with botulinum toxin. - Stricture at the anus and in the rectum. Treated with argon plasma coagulation (APC). - No specimens collected. Recommendations : - Use fiber, for example Citrucel, Fibercon, Konsyl or Metamucil. My findings are described in the full procedure note, which is enclosed. If I can be of further assistance, please feel free to contact me at . Sincerely, Berry Zaidi, 11/10/2024 1:06:40 PM This report has been signed electronically.
--- NOTE | 2024-11-10 13:07 | OP.FLEXSIG_ITS ---
Patient Name: Dolores Arthur Procedure Date: 11/10/2024 12:20 PM Date of : 1945 Age: 79 Procedure: Flexible Sigmoidoscopy Indications: Lower abdominal pain Providers: Berry Zaidi DO Referring MD: Vinicius Doran Md Medicines: Monitored Anesthesia Care Patient Profile: This is a 79 year old female. Refer to note in patient chart for documentation of history and physical. Last Colonoscopy: more than 3 years ago. Complications: No immediate complications. Procedure: Pre-Anesthesia Assessment: - Prior to the procedure, a History and Physical was performed, and patient medications and allergies were reviewed. The patient is competent. The risks and benefits of the procedure and the sedation options and risks were discussed with the patient. All questions were answered and informed consent was obtained. Patient identification and proposed procedure were verified by the physician in the pre-procedure area. Mental Status Examination: alert and oriented. Airway Examination: normal oropharyngeal airway and neck mobility. Respiratory Examination: clear to auscultation. CV Examination: normal. Prophylactic Antibiotics: The patient does not require prophylactic antibiotics. Prior Anticoagulants: The patient has taken no anticoagulant or antiplatelet agents except for NSAID medication. ASA Grade Assessment: II - A patient with mild systemic disease. After reviewing the risks and benefits, the patient was deemed in satisfactory condition to undergo the procedure. The anesthesia plan was to use monitored anesthesia care (MAC). Immediately prior to administration of medications, the patient was re-assessed for adequacy to receive sedatives. The heart rate, respiratory rate, oxygen saturations, blood pressure, adequacy of pulmonary ventilation, and response to care were monitored throughout the procedure. The physical status of the patient was re-assessed after the procedure. After obtaining informed consent, the endoscope was passed under direct vision. Throughout the procedure, the patient's blood pressure, pulse, and oxygen saturations were monitored continuously. The Colonoscope was introduced through the anus and advanced to the splenic flexure. The flexible sigmoidoscopy was accomplished without difficulty. The patient tolerated the procedure well. The quality of the bowel preparation was fair. Scope In: 12:34:53 PM Scope Out: 12:57:11 PM Total Procedure Duration Time 0 hours 22 minutes 18 seconds Findings: The digital exam findings include anal stricture. A benign-appearing, intrinsic severe stenosis measuring 3 cm (in length) x 4 mm (inner diameter) was found at the anus and in the rectum and was traversed after dilation. A guidewire was placed and the scope was withdrawn. Dilation was performed with a Savary dilator with no resistance at 45 Fr. The dilation site was examined following endoscope reinsertion and showed moderate mucosal disruption. A benign-appearing, intrinsic severe stenosis measuring 2 cm (in length) x 2 mm (inner diameter) was found at the anus and was non-traversed. Area was successfully injected with 100 units botulinum toxin. A benign-appearing, intrinsic severe stenosis measuring 5 cm (in length) was found at the anus and in the rectum and was traversed after dilation. Coagulation for tissue destruction using argon plasma at 0.3 liters/minute and 20 davis was successful. Estimated blood loss was minimal. Impression: - Preparation of the colon was fair. - Anal stricture found on digital exam. - Stricture at the anus and in the rectum. Dilated. - Stricture at the anus. Injected with botulinum toxin. - Stricture at the anus and in the rectum. Treated with argon plasma coagulation (APC). - No specimens collected. Recommendation: - Use fiber, for example Citrucel, Fibercon, Konsyl or Metamucil. Procedure Code(s): --- Professional --- 20338, Sigmoidoscopy, flexible; with ablation of tumor(s), polyp(s), or other lesion(s) (includes pre- and post-dilation and guide wire passage, when performed) 98723, Sigmoidoscopy, flexible; with directed submucosal injection(s), any substance 58708, Unlisted procedure, anus 02442, Unlisted procedure, rectum CPT copyright 2021 [employer]. All rights reserved. The codes documented in this report are preliminary and upon tap puller review may be revised to meet current compliance requirements. Berry Zaidi DO 11/10/2024 1:06:40 PM This report has been signed electronically. Number of Addenda: 0 Note Initiated On: 11/10/2024 12:20 PM
--- NOTE | 2024-11-10 13:07 | PCM.POST.ANE ---
Anesthesia: Postop Eval I Current Vital Signs Temperature: 98.6 F Pulse Rate: 70 Blood Pressure: 90/57 Respiratory Rate: 16 Pulse Ox: 96 Oxygen Delivery Method: Room Air Assessment Airway patent: Yes Spontaneous unlabored respirations: Yes Mental status: Asleep nausea: No Vomiting: No Anesthesia Complication: No Fluid Hydration Crystalloid volume administer (ml): 60 Total IV fluid infused: 60 Progress Note Anesthesia document: Postop Eval 1 completed: Yes
--- NOTE | 2024-11-10 13:13 | PCM.POSTANE2 ---
Anesthesia Postop Eval I Sum Postop Eval Completion status Anesthesia document: Postop Eval 1 completed: Yes Anesthesia Postop Eval I Summary Anesthesia Postop Eval I Summary: Anesthesia Postop Eval I: Assessment Summary Airway patent Yes 11/10/24 13:08 [email or web address] Spontaneous unlabored Yes 11/10/24 13:08 [email or web address] respirations Mental status Asleep 11/10/24 13:08 [email or web address] nausea No 11/10/24 13:08 [email or web address] Vomiting No 11/10/24 13:08 [email or web address] Anesthesia Postop Eval I: Fluid Summary Crystalloid volume administer 60 11/10/24 13:08 [email or web address] (ml) Colloids volume administered ( ml) Blood Product volume administered (ml) Total IV fluid infused 60 11/10/24 13:08 [email or web address] Anesthesia Postop Eval I: Summary Notes Anesthesia Complication No 11/10/24 13:08 [email or web address] Anesthesia Complication Comment: Post-operative progress note Anesthesia: Postop Eval II Evaluation Mental status: Awake Pain Level: 0 nausea: No Vomiting: No
== END 2024-11-10 13:51 | disposition home or self-care (01) ==
LOC: EN 10:14 → AC 10:21
PROVIDERS: PCP Family Medicine; Referring Provider Family Medicine; Visit Provider Internal Medicine Gastroenterology
PROC: 0DJD8ZZ Inspection of Lower Intestinal Tract, Via Natural or Artificial Opening Endoscopic (ICD-10-PCS; CPT 45330; principal; 2024-11-10 12:10)
DX: K62.4 Stenosis of anus and rectum (principal); C21.0 Malignant neoplasm of anus, unspecified; Z87.891 Personal history of nicotine dependence; K62.7 Radiation proctitis; K60.2 Anal fissure, unspecified; R15.9 Full incontinence of feces; K91.89 Other postprocedural complications and disorders of digestive system
CPT/HCPCS: 45346; 45335; A4216; C1769; J0585; J2405

== ENCOUNTER → 2024-11-25 | Outpatient (CLI) | payer MEDICARE, SELFPAY ==
--- NOTE | 2024-11-25 12:45 | VDLE_ITS ---
Reason For Study Reason For Study: SWELLING RIGHT LEFT GSV is normal. GSV is normal. CFV is compressible, spontaneous, phasic, competent CFV is compressible, spontaneous, phasic, competent, and demonstrates normal augmentation. and demonstrates normal augmentation. FV is compressible, spontaneous, phasic, competent FV is compressible, spontaneous, phasic, competent and demonstrates normal augmentation. and demonstrates normal augmentation. POP V is compressible, spontaneous, phasic, competent POP V is compressible, spontaneous, phasic, competent and demonstrates normal augmentation. and demonstrates normal augmentation. T/P Trunk is compressible. T/P Trunk is compressible. PTV is compressible. PTV is compressible. RT PerV is compressible. LT PerV is compressible. Procedure This is a venous duplex using B-mode, color flow and spectral Doppler. Exam performed in department. The study was technically difficult. A preliminary report was called and/or faxed to Dr. Golden @ [phone] @ 13:30. VL/Venous Duplex US - Huseyin Extrem Interpretation Summary Deep veins of the lower extremities are bilaterally patent and compressible seg mentally. There is no evidence of deep vein thrombosis on either side. Valvular competence appears intact within the p roximal deep venous systems bilaterally. The great saphenous veins appear bilaterally patent and compressible segmentall y. Ordering Physician: Lonnie Golden Referring Physician: Vinicius Doran Performed By: Renee Avitia, RDCS, RVT
== END | disposition home or self-care (01) ==
LOC: CVS 12:43
PROVIDERS: PCP Family Medicine; Referring Provider Podiatrist Foot & Ankle Surgery; Visit Provider Podiatrist Foot & Ankle Surgery
DX: I82.409 Acute embolism and thrombosis of unspecified deep veins of unspecified lower extremity (principal); M79.89 Other specified soft tissue disorders
CPT/HCPCS: 93970

== ENCOUNTER → 2024-12-09 | Outpatient (CLI) | payer MEDICARE, SELFPAY ==
--- NOTE | 2024-12-09 08:15 | RAD_ITS ---
PROCEDURE: ABDOMEN SINGLE VIEW 12/09/2024 REASON FOR EXAM: BOWEL URGENCY TECHNIQUE: Single view abdomen. COMPARISON: None FINDINGS: There is hardware present in the lower thoracic in the lumbar region extending into the upper sacrum. Gas and stool is noted throughout the colon which appears moderately distended. There are no distended small bowel loops or air-fluid levels. Surgical clips and radiopaque densities are noted in the left pelvis. Circumscribed calcifications are present in the left upper quadrant which may represent granulomas. RAD/Abdomen Single View IMPRESSION: There is moderate colonic distention consistent with constipation. Reading Location: [id number]
== END | disposition home or self-care (01) ==
PROVIDERS: PCP Family Medicine
DX: K62.4 Stenosis of anus and rectum (principal); K59.00 Constipation, unspecified
CPT/HCPCS: 74018

== ENCOUNTER → 2024-12-18 | Outpatient (CLI) | payer MEDICARE, SELFPAY ==
--- NOTE | 2024-12-18 09:05 | RAD_ITS ---
PROCEDURE: ABDOMEN SINGLE VIEW 12/18/2024 REASON FOR EXAM: CONSTIPATION TECHNIQUE: Single view abdomen. FINDINGS: Some gas and stool is seen in the transverse and descending left colon without significant appearing fecal load. No evidence of fecal impaction identified. There is a dilated appearing loop of small bowel in the right lower quadrant measuring around 4.2 cm which may represent focal ileus with a partial or developing obstructive process not entirely excluded, clinically correlate. Spinal fixation rods, hardware again noted with apparent L5-S1 and L4-5 intervertebral spacers again seen. Visualized lung bases appear clear. RAD/Abdomen Single View IMPRESSION: There is a dilated appearing loop of small bowel in the right lower quadrant me asuring around 4.2 cm which may represent focal ileus with a partial or developing obstructive process not entirely excluded, c linically correlate. Some gas and stool is seen in the transverse and descending left colon without significant appearing fecal load. No evidence of fecal impaction identified. Reading Location: [id number]
== END | disposition home or self-care (01) ==
LOC: RAD 09:01
PROVIDERS: PCP Family Medicine
DX: K59.00 Constipation, unspecified (principal)
CPT/HCPCS: 74018

== ENCOUNTER → 2025-01-12 | Outpatient (CLI) | payer MEDICARE, SELFPAY ==
--- NOTE | 2025-01-12 12:26 | CT_ITS ---
PROCEDURE: ABDOMEN/PELVIS WITH CONTRAST 01/12/2025 REASON FOR EXAM: SUSPECTED ILEUS V PARTIAL OBSTRUCTION ON XRAY. History of anal cancer, chemo and radiation. TECHNIQUE: ABDOMEN/PELVIS WITH CONTRAST. Coronal and Sagittal reconstruction series were provided. ORAL CONTRAST: Yes CONTRAST: Isovue-300 VOLUME: 75 mL One or more dose reduction techniques were used (e.g., Automated exposure control, adjustment of the mA and/or kV according to patient size, use of iterative reconstruction technique. RADIATION DOSE SUMMARY: CTDlvol: 25.90 mGy DLP: 614.59 mGycm COMPARISON: CT chest abdomen and pelvis with contrast, 10/17/2024. FINDINGS: Note: Numerous images are degraded by artifact from the patient's thoracolumbar spinal fusion. Lung bases: There is scarring or atelectasis in the posterior basilar segments of both lower lobes. There are no pleural effusions. The heart size is normal. There is a minimal pericardial effusion. There is calcific vascular disease of the coronary arteries. Liver: Normal. Gallbladder: Normal. Spleen: Normal. Pancreas: Normal. Adrenals: Normal. Kidneys: Bladder: There is air in the urinary bladder consistent with recent instrumentation. Reproductive Organs: The uterus and ovaries are unremarkable. There is no free fluid in the pelvis. There is no pelvic or inguinal lymphadenopathy. Bowel: The colon is fluid-filled consistent with a nonspecific colitis. There is colonic diverticulosis without diverticulitis. The cecum is on the right lateral aspect of the liver, and displaces it posteriorly into the left. There is a staple line at the anorectal junction and there is stable increased attenuation of the Rylee anal fat consistent with history of radiation. Appendix: Not seen. Lymph nodes: There is no mesenteric or retroperitoneal lymphadenopathy identified. Vasculature: Unremarkable. Abdominal wall: There are no abdominal wall defects. Musculoskeletal: There is posterior interbody fusion, T11 through S1. There is mild multilevel degenerative disc disease of the visualized thoracic spine. There is mild levoscoliosis of the lumbar spine. CT/Abdomen/Pelvis WITH Contrast IMPRESSION: 1. The colon is fluid-filled consistent with a nonspecific colitis. 2. There is no evidence of bowel obstruction. 3. Stable changes of surgery and radiation at the anorectal junction in the pe rianal soft tissues. 4. Other findings as noted. The appearance of the bowel is not significantly changed compared with the prior exam. Reading Location: [id number]
== END | disposition home or self-care (01) ==
LOC: CT 12:24
PROVIDERS: PCP Family Medicine
DX: R19.7 Diarrhea, unspecified (principal)
CPT/HCPCS: 74177; Q9967

== ENCOUNTER → 2025-02-06 | Outpatient (CLI) | payer MEDICARE, SELFPAY ==
[2025-02-09 15:08] LABS: Immunoglobulin A 291 mg/dL (64-422)
== END | disposition home or self-care (01) ==
LOC: LABSPEC 15:22
PROVIDERS: PCP Family Medicine
DX: K52.9 Noninfective gastroenteritis and colitis, unspecified (principal)
CPT/HCPCS: 36415; 82784; 83516; 86255

== ENCOUNTER → 2025-02-10 | Outpatient (CLI) | payer MEDICARE, SELFPAY ==
[2025-02-12 02:07] LABS: Pancreatic Elastase, Fecal 350 (>200)
[2025-02-12 08:32] LABS: Calprotectin, Stool 51 ug/g (0-120)
== END | disposition home or self-care (01) ==
LOC: LABSPEC 12:16
PROVIDERS: PCP Family Medicine
DX: R19.7 Diarrhea, unspecified (principal); Z85.048 Personal history of other malignant neoplasm of rectum, rectosigmoid junction, and anus
CPT/HCPCS: 82653; 83993

== ENCOUNTER → 2025-06-23 | Outpatient (CLI) | payer MEDICARE, SELFPAY ==
--- NOTE | 2025-06-23 08:22 | CT_ITS ---
EXAM: CT Abdomen and Pelvis With Intravenous Contrast CLINICAL INDICATION: REPEAT IMAGING TECHNIQUE: Axial computed tomography images of the abdomen and pelvis with intravenous contrast. This CT exam was performed using one or more of the following dose reduction techniques: automated exposure control, adjustment of the mA and/or kV according to patient size, and/or use of iterative reconstruction technique. CONTRAST: 75 Isovue-300 RADIATION DOSE: CTDIvol = 10.0 mGy, DLP = 501.3 mGy-cm COMPARISON: CT chest, abdomen and pelvis 10/17/2024; CT abdomen and pelvis 01/12/2025 FINDINGS: LUNG BASES: Unremarkable. No mass. No consolidation. PLEURAL SPACE: Lung emphysema. Small left pleural effusion. ABDOMEN: LIVER: Hepatomegaly with fatty infiltration. GALLBLADDER AND BILE DUCTS: Unremarkable. No calcified stones. No ductal dilation. PANCREAS: Unremarkable. No mass. No ductal dilation. SPLEEN: Unremarkable. No splenomegaly. ADRENALS: Unremarkable. No mass. KIDNEYS AND URETERS: Bilateral renal cysts, stable. No hydronephrosis. STOMACH AND BOWEL: Fecal retention in the colon consistent with constipation. Re-demonstration of surgical and radiation changes at the anorectal junction in the perianal soft tissue, unchanged. No obstruction. No mucosal thickening. PELVIS: APPENDIX: No findings to suggest acute appendicitis. BLADDER: Unremarkable. No mass. REPRODUCTIVE: Unremarkable as visualized. ABDOMEN and PELVIS: INTRAPERITONEAL SPACE: Unremarkable. No free air. No significant fluid collection. BONES/JOINTS: Stable posterior fusion of the thoracolumbar spine. No acute fracture. No dislocation. SOFT TISSUES: See above. VASCULATURE: Unremarkable. No abdominal aortic aneurysm. LYMPH NODES: Unremarkable. No enlarged lymph nodes. CT/Abdomen/Pelvis WITH Contrast IMPRESSION: 1. Hepatomegaly with fatty infiltration. 2. Fecal retention in the colon consistent with constipation. 3. Re-demonstration of surgical and radiation changes at the anorectal junctio n in the perianal soft tissue, unchanged. 4. No significant change from the prior exam. Reading Location: [id number]
== END | disposition home or self-care (01) ==
LOC: CT 08:20
PROVIDERS: PCP Family Medicine; Referring Provider Internal Medicine Gastroenterology; Visit Provider Internal Medicine Gastroenterology
DX: K62.4 Stenosis of anus and rectum (principal); K59.04 Chronic idiopathic constipation; R19.7 Diarrhea, unspecified; R52 Pain, unspecified
CPT/HCPCS: 74177; Q9967